=== PATIENT | male | born 1965 | race Caucasian/White ===

== ENCOUNTER 2017-05-13 19:26 | Inpatient (IN) | payer BC, OTHER ==
[~2017-05-13] VITALS: Ht 172.7 cm; Wt 105.8 kg
[2017-05-13] MEDS ORDERED: SOD CHLORIDE 0.9% 500 ML IV STA (20:11)
[2017-05-13 20:32] LABS: ADD SCAN DIFF NO
[2017-05-13 20:34] LABS: ABNORMAL IP MESSAGE 1; HEMATOCRIT 12.8 % (42.0-52.0); MEAN CORPUSCULAR HEMOGLOBIN 38.9 pg (29.0-33.0); MEAN CORPUSCULAR HGB CONC 32.8 g/dl (32.0-37.0); MEAN CORPUSCULAR VOLUME 118.5 fl (82.0-101.0); MEAN PLATELET VOLUME 9.8 fl (7.4-10.4); PLATELET COUNT 106 10^3/UL (140-415); RED BLOOD COUNT 1.08 10^6/ul (4.70-6.10); RED CELL DISTRIBUTION WIDTH 19.8 % (11.5-14.5)
[2017-05-13 20:43] LABS: HEMOGLOBIN 4.2 g/dl (14.0-18.0)
[2017-05-13] MEDS ORDERED: OCTREOTIDE 500 MCG in SOD CHLORIDE 0.9% 49 ML IV STA (20:45)
[2017-05-13] MEDS ORDERED: OCTREOTIDE 50 MCG in SOD CHLORIDE 0.9% 25 ML IVPB STA (20:45)
[2017-05-13] MEDS ORDERED: PANTOPRAZOLE IV 80 MG in SOD CHLORIDE 0.9% 100 ML IVPB STA (20:45)
[2017-05-13] MEDS ORDERED: CEFTRIAXONE 1 GM/50 ML (PMX) 50 ML IVPB STA (20:45)
[2017-05-13 20:50] LABS: PROTIME 62.3 Sec (12.2-14.2); PT RATIO 4.9
[2017-05-13 20:51] LABS: PARTIAL THROMBOPLASTIN TIME 57.2 Sec (25.0-35.0)
--- NOTE | 2017-05-13 20:53 | RADRPT ---
PROCEDURE: CT Brain without contrast. CLINICAL INDICATION: Altered Mental Status TECHNIQUE: A CT of the brain was performed on a multidetector CT scanner utilizing axial imaging f rom the skull base through the vertex without IV contrast. Multiplanar reformatted images were made . Images were reviewed on a PACS workstation. The CTDIvol is 42 mGy and the DLP is 720 mGycm. COMPARISON: None FINDINGS: There is no intracranial hemorrhage, mass effect, or midline shift. No extra-axial fluid collection is seen. The ventricles and sulci are normal in size and configuration. The density of the brain is normal, and the alex white matter differentiation appears well-preserved. The visualized paranasal sinuses and osseous structures are grossly unremarkable. IMPRESSION: 1. No evidence of acute intracranial pathology. 2. The brain is normal in appearance. .Raji Dickerson MD, MD Date Time Electronically viewed and signed by .Raji Dickerson MD, on 05/13/2017 20:53 .A/
[2017-05-13 20:54] LABS: ALANINE AMINOTRANSFERASE 51 IU/L (13-69); ALBUMIN 2.8 g/dl (3.3-4.9); ALBUMIN/GLOBULIN RATIO 0.75; ALKALINE PHOSPHATASE 106 IU/L (42-121); ANION GAP 14 (8-16); ASPARTATE AMINO TRANSFERASE 114 IU/L (15-46); BILIRUBIN,INDIRECT 9.3 mg/dl (0-1.1); BILIRUBIN,TOTAL 13.9 mg/dl (0.2-1.3); BLOOD UREA NITROGEN 62 mg/dl (7-20); CALCIUM 9.7 mg/dl (8.4-10.2); CARBON DIOXIDE 22 mmol/L (21-31); CHLORIDE 102 mmol/L (97-110); CREATINE KINASE 647 IU/L (23-200); CREATININE 2.52 mg/dl (0.61-1.24); GLUCOSE 97 mg/dl (70-220); POTASSIUM 4.2 mmol/L (3.5-5.1); SODIUM 134 mmol/L (135-144); TOTAL PROTEIN 6.5 g/dl (6.1-8.1)
[2017-05-13 20:57] LABS: ACETAMINOPHEN < 10.0 ug/ml (10.0-30.0); ETHANOL < 10.0 mg/dl; SALICYLATE < 1.0 mg/dl (5.0-30.0)
--- NOTE | 2017-05-13 20:57 | RADRPT ---
PROCEDURE: CT Cervical Spine without contrast. CLINICAL INDICATION: Altered Mental Status pain. Trauma. TECHNIQUE: A CT of the cervical spine was performed on a multidetector CT scanner utilizing thin s ection axial images from the skull base through the thoracic inlet. Sagittal and coronal reformatte d images were made. The CTDIvol is 22 mGy and the DLP is 04 173 mGycm. COMPARISON: None FINDINGS: There is anatomic alignment spine with no step-off or prevertebral soft tissue swelling. Vertebral bodies have normal height. No fracture is visualized. There is mild degenerative narrowing of C5-C 6 with left-sided posterior ridging. The disk heights are maintained. There is compromise of the l eft neural foramen at C5-C6. Note disk herniation is seen and no other central or foraminal stenosi s is present. The pedicles and posterior elements appear normal. Noted is a left pleural effusion. IMPRESSION: No fracture or step-off. C5-C6 degenerative disk disease with left foraminal stenosis. Left pleural effusion. .Raji Dickerson MD, Date Time Electronically viewed and signed by .Raji Dickerson MD, on 05/13/2017 20:56 .A/
[2017-05-13] MEDS ORDERED: ATEN50TA PO (21:03)
[2017-05-13 21:04] LABS: TROPONIN-I 0.013 ng/ml (0.00-0.12)
[2017-05-13] MEDS ORDERED: FURO20TA3 PO (21:04)
[2017-05-13] MEDS ORDERED: ALPR0.5T6 PO (21:04)
--- NOTE | 2017-05-13 21:04 | RADRPT ---
PROCEDURE: XR Chest AP portable CLINICAL INDICATION: Altered mental status TECHNIQUE: An AP portable radiograph of the chest was submitted. COMPARISON: None. FINDINGS: The patient is rotated distorting the anatomy. Support Hardware: None Cardiovascular: The cardiovascular silhouette appears unremarkable. Lung Rojo: There is consolidation seen to the heart within the left lower lobe with air bronchogra ms. Pleural Spaces: The left costophrenic angle is obscured suspicious for a small left pleural fluid ac cumulation. No pneumothorax is evident. Osseous Structures: The osseous structures appear intact. Soft Tissues: The soft tissues appear generous. IMPRESSION: 1. Infiltrate/atelectasis seen to the heart within the left lower lobe along with suspicion of a sm all left pleural fluid accumulation. 2. Otherwise, unremarkable portable chest. Physician Sena Date Time Electronically viewed and signed by Physician Sena on 05/13/2017 21:03 /
[2017-05-13] MEDS ORDERED: OXYC-209 PO (21:05)
[2017-05-13] MEDS ORDERED: OXYC-536 PO (21:05)
[2017-05-13 21:10] LABS: CK-MB 3.77 ng/ml (0.0-2.4)
[2017-05-13 21:20] LABS: INR 7.07
[2017-05-13 21:39] LABS: T3 UPTAKE 64.8 % (23.5-40.5)
[2017-05-13 22:01] LABS: LYMPHOCYTES # 2.3 10^3/ul (0.8-2.9)
[2017-05-13 22:02] LABS: ANISOCYTOSIS 2+
[2017-05-13 22:03] LABS: HYPOCHROMASIA 2+
--- NOTE | 2017-05-13 22:26 | RADRPT ---
PROCEDURE: Right upper quadrant abdominal ultrasound. CLINICAL INDICATION: Abdominal pain, abnormal liver function tests TECHNIQUE: Taveras scale and color doppler ultrasound images of the right upper quadrant. COMPARISON: None FINDINGS: Pancreas: Not adequately visualized due to overlying bowel gas. Liver: Morphology: No definite evidence of contour nodularity. Liver appears incompletely visualized. Echogenicity: Increased echogenicity of the liver parenchyma suggestive of hepatic steatosis. Focal lesions: As areas of the liver which are well visualized there are no focal lesions seen. Main portal vein: Patent with hepatopetal flow. Biliary System: Gallbladder not identified. No intrahepatic biliary dilatation. Common bile duct not visualized by the sole filler. Kidneys: Right 12.2 cm in length. Right renal cortical thickness is preserved. Normal echogenicity. No hydronephrosis. No renal calculi. No focal lesions. No free fluid identified. Partially visualized right pleural effusion. IMPRESSION: Gallbladder, common bile duct, pancreas not adequately visualized. Incomplete visualization of the liver suggests hepatic steatosis. No definite dilated intrahepatic b ile ducts are seen. Partially visualized right pleural effusion. CT scan of the abdomen and pelvis can be performed for further evaluation. RPTAT: AADD .Baron Hobbs MD, Date Time Electronically viewed and signed by .Baron Hobbs MD, on 05/13/2017 22:26 .B/
[2017-05-13] MEDS ORDERED: ONDANSETRON 4 MG INJ IV PRN (22:30)
--- NOTE | 2017-05-13 22:43 | ERA ---
ER Documentation Chief Complaint Date/Time DATE: 05/13/17 TIME: 22:30 Chief Complaint ALOC, unknwn time. HPI 52-year-old male with unknown past medical history brought in by ambulance for altered mental status. Per EMS, he was found by his friends at home on the ground with empty pill bottles around him and alcohol bottles. Patient only selectively answers questions and he is very somnolent and confused. He does admit to drinking alcohol and having hypertension, but does not answer any other questions appropriately. ROS All systems reviewed and are negative except as per history of present illness. Medications Home Meds Reported Medications Oxycodone HCl/Acetaminophen (Percocet 10-325 mg Tablet) 1 Each Tablet, 1 EACH PO Q8H, TAB 05/13/17 Oxycodone Hcl* (Oxycontin*) 15 Mg Tab.sr.12h, 15 MG PO Q12, TAB 05/13/17 Furosemide* (Furosemide*) 20 Mg Tablet, 20 MG PO DAILY, #60 TAB 05/13/17 Alprazolam* (Alprazolam*) 0.5 Mg Tablet, 0.5 MG PO QHS Y for ANXIETY, TAB TAKE 1 OR 2 TAB NEEDED 05/13/17 Atenolol* (Atenolol*) 50 Mg Tablet, 50 MG PO DAILY, #30 TAB 05/13/17 Allergies Allergies: Coded Allergies: No Known Allergy (Unverified , 05/13/17) PMhx/Soc Unable to obtain Hx Alcohol Use: Yes FmHx Family History: other (Unable to obtain) Physical Exam Vitals Vital Signs Date Time Temp Pulse Resp B/P Pulse Ox O2 Delivery O2 Flow Rate FiO2 05/13/17 19:36 97.9 79 18 121/61 91 05/13/17 19:36 Nasal Cannula 4 Physical Exam Const: Jaundiced, ill-appearing, somnolent but arousable, Head: Atraumatic Eyes: Scleral icterus, Diane ENT: Dry oral pharyngeal mucosa with dried blood in oropharynx, poor dentition Neck: Full range of motion. No JVD. No meningismus. Resp: Breath sounds bilaterally, however poor respiratory effort Cardio: Regular rate and rhythm, systolic murmur present Abd: Soft, right-sided mild abdominal tenderness to palpation without rebound or guarding, mildly distended. Normal bowel sounds Skin: Jaundiced, ecchymoses noted Back: No midline or flank tenderness Ext: Bilateral lower extremity 1+ edema Neur: Somnolent, arousable, slurred speech, slow speech, oriented to self only. Cranial nerves grossly intact. Does not know place, date. Not cooperative with neurologic exam Result Diagram: 05/13/17200905/13/172009 Results 24 hrs Laboratory Tests Test 05/13/17 20:10 White Blood Count 14.510^3/ul Red Blood Count 1.0810^6/ul Hemoglobin 4.2g/dl Hematocrit 12.8% Mean Corpuscular Volume 118.5fl Mean Corpuscular Hemoglobin 38.9pg Mean Corpuscular Hemoglobin Concent 32.8g/dl Red Cell Distribution Width 19.8% Platelet Count 10348^3/UL Mean Platelet Volume 9.8fl Neutrophils % 76.0% Lymphocytes % 16.0% Monocytes % 7.0% Metamyelocytes % 1.0% Neutrophils # 11.010^3/ul Lymphocytes # 2.310^3/ul Monocytes # 1.010^3/ul Metamyelocytes # 0.1 Hypochromasia 2+ Anisocytosis 2+ Macrocytosis 2+ Prothrombin Time 62.3Sec Prothrombin Time Ratio 4.9 INR International Normalized Ratio 7.07 Activated Partial Thromboplast Time 57.2Sec Sodium Level 134mmol/L Potassium Level 4.2mmol/L Chloride Level 102mmol/L Carbon Dioxide Level 22mmol/L Anion Gap 14 Blood Urea Nitrogen 62mg/dl Creatinine 2.52mg/dl Glucose Level 97mg/dl Calcium Level 9.7mg/dl Total Bilirubin 13.9mg/dl Direct Bilirubin 4.60mg/dl Indirect Bilirubin 9.3mg/dl Aspartate Amino Transf (AST/SGOT) 114IU/L Alanine Aminotransferase (ALT/SGPT) 51IU/L Alkaline Phosphatase 106IU/L Ammonia < 9umol/l Creatine Kinase 647IU/L Creatine Kinase Index 0.6 Creatinine Kinase MB (Mass) 3.77ng/ml Troponin I 0.013ng/ml Total Protein 6.5g/dl Albumin 2.8g/dl Globulin 3.70g/dl Albumin/Globulin Ratio 0.75 Free Thyroxine Index 2.40ug/ml Thyroxine (T4) 3.7ug/dl Triiodothyronine (T3) Uptake 64.8% Salicylates Level < 1.0mg/dl Acetaminophen Level < 10.0ug/ml Ethyl Alcohol Level < 10.0mg/dl Current Medications Medications (Trade) Dose Ordered Sig/Victorino Route PRN Reason Start Time Stop Time Status Last Admin Dose Admin Sodium Chloride 500 ml @ 500 mls/hr Q1H STAT IV 05/13/17 20:11 05/13/17 21:10 DC 05/13/17 22:23 Pantoprazole 80 mg/Sodium Chloride 100 ml @ 400 mls/hr ONCE STAT IVPB 05/13/17 20:45 05/13/17 20:59 DC Octreotide Acetate 50 mcg/ Sodium Chloride 26 ml @ 100 mls/hr Q16M STAT IVPB 05/13/17 20:45 05/13/17 21:00 DC 05/13/17 23:20 Octreotide Acetate 500 mcg/ Sodium Chloride 50 ml @ 5 mls/hr ONCE STAT IV 05/13/17 20:45 05/14/17 06:44 05/13/17 23:53 Ceftriaxone Sodium (Rocephin) 50 ml @ 100 mls/hr ONCE STAT IVPB 05/13/17 20:45 05/13/17 21:14 DC Ondansetron HCl (Zofran Inj) 4 mg ER BRIDGE PRN IV NAUSEA AND/OR VOMITING 05/13/17 22:30 05/14/17 22:29 Procedures/MDM EKG: Rate/Rhythm: Normal Sinus Rhythm QRS, ST, T-waves: Prolonged QTC 545 , no changes consistent w/ acute ischemia Impression: No evidence of ischemia or arrhythmia . Labs: CBC shows leukocytosis, thrombocytopenia, severe anemia CMP shows hyponatremia, elevated BUN and creatinine, transaminitis, elevated bilirubin Troponin within normal limits CK is elevated INR is elevated CT head: IMPRESSION: 1. No evidence of acute intracranial pathology. 2. The brain is normal in appearance. .Raji Dickerson MD, MD Date Time Electronically viewed and signed by .Raji Dickerson MD, on 05/13/2017 20: 53 CT C-spine: No acute abnormalities Chest x-ray: Left pleural effusion [facility] Patient was brought in with severe jaundice and altered mental status. Vitals were notable for mild hypoxia on room air. Patient appears to be in liver failure. Labs confirmed this. He also seems to have some mild rhabdomyolysis and renal failure. On exam it seems like he may have an upper GI bleed although he has had no hematemesis here. Given his severe anemia, I do suspect GI bleed. Given his liver failure, I suspect a variceal bleed. Protonix 80 mg IV bolus was given. 4 units of blood were ordered and 2 units were transfused in the ED. Octreotide bolus and infusion were ordered. Patient stated that he did not want a blood transfusion, however the patient is very confused and I do not think he has decision-making capacity at this time. He has no reachable family members. Per his friend, there is a sister in [place] that they have been trying to contact with no success. At this time I think it is in the patient's best interest to receive a blood transfusion given his critically low hemoglobin. Ultrasound of the liver was done and did not show any significant abnormalities. Patient will be admitted to the hospitalist for further workup and management of his acute problems. Critical Care Time:50 minutes Treatments/Evaluations: Close monitoring and treatment of unstable vital signs, cardiorespiratory, and neurologic status, while maintaining tight balance of fluid, respiratory, and cardiac interventions. This time includes discussing the case with the patient and the patients family. This time does not include all procedures stated elsewhere in this record. This time also includes reviewing old records, labs and radiological studies. This time includes examining and re-examining the patient. Additionally, this time also includes arranging care with admitting and consulting physicians. Departure Diagnosis: Primary Impression: Altered level of consciousness Additional Impressions: Severe anemia Upper GI bleed Renal failure Liver failure Qualified Code: K72.90 - Liver failure without hepatic coma, unspecified chronicity Rhabdomyolysis Qualified Code: T79.6XXA - Traumatic rhabdomyolysis, initial encounter Condition: Critical KACY GOMES MD May 13, 2017 22:41
[2017-05-14] VITALS (11 sets, daily range): BP systolic 112–141; BP diastolic 57–76; PULSE 68–109; RESP 16–22; TEMP 97.6; BMI 35.6
[2017-05-14] MEDS ORDERED: SOD CHLORIDE 0.9% 1,000 ML IV ONE (00:08)
[2017-05-14] MEDS ORDERED: ONDANSETRON 4 MG INJ IV PRN (00:30)
[2017-05-14] MEDS: MULTIVITAMINS 10 ML, THIAMINE 100 MG, FOLIC ACID 1 MG in SOD CHLORIDE 0.9% 1,000 ML IVPB SCH ×2 (00:30→11:38)
[2017-05-14 01:23] LABS: ADD UMIC NO; UR BILIRUBIN (Dip) 1+ (NEGATIVE); UR BLOOD (Dip) NEGATIVE (NEGATIVE); UR CLARITY CLEAR (CLEAR); UR COLOR DK. YELLOW (YELLOW); UR GLUCOSE (Dip) NEGATIVE (NEGATIVE); UR KETONES (Dip) NEGATIVE (NEGATIVE); UR LEUKOCYTE ESTERASE (Dip) NEGATIVE (NEGATIVE); UR NITRITE (Dip) NEGATIVE (NEGATIVE); UR TOTAL PROTEIN (Dip) NEGATIVE (NEGATIVE); UR UROBILINOGEN (Dip) 2.0 E.U./dL (0.1-1.0)
[2017-05-14 01:31] LABS: ICTOTEST POSITIVE (NEGATIVE)
[2017-05-14 02:10] LABS: BARBITURATES NEGATIVE (NEGATIVE); BENZODIAZEPINES POSITIVE (NEGATIVE); CANNABINOIDS NEGATIVE (NEGATIVE); COCAINE NEGATIVE (NEGATIVE); OPIATES NEGATIVE (NEGATIVE)
[2017-05-14 04:04] LABS: ADD SCAN DIFF NO; HAAIG REFLEX REFLEX FILED
[2017-05-14 04:09] LABS: ABNORMAL IP MESSAGE 1; BASOPHILS % 0.1 % (0.0-2.0); EOSINOPHILS # 0.1 10^3/ul (0.0-0.5); EOSINOPHILS % 0.5 % (0.0-7.0); HEMATOCRIT 17.2 % (42.0-52.0); LYMPHOCYTES # 1.3 10^3/ul (0.8-2.9); LYMPHOCYTES % 10.5 % (15.0-51.0); MEAN CORPUSCULAR HEMOGLOBIN 35.2 pg (29.0-33.0); MEAN CORPUSCULAR HGB CONC 33.7 g/dl (32.0-37.0); MEAN CORPUSCULAR VOLUME 104.2 fl (82.0-101.0); MEAN PLATELET VOLUME 9.9 fl (7.4-10.4); MONOCYTE # 1.5 10^3/ul (0.3-0.9); MONOCYTES % 12.5 % (0.0-11.0); NEUTROPHIL # 9.1 10^3/ul (1.6-7.5); NEUTROPHILS % 74.4 % (39.0-77.0); NUCLEATED RED BLOOD CELLS # 0.1 10^3/ul (0.0-0.0); NUCLEATED RED BLOOD CELLS% 1.1 /100WBC (0.0-0.0); PLATELET COUNT 93 10^3/UL (140-415); RED BLOOD COUNT 1.65 10^6/ul (4.70-6.10); RED CELL DISTRIBUTION WIDTH 24.9 % (11.5-14.5); WHITE BLOOD COUNT 12.2 10^3/ul (4.8-10.8)
[2017-05-14 04:28] LABS: HEMOGLOBIN 5.8 g/dl (14.0-18.0)
[2017-05-14 04:48] LABS: ALANINE AMINOTRANSFERASE 50 IU/L (13-69); ALBUMIN 2.8 g/dl (3.3-4.9); ALBUMIN/GLOBULIN RATIO 0.73; ALKALINE PHOSPHATASE 106 IU/L (42-121); ANION GAP 13 (8-16); ASPARTATE AMINO TRANSFERASE 118 IU/L (15-46); BILIRUBIN,INDIRECT 9.4 mg/dl (0-1.1); BILIRUBIN,TOTAL 14.3 mg/dl (0.2-1.3); BLOOD UREA NITROGEN 62 mg/dl (7-20); CALCIUM 9.6 mg/dl (8.4-10.2); CARBON DIOXIDE 24 mmol/L (21-31); CHLORIDE 104 mmol/L (97-110); CREATININE 2.15 mg/dl (0.61-1.24); GLUCOSE 99 mg/dl (70-220); POTASSIUM 4.5 mmol/L (3.5-5.1); SODIUM 136 mmol/L (135-144); TOTAL PROTEIN 6.6 g/dl (6.1-8.1)
[2017-05-14 04:52] LABS: IRON 65 ug/dl (35-150)
[2017-05-14 05:01] LABS: TOTAL IRON BINDING CAPACITY 171 ug/dl (241-421)
--- NOTE | 2017-05-14 05:59 | HP ---
Date/Time of Note Date/Time of Note DATE: 05/14/17 TIME: 05:57 Assessment/Plan VTE Prophylaxis VTE Prophylaxis Intervention: SCD's Lines/Catheters IV [facility]ine [facility] Urinary Cath still in place: Yes (clinical condiiton) Reason Cath still needed: other (indicate) (clincial condition) Assessment/Plan Chief Complaint/Hosp Course This is a 52-year-old male being admitted to the telemetry floor for: #1 altered mental status: Likely appears to be multifactorial secondary to symptomatic anemia, possible alcohol/drug abuse, possible hepatic encephalopathy. At the current time patient will be receiving 4 units PRBC, urine drug screen and alcohol level will be ordered patient will put on banana bag IV and vitamin B12 and folic acid will be ordered, patient's ammonia level though is less than 9 however patient does appear confused and jaundiced I will start him on lactulose at this time we will also repeat an ammonia level in the morning. #2 Symptomatic anemia: The etiology of this is not known at this time however patient apparently when he did come in the ED initially was noted to have possible blood in his mouth, my examination I do not notice any blood. There is concern for possible variceal bleeding. At this time will transfuse 4 units of PRBC. Put patient on a octreotide drip secondary to possible variceal bleed. Will obtain a GI consult for further evaluation. #4 hyperbilirubinemia: This likely to be secondary to underlying liver failure secondary to possible cirrhosis versus hemolysis: Ultrasound of the liver was ordered which did not show any signs of any cirrhosis however there was incomplete visualization, so an abdominal and pelvic CAT scan was recommended. Will order CT of the abdomen and pelvis. Also obtain hemolysis labs. #5 Elevated LFTs: Patient has mild elevated AST, will order hepatitis labs secondary to patient's clinical presentation with scleral icterus and volume overload. Will order CAT scan of the abdomen pelvis. #6 painless jaundice: At this time based on patient's clinical presentation it does appear the patient may have underlying alcoholic liver disease. Will order further workup along with labs for hepatitis and tumor markers. Will put patient on Lasix 40 mg IV twice daily. Also put patient on lactulose. Will recheck an ammonia level in the a.m. Consult GI #7 acute kidney injury. Creatinine of 2.5 with there are no previous records available at this time. We will order urine osmoles and fractional excretion of sodium. Will get a consultation from nephrology. This possibly could be prerenal etiology however in the setting of patient's possible liver disease this could be hepatorenal syndrome. #8 possible alcohol abuse: We will be awaiting ethanol levels. Blood regards to patient's clinical presentation it does appear the patient to be a heavy alcohol abuser. Will put patient on banana bag daily and Ativan as needed for anxiety also will order a vitamin B12 and folate level. Patient also has underlying cardiomegaly was likely to be related to alcohol use will get a cardiology consult. An echocardiogram. #9 macrocytic anemia: We will order vitamin B12 and folic acid level. #10 Elevated INR: INR of 7, patient was noted to have possible bleeding in the ED. The current time will give patient vitamin K 10 mg IM. Continue to monitor INR #11 Leukocytosis: Patient does not have any fevers. Chest x-ray did show possible lung infiltrate. Will start patient on Levaquin at this time possible pneumonia #12 possible pneumonia: Chest x-ray does show lung infiltrate. Will put patient on ceftriaxone 1 g at this time. Further medications will be included based on clinical scenario at the current time I would like to avoid any fluoroquinolones and macrolides secondary to patient's prolonged QT. #13: Prolonged QT: Secondary likely to underlying electrolyte abnormalities. We will continue to monitor this. Will get a cardiology consult. #14 DVT and GI prophylaxis: Patient currently will be on SCDs, Protonix Further treatment strategy will be implemented as per the clinical course. Problems: HPI/ROS Admit Date/Time Admit Date/Time May 13, 2017 at 22:29 Hx of Present Illness Chief complaint: Altered mental status 52-year-old male with unknown past medical history brought in by ambulance for altered mental status. Per EMS, he was found by his friends at home on the ground with empty pill bottles around him and alcohol bottles. Patient only selectively answers questions and he is very somnolent and confused. He does admit to drinking alcohol and having hypertension, but does not answer any other questions appropriately as per the ED physician. Upon my examination patient was easily arousable however patient did appear confused and not able to answer questions appropriately. Allergies: NKDA Medications: See ZAKI RICE Subjective hx not possible: other (Unable to assess secondary to patient's somnolence, confusion) PMH/Family/Social Past Medical History Unable to provide secondary to patient's clinical condition Past Surgical History Unable to provide secondary to patient's clinical condition Family History Significant Family History: no pertinent family hx Social History Unable to provide secondary to patient's clinical condition Smoking Status: Unknown if ever smoked Exam/Review of Systems Vital Signs Vitals Vital Signs Date Time Temp Pulse Resp B/P Pulse Ox O2 Delivery O2 Flow Rate FiO2 05/14/17 05:40 Nasal Cannula 3.0 05/14/17 04:22 68 05/14/17 03:59 97.8 22 138/76 99 Exam Exam General: Patient is somnolent, easily arousable, in no acute distress. HEENT: Scleral icterus, poor dentition which appears possibly to be meth mouth Neck: Supple with full range of motion. Chest: Nontender Lungs: Clear to auscultation bilaterally no crackles rales or wheezing Heart: Normal S1-S2, Regular rhythm and rate. Abdomen: Soft , nontender, nondistended , bowel sounds are present. No guarding no rebound tenderness , Extremities: 1+ pitting edema bilaterally of lower extremities Neurologic: Oriented 1 to person, somnolent but easily arousable, unable to provide a full neurological exam secondary to his clinical status Additional Comments EKG: Rate/Rhythm: Normal Sinus Rhythm QRS, ST, T-waves: Prolonged QTC 545 , no changes consistent w/ acute ischemia As per ED physician documentation PROCEDURE: CT Brain without contrast. CLINICAL INDICATION: Altered Mental Status TECHNIQUE: A CT of the brain was performed on a multidetector CT scanner utilizing axial imaging from the skull base through the vertex without IV contrast. Multiplanar reformatted images were made. Images were reviewed on a PACS workstation. The CTDIvol is 42 mGy and the DLP is 720 mGycm. COMPARISON: None FINDINGS: There is no intracranial hemorrhage, mass effect, or midline shift. No extra- axial fluid collection is seen. The ventricles and sulci are normal in size and configuration. The density of the brain is normal, and the taveras white matter differentiation appears well-preserved. The visualized paranasal sinuses and osseous structures are grossly unremarkable. IMPRESSION: 1. No evidence of acute intracranial pathology. 2. The brain is normal in appearance. .Raji Dickerson MD, MD Date Time Electronically viewed and signed by .Raji Dickerson MD, MD on 05/13/2017 20: 53 PROCEDURE: CT Cervical Spine without contrast. CLINICAL INDICATION: Altered Mental Status pain. Trauma. TECHNIQUE: A CT of the cervical spine was performed on a multidetector CT scanner utilizing thin section axial images from the skull base through the thoracic inlet. Sagittal and coronal reformatted images were made. The CTDIvol is 22 mGy and the DLP is 04 173 mGycm. COMPARISON: None FINDINGS: There is anatomic alignment spine with no step-off or prevertebral soft tissue swelling. Vertebral bodies have normal height. No fracture is visualized. There is mild degenerative narrowing of C5-C6 with left-sided posterior ridging. The disk heights are maintained. There is compromise of the left neural foramen at C5-C6. Note disk herniation is seen and no other central or foraminal stenosis is present. The pedicles and posterior elements appear normal. Noted is a left pleural effusion. IMPRESSION: No fracture or step-off. C5-C6 degenerative disk disease with left foraminal stenosis. Left pleural effusion. PROCEDURE: XR Chest AP portable CLINICAL INDICATION: Altered mental status TECHNIQUE: An AP portable radiograph of the chest was submitted. COMPARISON: None. FINDINGS: The patient is rotated distorting the anatomy. Support Hardware: None Cardiovascular: The cardiovascular silhouette appears unremarkable. Lung Rojo: There is consolidation seen to the heart within the left lower lobe with air bronchograms. Pleural Spaces: The left costophrenic angle is obscured suspicious for a small left pleural fluid accumulation. No pneumothorax is evident. Osseous Structures: The osseous structures appear intact. Soft Tissues: The soft tissues appear generous. IMPRESSION: 1. Infiltrate/atelectasis seen to the heart within the left lower lobe along with suspicion of a small left pleural fluid accumulation. 2. Otherwise, unremarkable portable chest. Physician Sena Date Time Electronically viewed and signed by Physician Sena on 05/13/2017 21:03 PROCEDURE: Right upper quadrant abdominal ultrasound. CLINICAL INDICATION: Abdominal pain, abnormal liver function tests TECHNIQUE: Taveras scale and color doppler ultrasound images of the right upper quadrant. COMPARISON: None FINDINGS: Pancreas: Not adequately visualized due to overlying bowel gas. Liver: Morphology: No definite evidence of contour nodularity. Liver appears incompletely visualized. Echogenicity: Increased echogenicity of the liver parenchyma suggestive of hepatic steatosis. Focal lesions: As areas of the liver which are well visualized there are no focal lesions seen. Main portal vein: Patent with hepatopetal flow. Biliary System: Gallbladder not identified. No intrahepatic biliary dilatation. Common bile duct not visualized by the manufactured buildings repairer. Kidneys: Right 12.2 cm in length. Right renal cortical thickness is preserved. Normal echogenicity. No hydronephrosis. No renal calculi. No focal lesions. No free fluid identified. Partially visualized right pleural effusion. IMPRESSION: Gallbladder, common bile duct, pancreas not adequately visualized. Incomplete visualization of the liver suggests hepatic steatosis. No definite dilated intrahepatic bile ducts are seen. Partially visualized right pleural effusion. CT scan of the abdomen and pelvis can be performed for further evaluation. RPTAT: AADD .Baron Hobbs MD, MD Date Time Electronically viewed and signed by .Baron Hobbs MD, MD on 05/13/2017 22:26 Labs Result Diagram: 05/14/17 0400 05/13/172009 Medications Medications Current Medications Ondansetron HCl 4 mg 4 mg Q6H PRN IV NAUSEA AND/OR VOMITING; Start 05/14/17 at 00:30 Multivitamins/ Thiamine HCl/ Folic Acid/Sodium Chloride (Mvi Adult/ Vitamin B1/ Folic Acid/NS) 1,011.2 ml @ 125 mls/ hr DAILY@09 IVPB ; Start 05/14/17 at 00:30 Lorazepam (Ativan) 1 mg Q6H PRN IM AGITATION/ANXIETY; Start 05/14/17 at 00:30 MICHELLE CRAFT May 14, 2017 05:59
[2017-05-14] MEDS ORDERED: PHYTONADIONE 10 MG/ML INJ IM ONE (06:30)
[2017-05-14] MEDS: morphine 2 MG INJ IV PRN ×2 (11:56→20:56)
[2017-05-14 13:50] LABS: RETICULOCYTE COUNT % 8.9 % (0.5-1.5)
[2017-05-14 14:07] LABS: WHITE BLOOD COUNT 14.5 10^3/ul (4.8-10.8)
--- NOTE | 2017-05-14 14:32 | CONS ---
Date/Time of Note Date/Time of Note DATE: 05/14/17 TIME: 14:27 Assessment/Plan Assessment/Plan Additional Assessment/Plan Severe anemia Liver failure Encephalopathy Thrombocytopenia History of hypertension Acute kidney injury Abnormal ECG -Patient with QT prolongation noted on ECG. Would repeat ECG. Check echocardiogram. Continue on telemetry monitoring. Would hold any QT prolonging agents including Zofran. Consultation Date/Type/Reason Admit Date/Time May 13, 2017 at 22:29 Type of Consultation: cv Reason for Consultation Abnormal ECG Hx of Present Illness This is a 52-year-old male who is brought in by ambulance secondary to altered mental status. History was obtained from the medical chart. Patient was found by friends altered on the floor with empty pill bottle. For that reason he was brought to the hospital for further evaluation and care. Patient currently awake but becomes confused at times. He denies any chest pain, shortness of breath, palpitations or dizziness. Denies any cardiac history. He states he does drink but cannot quantify how much. He denies any drug use. Unable to be performed at the current time given patient's current mental status Past Medical History Medical History: hypertension Past Surgical History Unknown Family History Significant Family History: no pertinent family hx Social History Admits to alcohol use Smoking Status: Unknown if ever smoked Exam/Review of Systems Vital Signs Vitals Vital Signs Date Time Temp Pulse Resp B/P Pulse Ox O2 Delivery O2 Flow Rate FiO2 05/14/17 12:23 70 05/14/17 12:01 97.8 19 141/63 97 Nasal Cannula 4.0 Intake and Output 05/13/17 05/13/17 05/14/17 15:00 23:00 07:00 Intake Total 300 ml Output Total 700 ml Balance -400 ml Exam Awake, clearly jaundice, follows commands, confused at times Head: normocephalic Respiratory: other (Coarse breath sounds bilaterally, no wheezing) Cardiovascular: other (S1-S2 heard), regular rate and rhythm Gastrointestinal: bowel sounds, distended, non-tender, soft Extremities: edema Skin: other (Jaundice) Results Result Diagram: 05/14/17 0400 05/14/17 0400 Results 24 hrs Laboratory Tests Test 05/13/17 20:10 05/13/17 22:08 05/14/17 04:00 05/14/17 05:23 White Blood Count 14.5 H 12.2 H Red Blood Count 1.08 L 1.65 #L Hemoglobin 4.2 *L 5.8 #*L Hematocrit 12.8 L 17.2 #L Mean Corpuscular Volume 118.5 H 104.2 H Mean Corpuscular Hemoglobin 38.9 H 35.2 H Mean Corpuscular Hemoglobin Concent 32.8 33.7 Red Cell Distribution Width 19.8 H 24.9 #H Platelet Count 106 L 93 L Mean Platelet Volume 9.8 9.9 Neutrophils % 76.0 74.4 Lymphocytes % 16.0 10.5 L Monocytes % 7.0 12.5 H Metamyelocytes % 1.0 H Neutrophils # 11.0 H 9.1 H Lymphocytes # 2.3 1.3 Monocytes # 1.0 H 1.5 H Metamyelocytes # 0.1 Hypochromasia 2+ Anisocytosis 2+ Macrocytosis 2+ Prothrombin Time 62.3 H Prothrombin Time Ratio 4.9 INR International Normalized Ratio 7.07 *H Activated Partial Thromboplast Time 57.2 H Sodium Level 134 L 136 Potassium Level 4.2 4.5 Chloride Level 102 104 Carbon Dioxide Level 22 24 Anion Gap 14 13 Blood Urea Nitrogen 62 H 62 H Creatinine 2.52 H 2.15 H Glucose Level 97 99 Calcium Level 9.7 9.6 Total Bilirubin 13.9 H 14.3 H Direct Bilirubin 4.60 H 4.90 H Indirect Bilirubin 9.3 H 9.4 H Aspartate Amino Transf (AST/SGOT) 114 H 118 H Alanine Aminotransferase (ALT/SGPT) 51 50 Alkaline Phosphatase 106 106 Ammonia < 9 L 19 Creatine Kinase 647 H Creatine Kinase Index 0.6 Creatinine Kinase MB (Mass) 3.77 H Troponin I 0.013 Total Protein 6.5 6.6 Albumin 2.8 L 2.8 L Globulin 3.70 H 3.80 H Albumin/Globulin Ratio 0.75 0.73 Free Thyroxine Index 2.40 Thyroxine (T4) 3.7 L Triiodothyronine (T3) Uptake 64.8 H Salicylates Level < 1.0 L Acetaminophen Level < 10.0 L Ethyl Alcohol Level < 10.0 Urine Color DK. YELLOW Urine Clarity CLEAR Urine pH 5.5 Urine Specific [place] 1.010 Urine Ketones NEGATIVE Urine Nitrite NEGATIVE Urine Bilirubin 1+ H Urine Ictotest POSITIVE Urine Urobilinogen 2.0 E.U./dL H Urine Leukocyte Esterase NEGATIVE Urine Hemoglobin NEGATIVE Urine Glucose NEGATIVE Urine Total Protein NEGATIVE Urine Opiates Screen NEGATIVE Urine Barbiturates NEGATIVE Urine Amphetamines Screen NEGATIVE Urine Benzodiazepines Screen POSITIVE Urine Cocaine Screen NEGATIVE Urine Cannabinoids NEGATIVE Eosinophils % 0.5 Basophils % 0.1 Nucleated Red Blood Cells % 1.1 H Eosinophils # 0.1 Basophils # 0.0 Nucleated Red Blood Cells # 0.1 H Hemoglobin A1c 4.7 Iron Level 65 Total Iron Binding Capacity 171 L Percent Iron Saturation 38 Alpha Fetoprotein 2.42 Vitamin B12 Level Pending Folate Pending Hepatitis A Antibody Total Pending Hepatitis B Surface Antigen Pending Hepatitis B Core Total Antibody Pending Hepatitis C Antibody Pending Lab Scanned Report BLOOD TRANSFUSION Test 05/14/17 13:31 Absolute Reticulocyte Count 0.197 H Percent Reticulocyte Count 8.9 H Lactate Dehydrogenase 923 H Medications Medications Current Medications Ondansetron HCl 4 mg 4 mg Q6H PRN IV NAUSEA AND/OR VOMITING; Start 05/14/17 at 00:30 Multivitamins/ Thiamine HCl/ Folic Acid/Sodium Chloride (Mvi Adult/ Vitamin B1/ Folic Acid/NS) 1,011.2 ml @ 125 mls/ hr DAILY@09 IVPB Last administered on 11:38; Admin Dose 125 MLS/HR; Start 05/14/17 at 00:30 Lorazepam 1 mg 1 mg Q6H PRN IM AGITATION/ANXIETY; Start 05/14/17 at 00:30 Ceftriaxone Sodium (Rocephin) 50 ml @ 100 mls/hr Q24H IVPB ; Start 05/15/17 at 01:30 Morphine Sulfate (morphine) 2 mg Q4H PRN IV Pain Last administered on 11:56; Admin Dose 2 MG; Start 05/14/17 at 12:00 Procedures Procedures ECG demonstrates sinus rhythm at 77 bpm, QRS 108 ms, QT 42 ms, QTC 554 ms, nonspecific ST-T wave abnormalities Fox Marrufo DO May 14, 2017 14:32
--- NOTE | 2017-05-14 15:16 | RADRPT ---
PROCEDURE: Renal US. CLINICAL INDICATION: Acute kidney injury. TECHNIQUE: Multiple sonographic images of the kidneys and urinary bladder were obtained. The imag es were reviewed on a PACS workstation. COMPARISON: No prior studies are available for comparison. FINDINGS: The right kidney measures 10.7 cm. The left kidney measures 11.4 cm. There is no renal mass. There is no hydronephrosis. There is no renal calculus. Renal parenchymal thickness is normal bilaterally. Echogenicity is normal bilaterally. The perirenal regions are normal with no fluid collection or mass. There is a Fuentes catheter in the urinary bladder. IMPRESSION: 1. Normal kidneys with no hydronephrosis. 2. Fuentes catheter in the bladder. RPTAT: QQ .Zbigniew Pedro MD, Date Time Electronically viewed and signed by .Zbigniew Pedro MD, on 05/14/2017 15:16 .R/
--- NOTE | 2017-05-14 16:21 | CONS ---
Date/Time of Note Date/Time of Note DATE: 05/14/17 TIME: 16:01 Assessment/Plan Assessment/Plan Additional Assessment/Plan Assessment * Anemia Upper GI bleed r/o esophageal varices vs peptic ulcer disease vs other * Transaminitis * Encephalopathy * History of alcoholic abuse Plan * EGD possibly today * Monitor hemoglobin and hematocrit Q 6 transfuse 1 unit PRBC hgb <7.5,2 unit PRBC hgb <7 * continue Protonix drip and octreotide drip * Continue present management Consultation Date/Type/Reason Admit Date/Time May 13, 2017 at 22:29 Date of Consultation: May 14, 2017 Type of Consultation: Gastroenterology Reason for Consultation anemia/transaminitis Referring Provider: MICHELLE CRAFT of Present Illness 52 year old was brought by ambulance because of altered mental status.Patient was apparently found by his friends lying on the floor with bottles of alcohol around him.Past medical history is unknown. Emergency course ,anemic hemoglobin of 4,transaminitis total bilirubin 13.9 , AST 114,ALT 51,alkaline phosphatase 106 ,pt 62.[address] brain . No evidence of acute intracranial pathology. The brain is normal in appearance.A total of 4 units of PRBC was given. Patient is arousable and answers simple question and selective in his answers Past Medical History Medical History: hypertension Social History Smoking Status: Unknown if ever smoked Exam/Review of Systems Vital Signs Vitals Vital Signs Date Time Temp Pulse Resp B/P Pulse Ox O2 Delivery O2 Flow Rate FiO2 05/14/17 15:32 96.3 72 16 131/61 97 05/14/17 12:01 Nasal Cannula 4.0 Intake and Output 05/13/17 05/13/17 05/14/17 15:00 23:00 07:00 Intake Total 300 ml Output Total 700 ml Balance -400 ml Exam Constitutional: frail, other (arousable) Psych: confusion Head: atraumatic, normocephalic Neck: supple Respiratory: clear to auscultation, normal air movement Cardiovascular: nl pulses, regular rate and rhythm Gastrointestinal: bowel sounds, distended, non-tender, soft, No rebound or guarding Musculoskeletal: muscle weakness, swelling Extremities: normal pulses Neurological: lethargic Skin: nl turgor Lymph: nl lymph nodes Results Result Diagram: 05/14/17 0400 05/14/17 0400 Results 24 hrs Laboratory Tests Test 05/13/17 20:10 05/13/17 22:08 05/14/17 04:00 05/14/17 05:23 White Blood Count 14.5 H 12.2 H Red Blood Count 1.08 L 1.65 #L Hemoglobin 4.2 *L 5.8 #*L Hematocrit 12.8 L 17.2 #L Mean Corpuscular Volume 118.5 H 104.2 H Mean Corpuscular Hemoglobin 38.9 H 35.2 H Mean Corpuscular Hemoglobin Concent 32.8 33.7 Red Cell Distribution Width 19.8 H 24.9 #H Platelet Count 106 L 93 L Mean Platelet Volume 9.8 9.9 Neutrophils % 76.0 74.4 Lymphocytes % 16.0 10.5 L Monocytes % 7.0 12.5 H Metamyelocytes % 1.0 H Neutrophils # 11.0 H 9.1 H Lymphocytes # 2.3 1.3 Monocytes # 1.0 H 1.5 H Metamyelocytes # 0.1 Hypochromasia 2+ Anisocytosis 2+ Macrocytosis 2+ Prothrombin Time 62.3 H Prothrombin Time Ratio 4.9 INR International Normalized Ratio 7.07 *H Activated Partial Thromboplast Time 57.2 H Sodium Level 134 L 136 Potassium Level 4.2 4.5 Chloride Level 102 104 Carbon Dioxide Level 22 24 Anion Gap 14 13 Blood Urea Nitrogen 62 H 62 H Creatinine 2.52 H 2.15 H Glucose Level 97 99 Calcium Level 9.7 9.6 Total Bilirubin 13.9 H 14.3 H Direct Bilirubin 4.60 H 4.90 H Indirect Bilirubin 9.3 H 9.4 H Aspartate Amino Transf (AST/SGOT) 114 H 118 H Alanine Aminotransferase (ALT/SGPT) 51 50 Alkaline Phosphatase 106 106 Ammonia < 9 L 19 Creatine Kinase 647 H Creatine Kinase Index 0.6 Creatinine Kinase MB (Mass) 3.77 H Troponin I 0.013 Total Protein 6.5 6.6 Albumin 2.8 L 2.8 L Globulin 3.70 H 3.80 H Albumin/Globulin Ratio 0.75 0.73 Free Thyroxine Index 2.40 Thyroxine (T4) 3.7 L Triiodothyronine (T3) Uptake 64.8 H Salicylates Level < 1.0 L Acetaminophen Level < 10.0 L Ethyl Alcohol Level < 10.0 Urine Color DK. YELLOW Urine Clarity CLEAR Urine pH 5.5 Urine Specific [employer] 1.010 Urine Ketones NEGATIVE Urine Nitrite NEGATIVE Urine Bilirubin 1+ H Urine Ictotest POSITIVE Urine Urobilinogen 2.0 E.U./dL H Urine Leukocyte Esterase NEGATIVE Urine Hemoglobin NEGATIVE Urine Glucose NEGATIVE Urine Total Protein NEGATIVE Urine Opiates Screen NEGATIVE Urine Barbiturates NEGATIVE Urine Amphetamines Screen NEGATIVE Urine Benzodiazepines Screen POSITIVE Urine Cocaine Screen NEGATIVE Urine Cannabinoids NEGATIVE Eosinophils % 0.5 Basophils % 0.1 Nucleated Red Blood Cells % 1.1 H Eosinophils # 0.1 Basophils # 0.0 Nucleated Red Blood Cells # 0.1 H Hemoglobin A1c 4.7 Iron Level 65 Total Iron Binding Capacity 171 L Percent Iron Saturation 38 Alpha Fetoprotein 2.42 Vitamin B12 Level Pending Folate Pending Hepatitis A Antibody Total Pending Hepatitis B Surface Antigen Pending Hepatitis B Core Total Antibody Pending Hepatitis C Antibody Pending Lab Scanned Report BLOOD TRANSFUSION Test 05/14/17 13:31 Absolute Reticulocyte Count 0.197 H Percent Reticulocyte Count 8.9 H Lactate Dehydrogenase 923 H Medications Medications Current Medications Multivitamins/ Thiamine HCl/ Folic Acid/Sodium Chloride (Mvi Adult/ Vitamin B1/ Folic Acid/NS) 1,011.2 ml @ 125 mls/ hr DAILY@09 IVPB Last administered on 11:38; Admin Dose 125 MLS/HR; Start 05/14/17 at 00:30 Lorazepam 1 mg 1 mg Q6H PRN IM AGITATION/ANXIETY; Start 05/14/17 at 00:30 Ceftriaxone Sodium (Rocephin) 50 ml @ 100 mls/hr Q24H IVPB ; Start 05/15/17 at 01:30 Morphine Sulfate 2 mg 2 mg Q4H PRN IV Pain Last administered on 05/14/17 11:56 ; Admin Dose 2 MG; Start 05/14/17 at 12:00 Pantoprazole/ Sodium Chloride (Protonix Iv/NS) 100 ml @ 10 mls/hr Q10H IV ; Start 05/14/17 at 17:00 ANDRADE BENITEZ MD May 14, 2017 16:15
[2017-05-14 16:51] LABS: ADD SCAN DIFF NO
[2017-05-14 16:53] LABS: ABNORMAL IP MESSAGE 1; BASOPHILS % 0.1 % (0.0-2.0); EOSINOPHILS # 0.1 10^3/ul (0.0-0.5); EOSINOPHILS % 0.6 % (0.0-7.0); HEMATOCRIT 21.6 % (42.0-52.0); HEMOGLOBIN 7.1 g/dl (14.0-18.0); LYMPHOCYTES # 1.2 10^3/ul (0.8-2.9); LYMPHOCYTES % 10.9 % (15.0-51.0); MEAN CORPUSCULAR HEMOGLOBIN 33.2 pg (29.0-33.0); MEAN CORPUSCULAR HGB CONC 32.9 g/dl (32.0-37.0); MEAN CORPUSCULAR VOLUME 100.9 fl (82.0-101.0); MEAN PLATELET VOLUME 9.2 fl (7.4-10.4); MONOCYTE # 1.2 10^3/ul (0.3-0.9); NEUTROPHIL # 8.3 10^3/ul (1.6-7.5); NEUTROPHILS % 75.2 % (39.0-77.0); NUCLEATED RED BLOOD CELLS # 0.1 10^3/ul (0.0-0.0); NUCLEATED RED BLOOD CELLS% 1.1 /100WBC (0.0-0.0); RED BLOOD COUNT 2.14 10^6/ul (4.70-6.10); RED CELL DISTRIBUTION WIDTH 25.3 % (11.5-14.5); WHITE BLOOD COUNT 11.1 10^3/ul (4.8-10.8)
[2017-05-14] MEDS: PANTOPRAZOLE IV 80 MG in SOD CHLORIDE 0.9% 100 ML IV SCH (16:53)
[2017-05-14 16:57] LABS: PLATELET COUNT 84 10^3/UL (140-415)
--- NOTE | 2017-05-14 17:00 | RADRPT ---
PROCEDURE: CT Abdomen and Pelvis without contrast. CLINICAL INDICATION: Elevated LFTs. Jaundice. TECHNIQUE: CT scan of the abdomen and pelvis without contrast was performed on a multidetector hig h-resolution CT scanner. The patient was scanned without intravenous contrast. Coronal and sagittal reformatted images were obtained from the axial source images. Images were reviewed on a high-resol [employer] PACS workstation. The total exam CTDI equals 22.81 mGy and the total exam DLP equals 1670.40 m Gy-cm. One or more of the following dose reduction techniques were used: Automated exposure control. Adjustment of the mA and/or kV according to patient size. Use of iterative reconstruction technique. COMPARISON: Abdomen ultrasound 05/14/2017 and FINDINGS: CT abdomen: The lung bases are remarkable for moderate to large left pleural effusion with complete atelectasis of the left lower lobe and partial atelectasis of the left upper lobe. The heart size is mildly enl arged without pericardial thickening or effusion. There is a small size liver with surface nodularity suggestive of cirrhosis. There is mild splenome ainsley. There is small ascites in the upper abdomen. There is layering sludge in the gallbladder. Th ere is asymmetric enlargement of the left psoas muscle with hyperdense fluid collection measures up to 6 x 5.5 (transverse x AP x ) likely representing an psoas hematoma. There is diffuse subcutane ous edema. The stomach is partially collapsed, but is grossly unremarkable. There are tubular structures adjace nt the esophagus and the gastric cardia extending towards the superior mesenteric vein suggestive of a large paraesophageal and perigastric varices. The pancreas as visualized is normal. The adren al glands are symmetric and normal. The kidneys are symmetrically unremarkable as well. No renal c alculus or obstructive uropathy or mass lesion is seen. The aorta is of normal caliber. Aortic vascular calcifications are present. There is no retroperit morelos lymphadenopathy. The briseida hepatis region is clear. The bowel and mesentery, as visualized, are equally unremarkable. CT pelvis: The small bowel loops situated within the pelvis are unremarkable. Urinary bladder is decompressed with Fuentes catheter in place. The pelvic sidewalls and inguinal regions are clear. The sigmoid colo n and rectum are unremarkable. No mass, lymphadenopathy, or free fluid is seen. No acute inflammat ion is seen. The surrounding osseous structures are remarkable for degenerative spondylosis of the spine. No osteolytic or osteoblastic lesion is detected. There are postsurgical changes of posterio r lumbar fusion at L4-S1. IMPRESSION: 1. Morphologic changes of cirrhosis. 2. Mild splenomegaly. Small upper abdominal ascites. 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 3. Asymmetric enlargement of the left psoas muscle with a focal hyperdense fluid collection measure s up to 6 x 5.5 cm suggestive of a hematoma. Also noted is enlargement of the left posterolateral a bdominal wall. 4. Diffuse subcutaneous edema. 5. Moderate to large left-sided pleural effusion with complete atelectasis of the left lower lobe an d partial posterior atelectasis of the left upper lobe. 6. Layering sludge in the gallbladder. No biliary ductal dilatation. 7. Cardiomegaly. RPTAT: BB .Nevaeh Escobar MD, Date Time Electronically viewed and signed by .Nevaeh Escobar MD, on 05/14/2017 17:00 .O/
[2017-05-14 17:10] LABS: INR 5.65; PROTIME 52.2 Sec (12.2-14.2); PT RATIO 4.1
[2017-05-14 17:11] LABS: PARTIAL THROMBOPLASTIN TIME 51.4 Sec (25.0-35.0)
--- NOTE | 2017-05-14 18:14 | CONS ---
DATE OF ADMISSION: 05/13/2017 DATE OF CONSULTATION: 05/14/2017 TYPE OF CONSULTATION: Nephrology. REASON FOR CONSULTATION: Acute kidney injury. REQUESTING PHYSICIAN: Dr. Agiuar. HISTORY OF PRESENT ILLNESS: This is a 52-year-old male with unknown past medical history who was br ought into [facility] emergency room by EMS services due to altered mental status. The pat emelint's history is obtained by reviewing medical records as patient is altered, unable to give histor y. Patient apparently was found by his friends at home with empty bottles of alcohol. The patient was somnolent and confused. As a result, he came to the emergency room for evaluation. Upon arriva l to the emergency room, the patient had laboratory data drawn, which showed a BUN of 62, creatinine 2.52 and the bilirubin 13.9. The patient was noted to have a hemoglobin of 4.2 and white count 14. 5. In the emergency room, the patient was also noted to have INR 7.07. In the emergency room, the patient was given vitamin K, FFP and was typed and crossed and transfused PRBCs and placed on octreo tide and Protonix drip as well as antibiotic therapy. The patient was subsequently admitted to critical access hospital for evaluation. In terms of the patient's renal history, the patient had no prior admissions to this hospital and un known past medical history. The patient on admission noted to have a creatinine of 2.52 mg/dL, whic h is improved with IV hydration. The patient's initial urinalysis was otherwise bland. Shows no pr oteinuria. There are no reports of any rashes noted. PAST MEDICAL HISTORY: Unknown. PAST SURGICAL HISTORY: Unknown. ALLERGIES: Unknown. SOCIAL HISTORY: Unable to obtain as the patient is altered. FAMILY HISTORY: Unknown. MEDICATIONS: The patient's home medications have been reviewed. REVIEW OF SYSTEMS: Unable to do adequate review of systems as patient is obtunded. Pertinent posit michelle obtained by reviewing medical records, speaking to hospital staff as stated in HPI, otherwise n egative. PHYSICAL EXAMINATION: VITAL SIGNS: Blood pressure is 131/61, respirations 16, pulse 72, temperature 96.3. GENERAL: The patient is jaundiced and altered. HEENT: Head is normocephalic. Pupils are reactive to light. NECK: Supple. HEART: Regular rate. LUNGS: Show diminished breath sounds. ABDOMEN: Soft, nontender to palpation. No rebound or guarding. EXTREMITIES: Negative for clubbing, cyanosis. Trace edema. DERMATOLOGIC: No rashes. MUSCULOSKELETAL: No joint effusions. NEUROLOGIC: Limited exam due to lack of patient cooperation. LABORATORY DATA: Shows sodium 136, potassium 4.4, chloride 104, BUN 62, creatinine 2.15. Total katheryn irubin 14.3, AST 118. White count 12.2, hemoglobin 5.8, hematocrit 17.2, platelet count 93. ASSESSMENT AND PLAN: This is a 52-year-old male who presents with: 1. Nonoliguric acute kidney injury with unknown baseline creatinine. Etiology of acute kidney inju ry is unclear. Differential is broad including hemodynamics, volume depletion, sepsis, acute kidney injury. The possibility of a hepatorenal syndrome is a diagnosis of exclusion, but needs to be con sidered in this setting of possible liver failure or acute hepatitis. Plan at this point is to do a full evaluation. Will check urinalysis with microanalysis. Will evaluate the urine under microsco py to rule out any evidence of tubular casts. Will check urine electrolytes. We will check a renal ultrasound to evaluate renal parenchyma. We will quantify proteinuria. Would at this point contin ue IV hydration and give a fluid challenge. Continue IV antibiotics. Would otherwise continue supp ortive care, renally dose all medications and avoid nephrotoxins. 2. Anemia with possible gastrointestinal bleed. Continue to monitor hemoglobin and hematocrit leve ls, transfuse and packed red blood cells. Continue octreotide and Protonix. Follow up with gastroe nterology. 3. Mineral bone disease. We will monitor calcium and phosphorus levels. 4. Transaminitis, hyperbilirubinemia. Etiology is unclear, possibly secondary to cirrhosis or ETOH hepatitis. The patient's abdominal ultrasound shows increased echogenicity of the liver consistent with hepatic steatosis. Plan at this point is to continue supportive care, continue to monitor stephanie er function tests. We will follow up with gastroenterology recommendations. 5. Acute encephalopathy, possibly hepatic and/or septic. We will continue current medical manageme nt. Continue supportive care. 6. Possible EtOH abuse. Continue banana bag, monitor for any signs of withdrawal. 7. Coagulopathy, unclear etiology if due to liver failure. The patient's INR is 7. Status post vi tamin K. Continue to monitor INR closely. If patient is in fulminant hepatic failure would follow up with gastroenterology. 8. Leukocytosis, unclear etiology. This may be due to acute hepatitis. However, we will rule out infection. The patient is on broad spectrum antibiotics. Follow up cultures. Thank you, Dr. Watson, for this interesting consultation. It will be a pleasure to follow patient wi th you throughout the hospital course. Dictated By: ESTEFANIA NAVARRO/ALLI Conf#: [id number] DID#: [id number]
[2017-05-15] VITALS (12 sets, daily range): BP systolic 121–147; BP diastolic 59–75; PULSE 72–85; RESP 17–20
[2017-05-15 01:27] LABS: HEMATOCRIT 19.5 % (42.0-52.0)
[2017-05-15] MEDS ORDERED: CEFTRIAXONE 1 GM/50 ML (PMX) 50 ML IVPB SCH (01:30)
[2017-05-15 01:34] LABS: HEMOGLOBIN 6.7 g/dl (14.0-18.0)
[2017-05-15] MEDS: PANTOPRAZOLE IV 80 MG in SOD CHLORIDE 0.9% 100 ML IV SCH ×3 (03:56→22:37)
[2017-05-15 08:59] LABS: ADD UMIC YES; UR BILIRUBIN (Dip) 2+ (NEGATIVE); UR BLOOD (Dip) 1+ (NEGATIVE); UR CLARITY CLEAR (CLEAR); UR COLOR AMBER (YELLOW); UR GLUCOSE (Dip) NEGATIVE (NEGATIVE); UR KETONES (Dip) NEGATIVE (NEGATIVE); UR LEUKOCYTE ESTERASE (Dip) NEGATIVE (NEGATIVE); UR NITRITE (Dip) POSITIVE (NEGATIVE); UR TOTAL PROTEIN (Dip) NEGATIVE (NEGATIVE); UR UROBILINOGEN (Dip) 1.0 E.U./dL (0.1-1.0)
[2017-05-15 09:28] LABS: ICTOTEST POSITIVE (NEGATIVE); URINE RBCS 0-2 /HPF (0)
[2017-05-15 09:29] LABS: UR BACTERIA RARE
[2017-05-15] MEDS: LORAZEPAM 2 MG INJ IM PRN (10:01)
[2017-05-15] MEDS: MULTIVITAMINS 10 ML, THIAMINE 100 MG, FOLIC ACID 1 MG in SOD CHLORIDE 0.9% 1,000 ML IVPB SCH (10:01)
--- NOTE | 2017-05-15 12:36 | RADRPT ---
Echocardiogram Report Patient Name: LISE BLOCK Gender: Male Date: 1965 Study Date: 14-May-2017 Icing Machine Operator: Carol Head [facility] Location: [id number] Ref. Physician: MICHELLE CRAFT Quality: Good Procedures: Transthoracic echocardiogram with complete 2D, M-Mode, and doppler examination. Indications: Cardiomyopathy, left pleural effusion. 2D/M Mode Doppler Measurement Value Normal Ranges Measurement Value Normal Ranges LVIDd 2D 6.1 3.5 - 5.6 cm MIREYA Vmax 4.6 cm2 LVIDs 2D 3.1 2.1 - 4.1 cm MIREYA VTI 2.5 cm2 FS 2D 48.6 % AV Mean Hermilo 1.5 m/sec LVPWd 2D 1.0 0.6 - 1.1 cm AV Mean PG 11.0 mmHg IVSd 2D 1.2 0.6 - 1.1 cm AV Peak Hermilo 1.4 m/sec IVS/LVPW 2D 1.3 AV Peak PG 7.0 mmHg AoR Diam 2D 3.4 2.0 - 3.7 cm AV VTI 52.1 cm LA/Ao 2D 1 0 - 1 LVOT Mean Hermilo 1.1 m/sec EDV 2D 228.0 cm3 LVOT Mean PG 5.0 mmHg ESV 2D 31.0 cm3 LVOT Peak Hermilo 1.6 m/sec LA Dimen 2D 4.8 2.3 - 4.0 cm LVOT Peak PG 11.0 mmHg LVOT Diam 2.2 cm LVOT VTI 34.6 cm LVOT Area 3.8 cm2 MV E Peak Hermilo 0.8 m/sec MV A Peak Hermilo 0.9 m/sec MV E/A 0.9 MV Decel Time 197 msec MV E/A 0.9 TR Peak Hermilo 3.1 m/sec TR Peak PG 38.0 mmHg RVSP 53.0 mmHg Findings Left Ventricle: Normal left ventricular systolic function. Mild concentric left ventricular hypertrophy. Mild enlargement of left ventricle cavity. Ejection fraction is visually estimated at 65 %. Tissue Doppler/Mitral Doppler indices are consistent with impaired relaxation (Stage I diastolic dysfunction). Right Ventricle: Normal right ventricular size. Normal right ventricular systolic function. Left Atrium: There is moderate enlargement of left atrium. Right Atrium: The right atrium is normal in size. Mitral Valve: Normal appearance of the mitral valve. Mild mitral annular calcification. Trace mitral regurgitation. Aortic Valve: Aortic sclerosis without stenosis. No aortic regurgitation. Tricuspid Valve: Normal appearance and function of the tricuspid valve with trace physiologic regurgitation. Estimated peak PA systolic pressure 53 mmHg. Pulmonic Valve: Normal pulmonic valve appearance. Pericardium: Normal pericardium with no significant pericardial effusion. Pleural effusion seen. Aorta: Normal aortic root. IVC: Dilated IVC without respiratory collapse consistent with elevated right atrial pressure. Conclusions 1.Normal left ventricular systolic function. Mild concentric left ventricular hypertrophy. Mild enlargement of left ventricle cavity. Ejection fraction is visually estimated at 65 %. Tissue Doppler/Mitral Doppler indices are consistent with impaired relaxation (Stage I diastolic dysfunction). 2.Normal right ventricular size. Normal right ventricular systolic function. 3.There is moderate enlargement of left atrium. 4.The right atrium is normal in size. 5.Estimated peak PA systolic pressure 53 mmHg. 6.No significant valvular stenosis or regurgitation seen. 7.Normal pericardium with no significant pericardial effusion. Pleural effusion seen. Electronically Signed By: Fox Marrufo 15-May-2017 12:36:24 -0700 Patient Name: LISE BLOCK Study Date: 14-May-2017 [id number]
[2017-05-15 13:37] LABS: HEPATITIS B CORE ANTIBODY NEGATIVE (NEGATIVE)
[2017-05-15 13:55] LABS: FOLATE 7.4 ng/ml (2.8-20.0)
[2017-05-15] MEDS ORDERED: SOD CHLORIDE 0.9% 250 ML IV* ONE (14:15)
--- NOTE | 2017-05-15 14:15 | PN ---
Date/Time of Note Date/Time of Note DATE: 05/15/17 TIME: 14:06 Assessment/Plan VTE Prophylaxis VTE Prophylaxis Intervention: contraindicated Lines/Catheters IV Catheter Type (from [facility]): Saline Lock Urinary Cath still in place: Yes Reason Cath still needed: urinary retention Assessment/Plan Assessment/Plan Assessment * Anemia Upper GI bleed r/o esophageal varices vs peptic ulcer disease vs other * Liver cirrhosis Transaminitis * Encephalopathy * History of alcoholic abuse Plan * EGD tomorrow after correction INR,risks and benefit explained to patient * Monitor hemoglobin and hematocrit Q 6 transfuse 1 unit PRBC hgb <7.5,2 unit PRBC hgb <7 * continue Protonix drip and octreotide drip * Continue present management * Case discussed with Dr Newton * Further orders will depend on clinical course Subjective 24 Hr Interval Summary Free Text/Dictation * Course reviewed with RN * Patient seen and examine * Denies abdominal pain.last alcohol intake was January? * Undergoing blood transfusion * INR 5.65 * CT abdomen/Pelvis * 1. Morphologic changes of cirrhosis. . Mild splenomegaly. Small upper abdominal ascites. Suspected large perigastric and para esophageal varices. Asymmetric enlargement of the left psoas muscle with a focal hyperdense fluid collection measures up to 6 x 5.5 cm suggestive of a hematoma. Also noted is .enlargement of the left posterolateral abdominal wall Diffuse subcutaneous edema. . Moderate to large left-sided pleural effusion with complete atelectasis of the left lower lobe and partial posterior atelectasis of the left upper lobe. . Layering sludge in the gallbladder. No biliary ductal dilatation. . Cardiomegaly. Exam/Review of Systems Vital Signs Vitals Vital Signs Date Time Temp Pulse Resp B/P Pulse Ox O2 Delivery O2 Flow Rate FiO2 05/15/17 12:34 98.6 75 18 128/61 98 05/15/17 08:00 Nasal Cannula 2.0 Intake and Output 05/14/17 05/14/17 05/15/17 15:00 23:00 07:00 Intake Total 1471.2 ml 520 ml Output Total 850 ml 750 ml Balance 621.2 ml -230 ml Exam Constitutional: frail Eyes: icteric Neck: non-tender, supple Respiratory: crackles/rales, diminished breath sounds Cardiovascular: nl pulses, regular rate and rhythm Gastrointestinal: bowel sounds, distended, nl liver, spleen, soft, No rebound or guarding Musculoskeletal: nl extremities to inspection Extremities: edema, normal pulses Skin: nl turgor Lymph: nl lymph nodes Results Result Diagram: 05/15/17 0052 05/14/17 0400 Results 24 hrs Laboratory Tests Test 05/14/17 16:45 05/15/17 00:52 05/15/17 05:20 05/15/17 05:45 White Blood Count 11.1 H Red Blood Count 2.14 #L Hemoglobin 7.1 #L 6.7 *L Hematocrit 21.6 #L 19.5 L Mean Corpuscular Volume 100.9 Mean Corpuscular Hemoglobin 33.2 H Mean Corpuscular Hemoglobin Concent 32.9 Red Cell Distribution Width 25.3 H Platelet Count 84 L Mean Platelet Volume 9.2 Neutrophils % 75.2 Lymphocytes % 10.9 L Monocytes % 11.0 Eosinophils % 0.6 Basophils % 0.1 Nucleated Red Blood Cells % 1.1 H Neutrophils # 8.3 H Lymphocytes # 1.2 Monocytes # 1.2 H Eosinophils # 0.1 Basophils # 0.0 Nucleated Red Blood Cells # 0.1 H Prothrombin Time 52.2 H Prothrombin Time Ratio 4.1 INR International Normalized Ratio 5.65 Activated Partial Thromboplast Time 51.4 H Lab Scanned Report BLOOD TRANSFUSION Urine Color AVE Urine Clarity CLEAR Urine pH 6.0 Urine Specific [place] 1.015 Urine Ketones NEGATIVE Urine Nitrite POSITIVE H Urine Bilirubin 2+ H Urine Ictotest POSITIVE Urine Urobilinogen 1.0 E.U./dL Urine Leukocyte Esterase NEGATIVE Urine Microscopic RBC 0-2 Urine Microscopic WBC 0-2 Urine Bacteria RARE Urine Hemoglobin 1+ H Urine Random Creatinine 93.90 Urine Random Sodium < 13 L Urine Glucose NEGATIVE Urine Total Protein 9.0 Medications Medications Current Medications Multivitamins/ Thiamine HCl/ Folic Acid/Sodium Chloride (Mvi Adult/ Vitamin B1/ Folic Acid/NS) 1,011.2 ml @ 125 mls/ hr DAILY@09 IVPB Last administered on 10:01; Admin Dose 125 MLS/HR; Start 05/14/17 at 00:30 Lorazepam 1 mg 1 mg Q6H PRN IM AGITATION/ANXIETY Last administered on 10:01; Admin Dose 1 MG; Start 05/14/17 at 00:30 Ceftriaxone Sodium (Rocephin) 50 ml @ 100 mls/hr Q24H IVPB Last administered on 05/15/17 01:29; Admin Dose 100 MLS/HR; Start 05/15/17 at 01:30 Morphine Sulfate 2 mg 2 mg Q4H PRN IV Pain Last administered on 05/14/17 20:56 ; Admin Dose 2 MG; Start 05/14/17 at 12:00 Pantoprazole 80 mg/Sodium Chloride 100 ml @ 10 mls/hr Q10H IV Last administered on 05/15/17 03:56; Admin Dose 10 MLS/HR; Start 05/14/17 at 17:00 Albumin Human (Albumin Human 25%) 100 ml @ 100 mls/hr Q8H IV ; Start 05/15/17 at 12:00; Stop 05/16/17 at 04:59 JUAN SR NP May 15, 2017 14:15
--- NOTE | 2017-05-15 15:13 | PN ---
DATE: 05/15/2017 HOSPITALIST PROGRESS NOTE SUBJECTIVE DATA: The patient is more awake and alert today. The patient is asking for water. OBJECTIVE DATA: VITAL SIGNS: Temperature 98.6, pulse rate 74, respiratory rate 18, blood pressure 128/61, oxygen saturation 98% on low-flow O2. GENERAL: This is an obese male patient lying in bed in no apparent distress. HEENT: Head normocephalic and atraumatic. Eyes: Anicteric sclerae. Conjunctivae clear. ENT: Nasal septum is midline. Oral mucosa is dry. NECK: Supple. No JVD noticed. RESPIRATORY: Bilaterally diminished breath sounds. No adventitious breath sounds heard. No use of accessory muscles of respiration. CARDIAC: Regular rate and rhythm. S1 and S2 heard. Systolic ejection murmur. ABDOMEN: Distended. Bowel sounds hypoactive in all 4 quadrants. GENITOURINARY: The patient has a Fuentes catheter in place. EXTREMITIES: Edema of all 4 extremities. Bilateral lower extremity pitting edema. Pedal pulses diminished in bilateral lower extremities. NEUROLOGIC: The patient is awake and alert. He is oriented to himself and to place. No focal weakness. LABORATORY AND DIAGNOSTIC DATA: WBC 11.1, hemoglobin 7.1, hematocrit 21.6, platelet count 84. ASSESSMENT AND PLAN: 1. Acute encephalopathy. Most probably toxic metabolic in origin. The patient 's brain CT scan was negative for any acute intracranial pathology. 2. Macrocytic anemia. Symptomatic. Etiology unclear. The patient was noticed to have coagulopathy with an INR of 7.07 upon admission. The patient being followed by gastroenterology. The patient is on a Protonix drip. The patient is scheduled for esophagogastroduodenoscopy. 3. Coagulopathy. Etiology unclear. Most probably secondary to underlying liver dysfunction. Hepatitis panel negative so far. 4. Transaminitis with hyperbilirubinemia. Most probably from underlying alcoholic liver disease. Hepatotoxic drugs will be avoided on this patient. We will trend liver function tests. 5. Nonoliguric acute kidney injury in a patient with unknown baseline creatinine. Etiology unclear. Most probably secondary to hemodynamics versus volume depletion versus hepatorenal syndrome. Hence, nephrotoxic drugs will be avoided. 6. Possible alcohol abuse. Serum alcohol level was less than 10. The patient verbalized that he drinks on a daily basis. The patient is on p.r.n. Ativan for any alcohol withdrawal delirium. 7. Leukocytosis. Blood culture x1 positive for gram-negative rods. We will repeat blood cultures. No evidence of any septic shock. The patient will be continued on empiric antibiotics. We will involve infectious diseases on the case. 8. Moderate to large left-sided pleural effusion with complete atelectasis of the left lower lobe and partial posterior atelectasis of the left upper lobe. Continue supplemental oxygen. We will involve pulmonology on the case. 9. Fluid, electrolytes and nutrition. Currently n.p.o. because of altered mental status. 10. Deep venous thrombosis prophylaxis. Bilateral sequential compression devices. 11. Gastrointestinal prophylaxis. Proton pump inhibitors. PLAN: Continue telemetry monitoring. Await esophagogastroduodenoscopy. Replace blood products. Call ID and pulmonary consult. Repeat blood cultures. Start empiric antibiotics. Case discussed with Dr. Serrano. REJI SERRANO MD, AM/ALLI Conf#: [id number] DID#: [id number] MTDD
--- NOTE | 2017-05-15 15:31 | CONS ---
Date/Time of Note Date/Time of Note DATE: 05/15/17 TIME: 15:30 Assessment/Plan Assessment/Plan Additional Assessment/Plan Severe anemia Liver failure Encephalopathy Thrombocytopenia Preserved ejection fraction History of hypertension Acute kidney injury Abnormal ECG -Echocardiogram with preserved ejection fraction. Repeat ECG today with no further QT prolongation. Continue to hold medications which could prolong QT including Zofran. Consultation Date/Type/Reason Admit Date/Time May 13, 2017 at 22:29 Initial Consult Date 05/14/17 Type of Consultation: cv Referring Provider: MICHELLE CRAFT 24 HR Interval Summary Free Text/Dictation Denies shortness of breath or chest pain. Exam/Review of Systems Vital Signs Vitals Vital Signs Date Time Temp Pulse Resp B/P Pulse Ox O2 Delivery O2 Flow Rate FiO2 05/15/17 12:34 98.6 75 18 128/61 98 05/15/17 08:00 Nasal Cannula 2.0 Intake and Output 05/14/17 05/14/17 05/15/17 15:00 23:00 07:00 Intake Total 1471.2 ml 520 ml Output Total 850 ml 750 ml Balance 621.2 ml -230 ml Exam Sleeping but arousable, follows commands, confused at times, clearly jaundiced Head: normocephalic Respiratory: other (Coarse breath sounds bilaterally, no wheezing) Cardiovascular: other (S1-S2 heard), regular rate and rhythm Gastrointestinal: bowel sounds, non-tender, soft Extremities: edema Skin: other (Jaundice) Results Result Diagram: 05/15/17 0052 05/14/17 0400 Results 24 hrs Laboratory Tests Test 05/14/17 16:45 05/15/17 00:52 05/15/17 05:20 05/15/17 05:45 White Blood Count 11.1 H Red Blood Count 2.14 #L Hemoglobin 7.1 #L 6.7 *L Hematocrit 21.6 #L 19.5 L Mean Corpuscular Volume 100.9 Mean Corpuscular Hemoglobin 33.2 H Mean Corpuscular Hemoglobin Concent 32.9 Red Cell Distribution Width 25.3 H Platelet Count 84 L Mean Platelet Volume 9.2 Neutrophils % 75.2 Lymphocytes % 10.9 L Monocytes % 11.0 Eosinophils % 0.6 Basophils % 0.1 Nucleated Red Blood Cells % 1.1 H Neutrophils # 8.3 H Lymphocytes # 1.2 Monocytes # 1.2 H Eosinophils # 0.1 Basophils # 0.0 Nucleated Red Blood Cells # 0.1 H Prothrombin Time 52.2 H Prothrombin Time Ratio 4.1 INR International Normalized Ratio 5.65 Activated Partial Thromboplast Time 51.4 H Lab Scanned Report BLOOD TRANSFUSION Urine Color AVE Urine Clarity CLEAR Urine pH 6.0 Urine Specific [place] 1.015 Urine Ketones NEGATIVE Urine Nitrite POSITIVE H Urine Bilirubin 2+ H Urine Ictotest POSITIVE Urine Urobilinogen 1.0 E.U./dL Urine Leukocyte Esterase NEGATIVE Urine Microscopic RBC 0-2 Urine Microscopic WBC 0-2 Urine Bacteria RARE Urine Hemoglobin 1+ H Urine Random Creatinine 93.90 Urine Random Sodium < 13 L Urine Glucose NEGATIVE Urine Total Protein 9.0 Medications Medications Current Medications Multivitamins/ Thiamine HCl/ Folic Acid/Sodium Chloride (Mvi Adult/ Vitamin B1/ Folic Acid/NS) 1,011.2 ml @ 125 mls/ hr DAILY@09 IVPB Last administered on 10:01; Admin Dose 125 MLS/HR; Start 05/14/17 at 00:30 Lorazepam (Ativan) 1 mg Q6H PRN IM AGITATION/ANXIETY Last administered on 10:01; Admin Dose 1 MG; Start 05/14/17 at 00:30 Morphine Sulfate 2 mg 2 mg Q4H PRN IV Pain Last administered on 05/14/17 20:56 ; Admin Dose 2 MG; Start 05/14/17 at 12:00 Pantoprazole 80 mg/Sodium Chloride 100 ml @ 10 mls/hr Q10H IV Last administered on 05/15/17 14:20; Admin Dose 10 MLS/HR; Start 05/14/17 at 17:00 Albumin Human 100 ml @ 100 mls/hr Q8H IV ; Start 05/15/17 at 12:00; Stop at 04:59 Cefepime HCl 50 ml @ 100 mls/hr Q12 IVPB ; Start 05/15/17 at 21:00 Levofloxacin/ Dextrose (Levaquin 250 Mg/ D5W 50 ml (Pmx)) 50 ml @ 50 mls/hr Q24H IVPB ; Start 05/15/17 at 15:30 Fox Marrufo DO May 15, 2017 15:31
--- NOTE | 2017-05-15 15:37 | CONS ---
DATE OF ADMISSION: 05/13/2017 DATE OF CONSULTATION: 05/15/2017 TIME: 3:10 p.m. REFERRING PHYSICIAN: Dr. Salamanca. REASON FOR REFERRAL: Evaluation of pneumonia. HISTORY OF PRESENT ILLNESS: Mr. Ellis is a 52-year-old white male who came into the emergency room on the of this month, brought in by family with altered mental status. There was a bottle of empty pills found beside him. The patient was quite confused. The patient also appeared to be severely jaundiced. A chest x-ray was done which is showing left lower lobe pneumonia. The patient has been admitted to the medical floor and started on antibiotic regimen. By the time I saw the patient he is somnolent, but is able to answer questions appropriately. He denies any shortness of breath, chest pain, abdominal pain, nausea or vomiting. PAST MEDICAL HISTORY: 1. Apparently advanced cirrhosis of the liver. 2. No other medical history is available. CURRENT MEDICATIONS: The patient is on: 1. Cefepime 1 gram IV q.12h. 2. Normal saline at 75 mL per hour. 3. Morphine on a p.r.n. basis. 4. Patient also getting a banana bag, IV. 5. Albumin 25%, 25 gram q.8h. ALLERGIES: NONE. SOCIAL HISTORY: Positive for drug abuse. OCCUPATIONAL HISTORY: Not available. The patient is on disability. REVIEW OF SYSTEMS: Very limited review of systems could be obtained. Patient denies any shortness of breath, chest pain, abdominal pain, nausea or vomiting. PHYSICAL EXAMINATION: GENERAL: middle aged male, lying flat in bed, appears mildly confused. VITAL SIGNS: Temperature is 98.6 degrees Fahrenheit, pulse rate is 75 per minute, respiratory rate is 18 per minute, heart rate 98 per minute, O2 saturations 98% on 2 liters nasal cannula, blood pressure 128/61. HEENT EXAMINATION: Supple. Fair dentition. Pupils are mid size, reactive to light. NECK: No JVD, no lymphadenopathy. Midline trachea, no thyromegaly. Pharynx is clear. No neck bruits. CHEST: Diminished breath sounds, left lower lobe. Rest of the lung celeste are clear. HEART: S1, S2 audible. No murmurs. Regular rhythm. ABDOMEN: Soft, nontender. No organomegaly. Bowel sounds audible. EXTREMITIES: Trace edema. The patient is severely icteric. NEUROLOGIC: STRATEGY LEAD exam, the patient is awake, follows simple commands, moves all 4 extremities on command. There is no tremor. IMAGING: Chest x-ray was reviewed from admission, which is showing left lower lobe infiltrative changes. CT of the abdomen and pelvis was reviewed, which is showing left lower lobe atelectasis, with moderate left effusion. Changes of cirrhosis are seen on CT imaging of the abdomen. LABORATORY: From yesterday, sodium 136, potassium 4.5, chloride 104, bicarbonate 24, glucose of 99, BUN 62, creatinine 2.1. AST of 118, AST of 50. Ammonia level of 19. This was done at 2:00 a.m. yesterday morning. Bilirubin level of 13.9. Hemoglobin on admission was 4.2, today it is 6.7. The patient is currently getting a blood transfusion. White cell count of 11.1, drawn at 4: 45 p.m. yesterday evening. Platelet count of 84,000. ASSESSMENT: 1. Patient admitted with left lower lobe pneumonia, possibly aspiration. 2. Advanced cirrhosis of liver. 3. Thrombocytopenia and anemia, status post blood transfusion. 4. Renal insufficiency. RECOMMENDATIONS: Continue cefepime, add Levaquin 500 mg IV q.48h. Prognosis appears quite guarded, on account of what appears to be end-stage liver disease. Dictated By: LUIS FERNANDO ZACARIAS/ALLI Conf#: [id number] DID#: [id number] MTDD
[2017-05-15] MEDS: ALBUMIN HUMAN 25% 100 ML IV SCH ×2 (15:40→19:47)
--- NOTE | 2017-05-15 15:44 | RADRPT ---
Vent Rate: 71 bpm RR Interval: 0 msec [place] Interval: 168 msec QRS Duration: 108 msec QT Interval: 486 msec QTC Interval: 528 msec P-R-T [place]: 43 - 59 - 19 degrees Normal sinus rhythm Low voltage QRS Cannot rule out Anterior infarct , age undetermined Prolonged QT Abnormal ECG Electronically Signed By: Fox Marrufo [id number]
[2017-05-15] MEDS: LEVOFLOXACIN 250MG/D5W (PMX) 50 ML IVPB SCH (16:48)
--- NOTE | 2017-05-15 17:05 | CONS ---
DATE OF ADMISSION: 05/13/2017 DATE OF CONSULTATION: 05/15/2017 TYPE OF CONSULTATION: Infectious disease. REASON FOR CONSULTATION: Antibiotic management. HISTORY OF PRESENT ILLNESS: David Ellis is a 52-year-old male who is admitted with numerous proble ms, including altered levels of consciousness. The patient was found by his friends at home on the ground, with empty pill bottles around him and alcohol bottles. His problems include: 1. Altered mental status, multifactorial. 2. He has symptomatic anemia. 3. Alcohol or drug abuse. 4. Hepatic encephalopathy. On admission, his white count was 14.5, H and H of 4.2 and 12.8, platelet count 106,000. He was giv en 4 units of blood and on the his white count was 11.1, hemoglobin was 7.1 and hematocrit 21.6 , platelet count was 84,000. He was not iron deficient, his saturation was 38%. Nitrite positive, leukocyte esterase negative. Hepatitis surface antibody was positive, which is good. Microbiology: He had gram-positive rods in his blood and gram-positive organisms in his urine. Blood cultures, 1 out of 2 was positive, but could be a contaminant. A CT scan of the abdomen and pelvis showed mor phological changes of cirrhosis, mild splenomegaly, upper abdominal ascites, large perigastric and p araesophageal varices, asymptomatic enlargement of the left psoas muscle, with a focal hyperdense fl uid collection measuring 6 x 5.5, suggestive of a hematoma. He has enlargement of the left posterol ateral abdominal wall, diffuse subcutaneous edema, moderate to large left-sided pleural effusion, wi th complete atelectasis of the left lower lobe, and partial posterior atelectasis of the left upper lobe, layering sludge in the gallbladder. No biliary duct dilatation. On renal ultrasound, normal kidneys. Fuentes catheter was in the bladder on the . CT scan of the brain, normal. CT scan of the spine, C5-C6 degenerative disk disease with left foraminal stenosis. Chest x-ray, infiltrate/at electasis seen to the heart within the left lower lobe, along with suspicion of a small pleural accu mulation. Otherwise unremarkable portable chest. Abdominal ultrasound: Gallbladder, common bile du ct and pancreas not adequately visualized. CT scan of the abdomen was done. The patient was seen b sulaiman Marrufo and also by Dr. Avilez in pulmonary consultation. He had left lower lobe pneumonia. He was somnolent. The patient was placed on cefepime. PAST MEDICAL HISTORY: Operations as outlined. FAMILY HISTORY: Noncontributory. SOCIAL HISTORY: Positive for drug abuse. ALLERGIES: NONE TO PENICILLIN, SULFA OR FOODS. MEDICATIONS: Per chart. REVIEW OF SYSTEMS: Noncontributory. PHYSICAL EXAMINATION: GENERAL: The patient is a well-developed, well-nourished male, who is alert, responsive, in no acut e distress. VITAL SIGNS: Stable. He is afebrile. SKIN: Without generalized rash. HEENT: Within normal limits. NECK: Supple. LYMPH NODES: None palpable. CHEST: Decreased breath sounds at the bases. HEART: Without murmur or gallop. ABDOMEN: Soft, nontender, without organosplenomegaly or masses. EXTREMITIES: Without cyanosis or clubbing. He has 1+ edema. RECTAL AND GENITAL EXAM: Deferred. NEUROLOGIC EVALUATION: The patient is somnolent and arousable. No focal neurological abnormalities. IMPRESSION AND PLAN: The patient is currently on cefepime and Levaquin. Levaquin probably for atyp ical organisms, although cefepime is probably adequate. His gram-positive rods are most probably a contaminant. I would repeat blood cultures, which were done today, and I concur. I will dictate my findings to the hospitalist and to Dr. Newton, Dr. Avilez and Dr. Marrufo. Dictated By: GARRETT HEREDIA MD, JD/ALLI Conf#: [id number] DID#: [id number]
--- NOTE | 2017-05-15 17:09 | RADRPT ---
Vent Rate: 83 bpm RR Interval: 0 msec [place] Interval: 166 msec QRS Duration: 108 msec QT Interval: 340 msec QTC Interval: 399 msec P-R-T [place]: 49 - 60 - -71 degrees Normal sinus rhythm Low voltage QRS Nonspecific T wave abnormality Abnormal ECG Electronically Signed By: Fox Marrufo [id number]
[2017-05-15 17:49] LABS: ADD SCAN DIFF NO
[2017-05-15 18:12] LABS: ABNORMAL IP MESSAGE 1; BASOPHILS % 0.2 % (0.0-2.0); EOSINOPHILS # 0.1 10^3/ul (0.0-0.5); HEMATOCRIT 25.3 % (42.0-52.0); HEMOGLOBIN 8.6 g/dl (14.0-18.0); LYMPHOCYTES # 1.1 10^3/ul (0.8-2.9); LYMPHOCYTES % 12.8 % (15.0-51.0); MEAN CORPUSCULAR HEMOGLOBIN 33.6 pg (29.0-33.0); MEAN CORPUSCULAR VOLUME 98.8 fl (82.0-101.0); MEAN PLATELET VOLUME 10.8 fl (7.4-10.4); MONOCYTES % 11.9 % (0.0-11.0); NEUTROPHIL # 6.2 10^3/ul (1.6-7.5); NEUTROPHILS % 71.7 % (39.0-77.0); NUCLEATED RED BLOOD CELLS% 0.3 /100WBC (0.0-0.0); PLATELET COUNT 70 10^3/UL (140-415); RED BLOOD COUNT 2.56 10^6/ul (4.70-6.10); RED CELL DISTRIBUTION WIDTH 24.3 % (11.5-14.5); WHITE BLOOD COUNT 8.6 10^3/ul (4.8-10.8)
[2017-05-15 19:14] LABS: ADD SCAN DIFF NO
[2017-05-15 19:17] LABS: ABNORMAL IP MESSAGE 1; BASOPHILS % 0.2 % (0.0-2.0); EOSINOPHILS # 0.1 10^3/ul (0.0-0.5); HEMATOCRIT 24.2 % (42.0-52.0); HEMOGLOBIN 8.3 g/dl (14.0-18.0); LYMPHOCYTES # 1.2 10^3/ul (0.8-2.9); LYMPHOCYTES % 13.5 % (15.0-51.0); MEAN CORPUSCULAR HEMOGLOBIN 33.6 pg (29.0-33.0); MEAN CORPUSCULAR HGB CONC 34.3 g/dl (32.0-37.0); MEAN PLATELET VOLUME 9.2 fl (7.4-10.4); MONOCYTE # 0.9 10^3/ul (0.3-0.9); MONOCYTES % 10.2 % (0.0-11.0); NEUTROPHIL # 6.3 10^3/ul (1.6-7.5); NEUTROPHILS % 72.8 % (39.0-77.0); NUCLEATED RED BLOOD CELLS% 0.5 /100WBC (0.0-0.0); PLATELET COUNT 79 10^3/UL (140-415); RED BLOOD COUNT 2.47 10^6/ul (4.70-6.10); RED CELL DISTRIBUTION WIDTH 24.1 % (11.5-14.5); WHITE BLOOD COUNT 8.7 10^3/ul (4.8-10.8)
[2017-05-15 19:36] LABS: INR 3.78; PROTIME 37.9 Sec (12.2-14.2)
[2017-05-15 19:37] LABS: PARTIAL THROMBOPLASTIN TIME 47.3 Sec (25.0-35.0)
[2017-05-15 19:45] LABS: CALCIUM 9.5 mg/dl (8.4-10.2); CREATININE 1.09 mg/dl (0.61-1.24); MAGNESIUM 2.1 mg/dl (1.7-2.5); PHOSPHORUS 2.9 mg/dl (2.5-4.9); POTASSIUM 4.1 mmol/L (3.5-5.1)
[2017-05-15 19:52] LABS: CHOL/HDL RATIO 4.2 RATIO
[2017-05-15] MEDS: ALBUTEROL 0.083% (NEB) 2.5 MG/3 ML AMP HHN SCH (20:00)
[2017-05-15] MEDS: CEFEPIME 2GM/50 ML (PMX) 50 ML IVPB SCH (21:08)
[2017-05-16] VITALS (51 sets, daily range): BP systolic 119–169; BP diastolic 58–98; PULSE 64–142; RESP 18–29; Ht 172.7 cm; Wt 105.8 kg
[2017-05-16] MEDS: ALBUMIN HUMAN 25% 100 ML IV SCH (04:44)
--- NOTE | 2017-05-16 07:39 | PN ---
DATE: 05/15/2017 SUBJECTIVE: The patient remains encephalopathic and confused. Urinary output has been adequate. No other acute events noted. OBJECTIVE: VITAL SIGNS: Blood pressure 124/59, respiration 18, pulse 55, temperature 98.6. I's and O's: The patient with 1.9 liters in, 1.6 liters out. HEENT: Normocephalic. Pupils equal, round and react to light. ____ LUNGS: Show diminished breath sounds at the base. ABDOMEN: Soft, nontender to palpation without rebound or guarding. EXTREMITIES: Negative for clubbing, cyanosis, no edema. DERMATOLOGIC: No rashes. Positive jaundice. MUSCULOSKELETAL: No joint effusions. NEUROLOGIC: No change in exam. MEDICATIONS: The patient's medications have been reviewed. LABORATORY DATA: The patient's laboratory data is pending. Urinalysis shows a sodium ____ less th an 1%. Urinalysis was bland, no significant proteinuria. Renal ultrasound shows normal kidneys, no hydronephrosis. ASSESSMENT AND PLAN: 1. Nonoliguric acute kidney injury with unknown baseline creatinine. Etiology of acute kidney inju ry appears to be secondary to hemodynamics, possible prerenal volume depletion versus sepsis. The p atient has a FENa less than 1% due to prerenal etiology. The patient's urinalysis is otherwise blan d and no active sediment. Renal ultrasound is normal. Plan at this point would be to continue curre nt treatment plan. Continue IV hydration. Will continue IV albumin. Otherwise, continue supportiv e care, renally dose all meds, avoid nephrotoxins and monitor renal function closely. Renal panel fo r this morning is currently pending. 2. Anemia with possible gastrointestinal bleed. Continue to monitor H and H levels, transfuse PRBCs . Continue octreotide and Protonix. Follow up with GI. 3. Mineral bone disorder. Continue to monitor calcium and phosphorus levels. 4. Transaminitis, hyperbilirubinemia. Etiology is unclear, possibly cirrhosis or ____ hepatitis. The patient is altered. Liver ultrasound shows hepatic steatosis. At this point, continue to monit or. Follow up LFT's. Follow up with GI. 5. Acute encephalopathy, likely hepatic, septic, possible toxic metabolic. Continue to monitor. 6. History of ETOH abuse. Continue to monitor for any signs of trauma. 7. Coagulopathy, unclear etiology, possible liver failure. Continue vitamin K. Repeat INR. 8. Leukocytosis. Etiology is unclear, possibly due to hepatitis; however, we will rule out infecti on. Continue antibiotic therapy. Cultures have been reviewed. Sepsis secondary to urinary tract in fection bacteremia. The patient's urine cultures and blood cultures were positive. At this point, continue current antibiotic regimen. Follow up with primary team and monitor. Dictated By: ESTEFANIA NAVARRO/ALLI Conf#: [id number] DID#: [id number]
[2017-05-16 07:42] LABS: ADD SCAN DIFF NO
[2017-05-16 07:48] LABS: ABNORMAL IP MESSAGE 1; BASOPHILS % 0.3 % (0.0-2.0); EOSINOPHILS # 0.1 10^3/ul (0.0-0.5); EOSINOPHILS % 0.8 % (0.0-7.0); HEMATOCRIT 22.8 % (42.0-52.0); HEMOGLOBIN 7.7 g/dl (14.0-18.0); LYMPHOCYTES % 13.6 % (15.0-51.0); MEAN CORPUSCULAR HEMOGLOBIN 33.9 pg (29.0-33.0); MEAN CORPUSCULAR HGB CONC 33.8 g/dl (32.0-37.0); MEAN CORPUSCULAR VOLUME 100.4 fl (82.0-101.0); MEAN PLATELET VOLUME 9.4 fl (7.4-10.4); MONOCYTE # 0.9 10^3/ul (0.3-0.9); MONOCYTES % 11.4 % (0.0-11.0); NEUTROPHIL # 5.4 10^3/ul (1.6-7.5); NUCLEATED RED BLOOD CELLS% 0.3 /100WBC (0.0-0.0); PLATELET COUNT 67 10^3/UL (140-415); RED BLOOD COUNT 2.27 10^6/ul (4.70-6.10); RED CELL DISTRIBUTION WIDTH 24.8 % (11.5-14.5); WHITE BLOOD COUNT 7.4 10^3/ul (4.8-10.8)
[2017-05-16 08:28] LABS: CALCIUM 10.2 mg/dl (8.4-10.2); PHOSPHORUS 2.5 mg/dl (2.5-4.9); POTASSIUM 3.9 mmol/L (3.5-5.1)
[2017-05-16] MEDS: MULTIVITAMINS 10 ML, THIAMINE 100 MG, FOLIC ACID 1 MG in SOD CHLORIDE 0.9% 1,000 ML IVPB SCH (09:00)
[2017-05-16 09:09] LABS: ALBUMIN 3.5 g/dl (3.3-4.9); BILIRUBIN,DIRECT 4.8 mg/dl (0.00-0.20); BILIRUBIN,INDIRECT 10.7 mg/dl (0-1.1); BILIRUBIN,TOTAL 15.5 mg/dl (0.2-1.3); TOTAL PROTEIN 5.4 g/dl (6.1-8.1)
[2017-05-16] MEDS: PANTOPRAZOLE IV 80 MG in SOD CHLORIDE 0.9% 100 ML IV SCH ×2 (09:11→20:00)
[2017-05-16] MEDS: CEFEPIME 2GM/50 ML (PMX) 50 ML IVPB SCH ×2 (09:21→22:53)
[2017-05-16] MEDS: ALBUTEROL 0.083% (NEB) 2.5 MG/3 ML AMP HHN SCH ×3 (09:28→19:53)
--- NOTE | 2017-05-16 09:36 | RADRPT ---
PROCEDURE: XR Chest 1 view. CLINICAL INDICATION: Abnormal breath sounds, preop. TECHNIQUE: AP views of the chest were obtained. COMPARISON: May 13, 2017 FINDINGS: The heart is large. Calcified atherosclerosis is noted in the aorta. Central pulmonary vascular con gestion and interstitial prominence in both lungs is unchanged. Patchy infiltrates throughout the l eft lung, combined with moderate pleural effusion appears stable. Atelectasis is seen at the right lung base. Osseous structures are intact. IMPRESSION: Cardiomegaly with calcified atherosclerosis in the aorta. Central pulmonary vascular congestion and interstitial prominence in both lungs. Stable patchy infiltrates throughout the left lung, combined with moderate pleural effusion. Atelectasis at the right lung base. RPTAT: AA .Aashish Matos MD, Date Time Electronically viewed and signed by .Aashish Matos MD, MD on 05/16/2017 09:36 .P/
--- NOTE | 2017-05-16 10:29 | PN ---
DATE: 05/16/2017 SUBJECTIVE: The patient still remains lethargic, minimally responsive. The patient is pending poss ible EGD. The patient is status post multiple blood transfusions and blood products yesterday. No other events noted. OBJECTIVE: VITAL SIGNS: Blood pressure is 142/65, respirations 20, pulse 92, temperature 98.5. HEENT: Head is normocephalic. NECK: Supple. HEART: Regular rate. LUNGS: Show diminished breath sounds at the bases. ABDOMEN: Soft, nontender to palpation. No rebound or guarding. EXTREMITIES: Negative for clubbing, cyanosis. No edema. DERMATOLOGIC: The patient is jaundiced. NEUROLOGIC: The patient remains obtunded. No significant change. LABORATORY DATA: Shows white count of 7.4, hemoglobin 7.7, hematocrit 22.8, platelet count is 67. Sodium 147, potassium 3.9, BUN 35, creatinine 1.00. ASSESSMENT AND PLAN: 1. Nonoliguric acute kidney injury with unknown baseline creatinine. Etiology is secondary to hemo dynamics. The patient's renal function has been improving with IV hydration. At this point, contin ue current treatment plan, supportive care, renally dose all meds. 2. Hypernatremia. The patient has a free water deficit of approximately 1.5 liters. We will start the patient on D5W at 50 mL/hour. 3. Anemia with possible gastrointestinal bleed. The patient is status post packed red blood cells. Pending EGD. Continue Protonix. Continue octreotide. 4. Mineral bone disease. Continue to monitor calcium and phosphorus levels. 5. Transaminitis, hyperbilirubinemia. Etiology is concerning for possible cirrhosis or ETOH hepati tis. Continue to monitor and follow liver function tests. Follow up with GI. 6. Acute encephalopathy. Etiology is likely hepatic, septic, possibly toxic metabolic, no signific ant change. Continue to monitor. 7. History of ETOH abuse. Continue to monitor for signs of withdrawal. 8. Coagulopathy. The patient is status post vitamin K, status post FFP. Followup INR. 9. Sepsis secondary to urinary tract infection and bacteremia. Continue current antibiotic regimen . Follow up with primary team. Dictated By: ESTEFANIA NAVARRO/ALLI Conf#: [id number] DID#: [id number]
--- NOTE | 2017-05-16 10:35 | PN ---
Date/Time of Note Date/Time of Note DATE: 05/16/17 TIME: 10:34 Assessment/Plan VTE Prophylaxis VTE Prophylaxis Intervention: SCD's Lines/Catheters IV [facility] Saline Lock Urinary Cath still in place: Yes Reason Cath still needed: other (indicate) Assessment/Plan Chief Complaint/Hosp Course 1. Acute encephalopathy. Most probably toxic metabolic in origin. The patient 's brain CT scan was negative for any acute intracranial pathology. 2. Macrocytic anemia. Symptomatic. Etiology unclear. The patient was noticed to have coagulopathy with an INR of 7.07 upon admission. The patient being followed by gastroenterology. The patient is on a Protonix drip. The patient is scheduled for esophagogastroduodenoscopy. 3. Coagulopathy. Etiology unclear. Most probably secondary to underlying liver dysfunction. Hepatitis panel negative so far. 4. Transaminitis with hyperbilirubinemia. Most probably from underlying alcoholic liver disease. Hepatotoxic drugs will be avoided on this patient. We will trend liver function tests. 5. Nonoliguric acute kidney injury in a patient with unknown baseline creatinine. Etiology unclear. Most probably secondary to hemodynamics versus volume depletion versus hepatorenal syndrome. Hence, nephrotoxic drugs will be avoided. 6. Possible alcohol abuse. Serum alcohol level was less than 10. The patient verbalized that he drinks on a daily basis. The patient is on p.r.n. Ativan for any alcohol withdrawal delirium. 7. Leukocytosis. Blood culture x1 positive for gram-negative rods. Repeat blood cultures pending. No evidence of any septic shock. The patient will be continued on empiric antibiotics. The patient being followed by infectious diseases. 8. Moderate to large left-sided pleural effusion with complete atelectasis of the left lower lobe and partial posterior atelectasis of the left upper lobe. Continue supplemental oxygen. Possible aspiration pneumonia. Continue antibiotics. 9. Fluid, electrolytes and nutrition. Currently n.p.o. because of altered mental status. 10. Deep venous thrombosis prophylaxis. Bilateral sequential compression devices. 11. Gastrointestinal prophylaxis. Proton pump inhibitors. PLAN: Continue on telemetry monitoring. Await esophagogastroduodenoscopy. Replace blood products. Case discussed with Dr. Serrano. Problems: Subjective 24 Hr Interval Summary Free Text/Dictation The patient remains lethargic. Had a low grade fever last night. Exam/Review of Systems Vital Signs Vitals Vital Signs Date Time Temp Pulse Resp B/P Pulse Ox O2 Delivery O2 Flow Rate FiO2 05/16/17 09:28 75 20 100 Nasal Cannula 4.0 05/16/17 08:33 98.5 142/65 Intake and Output 05/15/17 05/15/17 05/16/17 15:00 23:00 07:00 Intake Total 632 ml 1075 ml Output Total 1000 ml 850 ml Balance -368 ml 225 ml Exam GENERAL: This is an obese male patient lying in bed in no apparent distress. HEENT: Head normocephalic and atraumatic. Eyes: Anicteric sclerae. Conjunctivae clear. ENT: Nasal septum is midline. Oral mucosa is dry. NECK: Supple. No JVD noticed. RESPIRATORY: Bilaterally diminished breath sounds. No adventitious breath sounds heard. No use of accessory muscles of respiration. CARDIAC: Regular rate and rhythm. S1 and S2 heard. Systolic ejection murmur. ABDOMEN: Distended. Bowel sounds hypoactive in all 4 quadrants. GENITOURINARY: The patient has a Fuentes catheter in place. EXTREMITIES: Edema of all 4 extremities. Bilateral lower extremity pitting edema. Pedal pulses diminished in bilateral lower extremities. NEUROLOGIC: The patient is lethargic today. Wakes up to call. Results Result Diagram: 05/16/17 0715 05/16/17 0715 Results 24 hrs Laboratory Tests Test 05/15/17 17:25 05/15/17 18:40 05/16/17 07:15 White Blood Count 8.6 # 8.7 7.4 Red Blood Count 2.56 L 2.47 L 2.27 L Hemoglobin 8.6 #L 8.3 L 7.7 L Hematocrit 25.3 #L 24.2 L 22.8 L Mean Corpuscular Volume 98.8 98.0 100.4 Mean Corpuscular Hemoglobin 33.6 H 33.6 H 33.9 H Mean Corpuscular Hemoglobin Concent 34.0 34.3 33.8 Red Cell Distribution Width 24.3 H 24.1 H 24.8 H Platelet Count 70 L 79 L 67 L Mean Platelet Volume 10.8 H 9.2 9.4 Neutrophils % 71.7 72.8 72.0 Lymphocytes % 12.8 L 13.5 L 13.6 L Monocytes % 11.9 H 10.2 11.4 H Eosinophils % 1.0 1.0 0.8 Basophils % 0.2 0.2 0.3 Nucleated Red Blood Cells % 0.3 H 0.5 H 0.3 H Neutrophils # 6.2 6.3 5.4 Lymphocytes # 1.1 1.2 1.0 Monocytes # 1.0 H 0.9 0.9 Eosinophils # 0.1 0.1 0.1 Basophils # 0.0 0.0 0.0 Nucleated Red Blood Cells # 0.0 0.0 0.0 Prothrombin Time 37.9 #H Prothrombin Time Ratio 3.0 INR International Normalized Ratio 3.78 Activated Partial Thromboplast Time 47.3 H Sodium Level 139 147 H Potassium Level 4.1 3.9 Chloride Level 107 111 H Carbon Dioxide Level 25 27 Anion Gap 13 13 Blood Urea Nitrogen 43 #H 35 H Creatinine 1.09 # 1.00 Glucose Level 97 94 Calcium Level 9.5 10.2 Phosphorus Level 2.9 2.5 Magnesium Level 2.1 2.0 Triglycerides Level 53 Cholesterol Level 51 L LDL Cholesterol, Calculated 28 HDL Cholesterol 12 L Cholesterol/HDL Ratio 4.2 Total Bilirubin 15.5 H Direct Bilirubin 4.80 H Indirect Bilirubin 10.7 H Aspartate Amino Transf (AST/SGOT) 78 H Alanine Aminotransferase (ALT/SGPT) 44 Alkaline Phosphatase 103 Total Protein 5.4 L Albumin 3.5 Medications Medications Current Medications Multivitamins/ Thiamine HCl/ Folic Acid/Sodium Chloride (Mvi Adult/ Vitamin B1/ Folic Acid/NS) 1,011.2 ml @ 125 mls/ hr DAILY@09 IVPB Last administered on 10:01; Admin Dose 125 MLS/HR; Start 05/14/17 at 00:30 Lorazepam (Ativan) 1 mg Q6H PRN IM AGITATION/ANXIETY Last administered on 10:01; Admin Dose 1 MG; Start 05/14/17 at 00:30 Morphine Sulfate 2 mg 2 mg Q4H PRN IV Pain Last administered on 05/14/17 20:56 ; Admin Dose 2 MG; Start 05/14/17 at 12:00 Pantoprazole 80 mg/Sodium Chloride 100 ml @ 10 mls/hr Q10H IV Last administered on 05/16/17 09:11; Admin Dose 10 MLS/HR; Start 05/14/17 at 17:00 Cefepime HCl 50 ml @ 100 mls/hr Q12 IVPB Last administered on 05/16/17 09:21 ; Admin Dose 100 MLS/HR; Start 05/15/17 at 21:00 Levofloxacin/ Dextrose 50 ml @ 50 mls/hr Q24H IVPB Last administered on 16:48; Admin Dose 50 MLS/HR; Start 05/15/17 at 15:30 Dextrose (D5W) 1,000 ml @ 50 mls/hr Q20H IV ; Start 05/16/17 at 10:00 REJI GARCIA NP May 16, 2017 10:35
--- NOTE | 2017-05-16 11:35 | CONS ---
Date/Time of Note Date/Time of Note DATE: 05/16/17 TIME: 11:33 Assessment/Plan Assessment/Plan Additional Assessment/Plan Assessment recommendations; 1. Patient admitted with severe hepatic encephalopathy with severe icterus indicative of end-stage liver disease. 2. Worsening mental status. 3. Pneumonia. Continue current supportive care. Counseled patient to ICU. Obtain an ABG. Prognosis appears extremely guarded. Consultation Date/Type/Reason Admit Date/Time May 13, 2017 at 22:29 Initial Consult Date 05/14/17 Type of Consultation: Pulmonary Referring Provider: MICHELLE CRAFT 24 HR Interval Summary Free Text/Dictation Patient condition appears quite critical. Patient is severely icteric and is semi-responsive. But able to answer questions appropriately. [place]; middle-aged male, morbidly obese, severely icteric. Exam/Review of Systems Vital Signs Vitals Vital Signs Date Time Temp Pulse Resp B/P Pulse Ox O2 Delivery O2 Flow Rate FiO2 05/16/17 09:28 75 20 100 Nasal Cannula 4.0 05/16/17 08:33 98.5 142/65 Intake and Output 05/15/17 05/15/17 05/16/17 15:00 23:00 07:00 Intake Total 632 ml 1075 ml Output Total 1000 ml 850 ml Balance -368 ml 225 ml Exam HEENT exam; supple neck, no JVD. No lymphadenopathy midline trachea. No thyromegaly. Patient has fair dentition. Chest examined; diminished breath sounds bilaterally. S1-S2 audible, no murmurs. Abdomen examination; soft, protuberant. Bowel sounds are sluggish. Extremity exam; 1+ anasarca. 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 Results Result Diagram: 05/16/17 0715 05/16/17 0715 Results 24 hrs Laboratory Tests Test 05/15/17 17:25 05/15/17 18:40 05/16/17 07:15 White Blood Count 8.6 # 8.7 7.4 Red Blood Count 2.56 L 2.47 L 2.27 L Hemoglobin 8.6 #L 8.3 L 7.7 L Hematocrit 25.3 #L 24.2 L 22.8 L Mean Corpuscular Volume 98.8 98.0 100.4 Mean Corpuscular Hemoglobin 33.6 H 33.6 H 33.9 H Mean Corpuscular Hemoglobin Concent 34.0 34.3 33.8 Red Cell Distribution Width 24.3 H 24.1 H 24.8 H Platelet Count 70 L 79 L 67 L Mean Platelet Volume 10.8 H 9.2 9.4 Neutrophils % 71.7 72.8 72.0 Lymphocytes % 12.8 L 13.5 L 13.6 L Monocytes % 11.9 H 10.2 11.4 H Eosinophils % 1.0 1.0 0.8 Basophils % 0.2 0.2 0.3 Nucleated Red Blood Cells % 0.3 H 0.5 H 0.3 H Neutrophils # 6.2 6.3 5.4 Lymphocytes # 1.1 1.2 1.0 Monocytes # 1.0 H 0.9 0.9 Eosinophils # 0.1 0.1 0.1 Basophils # 0.0 0.0 0.0 Nucleated Red Blood Cells # 0.0 0.0 0.0 Prothrombin Time 37.9 #H Prothrombin Time Ratio 3.0 INR International Normalized Ratio 3.78 Activated Partial Thromboplast Time 47.3 H Sodium Level 139 147 H Potassium Level 4.1 3.9 Chloride Level 107 111 H Carbon Dioxide Level 25 27 Anion Gap 13 13 Blood Urea Nitrogen 43 #H 35 H Creatinine 1.09 # 1.00 Glucose Level 97 94 Calcium Level 9.5 10.2 Phosphorus Level 2.9 2.5 Magnesium Level 2.1 2.0 Triglycerides Level 53 Cholesterol Level 51 L LDL Cholesterol, Calculated 28 HDL Cholesterol 12 L Cholesterol/HDL Ratio 4.2 Total Bilirubin 15.5 H Direct Bilirubin 4.80 H Indirect Bilirubin 10.7 H Aspartate Amino Transf (AST/SGOT) 78 H Alanine Aminotransferase (ALT/SGPT) 44 Alkaline Phosphatase 103 Total Protein 5.4 L Albumin 3.5 Medications Medications Current Medications Multivitamins/ Thiamine HCl/ Folic Acid/Sodium Chloride (Mvi Adult/ Vitamin B1/ Folic Acid/NS) 1,011.2 ml @ 125 mls/ hr DAILY@09 IVPB Last administered on 10:01; Admin Dose 125 MLS/HR; Start 05/14/17 at 00:30 Lorazepam (Ativan) 1 mg Q6H PRN IM AGITATION/ANXIETY Last administered on 10:01; Admin Dose 1 MG; Start 05/14/17 at 00:30 Morphine Sulfate 2 mg 2 mg Q4H PRN IV Pain Last administered on 05/14/17 20:56 ; Admin Dose 2 MG; Start 05/14/17 at 12:00 Pantoprazole 80 mg/Sodium Chloride 100 ml @ 10 mls/hr Q10H IV Last administered on 05/16/17 09:11; Admin Dose 10 MLS/HR; Start 05/14/17 at 17:00 Cefepime HCl 50 ml @ 100 mls/hr Q12 IVPB Last administered on 05/16/17 09:21 ; Admin Dose 100 MLS/HR; Start 05/15/17 at 21:00 Levofloxacin/ Dextrose 50 ml @ 50 mls/hr Q24H IVPB Last administered on 16:48; Admin Dose 50 MLS/HR; Start 05/15/17 at 15:30 Dextrose (D5W) 1,000 ml @ 50 mls/hr Q20H IV ; Start 05/16/17 at 10:00 LUIS FERNANDO TAMAYO May 16, 2017 11:35
--- NOTE | 2017-05-16 11:40 | CONS ---
Date/Time of Note Date/Time of Note DATE: 05/16/17 TIME: 11:35 Assessment/Plan Assessment/Plan Additional Assessment/Plan Severe anemia Liver failure Coagulopathy Encephalopathy Thrombocytopenia Preserved ejection fraction History of hypertension Acute kidney injury Abnormal ECG -Patient awaiting endoscopy. Blood pressure trend remains stable. Would start gentle IV diuretics as blood pressure permits given the vascular congestion on chest x-ray and pleural effusions. Consultation Date/Type/Reason Admit Date/Time May 13, 2017 at 22:29 Initial Consult Date 05/14/17 Type of Consultation: cv Referring Provider: MICHELLE CRAFT 24 HR Interval Summary Free Text/Dictation Denies chest pain, shortness of breath Exam/Review of Systems Vital Signs Vitals Vital Signs Date Time Temp Pulse Resp B/P Pulse Ox O2 Delivery O2 Flow Rate FiO2 05/16/17 09:28 75 20 100 Nasal Cannula 4.0 05/16/17 08:33 98.5 142/65 Intake and Output 05/15/17 05/15/17 05/16/17 15:00 23:00 07:00 Intake Total 632 ml 1075 ml Output Total 1000 ml 850 ml Balance -368 ml 225 ml Exam Sleeping but arousable, confused at times, follows commands, clearly jaundiced Head: normocephalic Respiratory: other (Coarse breath sounds bilaterally, decreased at the bases, no wheezing) Cardiovascular: other (S1-S2 heard), regular rate and rhythm Gastrointestinal: bowel sounds, non-tender, soft Extremities: edema Results Result Diagram: 05/16/17 0715 05/16/17 0715 Results 24 hrs Laboratory Tests Test 05/15/17 17:25 05/15/17 18:40 05/16/17 07:15 White Blood Count 8.6 # 8.7 7.4 Red Blood Count 2.56 L 2.47 L 2.27 L Hemoglobin 8.6 #L 8.3 L 7.7 L Hematocrit 25.3 #L 24.2 L 22.8 L Mean Corpuscular Volume 98.8 98.0 100.4 Mean Corpuscular Hemoglobin 33.6 H 33.6 H 33.9 H Mean Corpuscular Hemoglobin Concent 34.0 34.3 33.8 Red Cell Distribution Width 24.3 H 24.1 H 24.8 H Platelet Count 70 L 79 L 67 L Mean Platelet Volume 10.8 H 9.2 9.4 Neutrophils % 71.7 72.8 72.0 Lymphocytes % 12.8 L 13.5 L 13.6 L Monocytes % 11.9 H 10.2 11.4 H Eosinophils % 1.0 1.0 0.8 Basophils % 0.2 0.2 0.3 Nucleated Red Blood Cells % 0.3 H 0.5 H 0.3 H Neutrophils # 6.2 6.3 5.4 Lymphocytes # 1.1 1.2 1.0 Monocytes # 1.0 H 0.9 0.9 Eosinophils # 0.1 0.1 0.1 Basophils # 0.0 0.0 0.0 Nucleated Red Blood Cells # 0.0 0.0 0.0 Prothrombin Time 37.9 #H Prothrombin Time Ratio 3.0 INR International Normalized Ratio 3.78 Activated Partial Thromboplast Time 47.3 H Sodium Level 139 147 H Potassium Level 4.1 3.9 Chloride Level 107 111 H Carbon Dioxide Level 25 27 Anion Gap 13 13 Blood Urea Nitrogen 43 #H 35 H Creatinine 1.09 # 1.00 Glucose Level 97 94 Calcium Level 9.5 10.2 Phosphorus Level 2.9 2.5 Magnesium Level 2.1 2.0 Triglycerides Level 53 Cholesterol Level 51 L LDL Cholesterol, Calculated 28 HDL Cholesterol 12 L Cholesterol/HDL Ratio 4.2 Total Bilirubin 15.5 H Direct Bilirubin 4.80 H Indirect Bilirubin 10.7 H Aspartate Amino Transf (AST/SGOT) 78 H Alanine Aminotransferase (ALT/SGPT) 44 Alkaline Phosphatase 103 Total Protein 5.4 L Albumin 3.5 Medications Medications Current Medications Multivitamins/ Thiamine HCl/ Folic Acid/Sodium Chloride (Mvi Adult/ Vitamin B1/ Folic Acid/NS) 1,011.2 ml @ 125 mls/ hr DAILY@09 IVPB Last administered on 10:01; Admin Dose 125 MLS/HR; Start 05/14/17 at 00:30 Lorazepam (Ativan) 1 mg Q6H PRN IM AGITATION/ANXIETY Last administered on 10:01; Admin Dose 1 MG; Start 05/14/17 at 00:30 Morphine Sulfate 2 mg 2 mg Q4H PRN IV Pain Last administered on 05/14/17 20:56 ; Admin Dose 2 MG; Start 05/14/17 at 12:00 Pantoprazole 80 mg/Sodium Chloride 100 ml @ 10 mls/hr Q10H IV Last administered on 05/16/17 09:11; Admin Dose 10 MLS/HR; Start 05/14/17 at 17:00 Cefepime HCl 50 ml @ 100 mls/hr Q12 IVPB Last administered on 05/16/17 09:21 ; Admin Dose 100 MLS/HR; Start 05/15/17 at 21:00 Levofloxacin/ Dextrose 50 ml @ 50 mls/hr Q24H IVPB Last administered on 16:48; Admin Dose 50 MLS/HR; Start 05/15/17 at 15:30 Dextrose (D5W) 1,000 ml @ 50 mls/hr Q20H IV ; Start 05/16/17 at 10:00 Fox Marrufo DO May 16, 2017 11:40
[2017-05-16 12:33] LABS: INR 2.44; PARTIAL THROMBOPLASTIN TIME 42.4 Sec (25.0-35.0); PROTIME 26.8 Sec (12.2-14.2); PT RATIO 2.1
[2017-05-16] MEDS: FUROSEMIDE 20 MG INJ IV SCH (13:16)
[2017-05-16] MEDS: DEXTROSE 5% 1,000 ML IV SCH (13:16)
[2017-05-16 13:25] LABS: AADO2 Arterial 81.9 mmHg (7.0-24.0); Allen Test ACCEPTAB; Arterial Base Excess 1.4 mmol/L (-3.0-3); Arterial COHb 2.4 % (0.0-3.0); Arterial Fraction of Oxyhgb 93.7 % (93.0-99.0); Arterial HCO3 25.7 mmol/L (22.0-26.0); Arterial MetHb 0.4 % (0.0-1.5); Arterial Total Hemglobin 8.6 g/dl (12.0-18.0); MODE NASAL CANNULA
[2017-05-16 13:51] LABS: MICROALBUMIN 0.4 mg/dL
[2017-05-16] MEDS: LEVOFLOXACIN 250MG/D5W (PMX) 50 ML IVPB SCH (15:51)
[2017-05-16] MEDS ORDERED: DILTIAZEM 25 MG INJ IV ONE (16:30)
[2017-05-16] MEDS ORDERED: LIDOCAINE 1% (MPF) 5 ML VIAL SC ONE (17:00)
[2017-05-16] MEDS: DILTIAZEM-D5W 125MG/125ML DRIP 125 ML IV SCH (17:02)
[2017-05-17] VITALS (62 sets, daily range): BP systolic 118–168; BP diastolic 58–90; PULSE 71–88; RESP 19–37
[2017-05-17] MEDS: DILTIAZEM-D5W 125MG/125ML DRIP 125 ML IV SCH (02:18)
[2017-05-17 05:03] LABS: ADD SCAN DIFF NO
[2017-05-17 05:16] LABS: ABNORMAL IP MESSAGE 1; BASOPHILS % 0.1 % (0.0-2.0); EOSINOPHILS # 0.1 10^3/ul (0.0-0.5); EOSINOPHILS % 0.9 % (0.0-7.0); HEMATOCRIT 23.2 % (42.0-52.0); HEMOGLOBIN 7.3 g/dl (14.0-18.0); LYMPHOCYTES # 1.2 10^3/ul (0.8-2.9); LYMPHOCYTES % 13.5 % (15.0-51.0); MEAN CORPUSCULAR HEMOGLOBIN 32.7 pg (29.0-33.0); MEAN CORPUSCULAR HGB CONC 31.5 g/dl (32.0-37.0); NEUTROPHIL # 6.5 10^3/ul (1.6-7.5); NEUTROPHILS % 72.1 % (39.0-77.0); NUCLEATED RED BLOOD CELLS% 0.3 /100WBC (0.0-0.0); PLATELET COUNT 61 10^3/UL (140-415); RED BLOOD COUNT 2.23 10^6/ul (4.70-6.10); RED CELL DISTRIBUTION WIDTH 25.4 % (11.5-14.5)
[2017-05-17 05:28] LABS: INR 2.18; PROTIME 24.5 Sec (12.2-14.2); PT RATIO 1.9
[2017-05-17 05:29] LABS: PARTIAL THROMBOPLASTIN TIME 38.3 Sec (25.0-35.0)
[2017-05-17 05:31] LABS: ALBUMIN 3.7 g/dl (3.3-4.9); BILIRUBIN,DIRECT 3.6 mg/dl (0.00-0.20); BILIRUBIN,INDIRECT 12.3 mg/dl (0-1.1); BILIRUBIN,TOTAL 15.9 mg/dl (0.2-1.3); CALCIUM 10.5 mg/dl (8.4-10.2); CREATININE 0.91 mg/dl (0.61-1.24); POTASSIUM 3.6 mmol/L (3.5-5.1); TOTAL PROTEIN 7.4 g/dl (6.1-8.1)
[2017-05-17 05:55] LABS: MAGNESIUM 1.9 mg/dl (1.7-2.5); PHOSPHORUS 2.1 mg/dl (2.5-4.9)
[2017-05-17] MEDS: PANTOPRAZOLE IV 80 MG in SOD CHLORIDE 0.9% 100 ML IV SCH ×3 (05:58→17:00)
[2017-05-17] MEDS: DEXTROSE 5% 1,000 ML IV SCH ×2 (05:58→22:13)
[2017-05-17] MEDS: FUROSEMIDE 20 MG INJ IV SCH (05:59)
[2017-05-17] MEDS: ALBUTEROL 0.083% (NEB) 2.5 MG/3 ML AMP HHN SCH ×3 (07:32→19:10)
--- NOTE | 2017-05-17 07:55 | CONS ---
Date/Time of Note Date/Time of Note DATE: 05/17/17 TIME: 07:53 Assessment/Plan Assessment/Plan Additional Assessment/Plan Assessment and recommendations; 1. Patient admitted for left lower lobe pneumonia with underlying end-stage liver disease with severe icterus. However serum ammonia level is within normal limits. Continue current supportive care. Prognosis is poor. Consultation Date/Type/Reason Admit Date/Time May 13, 2017 at 22:29 Initial Consult Date 05/14/17 Type of Consultation: Pulmonary/critical care Referring Provider: MICHELLE CRAFT 24 HR Interval Summary Free Text/Dictation Patient condition is slightly improved. Patient was transferred to ICU for medical floor because of very poor mental status. Patient is more awake and alert today. Denies any shortness of breath. General exam; middle-aged male, mentally no distress. Awake but patient is somnolent off and on. Exam/Review of Systems Vital Signs Vitals Vital Signs Date Time Temp Pulse Resp B/P Pulse Ox O2 Delivery O2 Flow Rate FiO2 05/17/17 07:34 74 25 97 Nasal Cannula 3.0 05/17/17 06:30 139/61 05/17/17 04:00 98.4 Intake and Output 05/16/17 05/16/17 05/17/17 15:00 23:00 07:00 Intake Total 270 ml 641 ml Output Total 1145 ml 960 ml 450 ml Balance -1145 ml -690 ml 191 ml Exam HEENT exam; supple neck, no JVD. No lymphadenopathy. Midline trachea. No thyromegaly. Patient is strongly icteric. Fair dentition. Chest examination; diminished but clear vessel. S1-S2 audible, no murmurs. Regular rhythm. Abdomen examination; soft, protuberant. No organomegaly. Bowel sounds audible. Extremity exam is; no peripheral edema. 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 Results Result Diagram: 05/17/17 0448 05/17/17 0448 Results 24 hrs Laboratory Tests Test 05/16/17 11:35 05/16/17 11:59 05/17/17 04:48 05/17/17 05:04 Blood Gas Specimen Source Blood arterial Arterial Blood Date Drawn 05/16/2017 1:16:47 PM Arterial Blood pH (Temp corrected) 7.434 Arterial Blood pCO2 (Temp correct) 39.2 Arterial Blood pO2 (Temp corrected) 85.9 Arterial Blood HCO3 25.7 Arterial Blood Base Excess 1.4 Arterial Blood Oxygen Saturation 96.4 Cruz Test ACCEPTAB Arterial Blood Gas Puncture Site Right Radial Arterial Blood Carboxyhemoglobin 2.4 Arterial Blood Methemoglobin 0.4 Blood Gas A-a O2 Differential 81.9 H Oxyhemoglobin Percent 93.7 Total Hemoglobin 8.6 L Blood Gas Temperature 37.0 Blood Gas Modality NASAL CANNULA FiO2 30.0 Blood Gas Notified Whom TM Blood Gas Notified Time 05/16/2017 1:25:17 PM Prothrombin Time 26.8 #H 24.5 H Prothrombin Time Ratio 2.1 1.9 INR International Normalized Ratio 2.44 2.18 Activated Partial Thromboplast Time 42.4 H 38.3 H White Blood Count 9.0 # Red Blood Count 2.23 L Hemoglobin 7.3 L Hematocrit 23.2 L Mean Corpuscular Volume 104.0 H Mean Corpuscular Hemoglobin 32.7 Mean Corpuscular Hemoglobin Concent 31.5 L Red Cell Distribution Width 25.4 H Platelet Count 61 L Mean Platelet Volume 10.0 Neutrophils % 72.1 Lymphocytes % 13.5 L Monocytes % 11.0 Eosinophils % 0.9 Basophils % 0.1 Nucleated Red Blood Cells % 0.3 H Neutrophils # 6.5 Lymphocytes # 1.2 Monocytes # 1.0 H Eosinophils # 0.1 Basophils # 0.0 Nucleated Red Blood Cells # 0.0 Sodium Level 147 H Potassium Level 3.6 Chloride Level 109 Carbon Dioxide Level 28 Anion Gap 14 Blood Urea Nitrogen 30 H Creatinine 0.91 Glucose Level 118 Calcium Level 10.5 H Phosphorus Level 2.1 L Magnesium Level 1.9 Total Bilirubin 15.9 H Direct Bilirubin 3.60 #H Indirect Bilirubin 12.3 H Aspartate Amino Transf (AST/SGOT) 70 H Alanine Aminotransferase (ALT/SGPT) 39 Alkaline Phosphatase 109 Ammonia 21 Total Protein 7.4 # Albumin 3.7 Globulin 3.70 H Albumin/Globulin Ratio 1.00 Lab Scanned Report BLOOD TRANSFUSION Medications Medications Current Medications Multivitamins/ Thiamine HCl/ Folic Acid/Sodium Chloride (Mvi Adult/ Vitamin B1/ Folic Acid/NS) 1,011.2 ml @ 125 mls/ hr DAILY@09 IVPB Last administered on t 10:01; Admin Dose 125 MLS/HR; Start 05/14/17 at 00:30 Lorazepam (Ativan) 1 mg Q6H PRN IM AGITATION/ANXIETY Last administered on 10:01; Admin Dose 1 MG; Start 05/14/17 at 00:30 Morphine Sulfate 2 mg 2 mg Q4H PRN IV Pain Last administered on 05/14/17 20:56 ; Admin Dose 2 MG; Start 05/14/17 at 12:00 Pantoprazole 80 mg/Sodium Chloride 100 ml @ 10 mls/hr Q10H IV Last administered on 05/17/17 05:58; Admin Dose 10 MLS/HR; Start 05/14/17 at 17:00 Cefepime HCl 50 ml @ 100 mls/hr Q12 IVPB Last administered on 05/16/17 22:53 ; Admin Dose 100 MLS/HR; Start 05/15/17 at 21:00 Levofloxacin/ Dextrose 50 ml @ 50 mls/hr Q24H IVPB Last administered on 15:51; Admin Dose 50 MLS/HR; Start 05/15/17 at 15:30 Dextrose (D5W) 1,000 ml @ 50 mls/hr Q20H IV Last administered on 05/17/17 05: 58; Admin Dose 50 MLS/HR; Start 05/16/17 at 10:00 Furosemide 20 mg 20 mg DAILY@06 IV Last administered on 05/17/17 05:59; Admin Dose 20 MG; Start 05/16/17 at 12:00 Diltiazem HCl (Cardizem-D5W 125 Mg/125 ml Drip) 125 ml @ 5 mls/hr TITRATE IV Last administered on 05/17/17 02:18; Admin Dose 5 MLS/HR; Start 05/16/17 at 16: 30 LUIS FERNANDO TAMAYO 17, 2017 07:55
--- NOTE | 2017-05-17 07:59 | PN ---
Date/Time of Note Date/Time of Note DATE: 05/17/17 TIME: 07:54 Assessment/Plan VTE Prophylaxis VTE Prophylaxis Intervention: SCD's Lines/Catheters IV Catheter Type (from [facility]): Peripheral IV Urinary Cath still in place: Yes Reason Cath still needed: urinary retention Assessment/Plan Assessment/Plan PROGRESS NOTE Date/Time of Note Date/Time of Note DATE: 05/15/17 TIME: 14:06 Assessment/Plan VTE Prophylaxis VTE Prophylaxis Intervention: contraindicated Lines/Catheters IV Catheter Type (from [facility]): Saline Lock Urinary Cath still in place: Yes Reason Cath still needed: urinary retention Assessment/Plan Assessment/Plan Assessment * Anemia r/o esophageal varices vs peptic ulcer disease vs other * Liver cirrhosis Encephalopathy * History of alcoholic abuse Plan * EGD postponed until cardiovascular stable * Monitor hemoglobin and hematocrit Q 6 transfuse 1 unit PRBC hgb <7.5,2 unit PRBC hgb <7 * continue Protonix drip and octreotide drip * Continue present management * Lactulose and rifaximin * Further orders will depend on clinical course Subjective 24 Hr Interval Summary Free Text/Dictation Course reviewed with nursing staff Patient was transferred to ICU as he developed atrial fibrillation Currently on Cardizem drip, he has reverted to sinus rhythm No evidence of overt S intestinal bleeding Appears more awake, will start feeding Postponed endoscopic workup until stable cardiovascular Exam/Review of Systems Vital Signs Vitals Vital Signs Date Time Temp Pulse Resp B/P Pulse Ox O2 Delivery O2 Flow Rate FiO2 05/17/17 07:34 74 25 97 Nasal Cannula 3.0 05/17/17 06:30 139/61 05/17/17 04:00 98.4 Intake and Output 05/16/17 05/16/17 05/17/17 15:00 23:00 07:00 Intake Total 270 ml 641 ml Output Total 1145 ml 960 ml 450 ml Balance -1145 ml -690 ml 191 ml Exam Constitutional: alert, oriented (Only to place and person) Head: atraumatic, normocephalic Eyes: icteric Neck: non-tender, supple Respiratory: clear to auscultation, normal air movement Cardiovascular: nl pulses, regular rate and rhythm Gastrointestinal: ascites (Small amount), nl liver, spleen, non-tender, soft Musculoskeletal: nl extremities to inspection Skin: nl turgor, No rash or lesions Lymph: nl lymph nodes Results Result Diagram: 05/17/17 0448 05/17/17 0448 Results 24 hrs Laboratory Tests Test 05/16/17 11:35 05/16/17 11:59 05/17/17 04:48 05/17/17 05:04 Blood Gas Specimen Source Blood arterial Arterial Blood Date Drawn 05/16/2017 1:16:47 PM Arterial Blood pH (Temp corrected) 7.434 Arterial Blood pCO2 (Temp correct) 39.2 Arterial Blood pO2 (Temp corrected) 85.9 Arterial Blood HCO3 25.7 Arterial Blood Base Excess 1.4 Arterial Blood Oxygen Saturation 96.4 Cruz Test ACCEPTAB Arterial Blood Gas Puncture Site Right Radial Arterial Blood Carboxyhemoglobin 2.4 Arterial Blood Methemoglobin 0.4 Blood Gas A-a O2 Differential 81.9 H Oxyhemoglobin Percent 93.7 Total Hemoglobin 8.6 L Blood Gas Temperature 37.0 Blood Gas Modality NASAL CANNULA FiO2 30.0 Blood Gas Notified Whom TM Blood Gas Notified Time 05/16/2017 1:25:17 PM Prothrombin Time 26.8 #H 24.5 H Prothrombin Time Ratio 2.1 1.9 INR International Normalized Ratio 2.44 2.18 Activated Partial Thromboplast Time 42.4 H 38.3 H White Blood Count 9.0 # Red Blood Count 2.23 L Hemoglobin 7.3 L Hematocrit 23.2 L Mean Corpuscular Volume 104.0 H Mean Corpuscular Hemoglobin 32.7 Mean Corpuscular Hemoglobin Concent 31.5 L Red Cell Distribution Width 25.4 H Platelet Count 61 L Mean Platelet Volume 10.0 Neutrophils % 72.1 Lymphocytes % 13.5 L Monocytes % 11.0 Eosinophils % 0.9 Basophils % 0.1 Nucleated Red Blood Cells % 0.3 H Neutrophils # 6.5 Lymphocytes # 1.2 Monocytes # 1.0 H Eosinophils # 0.1 Basophils # 0.0 Nucleated Red Blood Cells # 0.0 Sodium Level 147 H Potassium Level 3.6 Chloride Level 109 Carbon Dioxide Level 28 Anion Gap 14 Blood Urea Nitrogen 30 H Creatinine 0.91 Glucose Level 118 Calcium Level 10.5 H Phosphorus Level 2.1 L Magnesium Level 1.9 Total Bilirubin 15.9 H Direct Bilirubin 3.60 #H Indirect Bilirubin 12.3 H Aspartate Amino Transf (AST/SGOT) 70 H Alanine Aminotransferase (ALT/SGPT) 39 Alkaline Phosphatase 109 Ammonia 21 Total Protein 7.4 # Albumin 3.7 Globulin 3.70 H Albumin/Globulin Ratio 1.00 Lab Scanned Report BLOOD TRANSFUSION Medications Medications Current Medications Multivitamins/ Thiamine HCl/ Folic Acid/Sodium Chloride (Mvi Adult/ Vitamin B1/ Folic Acid/NS) 1,011.2 ml @ 125 mls/ hr DAILY@09 IVPB Last administered on 10:01; Admin Dose 125 MLS/HR; Start 05/14/17 at 00:30 Lorazepam (Ativan) 1 mg Q6H PRN IM AGITATION/ANXIETY Last administered on 10:01; Admin Dose 1 MG; Start 05/14/17 at 00:30 Morphine Sulfate 2 mg 2 mg Q4H PRN IV Pain Last administered on 05/14/17 20:56 ; Admin Dose 2 MG; Start 05/14/17 at 12:00 Pantoprazole 80 mg/Sodium Chloride 100 ml @ 10 mls/hr Q10H IV Last administered on 05/17/17 05:58; Admin Dose 10 MLS/HR; Start 05/14/17 at 17:00 Cefepime HCl 50 ml @ 100 mls/hr Q12 IVPB Last administered on 05/16/17 22:53 ; Admin Dose 100 MLS/HR; Start 05/15/17 at 21:00 Levofloxacin/ Dextrose 50 ml @ 50 mls/hr Q24H IVPB Last administered on 15:51; Admin Dose 50 MLS/HR; Start 05/15/17 at 15:30 Dextrose (D5W) 1,000 ml @ 50 mls/hr Q20H IV Last administered on 05/17/17 05: 58; Admin Dose 50 MLS/HR; Start 05/16/17 at 10:00 Furosemide 20 mg 20 mg DAILY@06 IV Last administered on 05/17/17 05:59; Admin Dose 20 MG; Start 05/16/17 at 12:00 Diltiazem HCl (Cardizem-D5W 125 Mg/125 ml Drip) 125 ml @ 5 mls/hr TITRATE IV Last administered on 05/17/17 02:18; Admin Dose 5 MLS/HR; Start 05/16/17 at 16: 30 ANDRADE BENITEZ MD May 17, 2017 07:59
[2017-05-17] MEDS: CEFEPIME 2GM/50 ML (PMX) 50 ML IVPB SCH ×2 (09:00→22:12)
[2017-05-17] MEDS: LACTULOSE 30ML CUP PO SCH ×3 (09:04→22:01)
[2017-05-17] MEDS: RIFAXIMIN 550 MG TAB PO SCH ×2 (09:04→22:01)
[2017-05-17] MEDS: MULTIVITAMINS 10 ML, THIAMINE 100 MG, FOLIC ACID 1 MG in SOD CHLORIDE 0.9% 1,000 ML IVPB SCH (09:04)
--- NOTE | 2017-05-17 09:30 | PN ---
Date/Time of Note Date/Time of Note DATE: 05/17/17 TIME: 09:27 Assessment/Plan VTE Prophylaxis VTE Prophylaxis Intervention: SCD's Lines/Catheters IV Catheter Type (from [facility]): Peripheral IV Urinary Cath still in place: Yes Reason Cath still needed: other (indicate) Assessment/Plan Chief Complaint/Hosp Course 1. Acute encephalopathy. Most probably toxic metabolic in origin. The patient 's brain CT scan was negative for any acute intracranial pathology. 2. Macrocytic anemia. Symptomatic. Etiology unclear. The patient was noticed to have coagulopathy with an INR of 7.07 upon admission. The patient being followed by gastroenterology. The patient is on a Protonix drip. The patient is scheduled for esophagogastroduodenoscopy when hemodynamically stable. 3. Coagulopathy. Etiology unclear. Most probably secondary to underlying liver dysfunction. Hepatitis panel negative so far. 4. Transaminitis with hyperbilirubinemia. Most probably from underlying alcoholic liver disease. Hepatotoxic drugs will be avoided on this patient. We will trend liver function tests. 5. Nonoliguric acute kidney injury in a patient with unknown baseline creatinine. Etiology unclear. Most probably secondary to hemodynamics versus volume depletion versus hepatorenal syndrome. Hence, nephrotoxic drugs will be avoided. 6. Possible alcohol abuse. Serum alcohol level was less than 10. The patient verbalized that he drinks on a daily basis. The patient is on p.r.n. Ativan for any alcohol withdrawal delirium. 7. Leukocytosis. Blood culture x1 positive for gram-negative rods. Repeat blood cultures pending. No evidence of any septic shock. The patient will be continued on empiric antibiotics. The patient being followed by infectious diseases. 8. Moderate to large left-sided pleural effusion with complete atelectasis of the left lower lobe and partial posterior atelectasis of the left upper lobe. Continue supplemental oxygen. Possible aspiration pneumonia. Continue antibiotics. 9. Paroxysmal A. fib. Currently in sinus rhythm. On Cardizem drip. 10. Fluid, electrolytes and nutrition. Currently n.p.o. because of altered mental status. 11. Deep venous thrombosis prophylaxis. Bilateral sequential compression devices. 12. Gastrointestinal prophylaxis. Proton pump inhibitors. PLAN: Continue on telemetry monitoring. Await esophagogastroduodenoscopy. Replace blood products. Case discussed with Dr. Serrano. The plan of care was discussed with the patient's sister Julieta. Critical care time: 35 minutes. Problems: Subjective 24 Hr Interval Summary Free Text/Dictation The patient was moved to the intensive care unit on 05/16/2017 for close monitoring. Patient remains on Cardizem drip. Exam/Review of Systems Vital Signs Vitals Vital Signs Date Time Temp Pulse Resp B/P Pulse Ox O2 Delivery O2 Flow Rate FiO2 05/17/17 08:30 79 26 144/60 94 Nasal Cannula 2.0 05/17/17 07:15 98.2 Intake and Output 05/16/17 05/16/17 05/17/17 15:00 23:00 07:00 Intake Total 270 ml 641 ml Output Total 1145 ml 960 ml 450 ml Balance -1145 ml -690 ml 191 ml Exam GENERAL: This is an obese male patient lying in bed in no apparent distress. HEENT: Head normocephalic and atraumatic. Eyes: Anicteric sclerae. Conjunctivae clear. ENT: Nasal septum is midline. Oral mucosa is dry. NECK: Supple. No JVD noticed. RESPIRATORY: Bilaterally diminished breath sounds. No adventitious breath sounds heard. No use of accessory muscles of respiration. CARDIAC: Regular rate and rhythm. S1 and S2 heard. Systolic ejection murmur. ABDOMEN: Distended. Bowel sounds hypoactive in all 4 quadrants. GENITOURINARY: The patient has a Fuentes catheter in place. EXTREMITIES: Edema of all 4 extremities. Bilateral lower extremity pitting edema. Pedal pulses diminished in bilateral lower extremities. NEUROLOGIC: The patient is lethargic today. Wakes up to call. Results Result Diagram: 05/17/17 0448 05/17/17 0448 Results 24 hrs Laboratory Tests Test 05/16/17 11:35 05/16/17 11:59 05/17/17 04:48 05/17/17 05:04 Blood Gas Specimen Source Blood arterial Arterial Blood Date Drawn 05/16/2017 1:16:47 PM Arterial Blood pH (Temp corrected) 7.434 Arterial Blood pCO2 (Temp correct) 39.2 Arterial Blood pO2 (Temp corrected) 85.9 Arterial Blood HCO3 25.7 Arterial Blood Base Excess 1.4 Arterial Blood Oxygen Saturation 96.4 Cruz Test ACCEPTAB Arterial Blood Gas Puncture Site Right Radial Arterial Blood Carboxyhemoglobin 2.4 Arterial Blood Methemoglobin 0.4 Blood Gas A-a O2 Differential 81.9 H Oxyhemoglobin Percent 93.7 Total Hemoglobin 8.6 L Blood Gas Temperature 37.0 Blood Gas Modality NASAL CANNULA FiO2 30.0 Blood Gas Notified Whom TM Blood Gas Notified Time 05/16/2017 1:25:17 PM Prothrombin Time 26.8 #H 24.5 H Prothrombin Time Ratio 2.1 1.9 INR International Normalized Ratio 2.44 2.18 Activated Partial Thromboplast Time 42.4 H 38.3 H White Blood Count 9.0 # Red Blood Count 2.23 L Hemoglobin 7.3 L Hematocrit 23.2 L Mean Corpuscular Volume 104.0 H Mean Corpuscular Hemoglobin 32.7 Mean Corpuscular Hemoglobin Concent 31.5 L Red Cell Distribution Width 25.4 H Platelet Count 61 L Mean Platelet Volume 10.0 Neutrophils % 72.1 Lymphocytes % 13.5 L Monocytes % 11.0 Eosinophils % 0.9 Basophils % 0.1 Nucleated Red Blood Cells % 0.3 H Neutrophils # 6.5 Lymphocytes # 1.2 Monocytes # 1.0 H Eosinophils # 0.1 Basophils # 0.0 Nucleated Red Blood Cells # 0.0 Sodium Level 147 H Potassium Level 3.6 Chloride Level 109 Carbon Dioxide Level 28 Anion Gap 14 Blood Urea Nitrogen 30 H Creatinine 0.91 Glucose Level 118 Calcium Level 10.5 H Phosphorus Level 2.1 L Magnesium Level 1.9 Total Bilirubin 15.9 H Direct Bilirubin 3.60 #H Indirect Bilirubin 12.3 H Aspartate Amino Transf (AST/SGOT) 70 H Alanine Aminotransferase (ALT/SGPT) 39 Alkaline Phosphatase 109 Ammonia 21 Total Protein 7.4 # Albumin 3.7 Globulin 3.70 H Albumin/Globulin Ratio 1.00 Lab Scanned Report BLOOD TRANSFUSION Medications Medications Current Medications Multivitamins/ Thiamine HCl/ Folic Acid/Sodium Chloride (Mvi Adult/ Vitamin B1/ Folic Acid/NS) 1,011.2 ml @ 125 mls/ hr DAILY@09 IVPB Last administered on 09:04; Admin Dose 125 MLS/HR; Start 05/14/17 at 00:30 Lorazepam (Ativan) 1 mg Q6H PRN IM AGITATION/ANXIETY Last administered on 10:01; Admin Dose 1 MG; Start 05/14/17 at 00:30 Morphine Sulfate 2 mg 2 mg Q4H PRN IV Pain Last administered on 05/14/17 20:56 ; Admin Dose 2 MG; Start 05/14/17 at 12:00 Pantoprazole 80 mg/Sodium Chloride 100 ml @ 10 mls/hr Q10H IV Last administered on 05/17/17 05:58; Admin Dose 10 MLS/HR; Start 05/14/17 at 17:00 Cefepime HCl 50 ml @ 100 mls/hr Q12 IVPB Last administered on 05/16/17 22:53 ; Admin Dose 100 MLS/HR; Start 05/15/17 at 21:00 Levofloxacin/ Dextrose 50 ml @ 50 mls/hr Q24H IVPB Last administered on 15:51; Admin Dose 50 MLS/HR; Start 05/15/17 at 15:30 Dextrose (D5W) 1,000 ml @ 50 mls/hr Q20H IV Last administered on 05/17/17 05: 58; Admin Dose 50 MLS/HR; Start 05/16/17 at 10:00 Furosemide 20 mg 20 mg DAILY@06 IV Last administered on 05/17/17 05:59; Admin Dose 20 MG; Start 05/16/17 at 12:00 Diltiazem HCl (Cardizem-D5W 125 Mg/125 ml Drip) 125 ml @ 5 mls/hr TITRATE IV Last administered on 05/17/17 02:18; Admin Dose 5 MLS/HR; Start 05/16/17 at 16: 30 Rifaximin (Xifaxan) 550 mg BID PO Last administered on 05/17/17 09:04; Admin Dose 550 MG; Start 05/17/17 at 09:00 Lactulose (Enulose) 20 gm Q8 PO Last administered on 05/17/17 09:04; Admin Dose 20 GM; Start 05/17/17 at 08:00 REJI GARCIA NP May 17, 2017 09:29
--- NOTE | 2017-05-17 09:31 | CONS ---
Date/Time of Note Date/Time of Note DATE: 05/17/17 TIME: 09:25 Consult Date/Type/Reason Admit Date/Time May 13, 2017 at 22:29 Initial Consult Date 05/14/17 Type of Consultation: neph Ordering Provider: MICHELLE CRAFT The patient remains encephalopathic and confused. Urinary output has been adequate. Course reviewed with nursing staff Patient was transferred to ICU as he developed atrial fibrillation Currently on Cardizem drip, he has reverted to sinus rhythm No evidence of overt bleeding Appears more awake Postponed endoscopic workup until stable cardiovascular poc revewed with dr. maya OBJECTIVE: HEENT: Normocephalic. Pupils equal, round and react to light. LUNGS: Show diminished breath sounds at the base. ABDOMEN: Soft, nontender to palpation without rebound or guarding. EXTREMITIES: Negative for clubbing, cyanosis, no edema. DERMATOLOGIC: No rashes. Positive jaundice. MUSCULOSKELETAL: No joint effusions. NEUROLOGIC: No change in exam. MEDICATIONS: The patient's medications have been reviewed. Renal ultrasound shows normal kidneys, no hydronephrosis. Objective Vital Signs Date Time Temp Pulse Resp B/P Pulse Ox O2 Delivery O2 Flow Rate FiO2 05/17/17 08:30 79 26 144/60 94 Nasal Cannula 2.0 05/17/17 07:15 98.2 Intake and Output 05/16/17 05/16/17 05/17/17 15:00 23:00 07:00 Intake Total 270 ml 641 ml Output Total 1145 ml 960 ml 450 ml Balance -1145 ml -690 ml 191 ml Results/Medications Result Diagram: 05/17/17 0448 05/17/17 0448 Results 24 hrs Laboratory Tests Test 05/16/17 11:35 05/16/17 11:59 05/17/17 04:48 05/17/17 05:04 Blood Gas Specimen Source Blood arterial Arterial Blood Date Drawn 05/16/2017 1:16:47 PM Arterial Blood pH (Temp corrected) 7.434 Arterial Blood pCO2 (Temp correct) 39.2 Arterial Blood pO2 (Temp corrected) 85.9 Arterial Blood HCO3 25.7 Arterial Blood Base Excess 1.4 Arterial Blood Oxygen Saturation 96.4 Cruz Test ACCEPTAB Arterial Blood Gas Puncture Site Right Radial Arterial Blood Carboxyhemoglobin 2.4 Arterial Blood Methemoglobin 0.4 Blood Gas A-a O2 Differential 81.9 H Oxyhemoglobin Percent 93.7 Total Hemoglobin 8.6 L Blood Gas Temperature 37.0 Blood Gas Modality NASAL CANNULA FiO2 30.0 Blood Gas Notified Whom TM Blood Gas Notified Time 05/16/2017 1:25:17 PM Prothrombin Time 26.8 #H 24.5 H Prothrombin Time Ratio 2.1 1.9 INR International Normalized Ratio 2.44 2.18 Activated Partial Thromboplast Time 42.4 H 38.3 H White Blood Count 9.0 # Red Blood Count 2.23 L Hemoglobin 7.3 L Hematocrit 23.2 L Mean Corpuscular Volume 104.0 H Mean Corpuscular Hemoglobin 32.7 Mean Corpuscular Hemoglobin Concent 31.5 L Red Cell Distribution Width 25.4 H Platelet Count 61 L Mean Platelet Volume 10.0 Neutrophils % 72.1 Lymphocytes % 13.5 L Monocytes % 11.0 Eosinophils % 0.9 Basophils % 0.1 Nucleated Red Blood Cells % 0.3 H Neutrophils # 6.5 Lymphocytes # 1.2 Monocytes # 1.0 H Eosinophils # 0.1 Basophils # 0.0 Nucleated Red Blood Cells # 0.0 Sodium Level 147 H Potassium Level 3.6 Chloride Level 109 Carbon Dioxide Level 28 Anion Gap 14 Blood Urea Nitrogen 30 H Creatinine 0.91 Glucose Level 118 Calcium Level 10.5 H Phosphorus Level 2.1 L Magnesium Level 1.9 Total Bilirubin 15.9 H Direct Bilirubin 3.60 #H Indirect Bilirubin 12.3 H Aspartate Amino Transf (AST/SGOT) 70 H Alanine Aminotransferase (ALT/SGPT) 39 Alkaline Phosphatase 109 Ammonia 21 Total Protein 7.4 # Albumin 3.7 Globulin 3.70 H Albumin/Globulin Ratio 1.00 Lab Scanned Report BLOOD TRANSFUSION Medications Current Medications Multivitamins/ Thiamine HCl/ Folic Acid/Sodium Chloride (Mvi Adult/ Vitamin B1/ Folic Acid/NS) 1,011.2 ml @ 125 mls/ hr DAILY@09 IVPB Last administered on 09:04; Admin Dose 125 MLS/HR; Start 05/14/17 at 00:30 Lorazepam (Ativan) 1 mg Q6H PRN IM AGITATION/ANXIETY Last administered on 10:01; Admin Dose 1 MG; Start 05/14/17 at 00:30 Morphine Sulfate 2 mg 2 mg Q4H PRN IV Pain Last administered on 05/14/17 20:56 ; Admin Dose 2 MG; Start 05/14/17 at 12:00 Pantoprazole 80 mg/Sodium Chloride 100 ml @ 10 mls/hr Q10H IV Last administered on 05/17/17 05:58; Admin Dose 10 MLS/HR; Start 05/14/17 at 17:00 Cefepime HCl 50 ml @ 100 mls/hr Q12 IVPB Last administered on 05/16/17 22:53 ; Admin Dose 100 MLS/HR; Start 05/15/17 at 21:00 Levofloxacin/ Dextrose 50 ml @ 50 mls/hr Q24H IVPB Last administered on 15:51; Admin Dose 50 MLS/HR; Start 05/15/17 at 15:30 Dextrose (D5W) 1,000 ml @ 50 mls/hr Q20H IV Last administered on 05/17/17 05: 58; Admin Dose 50 MLS/HR; Start 05/16/17 at 10:00 Furosemide 20 mg 20 mg DAILY@06 IV Last administered on 05/17/17 05:59; Admin Dose 20 MG; Start 05/16/17 at 12:00 Diltiazem HCl (Cardizem-D5W 125 Mg/125 ml Drip) 125 ml @ 5 mls/hr TITRATE IV Last administered on 05/17/17 02:18; Admin Dose 5 MLS/HR; Start 05/16/17 at 16: 30 Rifaximin (Xifaxan) 550 mg BID PO Last administered on 05/17/17 09:04; Admin Dose 550 MG; Start 05/17/17 at 09:00 Lactulose (Enulose) 20 gm Q8 PO Last administered on 05/17/17 09:04; Admin Dose 20 GM; Start 05/17/17 at 08:00 Assessment/Plan Chief Complaint/Hosp Course ASSESSMENT AND PLAN: 1. Nonoliguric acute kidney injury with unknown baseline creatinine. Etiology of acute kidney injury appears to be secondary to hemodynamics, possible prerenal volume depletion versus sepsis. The patient has a FENa less than 1% due to prerenal etiology. The patient's urinalysis is otherwise bland and no active sediment. Renal ultrasound is normal. Plan at this point would be to continue current treatment plan. Continue volume resuscitation Otherwise, continue supportive care, renally dose all meds, avoid nephrotoxins and monitor renal function closely. watch for diuretic phase of elsa with electrolyte wasting. 2. Anemia with possible gastrointestinal bleed. Continue to monitor H and H levels, transfuse PRBCs. continues to decline. Follow up with GI. 3. Mineral bone disorder. Continue to monitor calcium and phosphorus levels. 4. Transaminitis, hyperbilirubinemia. Etiology is unclear, possibly cirrhosis or hepatitis. The patient is altered. Liver ultrasound shows hepatic steatosis. At this point, continue to monitor. Follow up LFT's. Follow up with GI. 5. Acute encephalopathy, likely hepatic, septic, possible toxic metabolic. Continue to monitor. 6. History of ETOH abuse. Continue to monitor for any signs of trauma. 7. Coagulopathy, unclear etiology, possible liver failure. 8. Leukocytosis. Etiology is unclear, possibly due to hepatitis; however, we will rule out infection. Continue antibiotic therapy. Cultures have been reviewed. Sepsis secondary to urinary tract infection bacteremia. The patient' s urine cultures and blood cultures were positive. At this point, continue current antibiotic regimen. Follow up with primary team and monitor. Problems: ELLE CRANE MD May 17, 2017 09:31
--- NOTE | 2017-05-17 10:08 | CONS ---
Date/Time of Note Date/Time of Note DATE: 05/17/17 TIME: 10:06 Assessment/Plan Assessment/Plan Chief Complaint/Hosp Course Severe anemia Liver failure Coagulopathy Encephalopathy Thrombocytopenia Preserved ejection fraction History of hypertension Acute kidney injury Abnormal ECG PAF Coagulopathy Problems: Additional Assessment/Plan 1) No AC given coagulopathy 2) Gu workup Consultation Date/Type/Reason Admit Date/Time May 13, 2017 at 22:29 Initial Consult Date 05/14/17 Type of Consultation: cv Referring Provider: MICHELLE CRAFT 24 HR Interval Summary Free Text/Dictation no distress, confused, no chest pain or sob Detailed Summary Respiratory: no complaints Cardiovascular: no complaints Gastrointestinal: no complaints Musculoskeletal: no complaints Neurologic: no complaints Exam/Review of Systems Vital Signs Vitals Vital Signs Date Time Temp Pulse Resp B/P Pulse Ox O2 Delivery O2 Flow Rate FiO2 05/17/17 08:30 79 26 144/60 94 Nasal Cannula 2.0 05/17/17 07:15 98.2 Intake and Output 05/16/17 05/16/17 05/17/17 15:00 23:00 07:00 Intake Total 270 ml 641 ml Output Total 1145 ml 960 ml 450 ml Balance -1145 ml -690 ml 191 ml Exam Psych: confusion Head: atraumatic, normocephalic Neck: jvd Respiratory: clear to auscultation Cardiovascular: regular rate and rhythm Gastrointestinal: soft Musculoskeletal: nl extremities to inspection Extremities: normal pulses Results Result Diagram: 05/17/17 0448 05/17/17 0448 Results 24 hrs Laboratory Tests Test 05/16/17 11:35 05/16/17 11:59 05/17/17 04:48 05/17/17 05:04 Blood Gas Specimen Source Blood arterial Arterial Blood Date Drawn 05/16/2017 1:16:47 PM Arterial Blood pH (Temp corrected) 7.434 Arterial Blood pCO2 (Temp correct) 39.2 Arterial Blood pO2 (Temp corrected) 85.9 Arterial Blood HCO3 25.7 Arterial Blood Base Excess 1.4 Arterial Blood Oxygen Saturation 96.4 Cruz Test ACCEPTAB Arterial Blood Gas Puncture Site Right Radial Arterial Blood Carboxyhemoglobin 2.4 Arterial Blood Methemoglobin 0.4 Blood Gas A-a O2 Differential 81.9 H Oxyhemoglobin Percent 93.7 Total Hemoglobin 8.6 L Blood Gas Temperature 37.0 Blood Gas Modality NASAL CANNULA FiO2 30.0 Blood Gas Notified Whom TM Blood Gas Notified Time 05/16/2017 1:25:17 PM Prothrombin Time 26.8 #H 24.5 H Prothrombin Time Ratio 2.1 1.9 INR International Normalized Ratio 2.44 2.18 Activated Partial Thromboplast Time 42.4 H 38.3 H White Blood Count 9.0 # Red Blood Count 2.23 L Hemoglobin 7.3 L Hematocrit 23.2 L Mean Corpuscular Volume 104.0 H Mean Corpuscular Hemoglobin 32.7 Mean Corpuscular Hemoglobin Concent 31.5 L Red Cell Distribution Width 25.4 H Platelet Count 61 L Mean Platelet Volume 10.0 Neutrophils % 72.1 Lymphocytes % 13.5 L Monocytes % 11.0 Eosinophils % 0.9 Basophils % 0.1 Nucleated Red Blood Cells % 0.3 H Neutrophils # 6.5 Lymphocytes # 1.2 Monocytes # 1.0 H Eosinophils # 0.1 Basophils # 0.0 Nucleated Red Blood Cells # 0.0 Sodium Level 147 H Potassium Level 3.6 Chloride Level 109 Carbon Dioxide Level 28 Anion Gap 14 Blood Urea Nitrogen 30 H Creatinine 0.91 Glucose Level 118 Calcium Level 10.5 H Phosphorus Level 2.1 L Magnesium Level 1.9 Total Bilirubin 15.9 H Direct Bilirubin 3.60 #H Indirect Bilirubin 12.3 H Aspartate Amino Transf (AST/SGOT) 70 H Alanine Aminotransferase (ALT/SGPT) 39 Alkaline Phosphatase 109 Ammonia 21 Total Protein 7.4 # Albumin 3.7 Globulin 3.70 H Albumin/Globulin Ratio 1.00 Lab Scanned Report BLOOD TRANSFUSION Medications Medications Current Medications Multivitamins/ Thiamine HCl/ Folic Acid/Sodium Chloride (Mvi Adult/ Vitamin B1/ Folic Acid/NS) 1,011.2 ml @ 125 mls/ hr DAILY@09 IVPB Last administered on 09:04; Admin Dose 125 MLS/HR; Start 05/14/17 at 00:30 Lorazepam (Ativan) 1 mg Q6H PRN IM AGITATION/ANXIETY Last administered on 10:01; Admin Dose 1 MG; Start 05/14/17 at 00:30 Morphine Sulfate 2 mg 2 mg Q4H PRN IV Pain Last administered on 05/14/17 20:56 ; Admin Dose 2 MG; Start 05/14/17 at 12:00 Pantoprazole 80 mg/Sodium Chloride 100 ml @ 10 mls/hr Q10H IV Last administered on 05/17/17 05:58; Admin Dose 10 MLS/HR; Start 05/14/17 at 17:00 Cefepime HCl 50 ml @ 100 mls/hr Q12 IVPB Last administered on 05/16/17 22:53 ; Admin Dose 100 MLS/HR; Start 05/15/17 at 21:00 Levofloxacin/ Dextrose 50 ml @ 50 mls/hr Q24H IVPB Last administered on 15:51; Admin Dose 50 MLS/HR; Start 05/15/17 at 15:30 Dextrose (D5W) 1,000 ml @ 50 mls/hr Q20H IV Last administered on 05/17/17 05: 58; Admin Dose 50 MLS/HR; Start 05/16/17 at 10:00 Furosemide 20 mg 20 mg DAILY@06 IV Last administered on 05/17/17 05:59; Admin Dose 20 MG; Start 05/16/17 at 12:00 Diltiazem HCl (Cardizem-D5W 125 Mg/125 ml Drip) 125 ml @ 5 mls/hr TITRATE IV Last administered on 05/17/17 02:18; Admin Dose 5 MLS/HR; Start 05/16/17 at 16: 30 Rifaximin (Xifaxan) 550 mg BID PO Last administered on 05/17/17 09:04; Admin Dose 550 MG; Start 05/17/17 at 09:00 Lactulose (Enulose) 20 gm Q8 PO Last administered on 05/17/17 09:04; Admin Dose 20 GM; Start 05/17/17 at 08:00 CODY ELLSWORTH MD May 17, 2017 10:08
--- NOTE | 2017-05-17 14:33 | CONS ---
Date/Time of Note Date/Time of Note DATE: 05/17/17 TIME: 14:32 Assessment/Plan Assessment/Plan Chief Complaint/Hosp Course ID PROGRESS NOTE ABX DAY # Levaquin + Rifaximin 24H INTERVAL SUMMARY * Sleeping open eyes, lethargic, restless in bed, O2 via NC, no fevers, VSS * CXR 05/16: Stable patchy infiltrates throughout the left lung, combined with moderate pleural effusion. PHYSICAL EXAMINATION: GENERAL: VSS, NAD, no fever HEENT: Unremarkable NECK: Trach-> midline CHEST: Equal chest rise bilaterally, without dyspnea on observation HEART: Pulse RRR ABDOMEN: Soft EXTREMITIES: Warm SKIN: Warm, dry ID ASSESSMENT: 52 yo M w/ admitted with: 1. SIRS w/w/acute encephalopathy, leukocytosis due to probably ETOH withdrawal , ETOH hepatitis, Aspiration Pneumonitis * Blood culture x1 positive for SKIN CONTAMINANT (+1/2 BOTTLES CORYNEBACTERIUM SPECIES (not JK) = normal skin chang 2. ETOH hepatitis w/hx of daily ETOH * Viral Hepatitis panel negative so far. 3. Aspiration PNA w/Moderate to large left-sided pleural effusion with complete atelectasis of the left lower lobe and partial posterior atelectasis of the left upper lobe. * CXR 05/16: Stable patchy infiltrates throughout the left lung, combined with moderate pleural effusion. 4. Transaminitis with hyperbilirubinemia=> Most probably from underlying alcoholic liver disease. 5. Coagulopathy=> Most probably secondary to underlying liver dysfunction. 6. Nonoliguric acute kidney injury in a patient with unknown baseline creatinine. 7. Paroxysmal A. fib. ABX ALLERGIES: KNDA INVASIVES: *PIV CURRENT ABX: ABX DAY # Levaquin + Rifaximin ID RECOMMENDATIONS: 1. Continue current ABX 2. Aspiration precautions . . Problems: Consultation Date/Type/Reason Admit Date/Time May 13, 2017 at 22:29 Initial Consult Date 05/14/17 Type of Consultation: ID Referring Provider: MICHELLE CRAFT Exam/Review of Systems Vital Signs Vitals Vital Signs Date Time Temp Pulse Resp B/P Pulse Ox O2 Delivery O2 Flow Rate FiO2 05/17/17 14:14 77 31 96 Nasal Cannula 2.0 05/17/17 12:00 98.2 152/70 Intake and Output 05/16/17 05/16/17 05/17/17 15:00 23:00 07:00 Intake Total 270 ml 641 ml Output Total 1145 ml 960 ml 450 ml Balance -1145 ml -690 ml 191 ml Results Result Diagram: 05/17/17 0448 05/17/17 0448 Results 24 hrs Laboratory Tests Test 05/17/17 04:48 05/17/17 05:04 White Blood Count 9.0 # Red Blood Count 2.23 L Hemoglobin 7.3 L Hematocrit 23.2 L Mean Corpuscular Volume 104.0 H Mean Corpuscular Hemoglobin 32.7 Mean Corpuscular Hemoglobin Concent 31.5 L Red Cell Distribution Width 25.4 H Platelet Count 61 L Mean Platelet Volume 10.0 Neutrophils % 72.1 Lymphocytes % 13.5 L Monocytes % 11.0 Eosinophils % 0.9 Basophils % 0.1 Nucleated Red Blood Cells % 0.3 H Neutrophils # 6.5 Lymphocytes # 1.2 Monocytes # 1.0 H Eosinophils # 0.1 Basophils # 0.0 Nucleated Red Blood Cells # 0.0 Prothrombin Time 24.5 H Prothrombin Time Ratio 1.9 INR International Normalized Ratio 2.18 Activated Partial Thromboplast Time 38.3 H Sodium Level 147 H Potassium Level 3.6 Chloride Level 109 Carbon Dioxide Level 28 Anion Gap 14 Blood Urea Nitrogen 30 H Creatinine 0.91 Glucose Level 118 Calcium Level 10.5 H Phosphorus Level 2.1 L Magnesium Level 1.9 Total Bilirubin 15.9 H Direct Bilirubin 3.60 #H Indirect Bilirubin 12.3 H Aspartate Amino Transf (AST/SGOT) 70 H Alanine Aminotransferase (ALT/SGPT) 39 Alkaline Phosphatase 109 Ammonia 21 Total Protein 7.4 # Albumin 3.7 Globulin 3.70 H Albumin/Globulin Ratio 1.00 Lab Scanned Report BLOOD TRANSFUSION Medications Medications Current Medications Multivitamins/ Thiamine HCl/ Folic Acid/Sodium Chloride (Mvi Adult/ Vitamin B1/ Folic Acid/NS) 1,011.2 ml @ 125 mls/ hr DAILY@09 IVPB Last administered on 09:04; Admin Dose 125 MLS/HR; Start 05/14/17 at 00:30 Lorazepam (Ativan) 1 mg Q6H PRN IM AGITATION/ANXIETY Last administered on 10:01; Admin Dose 1 MG; Start 05/14/17 at 00:30 Morphine Sulfate 2 mg 2 mg Q4H PRN IV Pain Last administered on 05/14/17 20:56 ; Admin Dose 2 MG; Start 05/14/17 at 12:00 Pantoprazole 80 mg/Sodium Chloride 100 ml @ 10 mls/hr Q10H IV Last administered on 05/17/17 05:58; Admin Dose 10 MLS/HR; Start 05/14/17 at 17:00 Cefepime HCl 50 ml @ 100 mls/hr Q12 IVPB Last administered on 05/17/17 09:00 ; Admin Dose 100 MLS/HR; Start 05/15/17 at 21:00 Levofloxacin/ Dextrose 50 ml @ 50 mls/hr Q24H IVPB Last administered on 15:51; Admin Dose 50 MLS/HR; Start 05/15/17 at 15:30 Dextrose (D5W) 1,000 ml @ 50 mls/hr Q20H IV Last administered on 05/17/17 05: 58; Admin Dose 50 MLS/HR; Start 05/16/17 at 10:00 Furosemide 20 mg 20 mg DAILY@06 IV Last administered on 05/17/17 05:59; Admin Dose 20 MG; Start 05/16/17 at 12:00 Diltiazem HCl (Cardizem-D5W 125 Mg/125 ml Drip) 125 ml @ 5 mls/hr TITRATE IV Last administered on 05/17/17 02:18; Admin Dose 5 MLS/HR; Start 05/16/17 at 16: 30 Rifaximin (Xifaxan) 550 mg BID PO Last administered on 05/17/17 09:04; Admin Dose 550 MG; Start 05/17/17 at 09:00 Lactulose (Enulose) 20 gm Q8 PO Last administered on 05/17/17 09:04; Admin Dose 20 GM; Start 05/17/17 at 08:00 JONI MCCONNELL NP May 17, 2017 14:33
[2017-05-17] MEDS: LEVOFLOXACIN 250MG/D5W (PMX) 50 ML IVPB SCH (16:31)
[2017-05-18] VITALS (58 sets, daily range): BP systolic 131–183; BP diastolic 67–113; PULSE 75–132; RESP 21–43
[2017-05-18] MEDS: DILTIAZEM-D5W 125MG/125ML DRIP 125 ML IV SCH ×2 (00:01→19:46)
[2017-05-18] MEDS: PANTOPRAZOLE IV 80 MG in SOD CHLORIDE 0.9% 100 ML IV SCH ×3 (03:06→23:00)
[2017-05-18 05:08] LABS: ADD SCAN DIFF NO
[2017-05-18 05:15] LABS: ABNORMAL IP MESSAGE 1; BASOPHILS % 0.3 % (0.0-2.0); EOSINOPHILS # 0.2 10^3/ul (0.0-0.5); EOSINOPHILS % 1.3 % (0.0-7.0); HEMATOCRIT 24.3 % (42.0-52.0); HEMOGLOBIN 7.9 g/dl (14.0-18.0); LYMPHOCYTES # 1.3 10^3/ul (0.8-2.9); LYMPHOCYTES % 11.3 % (15.0-51.0); MEAN CORPUSCULAR HEMOGLOBIN 34.2 pg (29.0-33.0); MEAN CORPUSCULAR HGB CONC 32.5 g/dl (32.0-37.0); MEAN CORPUSCULAR VOLUME 105.2 fl (82.0-101.0); MEAN PLATELET VOLUME 10.2 fl (7.4-10.4); MONOCYTE # 1.3 10^3/ul (0.3-0.9); MONOCYTES % 10.9 % (0.0-11.0); NEUTROPHIL # 8.3 10^3/ul (1.6-7.5); NEUTROPHILS % 71.9 % (39.0-77.0); NUCLEATED RED BLOOD CELLS% 0.3 /100WBC (0.0-0.0); PLATELET COUNT 60 10^3/UL (140-415); RED BLOOD COUNT 2.31 10^6/ul (4.70-6.10); RED CELL DISTRIBUTION WIDTH 24.8 % (11.5-14.5); WHITE BLOOD COUNT 11.5 10^3/ul (4.8-10.8)
[2017-05-18 05:45] LABS: MAGNESIUM 1.8 mg/dl (1.7-2.5); PHOSPHORUS 1.6 mg/dl (2.5-4.9)
[2017-05-18 05:46] LABS: ALBUMIN 3.4 g/dl (3.3-4.9); ALBUMIN/GLOBULIN RATIO 0.89; BILIRUBIN,DIRECT 3.3 mg/dl (0.00-0.20); BILIRUBIN,TOTAL 16.3 mg/dl (0.2-1.3); CALCIUM 10.6 mg/dl (8.4-10.2); CREATININE 0.8 mg/dl (0.61-1.24); POTASSIUM 3.6 mmol/L (3.5-5.1); TOTAL PROTEIN 7.2 g/dl (6.1-8.1)
[2017-05-18] MEDS: FUROSEMIDE 20 MG INJ IV SCH (05:52)
[2017-05-18] MEDS: LACTULOSE 30ML CUP PO SCH ×3 (05:53→22:29)
--- NOTE | 2017-05-18 08:18 | PN ---
Date/Time of Note Date/Time of Note DATE: 05/18/17 TIME: 08:15 Assessment/Plan VTE Prophylaxis VTE Prophylaxis Intervention: contraindicated Lines/Catheters IV [facility] ([facility] Peripheral IV Urinary Cath still in place: Yes Reason Cath still needed: other (indicate) Assessment/Plan Chief Complaint/Hosp Course 1. Acute encephalopathy. Most probably toxic metabolic in origin. The patient 's brain CT scan was negative for any acute intracranial pathology. 2. Macrocytic anemia. Symptomatic. Etiology unclear. The patient was noticed to have coagulopathy with an INR of 7.07 upon admission. The patient being followed by gastroenterology. The patient is on a Protonix drip. The patient is scheduled for esophagogastroduodenoscopy when hemodynamically stable. 3. Coagulopathy. Etiology unclear. Most probably secondary to underlying liver dysfunction. Hepatitis panel negative so far. 4. Transaminitis with hyperbilirubinemia. Most probably from underlying alcoholic liver disease. Hepatotoxic drugs will be avoided on this patient. We will trend liver function tests. 5. Nonoliguric acute kidney injury in a patient with unknown baseline creatinine. Etiology unclear. Most probably secondary to hemodynamics versus volume depletion versus hepatorenal syndrome. Nephrotoxic drugs will be avoided. 6. Possible alcohol abuse. Serum alcohol level was less than 10. The patient verbalized that he drinks on a daily basis. The patient is on p.r.n. Ativan for any alcohol withdrawal delirium. 7. Leukocytosis. Blood culture x1 positive for gram-negative rods. Repeat blood cultures negative. No evidence of any septic shock. The patient will be continued on empiric antibiotics. The patient being followed by infectious diseases. 8. Moderate to large left-sided pleural effusion with complete atelectasis of the left lower lobe and partial posterior atelectasis of the left upper lobe. Continue supplemental oxygen. Possible aspiration pneumonia. Continue antibiotics. 9. Paroxysmal A. fib. Currently in sinus rhythm. On Cardizem drip. Cardiology following. 10. Fluid, electrolytes and nutrition. Soft diet with thin liquids. 11. Deep venous thrombosis prophylaxis. Bilateral sequential compression devices. 12. Gastrointestinal prophylaxis. Proton pump inhibitors. PLAN: Continue ICU monitoring. Await esophagogastroduodenoscopy. Replace blood products. Case discussed with Dr. Serrano. Critical care time: 35 minutes. Problems: Subjective 24 Hr Interval Summary Free Text/Dictation Remains on Cardizem drip. More awake and alert. Exam/Review of Systems Vital Signs Vitals Vital Signs Date Time Temp Pulse Resp B/P Pulse Ox O2 Delivery O2 Flow Rate FiO2 05/18/17 06:30 90 39 148/77 96 Nasal Cannula 05/18/17 04:00 99.0 05/18/17 03:10 2.0 Intake and Output 05/17/17 05/17/17 05/18/17 15:00 23:00 07:00 Intake Total 1555 ml 1170 ml 640 ml Output Total 775 ml 1050 ml 1090 ml Balance 780 ml 120 ml -450 ml Exam GENERAL: This is an obese male patient lying in bed in no apparent distress. HEENT: Head normocephalic and atraumatic. Eyes: Icteric sclerae. Conjunctivae clear. ENT: Nasal septum is midline. Oral mucosa is dry. NECK: Supple. No JVD noticed. RESPIRATORY: Bilaterally diminished breath sounds. No adventitious breath sounds heard. No use of accessory muscles of respiration. CARDIAC: Regular rate and rhythm. S1 and S2 heard. Systolic ejection murmur. ABDOMEN: Distended. Bowel sounds hypoactive in all 4 quadrants. GENITOURINARY: The patient has a Fuentes catheter in place. EXTREMITIES: Edema of all 4 extremities. Bilateral lower extremity pitting edema. Pedal pulses diminished in bilateral lower extremities. NEUROLOGIC: Awake and alert. Oriented 2. No focal deficits. Results Result Diagram: 05/18/17 0442 05/18/17 0442 Results 24 hrs Laboratory Tests Test 05/18/17 04:42 05/18/17 05:24 White Blood Count 11.5 #H Red Blood Count 2.31 L Hemoglobin 7.9 L Hematocrit 24.3 L Mean Corpuscular Volume 105.2 H Mean Corpuscular Hemoglobin 34.2 H Mean Corpuscular Hemoglobin Concent 32.5 Red Cell Distribution Width 24.8 H Platelet Count 60 L Mean Platelet Volume 10.2 Neutrophils % 71.9 Lymphocytes % 11.3 L Monocytes % 10.9 Eosinophils % 1.3 Basophils % 0.3 Nucleated Red Blood Cells % 0.3 H Neutrophils # 8.3 H Lymphocytes # 1.3 Monocytes # 1.3 H Eosinophils # 0.2 Basophils # 0.0 Nucleated Red Blood Cells # 0.0 Sodium Level 145 H Potassium Level 3.6 Chloride Level 108 Carbon Dioxide Level 26 Anion Gap 15 Blood Urea Nitrogen 25 H Creatinine 0.80 Glucose Level 110 Calcium Level 10.6 H Phosphorus Level 1.6 L Magnesium Level 1.8 Total Bilirubin 16.3 H Direct Bilirubin 3.30 H Indirect Bilirubin 13.0 H Aspartate Amino Transf (AST/SGOT) 84 H Alanine Aminotransferase (ALT/SGPT) 45 Alkaline Phosphatase 107 Ammonia 18 Total Protein 7.2 Albumin 3.4 Globulin 3.80 H Albumin/Globulin Ratio 0.89 Lab Scanned Report BLOOD TRANSFUSION Medications Medications Current Medications Multivitamins/ Thiamine HCl/ Folic Acid/Sodium Chloride (Mvi Adult/ Vitamin B1/ Folic Acid/NS) 1,011.2 ml @ 125 mls/ hr DAILY@09 IVPB Last administered on 09:04; Admin Dose 125 MLS/HR; Start 05/14/17 at 00:30 Lorazepam (Ativan) 1 mg Q6H PRN IM AGITATION/ANXIETY Last administered on 10:01; Admin Dose 1 MG; Start 05/14/17 at 00:30 Morphine Sulfate 2 mg 2 mg Q4H PRN IV Pain Last administered on 05/14/17 20:56 ; Admin Dose 2 MG; Start 05/14/17 at 12:00 Pantoprazole 80 mg/Sodium Chloride 100 ml @ 10 mls/hr Q10H IV Last administered on 05/18/17 03:06; Admin Dose 10 MLS/HR; Start 05/14/17 at 17:00 Cefepime HCl 50 ml @ 100 mls/hr Q12 IVPB Last administered on 05/17/17 22:12 ; Admin Dose 100 MLS/HR; Start 05/15/17 at 21:00 Levofloxacin/ Dextrose 50 ml @ 50 mls/hr Q24H IVPB Last administered on 16:31; Admin Dose 50 MLS/HR; Start 05/15/17 at 15:30 Dextrose (D5W) 1,000 ml @ 50 mls/hr Q20H IV Last administered on 05/17/17 22: 13; Admin Dose 50 MLS/HR; Start 05/16/17 at 10:00 Furosemide 20 mg 20 mg DAILY@06 IV Last administered on 05/18/17 05:52; Admin Dose 20 MG; Start 05/16/17 at 12:00 Diltiazem HCl (Cardizem-D5W 125 Mg/125 ml Drip) 125 ml @ 5 mls/hr TITRATE IV Last administered on 05/18/17 00:01; Admin Dose 5 MLS/HR; Start 05/16/17 at 16: 30 Rifaximin (Xifaxan) 550 mg BID PO Last administered on 05/17/17 22:01; Admin Dose 550 MG; Start 05/17/17 at 09:00 Lactulose (Enulose) 20 gm Q8 PO Last administered on 05/18/17 05:53; Admin Dose 20 GM; Start 05/17/17 at 08:00 Hydralazine HCl (Apresoline) 10 mg Q6H PRN IV SBP>160; Start 05/17/17 at 15:30 REJI GARCIA NP May 18, 2017 08:17
[2017-05-18] MEDS: CEFEPIME 2GM/50 ML (PMX) 50 ML IVPB SCH ×2 (08:39→20:31)
[2017-05-18] MEDS: RIFAXIMIN 550 MG TAB PO SCH ×2 (08:39→21:00)
[2017-05-18] MEDS: ALBUTEROL 0.083% (NEB) 2.5 MG/3 ML AMP HHN SCH ×3 (08:42→19:17)
--- NOTE | 2017-05-18 08:47 | CONS ---
Date/Time of Note Date/Time of Note DATE: 05/18/17 TIME: 08:46 Consult Date/Type/Reason Admit Date/Time May 13, 2017 at 22:29 Initial Consult Date 05/14/17 Type of Consultation: ID Ordering Provider: MICHELLE CRAFT The patient remains encephalopathic and confused. Urinary output has been adequate. Course reviewed with nursing staff Patient was transferred to ICU as he developed atrial fibrillation sp Cardizem drip, he has reverted to sinus rhythm Postponed endoscopic workup until stable cardiovascular poc revewed with dr. maya OBJECTIVE: HEENT: Normocephalic. Pupils equal, round and react to light. LUNGS: Show diminished breath sounds at the base. ABDOMEN: Soft, nontender to palpation without rebound or guarding. EXTREMITIES: Negative for clubbing, cyanosis, no edema. DERMATOLOGIC: No rashes. Positive jaundice. MUSCULOSKELETAL: No joint effusions. NEUROLOGIC: No change in exam. Objective Vital Signs Date Time Temp Pulse Resp B/P Pulse Ox O2 Delivery O2 Flow Rate FiO2 05/18/17 06:30 90 39 148/77 96 Nasal Cannula 05/18/17 04:00 99.0 05/18/17 03:10 2.0 Intake and Output 05/17/17 05/17/17 05/18/17 15:00 23:00 07:00 Intake Total 1555 ml 1170 ml 640 ml Output Total 775 ml 1050 ml 1090 ml Balance 780 ml 120 ml -450 ml Results/Medications Result Diagram: 05/18/17 0442 05/18/17 0442 Results 24 hrs Laboratory Tests Test 05/18/17 04:42 05/18/17 05:24 White Blood Count 11.5 #H Red Blood Count 2.31 L Hemoglobin 7.9 L Hematocrit 24.3 L Mean Corpuscular Volume 105.2 H Mean Corpuscular Hemoglobin 34.2 H Mean Corpuscular Hemoglobin Concent 32.5 Red Cell Distribution Width 24.8 H Platelet Count 60 L Mean Platelet Volume 10.2 Neutrophils % 71.9 Lymphocytes % 11.3 L Monocytes % 10.9 Eosinophils % 1.3 Basophils % 0.3 Nucleated Red Blood Cells % 0.3 H Neutrophils # 8.3 H Lymphocytes # 1.3 Monocytes # 1.3 H Eosinophils # 0.2 Basophils # 0.0 Nucleated Red Blood Cells # 0.0 Sodium Level 145 H Potassium Level 3.6 Chloride Level 108 Carbon Dioxide Level 26 Anion Gap 15 Blood Urea Nitrogen 25 H Creatinine 0.80 Glucose Level 110 Calcium Level 10.6 H Phosphorus Level 1.6 L Magnesium Level 1.8 Total Bilirubin 16.3 H Direct Bilirubin 3.30 H Indirect Bilirubin 13.0 H Aspartate Amino Transf (AST/SGOT) 84 H Alanine Aminotransferase (ALT/SGPT) 45 Alkaline Phosphatase 107 Ammonia 18 Total Protein 7.2 Albumin 3.4 Globulin 3.80 H Albumin/Globulin Ratio 0.89 Lab Scanned Report BLOOD TRANSFUSION Medications Current Medications Multivitamins/ Thiamine HCl/ Folic Acid/Sodium Chloride (Mvi Adult/ Vitamin B1/ Folic Acid/NS) 1,011.2 ml @ 125 mls/ hr DAILY@09 IVPB Last administered on 09:04; Admin Dose 125 MLS/HR; Start 05/14/17 at 00:30 Lorazepam (Ativan) 1 mg Q6H PRN IM AGITATION/ANXIETY Last administered on 10:01; Admin Dose 1 MG; Start 05/14/17 at 00:30 Morphine Sulfate 2 mg 2 mg Q4H PRN IV Pain Last administered on 05/14/17 20:56 ; Admin Dose 2 MG; Start 05/14/17 at 12:00 Pantoprazole 80 mg/Sodium Chloride 100 ml @ 10 mls/hr Q10H IV Last administered on 05/18/17 03:06; Admin Dose 10 MLS/HR; Start 05/14/17 at 17:00 Cefepime HCl 50 ml @ 100 mls/hr Q12 IVPB Last administered on 05/18/17 08:39 ; Admin Dose 100 MLS/HR; Start 05/15/17 at 21:00 Levofloxacin/ Dextrose 50 ml @ 50 mls/hr Q24H IVPB Last administered on 16:31; Admin Dose 50 MLS/HR; Start 05/15/17 at 15:30 Dextrose (D5W) 1,000 ml @ 50 mls/hr Q20H IV Last administered on 05/17/17 22: 13; Admin Dose 50 MLS/HR; Start 05/16/17 at 10:00 Furosemide 20 mg 20 mg DAILY@06 IV Last administered on 05/18/17 05:52; Admin Dose 20 MG; Start 05/16/17 at 12:00 Diltiazem HCl (Cardizem-D5W 125 Mg/125 ml Drip) 125 ml @ 5 mls/hr TITRATE IV Last administered on 05/18/17 00:01; Admin Dose 5 MLS/HR; Start 05/16/17 at 16: 30 Rifaximin (Xifaxan) 550 mg BID PO Last administered on 05/18/17 08:39; Admin Dose 550 MG; Start 05/17/17 at 09:00 Lactulose (Enulose) 20 gm Q8 PO Last administered on 05/18/17 05:53; Admin Dose 20 GM; Start 05/17/17 at 08:00 Hydralazine HCl (Apresoline) 10 mg Q6H PRN IV SBP>160; Start 05/17/17 at 15:30 Assessment/Plan Chief Complaint/Hosp Course ASSESSMENT AND PLAN: 1. Nonoliguric acute kidney injury with unknown baseline creatinine. Etiology of acute kidney injury appears to be secondary to hemodynamics, possible prerenal volume depletion versus sepsis. The patient has a FENa less than 1% due to prerenal etiology. The patient's urinalysis is otherwise bland and no active sediment. Renal ultrasound is normal. Plan at this point would be to continue current treatment plan. Continue volume resuscitation Otherwise, continue supportive care, renally dose all meds, avoid nephrotoxins and monitor renal function closely. watch for diuretic phase of elsa with electrolyte wasting. 2. Anemia with possible gastrointestinal bleed. Continue to monitor H and H levels, transfuse PRBCs. continues to decline. Follow up with GI. 3. Mineral bone disorder. Continue to monitor calcium and phosphorus levels. 4. Transaminitis, hyperbilirubinemia. Etiology is unclear, possibly cirrhosis or hepatitis. The patient is altered. Liver ultrasound shows hepatic steatosis. At this point, continue to monitor. Follow up LFT's. Follow up with GI. 5. Acute encephalopathy, likely hepatic, septic, possible toxic metabolic. Continue to monitor. 6. History of ETOH abuse. Continue to monitor for any signs of trauma. 7. Coagulopathy, unclear etiology, possible liver failure. 8. Leukocytosis. continue current antibiotic regimen. Follow up with primary team and monitor. Problems: ELLE CRANE MD May 18, 2017 08:47
--- NOTE | 2017-05-18 10:53 | CONS ---
Date/Time of Note Date/Time of Note DATE: 05/18/17 TIME: 10:50 Assessment/Plan Assessment/Plan Additional Assessment/Plan Assessment and recommendations; 1. Patient admitted for left lower lobe pneumonia. 2. Advanced end-stage liver disease. 3. Severe icterus. 4. Normal serum ammonia level. 5. Thrombocytopenia and anemia. No overt bleeding noted. Continue current treatment. Will obtain follow-up chest x-ray. Prognosis is poor. Consultation Date/Type/Reason Admit Date/Time May 13, 2017 at 22:29 Initial Consult Date 05/14/17 Type of Consultation: Pulmonary/critical care Referring Provider: MICHELLE CRAFT 24 HR Interval Summary Free Text/Dictation Patient condition is continually improving with significantly improved mental status. Patient however still gets lethargic off and on. Denies any shortness of breath, abdominal pain, nausea vomiting. General exam; middle-aged male, currently in no distress. Awake and alert. Exam/Review of Systems Vital Signs Vitals Vital Signs Date Time Temp Pulse Resp B/P Pulse Ox O2 Delivery O2 Flow Rate FiO2 05/18/17 09:30 91 36 147/72 94 05/18/17 09:00 Nasal Cannula 2.0 05/18/17 08:00 98.8 Intake and Output 05/17/17 05/17/17 05/18/17 15:00 23:00 07:00 Intake Total 1555 ml 1170 ml 640 ml Output Total 775 ml 1050 ml 1090 ml Balance 780 ml 120 ml -450 ml Exam HEENT examination; supple neck, no JVD. No lymphadenopathy. Midline trachea. No thyromegaly. Patient is strongly icteric. Has fair dentition. Pupils are midsize and reactive to light. Chest examination; diminished but clear vessel. S1-S2 audible, no murmurs. Regular rhythm. Abdomen examination; soft, protuberant. No organomegaly. Bowel sounds audible. Extremity examination; no peripheral edema. CHARGER TESTER examination; patient is awake and alert and follows simple commands. He does appear lethargic periodically but that has improved over the last 24-48 hours. Results Result Diagram: 05/18/17 0442 05/18/17 0442 Results 24 hrs Laboratory Tests Test 05/18/17 04:42 05/18/17 05:24 White Blood Count 11.5 #H Red Blood Count 2.31 L Hemoglobin 7.9 L Hematocrit 24.3 L Mean Corpuscular Volume 105.2 H Mean Corpuscular Hemoglobin 34.2 H Mean Corpuscular Hemoglobin Concent 32.5 Red Cell Distribution Width 24.8 H Platelet Count 60 L Mean Platelet Volume 10.2 Neutrophils % 71.9 Lymphocytes % 11.3 L Monocytes % 10.9 Eosinophils % 1.3 Basophils % 0.3 Nucleated Red Blood Cells % 0.3 H Neutrophils # 8.3 H Lymphocytes # 1.3 Monocytes # 1.3 H Eosinophils # 0.2 Basophils # 0.0 Nucleated Red Blood Cells # 0.0 Sodium Level 145 H Potassium Level 3.6 Chloride Level 108 Carbon Dioxide Level 26 Anion Gap 15 Blood Urea Nitrogen 25 H Creatinine 0.80 Glucose Level 110 Calcium Level 10.6 H Phosphorus Level 1.6 L Magnesium Level 1.8 Total Bilirubin 16.3 H Direct Bilirubin 3.30 H Indirect Bilirubin 13.0 H Aspartate Amino Transf (AST/SGOT) 84 H Alanine Aminotransferase (ALT/SGPT) 45 Alkaline Phosphatase 107 Ammonia 18 Total Protein 7.2 Albumin 3.4 Globulin 3.80 H Albumin/Globulin Ratio 0.89 Lab Scanned Report BLOOD TRANSFUSION Medications Medications Current Medications Multivitamins/ Thiamine HCl/ Folic Acid/Sodium Chloride (Mvi Adult/ Vitamin B1/ Folic Acid/NS) 1,011.2 ml @ 125 mls/ hr DAILY@09 IVPB Last administered on 09:04; Admin Dose 125 MLS/HR; Start 05/14/17 at 00:30 Lorazepam (Ativan) 1 mg Q6H PRN IM AGITATION/ANXIETY Last administered on 10:01; Admin Dose 1 MG; Start 05/14/17 at 00:30 Morphine Sulfate 2 mg 2 mg Q4H PRN IV Pain Last administered on 05/14/17 20:56 ; Admin Dose 2 MG; Start 05/14/17 at 12:00 Pantoprazole 80 mg/Sodium Chloride 100 ml @ 10 mls/hr Q10H IV Last administered on 05/18/17 03:06; Admin Dose 10 MLS/HR; Start 05/14/17 at 17:00 Cefepime HCl 50 ml @ 100 mls/hr Q12 IVPB Last administered on 05/18/17 08:39 ; Admin Dose 100 MLS/HR; Start 05/15/17 at 21:00 Levofloxacin/ Dextrose 50 ml @ 50 mls/hr Q24H IVPB Last administered on 16:31; Admin Dose 50 MLS/HR; Start 05/15/17 at 15:30 Dextrose (D5W) 1,000 ml @ 50 mls/hr Q20H IV Last administered on 05/17/17 22: 13; Admin Dose 50 MLS/HR; Start 05/16/17 at 10:00 Furosemide 20 mg 20 mg DAILY@06 IV Last administered on 05/18/17 05:52; Admin Dose 20 MG; Start 05/16/17 at 12:00 Diltiazem HCl (Cardizem-D5W 125 Mg/125 ml Drip) 125 ml @ 5 mls/hr TITRATE IV Last administered on 05/18/17 00:01; Admin Dose 5 MLS/HR; Start 05/16/17 at 16: 30 Rifaximin (Xifaxan) 550 mg BID PO Last administered on 05/18/17 08:39; Admin Dose 550 MG; Start 05/17/17 at 09:00 Lactulose (Enulose) 20 gm Q8 PO Last administered on 05/18/17 05:53; Admin Dose 20 GM; Start 05/17/17 at 08:00 Hydralazine HCl (Apresoline) 10 mg Q6H PRN IV SBP>160; Start 05/17/17 at 15:30 LUIS FERNANDO TAMAYO May 18, 2017 10:53
--- NOTE | 2017-05-18 11:14 | PN ---
Date/Time of Note Date/Time of Note DATE: 05/18/17 TIME: 11:11 Assessment/Plan VTE Prophylaxis VTE Prophylaxis Intervention: SCD's Lines/Catheters [facility] (from [facility]): Peripheral IV Urinary Cath still in place: Yes Reason Cath still needed: urinary retention Assessment/Plan Assessment/Plan Assessment * Anemia r/o esophageal varices vs peptic ulcer disease vs other * Liver cirrhosis Encephalopathy * History of alcoholic abuse Plan * EGD postponed until cardiovascular stable * Monitor hemoglobin and hematocrit Q 6 transfuse 1 unit PRBC hgb <7.5,2 unit PRBC hgb <7 * continue Protonix drip and octreotide drip * Continue present management * Lactulose and rifaximin * Further orders will depend on clinical course Subjective 24 Hr Interval Summary Free Text/Dictation Course reviewed with nursing staff Still having episodes of atrial fibrillation Currently on Cardizem drip No evidence of overt GI bleeding Having loose bowel movements and rectal tube Postponed endoscopic workup until stable cardiovascular Exam/Review of Systems Vital Signs Vitals Vital Signs Date Time Temp Pulse Resp B/P Pulse Ox O2 Delivery O2 Flow Rate FiO2 05/18/17 09:30 91 36 147/72 94 05/18/17 09:00 Nasal Cannula 2.0 05/18/17 08:00 98.8 Intake and Output 05/17/17 05/17/17 05/18/17 15:00 23:00 07:00 Intake Total 1555 ml 1170 ml 640 ml Output Total 775 ml 1050 ml 1090 ml Balance 780 ml 120 ml -450 ml Exam Constitutional: alert, oriented (Only to place and person). RN reports was on the phone in the morning with his sister Head: atraumatic, normocephalic Eyes: icteric Neck: non-tender, supple Respiratory: clear to auscultation, normal air movement Cardiovascular: nl pulses, regular rate and rhythm Gastrointestinal: ascites (Small amount), nl liver, spleen, non-tender, soft Musculoskeletal: nl extremities to inspection Skin: nl turgor, No rash or lesions Lymph: nl lymph nodes Results Result Diagram: 05/18/17 0442 05/18/172 Results 24 hrs Laboratory Tests Test 05/18/17 04:42 05/18/17 05:24 White Blood Count 11.5 #H Red Blood Count 2.31 L Hemoglobin 7.9 L Hematocrit 24.3 L Mean Corpuscular Volume 105.2 H Mean Corpuscular Hemoglobin 34.2 H Mean Corpuscular Hemoglobin Concent 32.5 Red Cell Distribution Width 24.8 H Platelet Count 60 L Mean Platelet Volume 10.2 Neutrophils % 71.9 Lymphocytes % 11.3 L Monocytes % 10.9 Eosinophils % 1.3 Basophils % 0.3 Nucleated Red Blood Cells % 0.3 H Neutrophils # 8.3 H Lymphocytes # 1.3 Monocytes # 1.3 H Eosinophils # 0.2 Basophils # 0.0 Nucleated Red Blood Cells # 0.0 Sodium Level 145 H Potassium Level 3.6 Chloride Level 108 Carbon Dioxide Level 26 Anion Gap 15 Blood Urea Nitrogen 25 H Creatinine 0.80 Glucose Level 110 Calcium Level 10.6 H Phosphorus Level 1.6 L Magnesium Level 1.8 Total Bilirubin 16.3 H Direct Bilirubin 3.30 H Indirect Bilirubin 13.0 H Aspartate Amino Transf (AST/SGOT) 84 H Alanine Aminotransferase (ALT/SGPT) 45 Alkaline Phosphatase 107 Ammonia 18 Total Protein 7.2 Albumin 3.4 Globulin 3.80 H Albumin/Globulin Ratio 0.89 Lab Scanned Report BLOOD TRANSFUSION Medications Medications Current Medications Multivitamins/ Thiamine HCl/ Folic Acid/Sodium Chloride (Mvi Adult/ Vitamin B1/ Folic Acid/NS) 1,011.2 ml @ 125 mls/ hr DAILY@09 IVPB Last administered on 09:04; Admin Dose 125 MLS/HR; Start 05/14/17 at 00:30 Lorazepam (Ativan) 1 mg Q6H PRN IM AGITATION/ANXIETY Last administered on 10:01; Admin Dose 1 MG; Start 05/14/17 at 00:30 Morphine Sulfate 2 mg 2 mg Q4H PRN IV Pain Last administered on 05/14/17 20:56 ; Admin Dose 2 MG; Start 05/14/17 at 12:00 Pantoprazole 80 mg/Sodium Chloride 100 ml @ 10 mls/hr Q10H IV Last administered on 05/18/17 03:06; Admin Dose 10 MLS/HR; Start 05/14/17 at 17:00 Cefepime HCl 50 ml @ 100 mls/hr Q12 IVPB Last administered on 05/18/17 08:39 ; Admin Dose 100 MLS/HR; Start 05/15/17 at 21:00 Levofloxacin/ Dextrose 50 ml @ 50 mls/hr Q24H IVPB Last administered on 16:31; Admin Dose 50 MLS/HR; Start 05/15/17 at 15:30 Dextrose (D5W) 1,000 ml @ 50 mls/hr Q20H IV Last administered on 05/17/17 22: 13; Admin Dose 50 MLS/HR; Start 05/16/17 at 10:00 Furosemide 20 mg 20 mg DAILY@06 IV Last administered on 05/18/17 05:52; Admin Dose 20 MG; Start 05/16/17 at 12:00 Diltiazem HCl (Cardizem-D5W 125 Mg/125 ml Drip) 125 ml @ 5 mls/hr TITRATE IV Last administered on 05/18/17 00:01; Admin Dose 5 MLS/HR; Start 05/16/17 at 16: 30 Rifaximin (Xifaxan) 550 mg BID PO Last administered on 05/18/17 08:39; Admin Dose 550 MG; Start 05/17/17 at 09:00 Lactulose (Enulose) 20 gm Q8 PO Last administered on 05/18/17 05:53; Admin Dose 20 GM; Start 05/17/17 at 08:00 Hydralazine HCl (Apresoline) 10 mg Q6H PRN IV SBP>160; Start 05/17/17 at 15:30 ANDRADE BENITEZ MD May 18, 2017 11:14
--- NOTE | 2017-05-18 11:23 | CONS ---
Date/Time of Note Date/Time of Note DATE: 05/18/17 TIME: 11:21 Assessment/Plan Assessment/Plan Additional Assessment/Plan Severe anemia Liver failure Coagulopathy Encephalopathy Thrombocytopenia Preserved ejection fraction History of hypertension Acute kidney injury Paroxysmal atrial fibrillation -Would start p.o. Cardizem as blood pressure permits, no anticoagulation at the current time given liver failure and coagulopathy. Consultation Date/Type/Reason Admit Date/Time May 13, 2017 at 22:29 Initial Consult Date 05/14/17 Type of Consultation: cv Referring Provider: MICHELLE CRAFT 24 HR Interval Summary Free Text/Dictation Patient seen and examined. Denies shortness of breath or chest pain. Exam/Review of Systems Vital Signs Vitals Vital Signs Date Time Temp Pulse Resp B/P Pulse Ox O2 Delivery O2 Flow Rate FiO2 05/18/17 09:30 91 36 147/72 94 05/18/17 09:00 Nasal Cannula 2.0 05/18/17 08:00 98.8 Intake and Output 05/17/17 05/17/17 05/18/17 15:00 23:00 07:00 Intake Total 1555 ml 1170 ml 640 ml Output Total 775 ml 1050 ml 1090 ml Balance 780 ml 120 ml -450 ml Exam Sleeping but arousable, follows commands, confused at times, no apparent distress, clearly jaundiced Head: normocephalic Respiratory: other (Coarse breath sounds bilaterally, no wheezing) Cardiovascular: other (S1-S2 heard), regular rate and rhythm Gastrointestinal: bowel sounds, non-tender, soft Extremities: edema Results Result Diagram: 05/18/17 0442 05/18/17 0442 Results 24 hrs Laboratory Tests Test 05/18/17 04:42 05/18/17 05:24 White Blood Count 11.5 #H Red Blood Count 2.31 L Hemoglobin 7.9 L Hematocrit 24.3 L Mean Corpuscular Volume 105.2 H Mean Corpuscular Hemoglobin 34.2 H Mean Corpuscular Hemoglobin Concent 32.5 Red Cell Distribution Width 24.8 H Platelet Count 60 L Mean Platelet Volume 10.2 Neutrophils % 71.9 Lymphocytes % 11.3 L Monocytes % 10.9 Eosinophils % 1.3 Basophils % 0.3 Nucleated Red Blood Cells % 0.3 H Neutrophils # 8.3 H Lymphocytes # 1.3 Monocytes # 1.3 H Eosinophils # 0.2 Basophils # 0.0 Nucleated Red Blood Cells # 0.0 Sodium Level 145 H Potassium Level 3.6 Chloride Level 108 Carbon Dioxide Level 26 Anion Gap 15 Blood Urea Nitrogen 25 H Creatinine 0.80 Glucose Level 110 Calcium Level 10.6 H Phosphorus Level 1.6 L Magnesium Level 1.8 Total Bilirubin 16.3 H Direct Bilirubin 3.30 H Indirect Bilirubin 13.0 H Aspartate Amino Transf (AST/SGOT) 84 H Alanine Aminotransferase (ALT/SGPT) 45 Alkaline Phosphatase 107 Ammonia 18 Total Protein 7.2 Albumin 3.4 Globulin 3.80 H Albumin/Globulin Ratio 0.89 Lab Scanned Report BLOOD TRANSFUSION Medications Medications Current Medications Multivitamins/ Thiamine HCl/ Folic Acid/Sodium Chloride (Mvi Adult/ Vitamin B1/ Folic Acid/NS) 1,011.2 ml @ 125 mls/ hr DAILY@09 IVPB Last administered on 09:04; Admin Dose 125 MLS/HR; Start 05/14/17 at 00:30 Lorazepam (Ativan) 1 mg Q6H PRN IM AGITATION/ANXIETY Last administered on 10:01; Admin Dose 1 MG; Start 05/14/17 at 00:30 Morphine Sulfate 2 mg 2 mg Q4H PRN IV Pain Last administered on 05/14/17 20:56 ; Admin Dose 2 MG; Start 05/14/17 at 12:00 Pantoprazole 80 mg/Sodium Chloride 100 ml @ 10 mls/hr Q10H IV Last administered on 05/18/17 03:06; Admin Dose 10 MLS/HR; Start 05/14/17 at 17:00 Cefepime HCl 50 ml @ 100 mls/hr Q12 IVPB Last administered on 05/18/17 08:39 ; Admin Dose 100 MLS/HR; Start 05/15/17 at 21:00 Levofloxacin/ Dextrose 50 ml @ 50 mls/hr Q24H IVPB Last administered on 16:31; Admin Dose 50 MLS/HR; Start 05/15/17 at 15:30 Dextrose (D5W) 1,000 ml @ 50 mls/hr Q20H IV Last administered on 05/17/17 22: 13; Admin Dose 50 MLS/HR; Start 05/16/17 at 10:00 Furosemide 20 mg 20 mg DAILY@06 IV Last administered on 05/18/17 05:52; Admin Dose 20 MG; Start 05/16/17 at 12:00 Diltiazem HCl (Cardizem-D5W 125 Mg/125 ml Drip) 125 ml @ 5 mls/hr TITRATE IV Last administered on 05/18/17 00:01; Admin Dose 5 MLS/HR; Start 05/16/17 at 16: 30 Rifaximin (Xifaxan) 550 mg BID PO Last administered on 05/18/17 08:39; Admin Dose 550 MG; Start 05/17/17 at 09:00 Lactulose (Enulose) 20 gm Q8 PO Last administered on 05/18/17 05:53; Admin Dose 20 GM; Start 05/17/17 at 08:00 Hydralazine HCl (Apresoline) 10 mg Q6H PRN IV SBP>160; Start 05/17/17 at 15:30 Fox Marrufo DO May 18, 2017 11:23
[2017-05-18] MEDS ORDERED: MAGNESIUM SULFATE 2 GM/50 ML 50 ML IVPB ONE (12:00)
[2017-05-18] MEDS: MULTIVITAMINS 10 ML, THIAMINE 100 MG, FOLIC ACID 1 MG in SOD CHLORIDE 0.9% 1,000 ML IVPB SCH (12:38)
[2017-05-18] MEDS ORDERED: DILTIAZEM 30 MG TAB PO SCH (13:00)
--- NOTE | 2017-05-18 13:46 | RADRPT ---
PROCEDURE: XR Chest. CLINICAL INDICATION: pneumonia TECHNIQUE: PA and lateral views of the chest were obtained. COMPARISON: 05/15/2017 FINDINGS: There is moderate cardiomegaly. There is pulmonary vascular congestion. Bilateral pleural effusions are present, left greater than right. There is near-complete opacification of the right lung field . Left lower lobe atelectasis. The bones and soft tissues are unremarkable. Aortic atherosclerosis is present. IMPRESSION: Moderate cardiomegaly with pulmonary vascular congestion. Near complete opacification of the right lung, new. Left lower lobe atelectasis RPTAT: [facility] .Jacky Fong MD, MD Date Time Electronically viewed and signed by .Jacky Fong MD, on 05/18/2017 13:46 .M/
[2017-05-18] MEDS: LEVOFLOXACIN 250MG/D5W (PMX) 50 ML IVPB SCH (14:42)
--- NOTE | 2017-05-18 18:14 | PN ---
DATE: 05/18/2017 SUBJECTIVE: No acute changes overnight. The patient is awake, looks comfortable, follows commands. No fevers. VITAL SIGNS: Temperature 98.5, pulse 87, respirations 25, blood pressure 140/91, saturation 95% on 2 liters. LABORATORY DATA: WBC 11.5, H and H 7.9 and 24.3, platelets 60, no shift, no bands. BUN 25, creatin ine 0.80. INDWELLINGS: Fuentes, rectal tube, peripheral IV. ANTIMICROBIALS: The patient is on: 1. Cefepime. 2. Levaquin. PHYSICAL EXAMINATION: GENERAL: This is a chronically ill-appearing, middle-aged white man who looks older than his age. The patient is in no distress. HEENT: Head atraumatic, normocephalic. Sclerae anicteric. Buccal mucosa dry. NECK: Supple. CHEST: Rise symmetrical. Breath sounds diminished to bases. HEART: S1, S2. ABDOMEN: Soft, bowel tones present. EXTREMITIES: Bilateral lower extremity edema. ASSESSMENT: 1. Sepsis, resolving. 2. Resolving encephalopathy. 3. Pneumonia, possibly ongoing aspiration. 4. Anemia with thrombocytopenia. 5. History of alcohol abuse. PLAN: The patient is doing better. Continue present care, antibiotics, anti-aspiration measures. Follow recommendations of consultants. Dictated By: [facility] Conf#: [id number] DID#: [id number] CC: MICHELLE CRAFT MD;*EndCC*
[2017-05-18] MEDS: DEXTROSE 5% 1,000 ML IV SCH (22:30)
[2017-05-19] VITALS (49 sets, daily range): BP systolic 142–204; BP diastolic 59–94; PULSE 81–133; RESP 17–42
[2017-05-19] MEDS: hydrALAzine 20 MG INJ IV PRN ×2 (00:08→09:43)
[2017-05-19] MEDS: morphine 2 MG INJ IV PRN ×4 (00:09→20:16)
[2017-05-19] MEDS: LORAZEPAM 2 MG INJ IM PRN (03:06)
[2017-05-19] MEDS: FUROSEMIDE 20 MG INJ IV SCH (06:00)
[2017-05-19] MEDS: LACTULOSE 30ML CUP PO SCH ×3 (06:00→21:00)
[2017-05-19 06:39] LABS: ADD SCAN DIFF NO
[2017-05-19 06:51] LABS: ABNORMAL IP MESSAGE 1; BASOPHIL # 0.1 10^3/ul (0.0-0.1); BASOPHILS % 0.4 % (0.0-2.0); EOSINOPHILS # 0.2 10^3/ul (0.0-0.5); EOSINOPHILS % 1.3 % (0.0-7.0); HEMOGLOBIN 8.7 g/dl (14.0-18.0); LYMPHOCYTES # 1.6 10^3/ul (0.8-2.9); LYMPHOCYTES % 10.2 % (15.0-51.0); MEAN CORPUSCULAR HEMOGLOBIN 34.3 pg (29.0-33.0); MEAN CORPUSCULAR HGB CONC 32.2 g/dl (32.0-37.0); MEAN CORPUSCULAR VOLUME 106.3 fl (82.0-101.0); MEAN PLATELET VOLUME 10.1 fl (7.4-10.4); MONOCYTE # 1.7 10^3/ul (0.3-0.9); NEUTROPHIL # 11.4 10^3/ul (1.6-7.5); NEUTROPHILS % 72.3 % (39.0-77.0); NUCLEATED RED BLOOD CELLS # 0.1 10^3/ul (0.0-0.0); NUCLEATED RED BLOOD CELLS% 0.8 /100WBC (0.0-0.0); PLATELET COUNT 67 10^3/UL (140-415); RED BLOOD COUNT 2.54 10^6/ul (4.70-6.10); RED CELL DISTRIBUTION WIDTH 24.2 % (11.5-14.5); WHITE BLOOD COUNT 15.7 10^3/ul (4.8-10.8)
[2017-05-19 07:05] LABS: INR 2.97; PROTIME 31.3 Sec (12.2-14.2); PT RATIO 2.4
[2017-05-19 07:06] LABS: PARTIAL THROMBOPLASTIN TIME 43.3 Sec (25.0-35.0)
[2017-05-19 07:10] LABS: ALBUMIN 3.4 g/dl (3.3-4.9); ALBUMIN/GLOBULIN RATIO 0.89; BILIRUBIN,DIRECT 3.8 mg/dl (0.00-0.20); BILIRUBIN,INDIRECT 12.7 mg/dl (0-1.1); BILIRUBIN,TOTAL 16.5 mg/dl (0.2-1.3); CREATININE 0.8 mg/dl (0.61-1.24); POTASSIUM 3.2 mmol/L (3.5-5.1); TOTAL PROTEIN 7.2 g/dl (6.1-8.1)
[2017-05-19] MEDS ORDERED: POTASSIUM CHLORIDE (SR) 20 MEQ TAB PO STA (07:19)
--- NOTE | 2017-05-19 07:22 | PN ---
Date/Time of Note Date/Time of Note DATE: 05/19/17 TIME: 07:21 Assessment/Plan VTE Prophylaxis VTE Prophylaxis Intervention: SCD's Lines/Catheters IV Catheter Type (from [facility]): Peripheral IV Urinary Cath still in place: Yes Reason Cath still needed: other (indicate) Assessment/Plan Chief Complaint/Hosp Course 1. Acute encephalopathy. Largely resolved. Most probably toxic metabolic in origin. The patient's brain CT scan was negative for any acute intracranial pathology. 2. Macrocytic anemia. Symptomatic. Etiology unclear. The patient was noticed to have coagulopathy with an INR of 7.07 upon admission. The patient being followed by gastroenterology. The patient is on a Protonix drip. The patient is scheduled for esophagogastroduodenoscopy when hemodynamically stable. 3. Coagulopathy. Etiology unclear. Most probably secondary to underlying liver dysfunction. Hepatitis panel negative so far. 4. Transaminitis with hyperbilirubinemia. Most probably from underlying alcoholic liver disease. Hepatotoxic drugs will be avoided on this patient. We will trend liver function tests. 5. Nonoliguric acute kidney injury in a patient with unknown baseline creatinine. Largely resolved. Etiology unclear. Most probably secondary to hemodynamics versus volume depletion versus hepatorenal syndrome. Nephrotoxic drugs will be avoided. 6. Alcohol abuse. Serum alcohol level was less than 10. The patient verbalized that he drinks on a daily basis. The patient is on p.r.n. Ativan for any alcohol withdrawal delirium. 7. Sepsis. Most probably secondary to aspiration pneumonia. Blood culture x1 positive for gram-negative rods. Repeat blood cultures negative. No evidence of any septic shock. The patient will be continued on empiric antibiotics. The patient being followed by infectious diseases. 8. Moderate to large left-sided pleural effusion with complete atelectasis of the left lower lobe and partial posterior atelectasis of the left upper lobe. Continue supplemental oxygen. Possible aspiration pneumonia. Continue antibiotics. 9. Paroxysmal A. fib. Currently in sinus rhythm. On Cardizem drip. Cardiology following. 10. Fluid, electrolytes and nutrition. Soft diet with thin liquids. 11. Deep venous thrombosis prophylaxis. Bilateral sequential compression devices. 12. Gastrointestinal prophylaxis. Proton pump inhibitors. PLAN: Continue ICU monitoring. Await esophagogastroduodenoscopy. Replace blood products. Replete potassium and magnesium. Case discussed with Dr. Moore. Critical care time: 35 minutes. Problems: Subjective 24 Hr Interval Summary Free Text/Dictation Remains on Protonix gtt. Exam/Review of Systems Vital Signs Vitals Vital Signs Date Time Temp Pulse Resp B/P Pulse Ox O2 Delivery O2 Flow Rate FiO2 05/19/17 04:00 90 05/19/17 00:00 98.7 33 169/90 90 05/18/17 20:00 Nasal Cannula 2.0 Intake and Output 05/18/17 05/18/17 05/19/17 15:00 23:00 07:00 Intake Total 1200 ml 480 ml Output Total 1605 ml 900 ml Balance -405 ml -420 ml Exam GENERAL: This is an obese male patient lying in bed in no apparent distress. HEENT: Head normocephalic and atraumatic. Eyes: Icteric sclerae. Conjunctivae clear. ENT: Nasal septum is midline. Oral mucosa is dry. NECK: Supple. No JVD noticed. RESPIRATORY: Bilaterally diminished breath sounds. No adventitious breath sounds heard. No use of accessory muscles of respiration. CARDIAC: Regular rate and rhythm. S1 and S2 heard. Systolic ejection murmur. ABDOMEN: Distended. Bowel sounds hypoactive in all 4 quadrants. GENITOURINARY: The patient has a Fuentes catheter in place. EXTREMITIES: Edema of all 4 extremities. Bilateral lower extremity pitting edema. Pedal pulses diminished in bilateral lower extremities. NEUROLOGIC: Awake and alert. Oriented 2-3. No focal deficits. Results Result Diagram: 05/19/17 0613 05/19/17 0613 Results 24 hrs Laboratory Tests Test 05/19/17 06:13 White Blood Count 15.7 #H Red Blood Count 2.54 L Hemoglobin 8.7 L Hematocrit 27.0 L Mean Corpuscular Volume 106.3 H Mean Corpuscular Hemoglobin 34.3 H Mean Corpuscular Hemoglobin Concent 32.2 Red Cell Distribution Width 24.2 H Platelet Count 67 L Mean Platelet Volume 10.1 Neutrophils % 72.3 Lymphocytes % 10.2 L Monocytes % 11.0 Eosinophils % 1.3 Basophils % 0.4 Nucleated Red Blood Cells % 0.8 H Neutrophils # 11.4 H Lymphocytes # 1.6 Monocytes # 1.7 H Eosinophils # 0.2 Basophils # 0.1 Nucleated Red Blood Cells # 0.1 H Prothrombin Time 31.3 #H Prothrombin Time Ratio 2.4 INR International Normalized Ratio 2.97 Activated Partial Thromboplast Time 43.3 H Sodium Level 139 Potassium Level 3.2 L Chloride Level 105 Carbon Dioxide Level 29 Anion Gap 8 Blood Urea Nitrogen 18 Creatinine 0.80 Glucose Level 103 Calcium Level 10.0 Total Bilirubin 16.5 H Direct Bilirubin 3.80 H Indirect Bilirubin 12.7 H Aspartate Amino Transf (AST/SGOT) 92 H Alanine Aminotransferase (ALT/SGPT) 53 Alkaline Phosphatase 117 Total Protein 7.2 Albumin 3.4 Globulin 3.80 H Albumin/Globulin Ratio 0.89 Medications Medications Current Medications Multivitamins/ Thiamine HCl/ Folic Acid/Sodium Chloride (Mvi Adult/ Vitamin B1/ Folic Acid/NS) 1,011.2 ml @ 125 mls/ hr DAILY@09 IVPB Last administered on 12:38; Admin Dose 125 MLS/HR; Start 05/14/17 at 00:30 Lorazepam (Ativan) 1 mg Q6H PRN IM AGITATION/ANXIETY Last administered on 03:06; Admin Dose 1 MG; Start 05/14/17 at 00:30 Morphine Sulfate 2 mg 2 mg Q4H PRN IV Pain Last administered on 05/19/17 00:09 ; Admin Dose 2 MG; Start 05/14/17 at 12:00 Pantoprazole 80 mg/Sodium Chloride 100 ml @ 10 mls/hr Q10H IV Last administered on 05/18/17 23:00; Admin Dose 10 MLS/HR; Start 05/14/17 at 17:00 Cefepime HCl 50 ml @ 100 mls/hr Q12 IVPB Last administered on 05/18/17 20:31 ; Admin Dose 100 MLS/HR; Start 05/15/17 at 21:00 Levofloxacin/ Dextrose 50 ml @ 50 mls/hr Q24H IVPB Last administered on 14:42; Admin Dose 50 MLS/HR; Start 05/15/17 at 15:30 Dextrose (D5W) 1,000 ml @ 50 mls/hr Q20H IV Last administered on 05/18/17 22: 30; Admin Dose 50 MLS/HR; Start 05/16/17 at 10:00 Furosemide 20 mg 20 mg DAILY@06 IV Last administered on 05/18/17 05:52; Admin Dose 20 MG; Start 05/16/17 at 12:00 Diltiazem HCl (Cardizem-D5W 125 Mg/125 ml Drip) 125 ml @ 5 mls/hr TITRATE IV Last administered on 05/18/17 19:46; Admin Dose 10 MLS/HR; Start 05/16/17 at 16 :30 Rifaximin (Xifaxan) 550 mg BID PO Last administered on 05/18/17 21:00; Admin Dose 550 MG; Start 05/17/17 at 09:00 Lactulose (Enulose) 20 gm Q8 PO Last administered on 05/18/17 22:29; Admin Dose 20 GM; Start 05/17/17 at 08:00 Hydralazine HCl (Apresoline) 10 mg Q6H PRN IV SBP>160 Last administered on 05/19 00:08; Admin Dose 10 MG; Start 05/17/17 at 15:30 REJI GARCIA NP May 19, 2017 07:22
[2017-05-19 07:26] LABS: MAGNESIUM 1.8 mg/dl (1.7-2.5); PHOSPHORUS 1.5 mg/dl (2.5-4.9)
[2017-05-19] MEDS ORDERED: POTASSIUM PHOSPHATE 20 MEQ in SOD CHLORIDE 0.9% 250 ML IVPB ONE (08:00)
--- NOTE | 2017-05-19 08:51 | PN ---
DATE: 05/16/2017 INFECTIOUS DISEASE PROGRESS NOTE SUBJECTIVE: The patient remains very lethargic. No fevers. He wakes up, answers some questions bu t immediately falls asleep. He is in no distress. WBC today 7.4, H and H 7.7 and 22.8, platelets 67, neutrophils 72. BUN 35, creatinine 1.0. MICROBIOLOGY: Urinalysis on 05/15/2017 was negative for nitrite, negative for leukocyte esterase an d positive for nitrites. Microbiology blood culture on admission grew gram-positive rods, 1 out of 2 sets. Repeat blood cultures negative. DIAGNOSTICS: Chest x-ray yesterday revealed stable patchy infiltrates throughout the left lung, com bined with moderate pleural effusion. INDWELLINGS: Fuentes catheter. ANTIMICROBIALS: The patient is on cefepime and Levaquin. PHYSICAL EXAMINATION: GENERAL: This is a chronically ill-appearing, middle-aged man who is lethargic, in no distress. HEENT: Head atraumatic, normocephalic. Sclerae are icteric. Buccal mucosa dry. NECK: Supple. CHEST: Rise symmetrical. Breath sounds diminished. HEART: S1, S2. ABDOMEN: Soft. Bowel tones hypoactive. EXTREMITIES: With trace edema. SKIN: Multiple ecchymoses and anasarca, and jaundice. ASSESSMENT: 1. Sepsis with worsening mental status, likely hepatic encephalopathy possibly on top of toxic meta bolic. 2. Pneumonia with possible ongoing aspiration. 3. Gram-positive oc bacteremia consistent with contaminant. 4. Possible urinary tract infection per urinalysis. 5. Fluid collection in the left psoas muscle suggestive of hematoma as per CT of the abdomen. 6. Moderate to large left-sided pleural effusion. PLAN: The patient is more lethargic and plan to transfer to ICU. We will keep him on current antibi otics for now. Continue anti-aspiration measures. Follow chest x-ray. Cardiology, Pulmonary and N ephrology recommendations. Dictated By: KARL NGUYEN GIRL FRIDAY for GARRETT ALVAREZ/ALLI Conf#: [id number] DID#: [id number]
[2017-05-19] MEDS: DILTIAZEM-D5W 125MG/125ML DRIP 125 ML IV SCH ×2 (08:58→22:11)
[2017-05-19] MEDS ORDERED: MAGNESIUM SULFATE 3 GM in SOD CHLORIDE 0.9% 100 ML IVPB ONE (09:00)
[2017-05-19] MEDS: ALBUTEROL 0.083% (NEB) 2.5 MG/3 ML AMP HHN SCH ×3 (09:32→20:25)
[2017-05-19] MEDS: RIFAXIMIN 550 MG TAB PO SCH ×2 (09:44→20:58)
[2017-05-19] MEDS: MULTIVITAMINS 10 ML, THIAMINE 100 MG, FOLIC ACID 1 MG in SOD CHLORIDE 0.9% 1,000 ML IVPB SCH (09:45)
[2017-05-19] MEDS: CEFEPIME 2GM/50 ML (PMX) 50 ML IVPB SCH ×2 (09:45→20:57)
--- NOTE | 2017-05-19 11:18 | PN ---
DATE: 05/19/2017 NEPHROLOGY FOLLOWUP NOTE SUBJECTIVE: The patient remains critical, but stable in the intensive care unit. The patient was c onfused, was tachycardic, on diltiazem drip. No other events noted. OBJECTIVE: VITAL SIGNS: Blood pressure ____, respirations 41, pulse 103, temperature 98.6. HEENT: Head is normocephalic. NECK: Supple. HEART: Regular rate. LUNGS: Show diminished breath sounds at the base. ABDOMEN: Soft, nontender to palpation, no rebound or guarding. HEART: Irregularly irregular. EXTREMITIES: Negative for clubbing, cyanosis. Trace edema. DERMATOLOGIC: No rashes. MUSCULOSKELETAL: No joint effusions. NEUROLOGIC: The patient remains confused. LABORATORY DATA: Shows a white count 15.7, hemoglobin 8.7, hematocrit 27.0, platelet count is 57. Sodium 139, potassium 3.2, BUN 18, creatinine 0.80, phosphorus is 1.5. ASSESSMENT AND PLAN: 1. Nonoliguric acute kidney injury with unknown baseline creatinine. Etiology is secondary to hemo dynamics. Renal function has improved. At this point, continue current treatment plan, supportive care, renally dose all medications. 2. Hypokalemia, hypophosphatemia. Continue to monitor and replete electrolytes. 3. Hypernatremia, improved. Continue to monitor sodium levels. Continue hypotonic fluids as neede d. 4. Anemia with possible gastrointestinal bleed. The patient status post PRBC. Continue to monitor . Continue Protonix. 5. Mineral bone disorder. Continue to monitor calcium and phosphorus levels. 6. Transaminitis, hyperbilirubinemia, etiology is concerning for cirrhosis or ETOH hepatitis. Cont inue to monitor LFTs. 7. Atrial fibrillation, currently on diltiazem drip. Follow up with cardiology. 8. Acute encephalopathy, etiology is multifactorial, hepatic secondary to possible toxic metabolic, no significant change. Continue to monitor. 9. History of ETOH abuse. Continue to monitor for signs of withdrawal. 10. ____. 11. Sepsis secondary to bacteremia. Continue current antibiotic regimen. Please note I spent over 35 minutes of critical care time with this patient. Dictated By: ESTEFANIA NAVARRO/ALLI Conf#: [id number] DID#: [id number]
--- NOTE | 2017-05-19 11:44 | CONS ---
Date/Time of Note Date/Time of Note DATE: 05/19/17 TIME: 11:41 Assessment/Plan Assessment/Plan Additional Assessment/Plan Chest x-ray was reviewed from yesterday afternoon which is showing changes consistent with pulmonary vascular congestion. Difficult to rule out superimposed right-sided pneumonia. Assessment recommendations; 1. 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 2. Pulmonary edema. 3. Thrombocytopenia and anemia. However no overt bleeding has been noted. Continue current antibiotics. Increase Lasix to 40 mg IV every 12 hours at least for 4 doses. Obtain follow-up chest x-ray in 24 hours. Overall prognosis remains very poor. Code Status needs to be discussed with the family. Consultation Date/Type/Reason Admit Date/Time May 13, 2017 at 22:29 Initial Consult Date 05/14/17 Type of Consultation: Pulmonary/critical care Referring Provider: MICHELLE CRAFT 24 HR Interval Summary Free Text/Dictation Patient condition is tenuous at best. However mental status is improved today patient is not as confused. However he still have slurred speech and patient does note off to sleep readily. Has remained hemodynamically stable. General exam; middle-aged male, awake currently in no distress. Exam/Review of Systems Vital Signs Vitals Vital Signs Date Time Temp Pulse Resp B/P Pulse Ox O2 Delivery O2 Flow Rate FiO2 05/19/17 10:00 88 30 164/77 95 Mechanical Ventilator 05/19/17 08:00 98.5 05/19/17 08:00 2.0 Intake and Output 05/18/17 05/18/17 05/19/17 15:00 23:00 07:00 Intake Total 1200 ml 480 ml Output Total 1605 ml 900 ml Balance -405 ml -420 ml Exam HEENT exam; supple neck, no JVD. No lymphadenopathy. Midline trachea. No thyromegaly. Patient has fair dentition. Patient remains strongly icteric. Chest examined; diminished breath sounds bilaterally. No added sound. S1-S2 audible, no murmurs. Regular rhythm. Abdomen examination; soft, nontender. No organomegaly. Bowel sounds audible. Extremity exam is; no peripheral edema. ACTING INSTRUCTOR examination; patient has no focal motor deficit. But has severe generalized weakness. Results Result Diagram: 05/19/1761205/19/17612 Results 24 hrs Laboratory Tests Test 05/19/17 06:13 White Blood Count 15.7 #H Red Blood Count 2.54 L Hemoglobin 8.7 L Hematocrit 27.0 L Mean Corpuscular Volume 106.3 H Mean Corpuscular Hemoglobin 34.3 H Mean Corpuscular Hemoglobin Concent 32.2 Red Cell Distribution Width 24.2 H Platelet Count 67 L Mean Platelet Volume 10.1 Neutrophils % 72.3 Lymphocytes % 10.2 L Monocytes % 11.0 Eosinophils % 1.3 Basophils % 0.4 Nucleated Red Blood Cells % 0.8 H Neutrophils # 11.4 H Lymphocytes # 1.6 Monocytes # 1.7 H Eosinophils # 0.2 Basophils # 0.1 Nucleated Red Blood Cells # 0.1 H Prothrombin Time 31.3 #H Prothrombin Time Ratio 2.4 INR International Normalized Ratio 2.97 Activated Partial Thromboplast Time 43.3 H Sodium Level 139 Potassium Level 3.2 L Chloride Level 105 Carbon Dioxide Level 29 Anion Gap 8 Blood Urea Nitrogen 18 Creatinine 0.80 Glucose Level 103 Calcium Level 10.0 Phosphorus Level 1.5 L Magnesium Level 1.8 Total Bilirubin 16.5 H Direct Bilirubin 3.80 H Indirect Bilirubin 12.7 H Aspartate Amino Transf (AST/SGOT) 92 H Alanine Aminotransferase (ALT/SGPT) 53 Alkaline Phosphatase 117 Total Protein 7.2 Albumin 3.4 Globulin 3.80 H Albumin/Globulin Ratio 0.89 Medications Medications Current Medications Multivitamins/ Thiamine HCl/ Folic Acid/Sodium Chloride (Mvi Adult/ Vitamin B1/ Folic Acid/NS) 1,011.2 ml @ 125 mls/ hr DAILY@09 IVPB Last administered on 12:38; Admin Dose 125 MLS/HR; Start 05/14/17 at 00:30 Lorazepam (Ativan) 1 mg Q6H PRN IM AGITATION/ANXIETY Last administered on 03:06; Admin Dose 1 MG; Start 05/14/17 at 00:30 Morphine Sulfate 2 mg 2 mg Q4H PRN IV Pain Last administered on 05/19/17 09:43 ; Admin Dose 2 MG; Start 05/14/17 at 12:00 Pantoprazole 80 mg/Sodium Chloride 100 ml @ 10 mls/hr Q10H IV Last administered on 05/18/17 23:00; Admin Dose 10 MLS/HR; Start 05/14/17 at 17:00 Cefepime HCl 50 ml @ 100 mls/hr Q12 IVPB Last administered on 05/19/17 09:45 ; Admin Dose 100 MLS/HR; Start 05/15/17 at 21:00 Levofloxacin/ Dextrose 50 ml @ 50 mls/hr Q24H IVPB Last administered on 14:42; Admin Dose 50 MLS/HR; Start 05/15/17 at 15:30 Dextrose 1,000 ml @ 50 mls/hr Q20H IV Last administered on 05/18/17 22:30; Admin Dose 50 MLS/HR; Start 05/16/17 at 10:00 Diltiazem HCl (Cardizem-D5W 125 Mg/125 ml Drip) 125 ml @ 5 mls/hr TITRATE IV Last administered on 05/19/17 08:58; Admin Dose 10 MLS/HR; Start 05/16/17 at 16 :30 Rifaximin (Xifaxan) 550 mg BID PO Last administered on 05/19/17 09:44; Admin Dose 550 MG; Start 05/17/17 at 09:00 Lactulose (Enulose) 20 gm Q8 PO Last administered on 05/19/17 06:00; Admin Dose 20 GM; Start 05/17/17 at 08:00 Hydralazine HCl 10 mg 10 mg Q6H PRN IV SBP>160 Last administered on 05/19/17 09:43; Admin Dose 10 MG; Start 05/17/17 at 15:30 Potassium Phosphate 20 meq/ Sodium Chloride 254.5455 ml @ 63.636 m... ONCE ONCE IVPB Last administered on 05/19/17 09:43; Admin Dose 63.636 MLS/HR; Start 05/19/17 at 08:00; Stop 05/19/17 at 11:59 Magnesium Sulfate/ Sodium Chloride (Magnesium Sulfate/NS) 106 ml @ 35.333 mls/ hr ONCE ONCE IVPB Last administered on 05/19/17 09:43; Admin Dose 35.333 MLS/ HR; Start 05/19/17 at 09:00; Stop 05/19/17 at 11:59 LUIS FERNANDO TAMAYO 19, 2017 11:44
--- NOTE | 2017-05-19 13:33 | CONS ---
Date/Time of Note Date/Time of Note DATE: 05/19/17 TIME: 13:29 Assessment/Plan Assessment/Plan Additional Assessment/Plan Severe anemia Liver failure Coagulopathy Encephalopathy Thrombocytopenia Preserved ejection fraction History of hypertension Acute kidney injury Paroxysmal atrial fibrillation Respiratory failure -Patient with recurrent episodes of atrial fibrillation and maintain on IV Cardizem drip. Unfortunately patient with intermittent p.o. intake and thus hesitant of switching Cardizem to p.o. No anticoagulation at the current time given coagulopathy and thrombocytopenia and severe anemia. Lasix has been increased. Maintain potassium above 4.0 and magnesium above 2.0, will order additional potassium. Consultation Date/Type/Reason Admit Date/Time May 13, 2017 at 22:29 Initial Consult Date 05/14/17 Type of Consultation: cv Referring Provider: MICHELLE CRAFT 24 HR Interval Summary Free Text/Dictation Patient seen and examined. Recurrent episodes of atrial fibrillation so patient maintain on IV Cardizem drip. Currently sinus rhythm Exam/Review of Systems Vital Signs Vitals Vital Signs Date Time Temp Pulse Resp B/P Pulse Ox O2 Delivery O2 Flow Rate FiO2 05/19/17 12:00 91 05/19/17 10:00 30 164/77 95 Mechanical Ventilator 05/19/17 08:00 98.5 05/19/17 08:00 2.0 Intake and Output 05/18/17 05/18/17 05/19/17 15:00 23:00 07:00 Intake Total 1200 ml 480 ml Output Total 1605 ml 900 ml Balance -405 ml -420 ml Exam Sleeping but arousable, occasionally follows commands, appears dyspneic Head: normocephalic Respiratory: other (Coarse breath sounds bilaterally with scattered crackles, decreased breath sounds right base) Cardiovascular: other (S1-S2 heard), regular rate and rhythm Gastrointestinal: bowel sounds, non-tender, other (No guarding), soft Extremities: edema Results Result Diagram: 05/19/17 0613 05/19/17 0613 Results 24 hrs Laboratory Tests Test 05/19/17 06:13 White Blood Count 15.7 #H Red Blood Count 2.54 L Hemoglobin 8.7 L Hematocrit 27.0 L Mean Corpuscular Volume 106.3 H Mean Corpuscular Hemoglobin 34.3 H Mean Corpuscular Hemoglobin Concent 32.2 Red Cell Distribution Width 24.2 H Platelet Count 67 L Mean Platelet Volume 10.1 Neutrophils % 72.3 Lymphocytes % 10.2 L Monocytes % 11.0 Eosinophils % 1.3 Basophils % 0.4 Nucleated Red Blood Cells % 0.8 H Neutrophils # 11.4 H Lymphocytes # 1.6 Monocytes # 1.7 H Eosinophils # 0.2 Basophils # 0.1 Nucleated Red Blood Cells # 0.1 H Prothrombin Time 31.3 #H Prothrombin Time Ratio 2.4 INR International Normalized Ratio 2.97 Activated Partial Thromboplast Time 43.3 H Sodium Level 139 Potassium Level 3.2 L Chloride Level 105 Carbon Dioxide Level 29 Anion Gap 8 Blood Urea Nitrogen 18 Creatinine 0.80 Glucose Level 103 Calcium Level 10.0 Phosphorus Level 1.5 L Magnesium Level 1.8 Total Bilirubin 16.5 H Direct Bilirubin 3.80 H Indirect Bilirubin 12.7 H Aspartate Amino Transf (AST/SGOT) 92 H Alanine Aminotransferase (ALT/SGPT) 53 Alkaline Phosphatase 117 Total Protein 7.2 Albumin 3.4 Globulin 3.80 H Albumin/Globulin Ratio 0.89 Medications Medications Current Medications Multivitamins/ Thiamine HCl/ Folic Acid/Sodium Chloride (Mvi Adult/ Vitamin B1/ Folic Acid/NS) 1,011.2 ml @ 125 mls/ hr DAILY@09 IVPB Last administered on 09:45; Admin Dose 125 MLS/HR; Start 05/14/17 at 00:30 Lorazepam (Ativan) 1 mg Q6H PRN IM AGITATION/ANXIETY Last administered on 03:06; Admin Dose 1 MG; Start 05/14/17 at 00:30 Morphine Sulfate 2 mg 2 mg Q4H PRN IV Pain Last administered on 05/19/17 09:43 ; Admin Dose 2 MG; Start 05/14/17 at 12:00 Pantoprazole 80 mg/Sodium Chloride 100 ml @ 10 mls/hr Q10H IV Last administered on 05/18/17 23:00; Admin Dose 10 MLS/HR; Start 05/14/17 at 17:00 Cefepime HCl 50 ml @ 100 mls/hr Q12 IVPB Last administered on 05/19/17 09:45 ; Admin Dose 100 MLS/HR; Start 05/15/17 at 21:00 Levofloxacin/ Dextrose 50 ml @ 50 mls/hr Q24H IVPB Last administered on 14:42; Admin Dose 50 MLS/HR; Start 05/15/17 at 15:30 Dextrose 1,000 ml @ 50 mls/hr Q20H IV Last administered on 05/18/17 22:30; Admin Dose 50 MLS/HR; Start 05/16/17 at 10:00 Diltiazem HCl (Cardizem-D5W 125 Mg/125 ml Drip) 125 ml @ 5 mls/hr TITRATE IV Last administered on 05/19/17 08:58; Admin Dose 10 MLS/HR; Start 05/16/17 at 16 :30 Rifaximin (Xifaxan) 550 mg BID PO Last administered on 05/19/17 09:44; Admin Dose 550 MG; Start 05/17/17 at 09:00 Lactulose (Enulose) 20 gm Q8 PO Last administered on 05/19/17 06:00; Admin Dose 20 GM; Start 05/17/17 at 08:00 Hydralazine HCl (Apresoline) 10 mg Q6H PRN IV SBP>160 Last administered on 05/19 09:43; Admin Dose 10 MG; Start 05/17/17 at 15:30 Fox Marrufo DO May 19, 2017 13:33
[2017-05-19] MEDS ORDERED: POTASSIUM CHLORIDE 50 ML IVPB SCH ×2 (14:00)
[2017-05-19] MEDS: LEVOFLOXACIN 250MG/D5W (PMX) 50 ML IVPB SCH (14:33)
[2017-05-19] MEDS: POTASSIUM CHLORIDE 50 ML IVPB SCH ×5 (14:33→17:43)
--- NOTE | 2017-05-19 14:34 | PN ---
DATE: 05/19/2017 SUBJECTIVE: No events overnight. No fevers. The patient is awake, looks comfortable. He is on Ca rdizem drip still in sinus rhythm. WBC today 15.7, platelets 67, no bands. BUN 18, creatinine 0.80 . ANTIMICROBIALS: The patient is on 1. Rifaximin. 2. Cefepime. 3. Levaquin day #5. INDWELLINGS: Fuentes, rectal tube. OBJECTIVE: GENERAL: This is well-developed, chronically ill-appearing, middle-aged man who is awake, in no dis tress. HEENT: Head atraumatic, normocephalic. Sclerae anicteric. Buccal mucosa dry. NECK: Supple. CHEST: Rise symmetrical. Breath sounds diminished to bases. HEART: S1, S2. ABDOMEN: Soft, bowel tones present. EXTREMITIES: Without cyanosis. Bilateral lower extremity edema. ASSESSMENT: 1. Sepsis, status post shock. 2. Pneumonia. 3. End-stage liver disease with cirrhosis. 4. Hepatic encephalopathy on top of toxic metabolic. 5. Anemia with thrombocytopenia. 6. Acute renal failure. 7. Atrial fibrillation, on Cardizem drip. 8. History of ETOH abuse. PLAN: The patient remains hemodynamically stable, clinically improving. He is followed by multiple consultants. We will continue him on current regimen. We will order urine culture. Follow chest x-ray and repeat blood cultures p.r.n. Dictated By: KARL NGUYEN FLOTATION OPERATOR for GARRETT ALVAREZ/ALLI Conf#: [id number] DID#: [id number]
[2017-05-19] MEDS: PANTOPRAZOLE IV 80 MG in SOD CHLORIDE 0.9% 100 ML IV SCH (14:49)
--- NOTE | 2017-05-19 15:16 | PN ---
Date/Time of Note Date/Time of Note DATE: 05/19/17 TIME: 15:11 Assessment/Plan VTE Prophylaxis VTE Prophylaxis Intervention: contraindicated VTE Contraindication Reason: blood coagulation disorder Lines/Catheters [facility] Peripheral IV Urinary Cath still in place: Yes Reason Cath still needed: urinary retention Assessment/Plan Assessment/Plan Assessment * Atrial Fibrillation managed by cardiology * Anemia r/o esophageal varices vs peptic ulcer disease vs other * Liver cirrhosis Encephalopathy * History of alcoholic abuse Plan * EGD postponed until cardiovascular stable * Monitor hemoglobin and hematocrit Q 6 transfuse 1 unit PRBC hgb <7.5,2 unit PRBC hgb <7 * continue Protonix drip and octreotide drip * Continue present management * Lactulose and rifaximin * Case was discussed with Dr Newton * Further orders will depend on clinical course Subjective 24 Hr Interval Summary Free Text/Dictation * Course reviewed with RN * Patient seen and examined * Still on Cardizem drip due to atrial fibrillation * No active bleeding * Hemoglobin 8.7 Exam/Review of Systems Vital Signs Vitals Vital Signs Date Time Temp Pulse Resp B/P Pulse Ox O2 Delivery O2 Flow Rate FiO2 05/19/17 13:30 90 27 155/75 95 05/19/17 13:00 Mechanical Ventilator 05/19/17 12:00 98.5 05/19/17 08:00 2.0 Intake and Output 05/18/17 05/18/17 05/19/17 15:00 23:00 07:00 Intake Total 1200 ml 480 ml Output Total 1605 ml 900 ml Balance -405 ml -420 ml Exam Constitutional: frail Head: normocephalic Eyes: icteric Neck: non-tender, supple Respiratory: diminished breath sounds, normal air movement Cardiovascular: nl pulses, regular rate and rhythm Gastrointestinal: bowel sounds, distended, hepatomegaly, non-tender, soft, No rebound or guarding Musculoskeletal: swelling Extremities: pitting pedal edema Neurological: lethargic Skin: nl turgor, rash or lesions Lymph: nl lymph nodes Results Result Diagram: 05/19/17 0613 05/19/17 0613 Results 24 hrs Laboratory Tests Test 05/19/17 06:13 White Blood Count 15.7 #H Red Blood Count 2.54 L Hemoglobin 8.7 L Hematocrit 27.0 L Mean Corpuscular Volume 106.3 H Mean Corpuscular Hemoglobin 34.3 H Mean Corpuscular Hemoglobin Concent 32.2 Red Cell Distribution Width 24.2 H Platelet Count 67 L Mean Platelet Volume 10.1 Neutrophils % 72.3 Lymphocytes % 10.2 L Monocytes % 11.0 Eosinophils % 1.3 Basophils % 0.4 Nucleated Red Blood Cells % 0.8 H Neutrophils # 11.4 H Lymphocytes # 1.6 Monocytes # 1.7 H Eosinophils # 0.2 Basophils # 0.1 Nucleated Red Blood Cells # 0.1 H Prothrombin Time 31.3 #H Prothrombin Time Ratio 2.4 INR International Normalized Ratio 2.97 Activated Partial Thromboplast Time 43.3 H Sodium Level 139 Potassium Level 3.2 L Chloride Level 105 Carbon Dioxide Level 29 Anion Gap 8 Blood Urea Nitrogen 18 Creatinine 0.80 Glucose Level 103 Calcium Level 10.0 Phosphorus Level 1.5 L Magnesium Level 1.8 Total Bilirubin 16.5 H Direct Bilirubin 3.80 H Indirect Bilirubin 12.7 H Aspartate Amino Transf (AST/SGOT) 92 H Alanine Aminotransferase (ALT/SGPT) 53 Alkaline Phosphatase 117 Total Protein 7.2 Albumin 3.4 Globulin 3.80 H Albumin/Globulin Ratio 0.89 Medications Medications Current Medications Multivitamins/ Thiamine HCl/ Folic Acid/Sodium Chloride (Mvi Adult/ Vitamin B1/ Folic Acid/NS) 1,011.2 ml @ 125 mls/ hr DAILY@09 IVPB Last administered on 09:45; Admin Dose 125 MLS/HR; Start 05/14/17 at 00:30 Lorazepam (Ativan) 1 mg Q6H PRN IM AGITATION/ANXIETY Last administered on 03:06; Admin Dose 1 MG; Start 05/14/17 at 00:30 Morphine Sulfate 2 mg 2 mg Q4H PRN IV Pain Last administered on 05/19/17 14:50 ; Admin Dose 2 MG; Start 05/14/17 at 12:00 Pantoprazole 80 mg/Sodium Chloride 100 ml @ 10 mls/hr Q10H IV Last administered on 05/19/17 14:49; Admin Dose 10 MLS/HR; Start 05/14/17 at 17:00 Cefepime HCl 50 ml @ 100 mls/hr Q12 IVPB Last administered on 05/19/17 09:45 ; Admin Dose 100 MLS/HR; Start 05/15/17 at 21:00 Levofloxacin/ Dextrose 50 ml @ 50 mls/hr Q24H IVPB Last administered on 14:33; Admin Dose 50 MLS/HR; Start 05/15/17 at 15:30 Dextrose 1,000 ml @ 50 mls/hr Q20H IV Last administered on 05/18/17 22:30; Admin Dose 50 MLS/HR; Start 05/16/17 at 10:00 Diltiazem HCl (Cardizem-D5W 125 Mg/125 ml Drip) 125 ml @ 5 mls/hr TITRATE IV Last administered on 05/19/17 08:58; Admin Dose 10 MLS/HR; Start 05/16/17 at 16 :30 Rifaximin (Xifaxan) 550 mg BID PO Last administered on 05/19/17 09:44; Admin Dose 550 MG; Start 05/17/17 at 09:00 Lactulose (Enulose) 20 gm Q8 PO Last administered on 05/19/17 14:32; Admin Dose 20 GM; Start 05/17/17 at 08:00 Hydralazine HCl 10 mg 10 mg Q6H PRN IV SBP>160 Last administered on 05/19/17 09:43; Admin Dose 10 MG; Start 05/17/17 at 15:30 Potassium Chloride (KCl 10 MEQ/50 ML SW) 50 ml @ 50 mls/hr Q1H IVPB Last administered on 05/19/17 14:58; Admin Dose 50 MLS/HR; Start 05/19/17 at 14:30; Stop 05/19/17 at 18:29 JUAN SR NP May 19, 2017 15:16
[2017-05-19] MEDS: FUROSEMIDE 40 MG INJ IV SCH (17:43)
[2017-05-19] MEDS: DEXTROSE 5% 1,000 ML IV SCH (18:00)
[2017-05-20] VITALS (24 sets, daily range): BP systolic 124–154; BP diastolic 60–81; PULSE 82–95; RESP 16–30
[2017-05-20] MEDS: morphine 2 MG INJ IV PRN ×4 (00:18→21:08)
[2017-05-20] MEDS: PANTOPRAZOLE IV 80 MG in SOD CHLORIDE 0.9% 100 ML IV SCH ×3 (00:58→21:12)
[2017-05-20] MEDS: DEXTROSE 5% 1,000 ML IV SCH ×2 (02:13→13:08)
[2017-05-20] MEDS: LACTULOSE 30ML CUP PO SCH ×3 (06:22→21:11)
[2017-05-20] MEDS: FUROSEMIDE 40 MG INJ IV SCH ×2 (06:22→18:11)
[2017-05-20 07:09] LABS: ADD SCAN DIFF NO
[2017-05-20 07:17] LABS: ABNORMAL IP MESSAGE 1; BASOPHIL # 0.1 10^3/ul (0.0-0.1); BASOPHILS % 0.4 % (0.0-2.0); EOSINOPHILS # 0.4 10^3/ul (0.0-0.5); EOSINOPHILS % 2.5 % (0.0-7.0); HEMATOCRIT 28.7 % (42.0-52.0); HEMOGLOBIN 9.3 g/dl (14.0-18.0); LYMPHOCYTES # 1.7 10^3/ul (0.8-2.9); LYMPHOCYTES % 10.4 % (15.0-51.0); MEAN CORPUSCULAR HEMOGLOBIN 34.7 pg (29.0-33.0); MEAN CORPUSCULAR HGB CONC 32.4 g/dl (32.0-37.0); MEAN CORPUSCULAR VOLUME 107.1 fl (82.0-101.0); MEAN PLATELET VOLUME 10.5 fl (7.4-10.4); MONOCYTE # 1.6 10^3/ul (0.3-0.9); NEUTROPHILS % 73.5 % (39.0-77.0); NUCLEATED RED BLOOD CELLS% 0.2 /100WBC (0.0-0.0); PLATELET COUNT 71 10^3/UL (140-415); RED BLOOD COUNT 2.68 10^6/ul (4.70-6.10); RED CELL DISTRIBUTION WIDTH 23.7 % (11.5-14.5); WHITE BLOOD COUNT 16.3 10^3/ul (4.8-10.8)
[2017-05-20 07:34] LABS: INR 3.09; PROTIME 32.3 Sec (12.2-14.2); PT RATIO 2.5
[2017-05-20 07:35] LABS: PARTIAL THROMBOPLASTIN TIME 45.2 Sec (25.0-35.0)
[2017-05-20 08:02] LABS: ALBUMIN 3.2 g/dl (3.3-4.9); ALBUMIN/GLOBULIN RATIO 0.82; BILIRUBIN,DIRECT 4.9 mg/dl (0.00-0.20); BILIRUBIN,INDIRECT 13.2 mg/dl (0-1.1); BILIRUBIN,TOTAL 18.1 mg/dl (0.2-1.3); CALCIUM 10.2 mg/dl (8.4-10.2); CREATININE 0.7 mg/dl (0.61-1.24); POTASSIUM 3.7 mmol/L (3.5-5.1); TOTAL PROTEIN 7.1 g/dl (6.1-8.1)
[2017-05-20 08:03] LABS: MAGNESIUM 1.9 mg/dl (1.7-2.5)
[2017-05-20] MEDS: ALBUTEROL 0.083% (NEB) 2.5 MG/3 ML AMP HHN SCH ×3 (08:32→19:59)
--- NOTE | 2017-05-20 08:39 | CONS ---
Date/Time of Note Date/Time of Note DATE: 05/20/17 TIME: 08:37 Assessment/Plan Assessment/Plan Additional Assessment/Plan Assessment recommendations; 1. Patient admitted with right-sided pneumonia currently on appropriate antibiotic regimen. Chest x-ray from today is pending. 2. Advanced end-stage liver disease, with altered mental status, however there has been marked overall improvement over the last 24-48 hours. 3. Upper GI bleed, patient however has no further obvious bleeding with stable hematocrit. Awaiting EGD. 4. Thrombocytopenia. Continue current treatment. Patient can be transferred to the medical floor. Consultation Date/Type/Reason Admit Date/Time May 13, 2017 at 22:29 Initial Consult Date 05/14/17 Type of Consultation: Pulmonary/critical care Referring Provider: MICHELLE CRAFT 24 HR Interval Summary Free Text/Dictation Patient condition is markedly improved. Patient is not much more awake alert and is not as lethargic as before. Able to answer questions appropriately. Denies any shortness breath, abdominal, nausea vomiting. General exam; middle-aged male, awake alert currently in no distress. Exam/Review of Systems Vital Signs Vitals Vital Signs Date Time Temp Pulse Resp B/P Pulse Ox O2 Delivery O2 Flow Rate FiO2 05/20/17 08:00 98.5 83 25 145/70 89 Nasal Cannula 2.0 Intake and Output 05/19/17 05/19/17 05/20/17 15:00 23:00 07:00 Intake Total 1118 ml 1172 ml 1815 ml Output Total 1235 ml 2930 ml 700 ml Balance -117 ml -1758 ml 1115 ml Exam HEENT examination; supple neck, no JVD. No lymphadenopathy. Midline trachea. No thyromegaly. Pharynx is clear. Patient has fair dentition. Patient remains strongly icteric. Chest examined; diminished but clear vessel. S1-S2 audible, no murmurs. Regular rhythm. Abdomen examination; soft, nontender. No organomegaly. Bowel sounds audible. Extremity exam; no edema involving upper extremities however there is trace lower extremity edema bilaterally. Pulses 1+ bilaterally. NUTRITION SPECIALIST exam; no focal deficit. Results Result Diagram: 05/20/17 0620 05/20/17 0620 Results 24 hrs Laboratory Tests Test 05/20/17 06:20 White Blood Count 16.3 H Red Blood Count 2.68 L Hemoglobin 9.3 L Hematocrit 28.7 L Mean Corpuscular Volume 107.1 H Mean Corpuscular Hemoglobin 34.7 H Mean Corpuscular Hemoglobin Concent 32.4 Red Cell Distribution Width 23.7 H Platelet Count 71 L Mean Platelet Volume 10.5 H Neutrophils % 73.5 Lymphocytes % 10.4 L Monocytes % 10.0 Eosinophils % 2.5 Basophils % 0.4 Nucleated Red Blood Cells % 0.2 H Neutrophils # 12.0 H Lymphocytes # 1.7 Monocytes # 1.6 H Eosinophils # 0.4 Basophils # 0.1 Nucleated Red Blood Cells # 0.0 Prothrombin Time 32.3 H Prothrombin Time Ratio 2.5 INR International Normalized Ratio 3.09 Activated Partial Thromboplast Time 45.2 H Sodium Level 141 Potassium Level 3.7 Chloride Level 106 Carbon Dioxide Level 29 Anion Gap 10 Blood Urea Nitrogen 18 Creatinine 0.70 Glucose Level 95 Calcium Level 10.2 Phosphorus Level 2.0 L Magnesium Level 1.9 Total Bilirubin 18.1 H Direct Bilirubin 4.90 #H Indirect Bilirubin 13.2 H Aspartate Amino Transf (AST/SGOT) 107 H Alanine Aminotransferase (ALT/SGPT) 54 Alkaline Phosphatase 116 Total Protein 7.1 Albumin 3.2 L Globulin 3.90 H Albumin/Globulin Ratio 0.82 Medications Medications Current Medications Multivitamins/ Thiamine HCl/ Folic Acid/Sodium Chloride (Mvi Adult/ Vitamin B1/ Folic Acid/NS) 1,011.2 ml @ 125 mls/ hr DAILY@09 IVPB Last administered on 09:45; Admin Dose 125 MLS/HR; Start 05/14/17 at 00:30 Lorazepam (Ativan) 1 mg Q6H PRN IM AGITATION/ANXIETY Last administered on 03:06; Admin Dose 1 MG; Start 05/14/17 at 00:30 Morphine Sulfate 2 mg 2 mg Q4H PRN IV Pain Last administered on 05/20/17 00:18 ; Admin Dose 2 MG; Start 05/14/17 at 12:00 Pantoprazole 80 mg/Sodium Chloride 100 ml @ 10 mls/hr Q10H IV Last administered on 05/20/17 00:58; Admin Dose 10 MLS/HR; Start 05/14/17 at 17:00 Cefepime HCl 50 ml @ 100 mls/hr Q12 IVPB Last administered on 05/19/17 20:57 ; Admin Dose 100 MLS/HR; Start 05/15/17 at 21:00 Levofloxacin/ Dextrose 50 ml @ 50 mls/hr Q24H IVPB Last administered on 14:33; Admin Dose 50 MLS/HR; Start 05/15/17 at 15:30 Dextrose 1,000 ml @ 50 mls/hr Q20H IV Last administered on 05/20/17 02:13; Admin Dose 50 MLS/HR; Start 05/16/17 at 10:00 Diltiazem HCl (Cardizem-D5W 125 Mg/125 ml Drip) 125 ml @ 5 mls/hr TITRATE IV Last administered on 05/19/17 22:11; Admin Dose 5 MLS/HR; Start 05/16/17 at 16: 30 Rifaximin (Xifaxan) 550 mg BID PO Last administered on 05/19/17 20:58; Admin Dose 550 MG; Start 05/17/17 at 09:00 Lactulose (Enulose) 20 gm Q8 PO Last administered on 05/20/17 06:22; Admin Dose 20 GM; Start 05/17/17 at 08:00 Hydralazine HCl 10 mg 10 mg Q6H PRN IV SBP>160 Last administered on 05/19/17 09:43; Admin Dose 10 MG; Start 05/17/17 at 15:30 Potassium Phosphate/Sodium Chloride (K Phos (Mm)/NS) 255 ml @ 63.75 mls/ hr ONCE IVPB ; Start 05/20/17 at 10:00; Stop 05/20/17 at 13:59 LUIS FERNANDO TAMAYO May 20, 2017 08:39
[2017-05-20] MEDS: MULTIVITAMINS 10 ML, THIAMINE 100 MG, FOLIC ACID 1 MG in SOD CHLORIDE 0.9% 1,000 ML IVPB SCH (08:49)
[2017-05-20] MEDS: RIFAXIMIN 550 MG TAB PO SCH ×2 (08:49→21:10)
[2017-05-20] MEDS: CEFEPIME 2GM/50 ML (PMX) 50 ML IVPB SCH ×2 (08:49→21:11)
--- NOTE | 2017-05-20 09:31 | PN ---
Date/Time of Note Date/Time of Note DATE: 05/20/17 TIME: 09:22 Assessment/Plan VTE Prophylaxis VTE Prophylaxis Intervention: contraindicated VTE Contraindication Reason: blood coagulation disorder, thrombocytopenia Lines/Catheters [facility] Peripheral IV Urinary Cath still in place: Yes Reason Cath still needed: skin wounds contaminated by urine Assessment/Plan Assessment/Plan 1. Acute encephalopathy -metabolic toxic type . Largely resolved. Most probably toxic metabolic in origin. The patient's brain CT scan was negative for any acute intracranial pathology. 2. Macrocytic anemia. - 2/2 to ESLD - replete with banana bag - slow flow - cardio clearance for EGD - may have varices?, appreciate GI c/s 3. Coagulopathy. 2/2 ESLD - stable - monitor for acute bleeding. 4. Transaminitis with hyperbilirubinemia. Most probably from underlying alcoholic liver disease. Hepatotoxic drugs will be avoided on this patient. We will trend liver function tests. 5. Nonoliguric acute kidney injury in a patient with unknown baseline creatinine. Largely resolved. Etiology unclear. Most probably secondary to hemodynamics versus volume depletion versus hepatorenal syndrome. Nephrotoxic drugs will be avoided. 6. Alcohol abuse. Serum alcohol level was less than 10. The patient verbalized that he drinks on a daily basis. The patient is on p.r.n. Ativan for any alcohol withdrawal delirium. 7. Sepsis. Most probably secondary to aspiration pneumonia. Blood culture x1 positive for gram-negative rods. Repeat blood cultures negative. No evidence of any septic shock. The patient will be continued on empiric antibiotics. The patient being followed by infectious diseases. 8. Moderate to large left-sided pleural effusion with complete atelectasis of the left lower lobe and partial posterior atelectasis of the left upper lobe. Continue supplemental oxygen. Possible aspiration pneumonia. Continue antibiotics. 9. Paroxysmal A. fib. Currently in sinus rhythm. Off of Cardizem drip. Cardiology following. 10. Fluid, electrolytes and nutrition. Soft diet with thin liquids. 11. Deep venous thrombosis prophylaxis. Bilateral sequential compression devices. 12. Gastrointestinal prophylaxis. Proton pump inhibitors. PLAN: Continue ICU monitoring. Await esophagogastroduodenoscopy once cleared by cardiology. Replace blood products. Replete potassium and magnesium. Critical care time: 35 minutes. Subjective 24 Hr Interval Summary Free Text/Dictation Patient had no overnight events. No fevers/chills. I spoke to him in regards to his care plan. Nurse was in the room with me. 15 minutes spent. Exam/Review of Systems Vital Signs Vitals Vital Signs Date Time Temp Pulse Resp B/P Pulse Ox O2 Delivery O2 Flow Rate FiO2 05/20/17 08:32 82 24 98 Nasal Cannula 2.0 05/20/17 08:00 98.5 145/70 Intake and Output 05/19/17 05/19/17 05/20/17 15:00 23:00 07:00 Intake Total 1118 ml 1172 ml 1815 ml Output Total 1235 ml 2930 ml 700 ml Balance -117 ml -1758 ml 1115 ml Exam Gen Julio C: NAD, AAOx4 HEENT: NC/AT, PERRLA, EOMI, scleral icterus seen NECK: supple, no thyromegaly THORAX: symmetrical, no obvious deformities CV: S1S2, RRR, no M/G/R Lungs: diminished breath sounds to the bases bilateral, no wheezing/crackles or rales appreciated Abd: soft, NT/ND, +BS, no rebound, no guarding, protuberant, no fluid wave EXT: 1+ pitting edema, no ecchymosis, no clubbing, FROM Neuro: CN II-XII grossly intact, no focal deficits Psych: fair mood and affect Skin: jaundice, decreased skin turgor Results Result Diagram: 05/20/17 0620 05/20/17 0620 Results 24 hrs Laboratory Tests Test 05/20/17 06:20 White Blood Count 16.3 H Red Blood Count 2.68 L Hemoglobin 9.3 L Hematocrit 28.7 L Mean Corpuscular Volume 107.1 H Mean Corpuscular Hemoglobin 34.7 H Mean Corpuscular Hemoglobin Concent 32.4 Red Cell Distribution Width 23.7 H Platelet Count 71 L Mean Platelet Volume 10.5 H Neutrophils % 73.5 Lymphocytes % 10.4 L Monocytes % 10.0 Eosinophils % 2.5 Basophils % 0.4 Nucleated Red Blood Cells % 0.2 H Neutrophils # 12.0 H Lymphocytes # 1.7 Monocytes # 1.6 H Eosinophils # 0.4 Basophils # 0.1 Nucleated Red Blood Cells # 0.0 Prothrombin Time 32.3 H Prothrombin Time Ratio 2.5 INR International Normalized Ratio 3.09 Activated Partial Thromboplast Time 45.2 H Sodium Level 141 Potassium Level 3.7 Chloride Level 106 Carbon Dioxide Level 29 Anion Gap 10 Blood Urea Nitrogen 18 Creatinine 0.70 Glucose Level 95 Calcium Level 10.2 Phosphorus Level 2.0 L Magnesium Level 1.9 Total Bilirubin 18.1 H Direct Bilirubin 4.90 #H Indirect Bilirubin 13.2 H Aspartate Amino Transf (AST/SGOT) 107 H Alanine Aminotransferase (ALT/SGPT) 54 Alkaline Phosphatase 116 Total Protein 7.1 Albumin 3.2 L Globulin 3.90 H Albumin/Globulin Ratio 0.82 Medications Medications Current Medications Multivitamins/ Thiamine HCl/ Folic Acid/Sodium Chloride (Mvi Adult/ Vitamin B1/ Folic Acid/NS) 1,011.2 ml @ 125 mls/ hr DAILY@09 IVPB Last administered on 08:49; Admin Dose 125 MLS/HR; Start 05/14/17 at 00:30 Lorazepam (Ativan) 1 mg Q6H PRN IM AGITATION/ANXIETY Last administered on 03:06; Admin Dose 1 MG; Start 05/14/17 at 00:30 Morphine Sulfate 2 mg 2 mg Q4H PRN IV Pain Last administered on 05/20/17 08:50 ; Admin Dose 2 MG; Start 05/14/17 at 12:00 Pantoprazole 80 mg/Sodium Chloride 100 ml @ 10 mls/hr Q10H IV Last administered on 05/20/17 00:58; Admin Dose 10 MLS/HR; Start 05/14/17 at 17:00 Cefepime HCl 50 ml @ 100 mls/hr Q12 IVPB Last administered on 05/20/17 08:49 ; Admin Dose 100 MLS/HR; Start 05/15/17 at 21:00 Levofloxacin/ Dextrose 50 ml @ 50 mls/hr Q24H IVPB Last administered on 14:33; Admin Dose 50 MLS/HR; Start 05/15/17 at 15:30 Dextrose 1,000 ml @ 50 mls/hr Q20H IV Last administered on 05/20/17 02:13; Admin Dose 50 MLS/HR; Start 05/16/17 at 10:00 Diltiazem HCl (Cardizem-D5W 125 Mg/125 ml Drip) 125 ml @ 5 mls/hr TITRATE IV Last administered on 05/19/17 22:11; Admin Dose 5 MLS/HR; Start 05/16/17 at 16: 30 Rifaximin (Xifaxan) 550 mg BID PO Last administered on 05/20/17 08:49; Admin Dose 550 MG; Start 05/17/17 at 09:00 Lactulose (Enulose) 20 gm Q8 PO Last administered on 05/20/17 06:22; Admin Dose 20 GM; Start 05/17/17 at 08:00 Hydralazine HCl 10 mg 10 mg Q6H PRN IV SBP>160 Last administered on 05/19/17 09:43; Admin Dose 10 MG; Start 05/17/17 at 15:30 Potassium Phosphate/Sodium Chloride (K Phos (Mm)/NS) 255 ml @ 63.75 mls/ hr ONCE IVPB ; Start 05/20/17 at 10:00; Stop 05/20/17 at 13:59 CAMRYN OSORIO MD May 20, 2017 09:31
[2017-05-20] MEDS ORDERED: POTASSIUM PHOSPHATE 15 MM in SOD CHLORIDE 0.9% 250 ML IVPB SCH (10:00)
--- NOTE | 2017-05-20 10:11 | PN ---
DATE: 05/20/2017 SUBJECTIVE: The patient is clinically more alert. No other acute events noted. No hemoptysis, hem atemesis or hematochezia. OBJECTIVE: VITAL SIGNS: Blood pressure 145/70, respirations 25, pulse 83, temperature 98.5. HEENT: Head is normocephalic. Pupils are reactive to light. NECK: Supple. HEART: Regular rate. LUNGS: Show diminished breath sounds at base. ABDOMEN: Soft, nontender to palpation without rebound or guarding. EXTREMITIES: Negative for clubbing, cyanosis, edema. DERMATOLOGIC: No rashes. MUSCULOSKELETAL: No joint effusions. NEUROLOGIC: No change in exam. MEDICATIONS: The patient's medications have been reviewed. LABORATORY DATA: Shows a sodium 141, potassium 2.7, BUN 18, creatinine 0.7, phosphorus 2.05. White count 16.3, hemoglobin 9.7, platelet count 71. ASSESSMENT AND PLAN: 1. Nonoliguric acute kidney injury with unknown baseline creatinine, etiology is secondary to hemod ynamics. Renal function is stabilized. At this point, continue current treatment plan, supportive care, renally dose all meds. 2. Hypophosphatemia. Will replete with calcium phosphate. 3. Hyponatremia, improved. Continue to monitor sodium levels. Continue hypotonic fluids as needed . 4. Anemia without gastrointestinal bleed. The patient status post blood transfusion. Continue to monitor. 5. Mineral bone disorder. Continue to monitor calcium and phosphorus levels. 6. Transaminitis and hyperbilirubinemia. Etiology is concerning for sclerosis or ETOH hepatitis. Continue to monitor LFTs, continue supportive care, followup with GI. 6. Atrial fibrillation, currently rate controlled. Continue medical management. 7. Acute encephalopathy. Etiology is multifactorial. The patient's mental status is improving. C ontinue to monitor. 8. ETOH abuse. Continue to monitor for signs of withdrawal. 9. Sepsis secondary to bacteremia. Continue current antibiotic regimen. Dictated By: ESTEFANIA NAVARRO/ALLI Conf#: [id number] DID#: [id number]
--- NOTE | 2017-05-20 10:29 | RADRPT ---
PROCEDURE: XR Chest. CLINICAL INDICATION: CHF TECHNIQUE: An AP view of the chest was obtained. COMPARISON: Chest x-ray dated 05/18/2017 FINDINGS: There are diffuse bilateral interstitial opacities with small right and moderate left pleural effusi ons. No pneumothorax is seen. The cardiomediastinal silhouette is mildly enlarged . Calcificatio ns are seen within the aortic arch. The osseous structures demonstrate senescent changes. IMPRESSION: 1. Diffuse bilateral interstitial opacities, most likely reflecting interstitial edema, although mu ltifocal pneumonia could have a similar appearance. No significant interval change. 2. Small right and moderate left pleural effusions. 3. Mild cardiomegaly and aortic atherosclerosis. RPTAT: HH .Marianela Howell MD, MD Date Time Electronically viewed and signed by .Marianela Howell MD, on 05/20/2017 10:28 .G/
--- NOTE | 2017-05-20 10:34 | RADRPT ---
PROCEDURE: XR Chest. CLINICAL INDICATION: Pneumonia TECHNIQUE: An AP view of the chest was obtained. COMPARISON: Chest x-ray performed earlier on the same date FINDINGS: There are diffuse bilateral interstitial opacities with small right and moderate left pleural effusi ons. No pneumothorax is seen. The cardiomediastinal silhouette is mildly enlarged . Calcificatio ns are seen within the aortic arch. The osseous structures demonstrate senescent changes. IMPRESSION: 1. Diffuse bilateral interstitial opacities, most likely reflecting interstitial edema, although mu ltifocal pneumonia could have a similar appearance. Lung aeration is improved when compared to the p rior examination. 2. Small right and moderate left pleural effusions, not significantly changed. 3. Mild cardiomegaly and aortic atherosclerosis. RPTAT: HH .Marianela Howell MD, Date Time Electronically viewed and signed by .Marianela Howell MD, on 05/20/2017 10:34 .G/
--- NOTE | 2017-05-20 12:00 | PN ---
DATE: 05/20/2017 SUBJECTIVE: No events overnight. The patient is alert, looks comfortable. Denies pain, no fevers. LABORATORIES: WBC 16.3, platelets 71, neutrophils 73.5, BUN 18, creatinine 0.70. MICROBIOLOGY: Blood cultures since 05/15/2017 remain negative. Urine culture negative. DIAGNOSTICS: Chest x-ray this morning revealed diffuse bilateral interstitial opacities, small righ t and moderate left pleural effusions. INDWELLINGS: Fuentes catheter. PHYSICAL EXAMINATION: GENERAL: Ill-appearing, middle-aged white man who is awake, in no distress. HEENT: Head atraumatic, normocephalic. Sclerae anicteric. Buccal mucosa pink. NECK: Supple. CHEST: Rise symmetrical. Breath sounds diminished to bases. HEART: S1, S2. ABDOMEN: Soft. Bowel tones present. EXTREMITIES: Without cyanosis. ASSESSMENT: 1. Resolving sepsis. 2. Persistent leukocytosis, etiology unclear, possibly reactive. 3. Pneumonia. 4. Resolving encephalopathy. 5. Alcoholic liver cirrhosis. 6. History of alcohol abuse. 7. Paroxysmal atrial fibrillation. PLAN: The patient remains stable and clinically much improved. Etiology of his leukocytosis is unc lear. He is not on steroids. He is covered with cefepime and Levaquin for pneumonia with radiograp hic improvement. Urine culture sent from yesterday negative. He has no vomiting and no diarrhea. We will continue observing him. Dictated By: KARL NGUYEN SENIOR INTEGRATION ARCHITECT for GARRETT ALVAREZ/NTS Conf#: [id number] DID#: [id number]
[2017-05-20] MEDS: LEVOFLOXACIN 250MG/D5W (PMX) 50 ML IVPB SCH (14:39)
--- NOTE | 2017-05-20 15:30 | CONS ---
Date/Time of Note Date/Time of Note DATE: 05/20/17 TIME: 15:29 Assessment/Plan Assessment/Plan Additional Assessment/Plan Severe anemia Liver failure Coagulopathy Encephalopathy Thrombocytopenia Preserved ejection fraction History of hypertension Acute kidney injury Paroxysmal atrial fibrillation Respiratory failure -Patient off IV Cardizem drip remains in sinus rhythm, would start p.o. Cardizem. No anticoagulation at the current time given coagulopathy and thrombocytopenia and severe anemia. Lasix as renal function and blood pressure permits. Maintain potassium above 4.0 and magnesium above 2.0 Consultation Date/Type/Reason Admit Date/Time May 13, 2017 at 22:29 Initial Consult Date 05/14/17 Type of Consultation: cv Referring Provider: MICHELLE CRAFT 24 HR Interval Summary Free Text/Dictation Patient with less shortness of breath, denies palpitations Exam/Review of Systems Vital Signs Vitals Vital Signs Date Time Temp Pulse Resp B/P Pulse Ox O2 Delivery O2 Flow Rate FiO2 05/20/17 15:00 95 26 144/72 94 Nasal Cannula 2.0 05/20/17 12:00 98.6 Intake and Output 05/19/17 05/19/17 05/20/17 15:00 23:00 07:00 Intake Total 1118 ml 1172 ml 1815 ml Output Total 1235 ml 2930 ml 700 ml Balance -117 ml -1758 ml 1115 ml Exam Following commands, no apparent distress Constitutional: alert Head: normocephalic Respiratory: other (Coarse breath sounds bilaterally, no wheezing) Cardiovascular: other (S1-S2 heard), regular rate and rhythm Gastrointestinal: bowel sounds, non-tender, soft Extremities: edema Results Result Diagram: 05/20/17 0620 05/20/17 0620 Results 24 hrs Laboratory Tests Test 05/20/17 06:00 05/20/17 06:20 Alpha Fetoprotein 2.07 White Blood Count 16.3 H Red Blood Count 2.68 L Hemoglobin 9.3 L Hematocrit 28.7 L Mean Corpuscular Volume 107.1 H Mean Corpuscular Hemoglobin 34.7 H Mean Corpuscular Hemoglobin Concent 32.4 Red Cell Distribution Width 23.7 H Platelet Count 71 L Mean Platelet Volume 10.5 H Neutrophils % 73.5 Lymphocytes % 10.4 L Monocytes % 10.0 Eosinophils % 2.5 Basophils % 0.4 Nucleated Red Blood Cells % 0.2 H Neutrophils # 12.0 H Lymphocytes # 1.7 Monocytes # 1.6 H Eosinophils # 0.4 Basophils # 0.1 Nucleated Red Blood Cells # 0.0 Prothrombin Time 32.3 H Prothrombin Time Ratio 2.5 INR International Normalized Ratio 3.09 Activated Partial Thromboplast Time 45.2 H Sodium Level 141 Potassium Level 3.7 Chloride Level 106 Carbon Dioxide Level 29 Anion Gap 10 Blood Urea Nitrogen 18 Creatinine 0.70 Glucose Level 95 Calcium Level 10.2 Phosphorus Level 2.0 L Magnesium Level 1.9 Total Bilirubin 18.1 H Direct Bilirubin 4.90 #H Indirect Bilirubin 13.2 H Aspartate Amino Transf (AST/SGOT) 107 H Alanine Aminotransferase (ALT/SGPT) 54 Alkaline Phosphatase 116 Total Protein 7.1 Albumin 3.2 L Globulin 3.90 H Albumin/Globulin Ratio 0.82 Medications Medications Current Medications Multivitamins/ Thiamine HCl/ Folic Acid/Sodium Chloride (Mvi Adult/ Vitamin B1/ Folic Acid/NS) 1,011.2 ml @ 125 mls/ hr DAILY@09 IVPB Last administered on 08:49; Admin Dose 125 MLS/HR; Start 05/14/17 at 00:30 Lorazepam (Ativan) 1 mg Q6H PRN IM AGITATION/ANXIETY Last administered on 03:06; Admin Dose 1 MG; Start 05/14/17 at 00:30 Morphine Sulfate 2 mg 2 mg Q4H PRN IV Pain Last administered on 05/20/17 13:15 ; Admin Dose 2 MG; Start 05/14/17 at 12:00 Pantoprazole 80 mg/Sodium Chloride 100 ml @ 10 mls/hr Q10H IV Last administered on 05/20/17 10:17; Admin Dose 10 MLS/HR; Start 05/14/17 at 17:00 Cefepime HCl 50 ml @ 100 mls/hr Q12 IVPB Last administered on 05/20/17 08:49 ; Admin Dose 100 MLS/HR; Start 05/15/17 at 21:00 Levofloxacin/ Dextrose 50 ml @ 50 mls/hr Q24H IVPB Last administered on 14:39; Admin Dose 50 MLS/HR; Start 05/15/17 at 15:30 Dextrose 1,000 ml @ 50 mls/hr Q20H IV Last administered on 05/20/17 02:13; Admin Dose 50 MLS/HR; Start 05/16/17 at 10:00 Diltiazem HCl (Cardizem-D5W 125 Mg/125 ml Drip) 125 ml @ 5 mls/hr TITRATE IV Last administered on 05/19/17 22:11; Admin Dose 5 MLS/HR; Start 05/16/17 at 16: 30 Rifaximin (Xifaxan) 550 mg BID PO Last administered on 05/20/17 08:49; Admin Dose 550 MG; Start 05/17/17 at 09:00 Lactulose (Enulose) 20 gm Q8 PO Last administered on 05/20/17 13:15; Admin Dose 20 GM; Start 05/17/17 at 08:00 Hydralazine HCl (Apresoline) 10 mg Q6H PRN IV SBP>160 Last administered on 05/19 09:43; Admin Dose 10 MG; Start 05/17/17 at 15:30 Fox Marrufo DO May 20, 2017 15:30
[2017-05-20] MEDS ORDERED: MAGNESIUM SULFATE 1 GM/D5W 100 ML IVPB ONE (16:00)
[2017-05-20] MEDS ORDERED: POTASSIUM CHLORIDE 20 MEQ POWDER FOR ORAL SOLN PO ONE (16:00)
[2017-05-20] MEDS: DILTIAZEM (CD) 120 MG CAP PO SCH (21:10)
[2017-05-21] VITALS (23 sets, daily range): BP systolic 122–158; BP diastolic 59–89; PULSE 66–93; RESP 16–28
[2017-05-21] MEDS: DEXTROSE 5% 1,000 ML IV SCH
[2017-05-21] MEDS: morphine 2 MG INJ IV PRN ×4 (02:30→18:08)
[2017-05-21] MEDS: LACTULOSE 30ML CUP PO SCH ×3 (06:28→22:36)
[2017-05-21] MEDS: FUROSEMIDE 40 MG INJ IV SCH ×2 (06:28→17:58)
[2017-05-21 06:39] LABS: ADD SCAN DIFF NO
[2017-05-21 06:47] LABS: ABNORMAL IP MESSAGE 1; BASOPHIL # 0.1 10^3/ul (0.0-0.1); BASOPHILS % 0.3 % (0.0-2.0); EOSINOPHILS # 0.4 10^3/ul (0.0-0.5); EOSINOPHILS % 2.8 % (0.0-7.0); HEMATOCRIT 28.3 % (42.0-52.0); HEMOGLOBIN 9.1 g/dl (14.0-18.0); LYMPHOCYTES # 1.5 10^3/ul (0.8-2.9); LYMPHOCYTES % 9.4 % (15.0-51.0); MEAN CORPUSCULAR HEMOGLOBIN 34.3 pg (29.0-33.0); MEAN CORPUSCULAR HGB CONC 32.2 g/dl (32.0-37.0); MEAN CORPUSCULAR VOLUME 106.8 fl (82.0-101.0); MEAN PLATELET VOLUME 10.6 fl (7.4-10.4); MONOCYTE # 1.3 10^3/ul (0.3-0.9); MONOCYTES % 8.2 % (0.0-11.0); NEUTROPHILS % 77.4 % (39.0-77.0); NUCLEATED RED BLOOD CELLS% 0.1 /100WBC (0.0-0.0); PLATELET COUNT 68 10^3/UL (140-415); RED BLOOD COUNT 2.65 10^6/ul (4.70-6.10); RED CELL DISTRIBUTION WIDTH 23.5 % (11.5-14.5); WHITE BLOOD COUNT 15.6 10^3/ul (4.8-10.8)
[2017-05-21 07:15] LABS: ALBUMIN 2.8 g/dl (3.3-4.9); ALBUMIN/GLOBULIN RATIO 0.75; BILIRUBIN,DIRECT 6.6 mg/dl (0.00-0.20); BILIRUBIN,INDIRECT 10.4 mg/dl (0-1.1); CALCIUM 9.6 mg/dl (8.4-10.2); CREATININE 0.71 mg/dl (0.61-1.24); POTASSIUM 3.7 mmol/L (3.5-5.1); TOTAL PROTEIN 6.5 g/dl (6.1-8.1)
[2017-05-21 07:17] LABS: MAGNESIUM 1.6 mg/dl (1.7-2.5); PHOSPHORUS 1.9 mg/dl (2.5-4.9)
[2017-05-21] MEDS: PANTOPRAZOLE IV 80 MG in SOD CHLORIDE 0.9% 100 ML IV SCH (07:22)
[2017-05-21] MEDS: ALBUTEROL 0.083% (NEB) 2.5 MG/3 ML AMP HHN SCH ×3 (08:00→20:57)
[2017-05-21] MEDS: RIFAXIMIN 550 MG TAB PO SCH ×2 (08:13→22:36)
[2017-05-21] MEDS: DILTIAZEM (CD) 120 MG CAP PO SCH ×2 (08:13→22:35)
[2017-05-21] MEDS: CEFEPIME 2GM/50 ML (PMX) 50 ML IVPB SCH ×2 (08:13→22:35)
[2017-05-21] MEDS ORDERED: MAGNESIUM SULFATE 3 GM in SOD CHLORIDE 0.9% 100 ML IVPB ONE ×2 (09:00→13:30)
--- NOTE | 2017-05-21 09:24 | PN ---
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 Also with anemia, concern for upper GI source. 1. Acute encephalopathy -metabolic toxic type . Largely resolved. Most probably toxic metabolic in origin. 2. Macrocytic anemia. - 2/2 to ESLD - cardio clearance for EGD - may have varices?, appreciate GI c/s 3. Coagulopathy. 2/2 ESLD - stable - monitor for acute bleeding. 4. Transaminitis with hyperbilirubinemia. Most probably from underlying alcoholic liver disease. 5. Nonoliguric acute kidney injury in a patient with unknown baseline creatinine. Largely resolved. Etiology unclear. Most probably secondary to hemodynamics versus volume depletion versus hepatorenal syndrome. 6. Alcohol abuse. Serum alcohol level was less than 10. The patient verbalized that he drinks on a daily basis. The patient is on p.r.n. Ativan for any alcohol withdrawal delirium. 7. Sepsis. Most probably secondary to aspiration pneumonia. Blood culture x1 positive for gram-negative rods. Repeat blood cultures negative. No evidence of any septic shock. The patient will be continued on empiric antibiotics. The patient being followed by infectious diseases. 8. Moderate to large left-sided pleural effusion with complete atelectasis of the left lower lobe and partial posterior atelectasis of the left upper lobe. Continue supplemental oxygen. Possible aspiration pneumonia. Continue antibiotics. 9. Paroxysmal A. fib. Currently in sinus rhythm. Off of Cardizem drip. Cardiology following. 10. Fluid, electrolytes and nutrition. Soft diet with thin liquids. 11. Deep venous thrombosis prophylaxis. Bilateral sequential compression devices. 12. Gastrointestinal prophylaxis. Proton pump inhibitors. PLAN: transfer to floor. Await esophagogastroduodenoscopy once cleared by cardiology. Subjective 24 Hr Interval Summary Free Text/Dictation Cardizem drip stopped. Pt states last alcohol consumption was in January Exam/Review of Systems Vital Signs Vitals Vital Signs Date Time Temp Pulse Resp B/P Pulse Ox O2 Delivery O2 Flow Rate FiO2 6/21/17 08:00 Nasal Cannula 2.0 05/21/17 08:00 98.6 89 25 140/74 96 Intake and Output 05/20/17 05/20/17 05/21/17 15:00 23:00 07:00 Intake Total 1280 ml 1230 ml 1256.2 ml Output Total 2550 ml 2675 ml 1325 ml Balance -1270 ml -1445 ml -68.8 ml Exam nad, jaundiced abd distended rrr lungs clear responds to questions appropriately Results Result Diagram: 05/21/1728 05/21/17 0528 Results 24 hrs Laboratory Tests Test 05/21/17 05:28 05/21/17 06:28 Sodium Level 138 Potassium Level 3.7 Chloride Level 103 Carbon Dioxide Level 29 Anion Gap 10 Blood Urea Nitrogen 16 Creatinine 0.71 Glucose Level 86 Calcium Level 9.6 Total Bilirubin 17.0 H Direct Bilirubin 6.60 H Indirect Bilirubin 10.4 H Aspartate Amino Transf (AST/SGOT) 216 #H Alanine Aminotransferase (ALT/SGPT) 95 H Alkaline Phosphatase 108 Total Protein 6.5 Albumin 2.8 L Globulin 3.70 H Albumin/Globulin Ratio 0.75 White Blood Count 15.6 H Red Blood Count 2.65 L Hemoglobin 9.1 L Hematocrit 28.3 L Mean Corpuscular Volume 106.8 H Mean Corpuscular Hemoglobin 34.3 H Mean Corpuscular Hemoglobin Concent 32.2 Red Cell Distribution Width 23.5 H Platelet Count 68 L Mean Platelet Volume 10.6 H Neutrophils % 77.4 H Lymphocytes % 9.4 L Monocytes % 8.2 Eosinophils % 2.8 Basophils % 0.3 Nucleated Red Blood Cells % 0.1 H Neutrophils # 12.0 H Lymphocytes # 1.5 Monocytes # 1.3 H Eosinophils # 0.4 Basophils # 0.1 Nucleated Red Blood Cells # 0.0 Phosphorus Level 1.9 L Magnesium Level 1.6 L Medications Medications Current Medications Lorazepam (Ativan) 1 mg Q6H PRN IM AGITATION/ANXIETY Last administered on 03:06; Admin Dose 1 MG; Start 05/14/17 at 00:30 Morphine Sulfate 2 mg 2 mg Q4H PRN IV Pain Last administered on 05/21/17 06:30 ; Admin Dose 2 MG; Start 05/14/17 at 12:00 Pantoprazole 80 mg/Sodium Chloride 100 ml @ 10 mls/hr Q10H IV Last administered on 05/21/17 07:22; Admin Dose 10 MLS/HR; Start 05/14/17 at 17:00 Cefepime HCl 50 ml @ 100 mls/hr Q12 IVPB Last administered on 05/21/17 08:13 ; Admin Dose 100 MLS/HR; Start 05/15/17 at 21:00 Levofloxacin/ Dextrose 50 ml @ 50 mls/hr Q24H IVPB Last administered on 14:39; Admin Dose 50 MLS/HR; Start 05/15/17 at 15:30 Diltiazem HCl (Cardizem-D5W 125 Mg/125 ml Drip) 125 ml @ 5 mls/hr TITRATE IV Last administered on 05/19/17 22:11; Admin Dose 5 MLS/HR; Start 05/16/17 at 16: 30 Rifaximin (Xifaxan) 550 mg BID PO Last administered on 05/21/17 08:13; Admin Dose 550 MG; Start 05/17/17 at 09:00 Lactulose (Enulose) 20 gm Q8 PO Last administered on 05/21/17 06:28; Admin Dose 20 GM; Start 05/17/17 at 08:00 Hydralazine HCl (Apresoline) 10 mg Q6H PRN IV SBP>160 Last administered on 05/19 09:43; Admin Dose 10 MG; Start 05/17/17 at 15:30 Diltiazem HCl 120 mg 120 mg BID PO Last administered on 05/21/17 08:13; Admin Dose 120 MG; Start 05/20/17 at 21:00 Magnesium Sulfate 3 gm/Sodium Chloride 106 ml @ 35.333 mls/ hr ONCE ONCE IVPB Last administered on 05/21/17 09:13; Admin Dose 35.333 MLS/HR; Start at 09:00; Stop 05/21/17 at 11:59 Potassium Phosphate/Sodium Chloride (K Phos (Meq)/NS) 254.5455 ml @ 63.636 m... ONCE ONCE IVPB ; Start 05/21/17 at 10:30; Stop 05/21/17 at 14:29 DIEGO JACOB MD 21, 2017 09:24 DIEGO JACOB MD May 21, 2017 09:24
[2017-05-21] MEDS ORDERED: MAGNESIUM OXIDE 400 MG TAB PO ONE (09:30)
[2017-05-21] MEDS ORDERED: POTASSIUM CHLORIDE (SR) 20 MEQ TAB PO STA (09:30)
[2017-05-21] MEDS ORDERED: POTASSIUM PHOSPHATE 20 MEQ in SOD CHLORIDE 0.9% 250 ML IVPB ONE (10:30)
--- NOTE | 2017-05-21 11:10 | CONS ---
Date/Time of Note Date/Time of Note DATE: 05/21/17 TIME: 11:07 Assessment/Plan Assessment/Plan Additional Assessment/Plan Chest x-ray was reviewed from yesterday afternoon which is showing extensive infiltrate involving the right lung. Patient currently on Protonix drip via protocol. Assessment recommendations; 1. Patient admitted with right-sided pneumonia currently on appropriate antibiotic regimen. 2. Advanced liver disease from alcoholic cirrhosis. 3. Hepatic enteropathy with significant interval improvement. 4. Upper GI bleed, with interval resolution. 5. Thrombocytopenia. 6. Improving serum bilirubin level. Continue current treatment. Patient can be transferred to the medical floor. Consultation Date/Type/Reason Admit Date/Time May 13, 2017 at 22:29 Initial Consult Date 05/14/17 Type of Consultation: Pulmonary/critical care Referring Provider: MICHELLE CRAFT 24 HR Interval Summary Free Text/Dictation Patient condition is continually improving to the point where the patient now is completely awake and alert and answers questions appropriately. Denies any chest pain, shortness of breath. General examination; middle-aged male, awake alert currently in no distress. Exam/Review of Systems Vital Signs Vitals Vital Signs Date Time Temp Pulse Resp B/P Pulse Ox O2 Delivery O2 Flow Rate FiO2 05/21/17 09:00 89 22 144/68 92 Nasal Cannula 2.0 05/21/17 08:00 98.6 Intake and Output 05/20/17 05/20/17 05/21/17 15:00 23:00 07:00 Intake Total 1280 ml 1230 ml 1256.2 ml Output Total 2550 ml 2675 ml 1325 ml Balance -1270 ml -1445 ml -68.8 ml Exam HEENT exam; supple neck, no JVD. No lymphadenopathy. Midline trachea. No thyromegaly. Patient is strongly icteric. Patient has fair dentition. Pharynx is clear. Chest examined; diminished but clear vessel. S1-S2 audible, no murmurs. Regular rhythm. Abdomen examination; soft, no organomegaly. Bowel sounds audible. Extremity exam is; no peripheral edema. INK MAKER examination; no focal deficit. Patient has generalized muscular weakness. Results Result Diagram: 05/21/17 0628 05/21/17 0528 Results 24 hrs Laboratory Tests Test 05/21/17 05:28 05/21/17 06:28 Sodium Level 138 Potassium Level 3.7 Chloride Level 103 Carbon Dioxide Level 29 Anion Gap 10 Blood Urea Nitrogen 16 Creatinine 0.71 Glucose Level 86 Calcium Level 9.6 Total Bilirubin 17.0 H Direct Bilirubin 6.60 H Indirect Bilirubin 10.4 H Aspartate Amino Transf (AST/SGOT) 216 #H Alanine Aminotransferase (ALT/SGPT) 95 H Alkaline Phosphatase 108 Total Protein 6.5 Albumin 2.8 L Globulin 3.70 H Albumin/Globulin Ratio 0.75 White Blood Count 15.6 H Red Blood Count 2.65 L Hemoglobin 9.1 L Hematocrit 28.3 L Mean Corpuscular Volume 106.8 H Mean Corpuscular Hemoglobin 34.3 H Mean Corpuscular Hemoglobin Concent 32.2 Red Cell Distribution Width 23.5 H Platelet Count 68 L Mean Platelet Volume 10.6 H Neutrophils % 77.4 H Lymphocytes % 9.4 L Monocytes % 8.2 Eosinophils % 2.8 Basophils % 0.3 Nucleated Red Blood Cells % 0.1 H Neutrophils # 12.0 H Lymphocytes # 1.5 Monocytes # 1.3 H Eosinophils # 0.4 Basophils # 0.1 Nucleated Red Blood Cells # 0.0 Phosphorus Level 1.9 L Magnesium Level 1.6 L Medications Medications Current Medications Lorazepam (Ativan) 1 mg Q6H PRN IM AGITATION/ANXIETY Last administered on 03:06; Admin Dose 1 MG; Start 05/14/17 at 00:30 Morphine Sulfate 2 mg 2 mg Q4H PRN IV Pain Last administered on 05/21/17 06:30 ; Admin Dose 2 MG; Start 05/14/17 at 12:00 Pantoprazole 80 mg/Sodium Chloride 100 ml @ 10 mls/hr Q10H IV Last administered on 05/21/17 07:22; Admin Dose 10 MLS/HR; Start 05/14/17 at 17:00 Cefepime HCl 50 ml @ 100 mls/hr Q12 IVPB Last administered on 05/21/17 08:13 ; Admin Dose 100 MLS/HR; Start 05/15/17 at 21:00 Levofloxacin/ Dextrose (Levaquin 250 Mg/ D5W 50 ml (Pmx)) 50 ml @ 50 mls/hr Q24H IVPB Last administered on 05/20/17 14:39; Admin Dose 50 MLS/HR; Start at 15:30 Rifaximin (Xifaxan) 550 mg BID PO Last administered on 05/21/17 08:13; Admin Dose 550 MG; Start 05/17/17 at 09:00 Lactulose (Enulose) 20 gm Q8 PO Last administered on 05/21/17 06:28; Admin Dose 20 GM; Start 05/17/17 at 08:00 Hydralazine HCl (Apresoline) 10 mg Q6H PRN IV SBP>160 Last administered on 05/19 09:43; Admin Dose 10 MG; Start 05/17/17 at 15:30 Diltiazem HCl 120 mg 120 mg BID PO Last administered on 05/21/17 08:13; Admin Dose 120 MG; Start 05/20/17 at 21:00 Magnesium Sulfate 3 gm/Sodium Chloride 106 ml @ 35.333 mls/ hr ONCE ONCE IVPB Last administered on 05/21/17 09:13; Admin Dose 35.333 MLS/HR; Start at 09:00; Stop 05/21/17 at 11:59 Potassium Phosphate/Sodium Chloride (K Phos (Meq)/NS) 254.5455 ml @ 63.636 m... ONCE ONCE IVPB ; Start 05/21/17 at 10:30; Stop 05/21/17 at 14:29 Folic Acid (Folic Acid) 1 mg DAILY PO ; Start 05/21/17 at 11:00 Multivitamins Therapeutic (Theragran) 1 tab DAILY PO ; Start 05/21/17 at 11:00 Thiamine HCl (Vitamin B1) 100 mg DAILY PO ; Start 05/21/17 at 11:00 LUIS FERNANDO TAMAYO 21, 2017 11:10
[2017-05-21] MEDS: THIAMINE 100 MG TAB PO SCH (11:47)
[2017-05-21] MEDS: MULTIVITAMINS THERAPEUTIC TAB PO SCH (11:47)
[2017-05-21] MEDS: FOLIC ACID 1 MG TAB PO SCH (11:47)
--- NOTE | 2017-05-21 11:55 | CONS ---
Date/Time of Note Date/Time of Note DATE: 05/21/17 TIME: 11:51 Assessment/Plan Assessment/Plan Additional Assessment/Plan Severe anemia status post multiple transfusions Liver failure Acute decompensated diastolic congestive heart failure Coagulopathy Encephalopathy, improved Thrombocytopenia Preserved ejection fraction History of hypertension Acute kidney injury Paroxysmal atrial fibrillation Respiratory failure -Patient remains in sinus rhythm, continue p.o. Cardizem. No anticoagulation given thrombocytopenia, coagulopathy and liver failure. Continue diuretics as blood pressure and renal function permits. Once respiratory status improves and patient able to tolerate sedation, would proceed with EGD. Maintain potassium above 4.0 and magnesium above 2.0. Consultation Date/Type/Reason Admit Date/Time May 13, 2017 at 22:29 Initial Consult Date 05/14/17 Type of Consultation: cv Referring Provider: MICHELLE CRAFT 24 HR Interval Summary Free Text/Dictation Shortness of breath is better, denies chest pain or palpitations Exam/Review of Systems Vital Signs Vitals Vital Signs Date Time Temp Pulse Resp B/P Pulse Ox O2 Delivery O2 Flow Rate FiO2 05/21/17 09:00 89 22 144/68 92 Nasal Cannula 2.0 05/21/17 08:00 98.6 Intake and Output 05/20/17 05/20/17 05/21/17 14:59 22:59 06:59 Intake Total 1340 ml 1220 ml 1266.2 ml Output Total 2475 ml 2650 ml 725 ml Balance -1135 ml -1430 ml 541.2 ml Exam Following commands, no apparent distress, clearly jaundiced Constitutional: alert, oriented Head: normocephalic Respiratory: other (Coarse breath sounds bilaterally and decreased at the bases , no wheezing) Cardiovascular: other (S1-S2 heard), regular rate and rhythm Gastrointestinal: bowel sounds, non-tender, soft Extremities: edema Results Result Diagram: 05/21/17 0628 05/21/17 0528 Results 24 hrs Laboratory Tests Test 05/21/17 05:28 05/21/17 06:28 Sodium Level 138 Potassium Level 3.7 Chloride Level 103 Carbon Dioxide Level 29 Anion Gap 10 Blood Urea Nitrogen 16 Creatinine 0.71 Glucose Level 86 Calcium Level 9.6 Total Bilirubin 17.0 H Direct Bilirubin 6.60 H Indirect Bilirubin 10.4 H Aspartate Amino Transf (AST/SGOT) 216 #H Alanine Aminotransferase (ALT/SGPT) 95 H Alkaline Phosphatase 108 Total Protein 6.5 Albumin 2.8 L Globulin 3.70 H Albumin/Globulin Ratio 0.75 White Blood Count 15.6 H Red Blood Count 2.65 L Hemoglobin 9.1 L Hematocrit 28.3 L Mean Corpuscular Volume 106.8 H Mean Corpuscular Hemoglobin 34.3 H Mean Corpuscular Hemoglobin Concent 32.2 Red Cell Distribution Width 23.5 H Platelet Count 68 L Mean Platelet Volume 10.6 H Neutrophils % 77.4 H Lymphocytes % 9.4 L Monocytes % 8.2 Eosinophils % 2.8 Basophils % 0.3 Nucleated Red Blood Cells % 0.1 H Neutrophils # 12.0 H Lymphocytes # 1.5 Monocytes # 1.3 H Eosinophils # 0.4 Basophils # 0.1 Nucleated Red Blood Cells # 0.0 Phosphorus Level 1.9 L Magnesium Level 1.6 L Medications Medications Current Medications Lorazepam (Ativan) 1 mg Q6H PRN IM AGITATION/ANXIETY Last administered on 03:06; Admin Dose 1 MG; Start 05/14/17 at 00:30 Morphine Sulfate 2 mg 2 mg Q4H PRN IV Pain Last administered on 05/21/17 11:48 ; Admin Dose 2 MG; Start 05/14/17 at 12:00 Pantoprazole 80 mg/Sodium Chloride 100 ml @ 10 mls/hr Q10H IV Last administered on 05/21/17 07:22; Admin Dose 10 MLS/HR; Start 05/14/17 at 17:00 Cefepime HCl 50 ml @ 100 mls/hr Q12 IVPB Last administered on 05/21/17 08:13 ; Admin Dose 100 MLS/HR; Start 05/15/17 at 21:00 Levofloxacin/ Dextrose (Levaquin 250 Mg/ D5W 50 ml (Pmx)) 50 ml @ 50 mls/hr Q24H IVPB Last administered on 05/20/17 14:39; Admin Dose 50 MLS/HR; Start at 15:30 Rifaximin (Xifaxan) 550 mg BID PO Last administered on 05/21/17 08:13; Admin Dose 550 MG; Start 05/17/17 at 09:00 Lactulose (Enulose) 20 gm Q8 PO Last administered on 05/21/17 06:28; Admin Dose 20 GM; Start 05/17/17 at 08:00 Hydralazine HCl (Apresoline) 10 mg Q6H PRN IV SBP>160 Last administered on 05/19 09:43; Admin Dose 10 MG; Start 05/17/17 at 15:30 Diltiazem HCl 120 mg 120 mg BID PO Last administered on 05/21/17 08:13; Admin Dose 120 MG; Start 05/20/17 at 21:00 Magnesium Sulfate 3 gm/Sodium Chloride 106 ml @ 35.333 mls/ hr ONCE ONCE IVPB Last administered on 05/21/17 09:13; Admin Dose 35.333 MLS/HR; Start at 09:00; Stop 05/21/17 at 11:59 Potassium Phosphate/Sodium Chloride (K Phos (Meq)/NS) 254.5455 ml @ 63.636 m... ONCE ONCE IVPB Last administered on 05/21/17 11:25; Admin Dose 63.636 MLS/HR; Start 05/21/17 at 10:30; Stop 05/21/17 at 14:29 Folic Acid (Folic Acid) 1 mg DAILY PO Last administered on 05/21/17 11:47; Admin Dose 1 MG; Start 05/21/17 at 11:00 Multivitamins Therapeutic (Theragran) 1 tab DAILY PO Last administered on 11:47; Admin Dose 1 TAB; Start 05/21/17 at 11:00 Thiamine HCl (Vitamin B1) 100 mg DAILY PO Last administered on 05/21/17 11:47 ; Admin Dose 100 MG; Start 05/21/17 at 11:00 Fox Marrufo DO May 21, 2017 11:55
--- NOTE | 2017-05-21 12:53 | PN ---
DATE: 05/21/2017 SUBJECTIVE: No events overnight. The patient is awake, looks comfortable, no fevers. Denies pain, no vomiting. WBC 15.6, platelets 68, neutrophils 77.4, no bands. BUN 16, creatinine 0.71. ANTIMICROBIALS: 1. Cefepime. 2. Levaquin day #7. PHYSICAL EXAMINATION: GENERAL: This is a fragile, chronically ill-appearing, middle-aged man who is in no distress. HEENT: Head atraumatic, normocephalic. Sclerae anicteric. Buccal mucosa dry. NECK: Supple, trachea midline. CHEST: Rise symmetrical. Breath sounds diminished to bases. HEART: S1, S2. ABDOMEN: Soft, bowel sounds present. EXTREMITIES: No cyanosis. ASSESSMENT: 1. Resolving sepsis. 2. Right-sided pneumonia, on antibiotics. 3. Resolving encephalopathy, hepatic, possibly toxic metabolic. 4. Anemia with thrombocytopenia. 5. Paroxysmal atrial fibrillation. 6. Alcoholic liver cirrhosis with history of alcohol abuse. PLAN: The patient remains clinically and hemodynamically stable, covered with appropriate antimicro bials. No fevers. Blood and urine cultures since 05/16/2017 and 05/19/2017 have been negative. He is being followed by multiple consultants. Dictated By: KARL NGUYEN RUBBING BED OPERATOR for GARRETT ALVAREZ/ALLI Conf#: [id number] DID#: [id number]
[2017-05-21] MEDS: LEVOFLOXACIN 250MG/D5W (PMX) 50 ML IVPB SCH (14:13)
--- NOTE | 2017-05-21 15:51 | PN ---
Date/Time of Note Date/Time of Note DATE: 05/21/17 TIME: 15:46 Assessment/Plan VTE Prophylaxis VTE Prophylaxis Intervention: contraindicated Lines/Catheters IV [facility] Type (from [facility]): Peripheral IV Urinary Cath still in place: Yes Reason Cath still needed: urinary retention Assessment/Plan Assessment/Plan Assessment * Atrial Fibrillation resolved managed by cardiology * Anemia r/o esophageal varices vs peptic ulcer disease vs other * Liver cirrhosis Encephalopathy * History of alcoholic abuse Plan * Monitor hemoglobin and hematocrit Q 6 transfuse 1 unit PRBC hgb <7.5,2 unit PRBC hgb <7 * continue Protonix drip and octreotide drip * Continue present management * Lactulose and rifaximin * Case was discussed with Dr Newton * Further orders will depend on clinical course Subjective 24 Hr Interval Summary Free Text/Dictation * Course reviewed with RN * Patient seen and examined * Off Cardizem drip * Patient awake alert not in distress * INR 3.09,hemoglobin 9.1 Exam/Review of Systems Vital Signs Vitals Vital Signs Date Time Temp Pulse Resp B/P Pulse Ox O2 Delivery O2 Flow Rate FiO2 05/21/17 15:00 82 23 132/70 96 Nasal Cannula 2.0 05/21/17 12:00 98.2 Intake and Output 05/20/17 05/20/17 05/21/17 15:00 23:00 07:00 Intake Total 1280 ml 1230 ml 1256.2 ml Output Total 2550 ml 3075 ml 1325 ml Balance -1270 ml -1845 ml -68.8 ml Exam Constitutional: alert, frail Head: atraumatic, normocephalic Eyes: nl sclera Neck: non-tender, supple Respiratory: clear to auscultation, normal air movement Cardiovascular: nl pulses, regular rate and rhythm Gastrointestinal: non-tender, soft Musculoskeletal: muscle weakness, swelling Extremities: normal pulses Neurological: nl speech Skin: nl turgor, rash or lesions Results Result Diagram: 05/21/1728 05/21/1728 Results 24 hrs Laboratory Tests Test 05/21/17 05:28 05/21/17 06:28 Sodium Level 138 Potassium Level 3.7 Chloride Level 103 Carbon Dioxide Level 29 Anion Gap 10 Blood Urea Nitrogen 16 Creatinine 0.71 Glucose Level 86 Calcium Level 9.6 Total Bilirubin 17.0 H Direct Bilirubin 6.60 H Indirect Bilirubin 10.4 H Aspartate Amino Transf (AST/SGOT) 216 #H Alanine Aminotransferase (ALT/SGPT) 95 H Alkaline Phosphatase 108 Total Protein 6.5 Albumin 2.8 L Globulin 3.70 H Albumin/Globulin Ratio 0.75 White Blood Count 15.6 H Red Blood Count 2.65 L Hemoglobin 9.1 L Hematocrit 28.3 L Mean Corpuscular Volume 106.8 H Mean Corpuscular Hemoglobin 34.3 H Mean Corpuscular Hemoglobin Concent 32.2 Red Cell Distribution Width 23.5 H Platelet Count 68 L Mean Platelet Volume 10.6 H Neutrophils % 77.4 H Lymphocytes % 9.4 L Monocytes % 8.2 Eosinophils % 2.8 Basophils % 0.3 Nucleated Red Blood Cells % 0.1 H Neutrophils # 12.0 H Lymphocytes # 1.5 Monocytes # 1.3 H Eosinophils # 0.4 Basophils # 0.1 Nucleated Red Blood Cells # 0.0 Phosphorus Level 1.9 L Magnesium Level 1.6 L Medications Medications Current Medications Lorazepam (Ativan) 1 mg Q6H PRN IM AGITATION/ANXIETY Last administered on 03:06; Admin Dose 1 MG; Start 05/14/17 at 00:30 Morphine Sulfate 2 mg 2 mg Q4H PRN IV Pain Last administered on 05/21/17 11:48 ; Admin Dose 2 MG; Start 05/14/17 at 12:00 Pantoprazole 80 mg/Sodium Chloride 100 ml @ 10 mls/hr Q10H IV Last administered on 05/21/17 07:22; Admin Dose 10 MLS/HR; Start 05/14/17 at 17:00 Cefepime HCl 50 ml @ 100 mls/hr Q12 IVPB Last administered on 05/21/17 08:13 ; Admin Dose 100 MLS/HR; Start 05/15/17 at 21:00 Levofloxacin/ Dextrose (Levaquin 250 Mg/ D5W 50 ml (Pmx)) 50 ml @ 50 mls/hr Q24H IVPB Last administered on 05/21/17 14:13; Admin Dose 50 MLS/HR; Start at 15:30 Rifaximin (Xifaxan) 550 mg BID PO Last administered on 05/21/17 08:13; Admin Dose 550 MG; Start 6/17/17 at 09:00 Lactulose (Enulose) 20 gm Q8 PO Last administered on 05/21/17 14:13; Admin Dose 20 GM; Start 05/17/17 at 08:00 Hydralazine HCl (Apresoline) 10 mg Q6H PRN IV SBP>160 Last administered on 05/19 09:43; Admin Dose 10 MG; Start 05/17/17 at 15:30 Diltiazem HCl (Cardizem Cd) 120 mg BID PO Last administered on 05/21/17 08:13 ; Admin Dose 120 MG; Start 05/20/17 at 21:00 Folic Acid (Folic Acid) 1 mg DAILY PO Last administered on 05/21/17 11:47; Admin Dose 1 MG; Start 05/21/17 at 11:00 Multivitamins Therapeutic (Theragran) 1 tab DAILY PO Last administered on 11:47; Admin Dose 1 TAB; Start 05/21/17 at 11:00 Thiamine HCl (Vitamin B1) 100 mg DAILY PO Last administered on 05/21/17 11:47 ; Admin Dose 100 MG; Start 05/21/17 at 11:00 JUAN SR NP May 21, 2017 15:51
[2017-05-21] MEDS: PANTOPRAZOLE 40 MG INJ IV SCH (17:58)
[2017-05-22] VITALS (10 sets, daily range): BP systolic 128–138; BP diastolic 60–66; PULSE 72–83; RESP 17–19
[2017-05-22] MEDS: FUROSEMIDE 40 MG INJ IV SCH ×2 (06:12→17:55)
[2017-05-22] MEDS: PANTOPRAZOLE 40 MG INJ IV SCH ×2 (06:12→17:53)
[2017-05-22] MEDS: LACTULOSE 30ML CUP PO SCH ×3 (06:13→22:28)
[2017-05-22] MEDS: ALBUTEROL 0.083% (NEB) 2.5 MG/3 ML AMP HHN SCH ×3 (08:00→20:00)
--- NOTE | 2017-05-22 08:14 | PN ---
DATE: 05/21/2017 SUBJECTIVE: The patient is stable, no acute events overnight. No hemoptysis, hematemesis or hemato chezia. OBJECTIVE: VITAL SIGNS: Blood pressure is 133/89, respirations 23, pulse 85, temperature 98.4. HEENT: Head is normocephalic. Pupils are reactive to light. NECK: Supple. HEART: Regular rate. LUNGS: Show diminished breath sounds at base. ABDOMEN: Soft, nontender to palpation without rebound or guarding. EXTREMITIES: Negative for clubbing, cyanosis. Positive edema. DERMATOLOGIC: No rashes. MUSCULOSKELETAL: No joint effusions. NEUROLOGIC: No change in exam. MEDICATIONS: The patient's medications have been reviewed. LABORATORY DATA: BMP is within normal limits. Phosphorus 1.9, magnesium 1.6. ASSESSMENT AND PLAN: 1. Nonoliguric acute kidney injury with unknown baseline creatinine, etiology secondary to hemodyna mics. Renal function stabilized. Continue current treatment plan, supportive care, renally dose al l meds. 2. Volume overload secondary to ETOH hepatitis, recent IV fluids. The patient is currently on diur etic therapy, will continue. Monitor renal function closely. 3. Hypophosphatemia/hypomagnesemia. Continue to monitor and replete. 4. Anemia with gastrointestinal bleed. The patient is status post blood transfusion. Continue to monitor. Continue Protonix. 5. Mineral bone disorder. Continue to monitor calcium and phosphorus levels. 6. Transaminitis, hyperbilirubinemia. Etiology is likely due to alcoholic liver disease likely ETO H hepatitis. Continue current medical management. We will defer to GI, but may consider prednisone as the patient has elevated discriminant function. 7. Atrial fibrillation, the patient is currently rate controlled. Continue medical management. Fo llowup with our cardiology colleagues. 8. Acute encephalopathy etiology multifactorial. The patient's mental status is improving. Contin ue current treatment plan. 9. Sepsis secondary to bacteremia. Patient completing antibiotic course. 10. ETOH abuse. Continue to monitor for signs of withdrawal. Dictated By: ESTEFANIA NAVARRO/ALLI Conf#: [id number] DID#: [id number]
[2017-05-22] MEDS: MULTIVITAMINS THERAPEUTIC TAB PO SCH (09:35)
[2017-05-22] MEDS: RIFAXIMIN 550 MG TAB PO SCH ×2 (09:35→22:28)
[2017-05-22] MEDS: THIAMINE 100 MG TAB PO SCH (09:35)
[2017-05-22] MEDS: FOLIC ACID 1 MG TAB PO SCH (09:35)
[2017-05-22] MEDS: DILTIAZEM (CD) 120 MG CAP PO SCH ×2 (09:35→22:29)
[2017-05-22] MEDS: morphine 2 MG INJ IV PRN (09:36)
[2017-05-22] MEDS: CEFEPIME 2GM/50 ML (PMX) 50 ML IVPB SCH ×2 (10:04→22:27)
--- NOTE | 2017-05-22 10:10 | PN ---
DATE: 05/22/2017 SUBJECTIVE: The patient was transferred from intensive care unit to telemetry. No other events not ed. OBJECTIVE: VITAL SIGNS: Blood pressure is 130/66, respirations 18, pulse 78, temperature 98.9. HEENT: Head is normocephalic. NECK: Supple. HEART: Regular rate. LUNGS: Show diminished breath sounds at the bases. ABDOMEN: Soft, nontender to palpation. No rebound or guarding. EXTREMITIES: Negative for clubbing, cyanosis. Positive edema. DERMATOLOGIC: No rashes. MUSCULOSKELETAL: No joint effusions. NEUROLOGIC: No change in exam. MEDICATIONS: The patient's medications have been reviewed. LABORATORY DATA: Currently pending. ASSESSMENT AND PLAN: 1. Nonoliguric acute kidney injury with unknown baseline creatinine. Etiology secondary to hemodyn amics. Renal function has stabilized. Continue current treatment plan, supportive care, renally do se all meds. 2. Volume overload secondary to ETOH hepatitis. The patient is currently on diuretic therapy, we w ill continue. Monitor electrolytes and renal function closely. 3. Hypophosphatemia, hypomagnesemia. Continue to monitor and replete. 4. Anemia with gastrointestinal bleed. The patient is status post blood transfusion. Continue to monitor. Continue Protonix. 5. Mineral bone disorder. Continue to monitor calcium and phosphorus levels. 6. Transaminitis, hyperbilirubinemia. Etiology is likely due to ETOH liver disease from ETOH hepat itis. Continue medical management. We will follow up with GI for medical management. Consider pre dnisone. 7. Atrial fibrillation, currently rate controlled. Continue medical management and follow up with cardiology. 8. Acute encephalopathy. Etiology is multifactorial. The patient's mental status is improving. C ontinue to monitor. 9. Sepsis secondary to bacteremia. Continue current antibiotic regimen. 10. ETOH abuse. No signs of withdrawal. Continue to monitor. Dictated By: ESTEFANIA NAVARRO/NTS Conf#: [id number] DID#: [id number]
[2017-05-22 11:19] LABS: ADD SCAN DIFF NO
[2017-05-22 11:23] LABS: ABNORMAL IP MESSAGE 1; BASOPHIL # 0.1 10^3/ul (0.0-0.1); BASOPHILS % 0.4 % (0.0-2.0); EOSINOPHILS # 0.4 10^3/ul (0.0-0.5); EOSINOPHILS % 2.2 % (0.0-7.0); HEMOGLOBIN 8.8 g/dl (14.0-18.0); LYMPHOCYTES # 1.4 10^3/ul (0.8-2.9); MEAN CORPUSCULAR HEMOGLOBIN 34.5 pg (29.0-33.0); MEAN CORPUSCULAR HGB CONC 32.6 g/dl (32.0-37.0); MEAN CORPUSCULAR VOLUME 105.9 fl (82.0-101.0); MEAN PLATELET VOLUME 10.8 fl (7.4-10.4); MONOCYTE # 1.7 10^3/ul (0.3-0.9); MONOCYTES % 11.2 % (0.0-11.0); NEUTROPHIL # 11.7 10^3/ul (1.6-7.5); NEUTROPHILS % 75.3 % (39.0-77.0); NUCLEATED RED BLOOD CELLS% 0.2 /100WBC (0.0-0.0); PLATELET COUNT 76 10^3/UL (140-415); RED BLOOD COUNT 2.55 10^6/ul (4.70-6.10); RED CELL DISTRIBUTION WIDTH 23.4 % (11.5-14.5); WHITE BLOOD COUNT 15.6 10^3/ul (4.8-10.8)
[2017-05-22 11:42] LABS: CALCIUM 9.2 mg/dl (8.4-10.2); CREATININE 0.76 mg/dl (0.61-1.24); POTASSIUM 3.4 mmol/L (3.5-5.1)
--- NOTE | 2017-05-22 12:37 | PN ---
Date/Time of Note Date/Time of Note DATE: 05/22/17 TIME: 12:31 Assessment/Plan VTE Prophylaxis VTE Prophylaxis Intervention: SCD's VTE Contraindication Reason: bleeding Lines/Catheters IV Catheter Type (from Nrsg): Peripheral IV Urinary Cath still in place: Yes Reason Cath still needed: other (indicate) Assessment/Plan Assessment/Plan 52 yo M with ESLD 2/2 EtOH cirrhosis admitted for altered mental status, likely 2/2 toxic metabolic encephalopathy which has resolved. Also with anemia, concern for upper GI source. 1. Acute encephalopathy -metabolic toxic type . Largely resolved. Most probably toxic metabolic in origin. 2. Macrocytic anemia. - 2/2 to ESLD - cardio clearance for EGD - may have varices?, appreciate GI c/s 3. Coagulopathy. 2/2 ESLD - stable - monitor for acute bleeding. 4. Alcoholic liver disease with transaminitis with hyperbilirubinemia. 5. Prerenal Nonoliguric acute kidney injury in a patient with unknown baseline creatinine. Largely resolved 6. Chronic Alcohol abuse. 7. Sepsis. Most probably secondary to aspiration pneumonia and Polymicrobial bacteremia. 8. Moderate to large left-sided pleural effusion with complete atelectasis of the left lower lobe and partial posterior atelectasis of the left upper lobe. Continue supplemental oxygen. 9. Paroxysmal A. fib. Currently in sinus rhythm. Off of Cardizem drip. Cardiology following. PLAN: Continue Protonix and octreotide drip/planned for endoscopy when hematologically improved / D/w GI, possible endoscopy tomorrow Try to correct coagulopathy Continue abx per ID Consider USS guided thoracentesis if necessary Replace electrolytes Fluid, electrolytes and nutrition. Soft diet with thin liquids. Prophylaxis. Bilateral sequential compression devices / Protonix Drip Subjective 24 Hr Interval Summary Free Text/Dictation Patient seen and examined. Nursing reports no acute overnight events. Exam/Review of Systems Vital Signs Vitals Vital Signs Date Time Temp Pulse Resp B/P Pulse Ox O2 Delivery O2 Flow Rate FiO2 05/22/17 12:02 77 05/22/17 11:57 99.0 18 135/61 93 05/22/17 09:30 Nasal Cannula 2.0 Intake and Output 05/21/17 05/21/17 05/22/17 15:00 23:00 07:00 Intake Total 1690.5455 ml 580 ml 1000 ml Output Total 1350 ml 1200 ml 1200 ml Balance 340.5455 ml -620 ml -200 ml Exam Gen Julio C: NAD, AAOx4 HEENT: NC/AT, PERRLA, EOMI, scleral icterus seen NECK: supple, no thyromegaly THORAX: symmetrical, no obvious deformities CV: S1S2, RRR, no M/G/R Lungs: diminished breath sounds to the bases bilateral, no wheezing/crackles or rales appreciated Abd: soft, NT/ND, +BS, no rebound, no guarding, protuberant, no fluid wave EXT: 1+ pitting edema, no ecchymosis, no clubbing, FROM Neuro: CN II-XII grossly intact, no focal deficits Psych: fair mood and affect Skin: jaundice, decreased skin turgor Results Result Diagram: 05/22/17 1044 05/22/17 1044 Results 24 hrs Laboratory Tests Test 05/22/17 10:44 White Blood Count 15.6 H Red Blood Count 2.55 L Hemoglobin 8.8 L Hematocrit 27.0 L Mean Corpuscular Volume 105.9 H Mean Corpuscular Hemoglobin 34.5 H Mean Corpuscular Hemoglobin Concent 32.6 Red Cell Distribution Width 23.4 H Platelet Count 76 L Mean Platelet Volume 10.8 H Neutrophils % 75.3 Lymphocytes % 9.0 L Monocytes % 11.2 H Eosinophils % 2.2 Basophils % 0.4 Nucleated Red Blood Cells % 0.2 H Neutrophils # 11.7 H Lymphocytes # 1.4 Monocytes # 1.7 H Eosinophils # 0.4 Basophils # 0.1 Nucleated Red Blood Cells # 0.0 Sodium Level 134 L Potassium Level 3.4 L Chloride Level 99 Carbon Dioxide Level 30 Anion Gap 8 Blood Urea Nitrogen 18 Creatinine 0.76 Glucose Level 113 Calcium Level 9.2 Medications Medications Current Medications Lorazepam (Ativan) 1 mg Q6H PRN IM AGITATION/ANXIETY Last administered on 03:06; Admin Dose 1 MG; Start 05/14/17 at 00:30 Morphine Sulfate 2 mg 2 mg Q4H PRN IV Pain Last administered on 05/22/17 09:36 ; Admin Dose 2 MG; Start 05/14/17 at 12:00 Cefepime HCl 50 ml @ 100 mls/hr Q12 IVPB Last administered on 05/22/17 10:04 ; Admin Dose 100 MLS/HR; Start 05/15/17 at 21:00 Levofloxacin/ Dextrose (Levaquin 250 Mg/ D5W 50 ml (Pmx)) 50 ml @ 50 mls/hr Q24H IVPB Last administered on 05/21/17 14:13; Admin Dose 50 MLS/HR; Start at 15:30 Rifaximin (Xifaxan) 550 mg BID PO Last administered on 05/22/17 09:35; Admin Dose 550 MG; Start 05/17/17 at 09:00 Lactulose (Enulose) 20 gm Q8 PO Last administered on 05/22/17 06:13; Admin Dose 20 GM; Start 05/17/17 at 08:00 Hydralazine HCl (Apresoline) 10 mg Q6H PRN IV SBP>160 Last administered on 05/19 09:43; Admin Dose 10 MG; Start 05/17/17 at 15:30 Diltiazem HCl (Cardizem Cd) 120 mg BID PO Last administered on 05/22/17 09:35 ; Admin Dose 120 MG; Start 05/20/17 at 21:00 Folic Acid (Folic Acid) 1 mg DAILY PO Last administered on 05/22/17 09:35; Admin Dose 1 MG; Start 05/21/17 at 11:00 Multivitamins Therapeutic (Theragran) 1 tab DAILY PO Last administered on 09:35; Admin Dose 1 TAB; Start 05/21/17 at 11:00 Thiamine HCl (Vitamin B1) 100 mg DAILY PO Last administered on 05/22/17 09:35 ; Admin Dose 100 MG; Start 05/21/17 at 11:00 Pantoprazole (Protonix Iv) 40 mg BID@06,18 IV Last administered on 05/22/17 06 :12; Admin Dose 40 MG; Start 05/21/17 at 18:00 NEYMAR BRITTON May 22, 2017 12:37
--- NOTE | 2017-05-22 13:20 | CONS ---
Date/Time of Note Date/Time of Note DATE: 05/22/17 TIME: 13:18 Assessment/Plan Assessment/Plan Additional Assessment/Plan Assessment recommendations; 1. Patient admitted with right-sided pneumonia with significant clinical improvement. 2. Advanced alcoholic cirrhosis with hepatic encephalopathy with significant interval improvement as well. 3. Thrombocytopenia. Continue current treatment. Consultation Date/Type/Reason Admit Date/Time May 13, 2017 at 22:29 Initial Consult Date 05/14/17 Type of Consultation: Pulmonary Referring Provider: MICHELLE CRAFT 24 HR Interval Summary Free Text/Dictation Patient condition is continually improving. He has been transferred out of ICU to medical floor. Patient is completely awake alert denies any shortness breath. Eating lunch at bedside. Exam/Review of Systems Vital Signs Vitals Vital Signs Date Time Temp Pulse Resp B/P Pulse Ox O2 Delivery O2 Flow Rate FiO2 05/22/17 12:02 77 05/22/17 11:57 99.0 18 135/61 93 05/22/17 09:30 Nasal Cannula 2.0 Intake and Output 05/21/17 05/21/17 05/22/17 15:00 23:00 07:00 Intake Total 1690.5455 ml 580 ml 1000 ml Output Total 1350 ml 1200 ml 1200 ml Balance 340.5455 ml -620 ml -200 ml Exam HEENT exam is; supple neck, no JVD. No lymphadenopathy. Midline trachea. No thyromegaly. Patient is strongly icteric. Dentition is fair. Chest examined; diminished but clear vessel. S1-S2 audible, no murmurs. Regular rhythm. Abdomen examination; soft, protuberant. Nontender. Bowel sounds audible. Extremity exam; no peripheral edema. MILL MACHINIST examination; no focal deficit. Results Result Diagram: 05/22/17 1044 05/22/17 1044 Results 24 hrs Laboratory Tests Test 05/22/17 10:44 White Blood Count 15.6 H Red Blood Count 2.55 L Hemoglobin 8.8 L Hematocrit 27.0 L Mean Corpuscular Volume 105.9 H Mean Corpuscular Hemoglobin 34.5 H Mean Corpuscular Hemoglobin Concent 32.6 Red Cell Distribution Width 23.4 H Platelet Count 76 L Mean Platelet Volume 10.8 H Neutrophils % 75.3 Lymphocytes % 9.0 L Monocytes % 11.2 H Eosinophils % 2.2 Basophils % 0.4 Nucleated Red Blood Cells % 0.2 H Neutrophils # 11.7 H Lymphocytes # 1.4 Monocytes # 1.7 H Eosinophils # 0.4 Basophils # 0.1 Nucleated Red Blood Cells # 0.0 Sodium Level 134 L Potassium Level 3.4 L Chloride Level 99 Carbon Dioxide Level 30 Anion Gap 8 Blood Urea Nitrogen 18 Creatinine 0.76 Glucose Level 113 Calcium Level 9.2 Medications Medications Current Medications Lorazepam (Ativan) 1 mg Q6H PRN IM AGITATION/ANXIETY Last administered on 03:06; Admin Dose 1 MG; Start 05/14/17 at 00:30 Morphine Sulfate 2 mg 2 mg Q4H PRN IV Pain Last administered on 05/22/17 09:36 ; Admin Dose 2 MG; Start 05/14/17 at 12:00 Cefepime HCl 50 ml @ 100 mls/hr Q12 IVPB Last administered on 05/22/17 10:04 ; Admin Dose 100 MLS/HR; Start 05/15/17 at 21:00 Levofloxacin/ Dextrose (Levaquin 250 Mg/ D5W 50 ml (Pmx)) 50 ml @ 50 mls/hr Q24H IVPB Last administered on 05/21/17 14:13; Admin Dose 50 MLS/HR; Start at 15:30 Rifaximin (Xifaxan) 550 mg BID PO Last administered on 05/22/17 09:35; Admin Dose 550 MG; Start 05/17/17 at 09:00 Lactulose (Enulose) 20 gm Q8 PO Last administered on 05/22/17 06:13; Admin Dose 20 GM; Start 05/17/17 at 08:00 Hydralazine HCl (Apresoline) 10 mg Q6H PRN IV SBP>160 Last administered on 05/19 09:43; Admin Dose 10 MG; Start 05/17/17 at 15:30 Diltiazem HCl (Cardizem Cd) 120 mg BID PO Last administered on 05/22/17 09:35 ; Admin Dose 120 MG; Start 05/20/17 at 21:00 Folic Acid (Folic Acid) 1 mg DAILY PO Last administered on 05/22/17 09:35; Admin Dose 1 MG; Start 05/21/17 at 11:00 Multivitamins Therapeutic (Theragran) 1 tab DAILY PO Last administered on 09:35; Admin Dose 1 TAB; Start 05/21/17 at 11:00 Thiamine HCl (Vitamin B1) 100 mg DAILY PO Last administered on 05/22/17 09:35 ; Admin Dose 100 MG; Start 05/21/17 at 11:00 Pantoprazole (Protonix Iv) 40 mg BID@,18 IV Last administered on 05/22/17 06 :12; Admin Dose 40 MG; Start 05/21/17 at 18:00 LUIS FERNANDO TAMAYO May 22, 2017 13:20
--- NOTE | 2017-05-22 14:15 | PN ---
Date/Time of Note Date/Time of Note DATE: 05/22/17 TIME: 14:10 Assessment/Plan VTE Prophylaxis VTE Prophylaxis Intervention: contraindicated VTE Contraindication Reason: blood coagulation disorder Lines/Catheters IV [facility] Type (from [facility]): Peripheral IV Urinary Cath still in place: Yes Reason Cath still needed: urinary retention Assessment/Plan Assessment/Plan ssessment * Atrial Fibrillation resolved managed by cardiology * Anemia r/o esophageal varices vs peptic ulcer disease vs other * Liver cirrhosis Encephalopathy * History of alcoholic abuse Plan * EGD tomorrow risk and benefit explained to patient * will transfuse 3 units FFP and recheck PT INR tomorrow * Monitor hemoglobin and hematocrit Q 6 transfuse 1 unit PRBC hgb <7.5,2 unit PRBC hgb <7 * continue Protonix 40 mg bid and octreotide drip * Continue present management * Case discussed with Dr Newton * Further orders will depend on clinical course * Case was discussed with Dr Newton * Further orders will depend on clinical course Subjective 24 Hr Interval Summary Free Text/Dictation * Course reviewed with RN * Patient seen and examined * No active bleeding * INR 3.09 Exam/Review of Systems Vital Signs Vitals Vital Signs Date Time Temp Pulse Resp B/P Pulse Ox O2 Delivery O2 Flow Rate FiO2 05/22/17 12:02 77 05/22/17 11:57 99.0 18 135/61 93 05/22/17 09:30 Nasal Cannula 2.0 Intake and Output 05/21/17 05/21/17 05/22/17 15:00 23:00 07:00 Intake Total 1690.5455 ml 580 ml 1000 ml Output Total 1350 ml 1200 ml 1200 ml Balance 340.5455 ml -620 ml -200 ml Exam Constitutional: alert, frail Head: atraumatic, normocephalic Neck: non-tender, supple Respiratory: clear to auscultation, diminished breath sounds, normal air movement Cardiovascular: regular rate and rhythm Gastrointestinal: nl liver, spleen, non-tender, soft Musculoskeletal: muscle weakness, nl extremities to inspection, swelling Extremities: normal pulses Neurological: nl speech, nl strength Skin: nl turgor, No rash or lesions Results Result Diagram: 05/22/17 1044 05/22/17 1044 Results 24 hrs Laboratory Tests Test 05/22/17 10:44 White Blood Count 15.6 H Red Blood Count 2.55 L Hemoglobin 8.8 L Hematocrit 27.0 L Mean Corpuscular Volume 105.9 H Mean Corpuscular Hemoglobin 34.5 H Mean Corpuscular Hemoglobin Concent 32.6 Red Cell Distribution Width 23.4 H Platelet Count 76 L Mean Platelet Volume 10.8 H Neutrophils % 75.3 Lymphocytes % 9.0 L Monocytes % 11.2 H Eosinophils % 2.2 Basophils % 0.4 Nucleated Red Blood Cells % 0.2 H Neutrophils # 11.7 H Lymphocytes # 1.4 Monocytes # 1.7 H Eosinophils # 0.4 Basophils # 0.1 Nucleated Red Blood Cells # 0.0 Sodium Level 134 L Potassium Level 3.4 L Chloride Level 99 Carbon Dioxide Level 30 Anion Gap 8 Blood Urea Nitrogen 18 Creatinine 0.76 Glucose Level 113 Calcium Level 9.2 Medications Medications Current Medications Lorazepam (Ativan) 1 mg Q6H PRN IM AGITATION/ANXIETY Last administered on 03:06; Admin Dose 1 MG; Start 05/14/17 at 00:30 Morphine Sulfate 2 mg 2 mg Q4H PRN IV Pain Last administered on 05/22/17 09:36 ; Admin Dose 2 MG; Start 05/14/17 at 12:00 Cefepime HCl 50 ml @ 100 mls/hr Q12 IVPB Last administered on 05/22/17 10:04 ; Admin Dose 100 MLS/HR; Start 05/15/17 at 21:00 Levofloxacin/ Dextrose (Levaquin 250 Mg/ D5W 50 ml (Pmx)) 50 ml @ 50 mls/hr Q24H IVPB Last administered on 05/21/17 14:13; Admin Dose 50 MLS/HR; Start at 15:30 Rifaximin (Xifaxan) 550 mg BID PO Last administered on 05/22/17 09:35; Admin Dose 550 MG; Start 05/17/17 at 09:00 Lactulose (Enulose) 20 gm Q8 PO Last administered on 05/22/17 06:13; Admin Dose 20 GM; Start 05/17/17 at 08:00 Hydralazine HCl (Apresoline) 10 mg Q6H PRN IV SBP>160 Last administered on 05/19 09:43; Admin Dose 10 MG; Start 05/17/17 at 15:30 Diltiazem HCl (Cardizem Cd) 120 mg BID PO Last administered on 05/22/17 09:35 ; Admin Dose 120 MG; Start 05/20/17 at 21:00 Folic Acid (Folic Acid) 1 mg DAILY PO Last administered on 05/22/17 09:35; Admin Dose 1 MG; Start 05/21/17 at 11:00 Multivitamins Therapeutic (Theragran) 1 tab DAILY PO Last administered on 09:35; Admin Dose 1 TAB; Start 05/21/17 at 11:00 Thiamine HCl (Vitamin B1) 100 mg DAILY PO Last administered on 05/22/17 09:35 ; Admin Dose 100 MG; Start 05/21/17 at 11:00 Pantoprazole (Protonix Iv) 40 mg BID@ IV Last administered on 05/22/17 06 :12; Admin Dose 40 MG; Start 05/21/17 at 18:00 JUAN SR NP May 22, 2017 14:15
--- NOTE | 2017-05-22 14:39 | CONS ---
Date/Time of Note Date/Time of Note DATE: 05/22/17 TIME: 14:38 Assessment/Plan Assessment/Plan Chief Complaint/Hosp Course SUBJECTIVE: No events overnight. The patient is awake, looks comfortable, no fevers. ANTIMICROBIALS: 1. Cefepime. 2. Levaquin day #8. PHYSICAL EXAMINATION: GENERAL: This is a fragile, chronically ill-appearing, middle-aged man who is in no distress. HEENT: Head atraumatic, normocephalic. Sclerae anicteric. Buccal mucosa dry. NECK: Supple, trachea midline. CHEST: Rise symmetrical. Breath sounds diminished to bases. HEART: S1, S2. ABDOMEN: Soft, bowel sounds present. EXTREMITIES: No cyanosis. ASSESSMENT: 1. Resolving sepsis. 2. Right-sided pneumonia, on antibiotics. 3. Resolving encephalopathy, hepatic, possibly toxic metabolic. 4. Anemia with thrombocytopenia. 5. Paroxysmal atrial fibrillation. 6. Alcoholic liver cirrhosis with history of alcohol abuse. PLAN: Improving, covered with appropriate antimicrobials. No fevers. Blood and urine cultures since 05/16/2017 and 05/19/2017 have been negative. He is being followed by multiple consultants. [facility] staff Problems: Consultation Date/Type/Reason Admit Date/Time May 13, 2017 at 22:29 Initial Consult Date 05/14/17 Type of Consultation: id Referring Provider: MICHELLE CRAFT Exam/Review of Systems Vital Signs Vitals Vital Signs Date Time Temp Pulse Resp B/P Pulse Ox O2 Delivery O2 Flow Rate FiO2 05/22/17 12:02 77 05/22/17 11:57 99.0 18 135/61 93 05/22/17 09:30 Nasal Cannula 2.0 Intake and Output 05/21/17 05/21/17 05/22/17 15:00 23:00 07:00 Intake Total 1690.5455 ml 580 ml 1000 ml Output Total 1350 ml 1200 ml 1200 ml Balance 340.5455 ml -620 ml -200 ml Results Result Diagram: 05/22/17 1044 05/22/17 1044 Results 24 hrs Laboratory Tests Test 05/22/17 10:44 White Blood Count 15.6 H Red Blood Count 2.55 L Hemoglobin 8.8 L Hematocrit 27.0 L Mean Corpuscular Volume 105.9 H Mean Corpuscular Hemoglobin 34.5 H Mean Corpuscular Hemoglobin Concent 32.6 Red Cell Distribution Width 23.4 H Platelet Count 76 L Mean Platelet Volume 10.8 H Neutrophils % 75.3 Lymphocytes % 9.0 L Monocytes % 11.2 H Eosinophils % 2.2 Basophils % 0.4 Nucleated Red Blood Cells % 0.2 H Neutrophils # 11.7 H Lymphocytes # 1.4 Monocytes # 1.7 H Eosinophils # 0.4 Basophils # 0.1 Nucleated Red Blood Cells # 0.0 Sodium Level 134 L Potassium Level 3.4 L Chloride Level 99 Carbon Dioxide Level 30 Anion Gap 8 Blood Urea Nitrogen 18 Creatinine 0.76 Glucose Level 113 Calcium Level 9.2 Medications Medications Current Medications Lorazepam (Ativan) 1 mg Q6H PRN IM AGITATION/ANXIETY Last administered on 03:06; Admin Dose 1 MG; Start 05/14/17 at 00:30 Morphine Sulfate 2 mg 2 mg Q4H PRN IV Pain Last administered on 05/22/17 09:36 ; Admin Dose 2 MG; Start 05/14/17 at 12:00 Cefepime HCl 50 ml @ 100 mls/hr Q12 IVPB Last administered on 05/22/17 10:04 ; Admin Dose 100 MLS/HR; Start 05/15/17 at 21:00 Levofloxacin/ Dextrose (Levaquin 250 Mg/ D5W 50 ml (Pmx)) 50 ml @ 50 mls/hr Q24H IVPB Last administered on 05/21/17 14:13; Admin Dose 50 MLS/HR; Start at 15:30 Rifaximin (Xifaxan) 550 mg BID PO Last administered on 05/22/17 09:35; Admin Dose 550 MG; Start 05/17/17 at 09:00 Lactulose (Enulose) 20 gm Q8 PO Last administered on 05/22/17 06:13; Admin Dose 20 GM; Start 05/17/17 at 08:00 Hydralazine HCl (Apresoline) 10 mg Q6H PRN IV SBP>160 Last administered on 05/19 09:43; Admin Dose 10 MG; Start 05/17/17 at 15:30 Diltiazem HCl (Cardizem Cd) 120 mg BID PO Last administered on 05/22/17 09:35 ; Admin Dose 120 MG; Start 05/20/17 at 21:00 Folic Acid (Folic Acid) 1 mg DAILY PO Last administered on 05/22/17 09:35; Admin Dose 1 MG; Start 05/21/17 at 11:00 Multivitamins Therapeutic (Theragran) 1 tab DAILY PO Last administered on 09:35; Admin Dose 1 TAB; Start 05/21/17 at 11:00 Thiamine HCl (Vitamin B1) 100 mg DAILY PO Last administered on 05/22/17 09:35 ; Admin Dose 100 MG; Start 05/21/17 at 11:00 Pantoprazole (Protonix Iv) 40 mg BID@,18 IV Last administered on 05/22/17 06 :12; Admin Dose 40 MG; Start 05/21/17 at 18:00 KARL NGUYEN NP May 22, 2017 14:39
[2017-05-22] MEDS: LEVOFLOXACIN 250MG/D5W (PMX) 50 ML IVPB SCH (15:15)
--- NOTE | 2017-05-22 15:20 | PN ---
Date/Time of Note Date/Time of Note DATE: 05/22/17 TIME: 15:19 Assessment/Plan VTE Prophylaxis VTE Prophylaxis Intervention: SCD's Lines/Catheters IV Catheter Type (from Nrs): Peripheral IV Central line still needed: No Urinary Cath still in place: Yes Reason Cath still needed: urinary retention Assessment/Plan Assessment/Plan Severe anemia status post multiple transfusions Liver failure Acute decompensated diastolic congestive heart failure Coagulopathy Encephalopathy, improved Thrombocytopenia Preserved ejection fraction History of hypertension Acute kidney injury Paroxysmal atrial fibrillation Respiratory failure -Patient remains in sinus rhythm, continue p.o. Cardizem. -No anticoagulation given thrombocytopenia, coagulopathy and liver failure. -Continue diuretics as blood pressure and renal function permits. -Once respiratory status improves and patient able to tolerate sedation, would proceed with EGD. Maintain potassium above 4.0 and magnesium above 2.0. Subjective 24 Hr Interval Summary Free Text/Dictation The patient slightly better Exam/Review of Systems Vital Signs Vitals Vital Signs Date Time Temp Pulse Resp B/P Pulse Ox O2 Delivery O2 Flow Rate FiO2 05/22/17 12:02 77 05/22/17 11:57 99.0 18 135/61 93 05/22/17 09:30 Nasal Cannula 2.0 Intake and Output 05/21/17 05/21/17 05/22/17 15:00 23:00 07:00 Intake Total 1690.5455 ml 580 ml 1000 ml Output Total 1350 ml 1200 ml 1200 ml Balance 340.5455 ml -620 ml -200 ml Results Result Diagram: 05/22/17 1044 05/22/17 1044 Results 24 hrs Laboratory Tests Test 05/22/17 10:44 White Blood Count 15.6 H Red Blood Count 2.55 L Hemoglobin 8.8 L Hematocrit 27.0 L Mean Corpuscular Volume 105.9 H Mean Corpuscular Hemoglobin 34.5 H Mean Corpuscular Hemoglobin Concent 32.6 Red Cell Distribution Width 23.4 H Platelet Count 76 L Mean Platelet Volume 10.8 H Neutrophils % 75.3 Lymphocytes % 9.0 L Monocytes % 11.2 H Eosinophils % 2.2 Basophils % 0.4 Nucleated Red Blood Cells % 0.2 H Neutrophils # 11.7 H Lymphocytes # 1.4 Monocytes # 1.7 H Eosinophils # 0.4 Basophils # 0.1 Nucleated Red Blood Cells # 0.0 Sodium Level 134 L Potassium Level 3.4 L Chloride Level 99 Carbon Dioxide Level 30 Anion Gap 8 Blood Urea Nitrogen 18 Creatinine 0.76 Glucose Level 113 Calcium Level 9.2 Medications Medications Current Medications Lorazepam (Ativan) 1 mg Q6H PRN IM AGITATION/ANXIETY Last administered on 03:06; Admin Dose 1 MG; Start 05/14/17 at 00:30 Morphine Sulfate 2 mg 2 mg Q4H PRN IV Pain Last administered on 05/22/17 09:36 ; Admin Dose 2 MG; Start 05/14/17 at 12:00 Cefepime HCl 50 ml @ 100 mls/hr Q12 IVPB Last administered on 05/22/17 10:04 ; Admin Dose 100 MLS/HR; Start 05/15/17 at 21:00 Levofloxacin/ Dextrose (Levaquin 250 Mg/ D5W 50 ml (Pmx)) 50 ml @ 50 mls/hr Q24H IVPB Last administered on 05/22/17 15:15; Admin Dose 50 MLS/HR; Start at 15:30 Rifaximin (Xifaxan) 550 mg BID PO Last administered on 05/22/17 09:35; Admin Dose 550 MG; Start 05/17/17 at 09:00 Lactulose (Enulose) 20 gm Q8 PO Last administered on 05/22/17 15:14; Admin Dose 20 GM; Start 05/17/17 at 08:00 Hydralazine HCl (Apresoline) 10 mg Q6H PRN IV SBP>160 Last administered on 05/19 09:43; Admin Dose 10 MG; Start 05/17/17 at 15:30 Diltiazem HCl (Cardizem Cd) 120 mg BID PO Last administered on 05/22/17 09:35 ; Admin Dose 120 MG; Start 05/20/17 at 21:00 Folic Acid (Folic Acid) 1 mg DAILY PO Last administered on 05/22/17 09:35; Admin Dose 1 MG; Start 05/21/17 at 11:00 Multivitamins Therapeutic (Theragran) 1 tab DAILY PO Last administered on 09:35; Admin Dose 1 TAB; Start 05/21/17 at 11:00 Thiamine HCl (Vitamin B1) 100 mg DAILY PO Last administered on 05/22/17 09:35 ; Admin Dose 100 MG; Start 05/21/17 at 11:00 Pantoprazole (Protonix Iv) 40 mg BID@ IV Last administered on 05/22/17 06 :12; Admin Dose 40 MG; Start 05/21/17 at 18:00 ANGELA ALTMAN MD May 22, 2017 15:20
[2017-05-22] MEDS: PHYTONADIONE 10 MG in DEXTROSE 5% 50 ML IVPB SCH (18:54)
[2017-05-23] VITALS (30 sets, daily range): BP systolic 116–134; BP diastolic 56–72; PULSE 63–83; RESP 8–19
[2017-05-23] MEDS: morphine 2 MG INJ IV PRN (00:08)
[2017-05-23] MEDS ORDERED: POTASSIUM CHLORIDE (SR) 20 MEQ TAB PO ONE (05:39)
[2017-05-23] MEDS: PANTOPRAZOLE 40 MG INJ IV SCH ×2 (05:45→19:14)
[2017-05-23] MEDS: FUROSEMIDE 40 MG INJ IV SCH ×2 (05:45→19:15)
[2017-05-23] MEDS: LACTULOSE 30ML CUP PO SCH ×3 (05:45→21:23)
[2017-05-23] MEDS ORDERED: PROPOFOL 200 MG INJ ONE (07:00)
[2017-05-23 07:35] LABS: INR 3.26; PROTIME 33.7 Sec (12.2-14.2); PT RATIO 2.6
[2017-05-23 07:39] LABS: ALBUMIN 2.8 g/dl (3.3-4.9); BILIRUBIN,DIRECT 5.8 mg/dl (0.00-0.20); BILIRUBIN,INDIRECT 9.4 mg/dl (0-1.1); BILIRUBIN,TOTAL 15.2 mg/dl (0.2-1.3); TOTAL PROTEIN 6.6 g/dl (6.1-8.1)
[2017-05-23] MEDS: ALBUTEROL 0.083% (NEB) 2.5 MG/3 ML AMP HHN SCH ×4 (08:00→19:50)
[2017-05-23 08:11] LABS: MAGNESIUM 1.6 mg/dl (1.7-2.5); PHOSPHORUS 2.1 mg/dl (2.5-4.9)
[2017-05-23] MEDS: THIAMINE 100 MG TAB PO SCH (09:01)
[2017-05-23] MEDS: FOLIC ACID 1 MG TAB PO SCH (09:01)
[2017-05-23] MEDS: RIFAXIMIN 550 MG TAB PO SCH ×2 (09:01→21:00)
[2017-05-23] MEDS: MULTIVITAMINS THERAPEUTIC TAB PO SCH (09:01)
[2017-05-23] MEDS: CEFEPIME 2GM/50 ML (PMX) 50 ML IVPB SCH ×2 (09:05→21:25)
[2017-05-23] MEDS: PHYTONADIONE 10 MG in DEXTROSE 5% 50 ML IVPB SCH (09:40)
[2017-05-23 09:44] LABS: ADD SCAN DIFF NO
[2017-05-23 09:50] LABS: ABNORMAL IP MESSAGE 1; BASOPHIL # 0.1 10^3/ul (0.0-0.1); BASOPHILS % 0.4 % (0.0-2.0); EOSINOPHILS # 0.6 10^3/ul (0.0-0.5); EOSINOPHILS % 3.8 % (0.0-7.0); HEMATOCRIT 27.7 % (42.0-52.0); HEMOGLOBIN 9.1 g/dl (14.0-18.0); LYMPHOCYTES # 1.7 10^3/ul (0.8-2.9); LYMPHOCYTES % 10.5 % (15.0-51.0); MEAN CORPUSCULAR HEMOGLOBIN 34.6 pg (29.0-33.0); MEAN CORPUSCULAR HGB CONC 32.9 g/dl (32.0-37.0); MEAN CORPUSCULAR VOLUME 105.3 fl (82.0-101.0); MEAN PLATELET VOLUME 11.1 fl (7.4-10.4); MONOCYTE # 1.4 10^3/ul (0.3-0.9); MONOCYTES % 8.8 % (0.0-11.0); NEUTROPHIL # 11.9 10^3/ul (1.6-7.5); NEUTROPHILS % 74.2 % (39.0-77.0); NUCLEATED RED BLOOD CELLS% 0.1 /100WBC (0.0-0.0); RED BLOOD COUNT 2.63 10^6/ul (4.70-6.10); RED CELL DISTRIBUTION WIDTH 23.2 % (11.5-14.5)
[2017-05-23 09:55] LABS: PLATELET COUNT 78 10^3/UL (140-415)
[2017-05-23] MEDS ORDERED: MAGNESIUM SULFATE 2 GM/50 ML 50 ML IVPB ONE (10:00)
[2017-05-23 10:19] LABS: CREATININE 0.77 mg/dl (0.61-1.24); POTASSIUM 3.1 mmol/L (3.5-5.1)
--- NOTE | 2017-05-23 10:59 | PN ---
DATE: 05/23/2017 SUBJECTIVE: The patient is stable. No acute events overnight. No hemoptysis, hematemesis or hemat ochezia. OBJECTIVE: VITAL SIGNS: Blood pressure is 127/58, respirations 19, pulse 73, temperature 98.6. HEENT: Head is normocephalic. NECK: Supple. HEART: Regular rate. LUNGS: Show diminished breath sounds at base, otherwise clear. ABDOMEN: Soft, nontender to palpation. No rebound or guarding. EXTREMITIES: Negative for clubbing, cyanosis. Positive edema. DERMATOLOGIC: No rashes. MUSCULOSKELETAL: No joint effusions. NEUROLOGIC: No change in exam. MEDICATIONS: The patient's medications have been reviewed. LABORATORY DATA: Shows sodium 134, potassium 3.4, BUN 18, creatinine 0.76, phosphorus 2.1, magnesiu m 1.6. White count 15.6, hemoglobin 8.8, platelet count is 76. ASSESSMENT AND PLAN: 1. Nonoliguric acute kidney injury with unknown baseline creatinine. Etiology secondary to hemodyn amics. Renal function stabilized. We will continue current treatment plan, supportive care, renall y dose all meds. 2. Volume overload secondary EtOH hepatitis. The patient remains on diuretic therapy. We will con tinue. 3. Hypophosphatemia, hypokalemia and hypomagnesemia. Continue to monitor and replete. 4. Anemia with gastrointestinal bleed. 5. Status post blood transfusion. Continue to monitor hemoglobin and hematocrit levels. Pro tonix. 6. Mineral bone disorder. Continue to monitor calcium and phosphorus levels. 7. Transaminitis, hyperbilirubinemia, etiology secondary to EtOH liver disease. Continue to monito r. Follow up with GI. 8. Atrial fibrillation, rate controlled. Continue medical management. 9. Acute encephalopathy. Etiology is multifactorial. 10. Sepsis secondary to bacteremia. Continue current antibiotic regimen. 11. History of EtOH abuse. Dictated By: ESTEFANIA NAVARRO/ALLI Conf#: [id number] DID#: [id number]
--- NOTE | 2017-05-23 11:07 | CONS ---
Date/Time of Note Date/Time of Note DATE: 05/23/17 TIME: 11:04 Assessment/Plan Assessment/Plan Additional Assessment/Plan Assessment recommendations; next 1. P patient admitted with right-sided pneumonia with interval improvement. 2. 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 3. Persistent severe icterus. 4. Generalized deconditioning. 5. Anemia and thrombocytopenia. 6. Upper GI bleed with interval resolution. However patient scheduled for EGD this afternoon. Continue current treatment. Patient will benefit from transfer to a rehab facility. Obtain follow-up chest x-ray. Consultation Date/Type/Reason Admit Date/Time May 13, 2017 at 22:29 Initial Consult Date 05/14/17 Type of Consultation: Pulmonary Referring Provider: MICHELLE CRAFT 24 HR Interval Summary Free Text/Dictation Patient condition is tenuous at best. However he is much more awake and alert. And is not appearing to be confused. Denies any shortness of breath, chest pain dysphagia. Patient scheduled fo EGD today. General examination; middle-aged male, awake alert currently in no distress. Patient appears severely icteric. Exam/Review of Systems Vital Signs Vitals Vital Signs Date Time Temp Pulse Resp B/P Pulse Ox O2 Delivery O2 Flow Rate FiO2 05/23/17 08:22 87 18 95 Nasal Cannula 2.0 05/23/17 07:41 98.6 127/58 Intake and Output 05/22/17 05/22/17 05/23/17 15:00 23:00 07:00 Intake Total 1400 ml 2400 ml Output Total 2000 ml 1900 ml Balance -600 ml 500 ml Exam HEENT examination; supple neck, no JVD. No lymphadenopathy. Midline trachea. No thyromegaly. Patient is strongly icteric. Dentition is fair. Chest examination; diminished but clear vessel. S1-S2 audible, no murmurs. Regular rhythm. Abdomen examination; soft, nondistended. No organomegaly. Bowel sounds audible. Extremity examination; no peripheral edema. CORPORATE HEALTH CONSULTANT examination; patient is awake alert able to answer questions appropriately has generalized weakness. No focal motor deficit. Results Result Diagram: 05/23/1725 05/23/17 0925 Results 24 hrs Laboratory Tests Test 05/23/17 06:20 05/23/17 09:25 Prothrombin Time 33.7 H Prothrombin Time Ratio 2.6 INR International Normalized Ratio 3.26 Phosphorus Level 2.1 L Magnesium Level 1.6 L Total Bilirubin 15.2 H Direct Bilirubin 5.80 H Indirect Bilirubin 9.4 H Aspartate Amino Transf (AST/SGOT) 164 H Alanine Aminotransferase (ALT/SGPT) 82 H Alkaline Phosphatase 123 H Total Protein 6.6 Albumin 2.8 L White Blood Count 16.0 H Red Blood Count 2.63 L Hemoglobin 9.1 L Hematocrit 27.7 L Mean Corpuscular Volume 105.3 H Mean Corpuscular Hemoglobin 34.6 H Mean Corpuscular Hemoglobin Concent 32.9 Red Cell Distribution Width 23.2 H Platelet Count 78 L Mean Platelet Volume 11.1 H Neutrophils % 74.2 Lymphocytes % 10.5 L Monocytes % 8.8 Eosinophils % 3.8 Basophils % 0.4 Nucleated Red Blood Cells % 0.1 H Neutrophils # 11.9 H Lymphocytes # 1.7 Monocytes # 1.4 H Eosinophils # 0.6 H Basophils # 0.1 Nucleated Red Blood Cells # 0.0 Sodium Level 134 L Potassium Level 3.1 L Chloride Level 98 Carbon Dioxide Level 32 H Anion Gap 7 L Blood Urea Nitrogen 17 Creatinine 0.77 Glucose Level 110 Calcium Level 9.0 Medications Medications Current Medications Lorazepam (Ativan) 1 mg Q6H PRN IM AGITATION/ANXIETY Last administered on 03:06; Admin Dose 1 MG; Start 05/14/17 at 00:30 Morphine Sulfate 2 mg 2 mg Q4H PRN IV Pain Last administered on 05/23/17 00:08 ; Admin Dose 2 MG; Start 05/14/17 at 12:00 Cefepime HCl 50 ml @ 100 mls/hr Q12 IVPB Last administered on 05/23/17 09:05 ; Admin Dose 100 MLS/HR; Start 05/15/17 at 21:00 Levofloxacin/ Dextrose (Levaquin 250 Mg/ D5W 50 ml (Pmx)) 50 ml @ 50 mls/hr Q24H IVPB Last administered on 05/22/17 15:15; Admin Dose 50 MLS/HR; Start at 15:30 Rifaximin (Xifaxan) 550 mg BID PO Last administered on 05/23/17 09:01; Admin Dose 550 MG; Start 05/17/17 at 09:00 Lactulose (Enulose) 20 gm Q8 PO Last administered on 05/23/17 05:45; Admin Dose 20 GM; Start 05/17/17 at 08:00 Hydralazine HCl (Apresoline) 10 mg Q6H PRN IV SBP>160 Last administered on 05/19 09:43; Admin Dose 10 MG; Start 05/17/17 at 15:30 Diltiazem HCl (Cardizem Cd) 120 mg BID PO Last administered on 05/22/17 22:29 ; Admin Dose 120 MG; Start 05/20/17 at 21:00 Folic Acid (Folic Acid) 1 mg DAILY PO Last administered on 05/23/17 09:01; Admin Dose 1 MG; Start 05/21/17 at 11:00 Multivitamins Therapeutic (Theragran) 1 tab DAILY PO Last administered on 09:01; Admin Dose 1 TAB; Start 05/21/17 at 11:00 Thiamine HCl (Vitamin B1) 100 mg DAILY PO Last administered on 05/23/17 09:01 ; Admin Dose 100 MG; Start 05/21/17 at 11:00 Pantoprazole 40 mg 40 mg BID@06,18 IV Last administered on 05/23/17 05:45; Admin Dose 40 MG; Start 05/21/17 at 18:00 Magnesium Sulfate (Magnesium Sulfate 2 Gm/50 ml) 50 ml @ 25 mls/hr ONCE ONCE IVPB ; Start 05/23/17 at 10:00; Stop 05/23/17 at 11:59 Sodium Phosphate (Neutra-Phos) 250 mg BID PO ; Start 05/23/17 at 10:00 LUIS FERNANDO TAMAYO May 23, 2017 11:06
[2017-05-23] MEDS ORDERED: POTASSIUM CHLORIDE (SR) 20 MEQ TAB PO STA (11:28)
[2017-05-23] MEDS ORDERED: MAGNESIUM SULFATE 3 GM in SOD CHLORIDE 0.9% 100 ML IVPB ONE (11:30)
--- NOTE | 2017-05-23 11:31 | PN ---
Date/Time of Note Date/Time of Note DATE: 05/23/17 TIME: 11:29 Assessment/Plan VTE Prophylaxis VTE Prophylaxis Intervention: SCD's VTE Contraindication Reason: thrombocytopenia Lines/Catheters IV Catheter Type (from Nrs): Peripheral IV Urinary Cath still in place: Yes Reason Cath still needed: other (indicate) Assessment/Plan Assessment/Plan 52 yo M with ESLD 2/2 EtOH cirrhosis admitted for altered mental status, likely 2/2 toxic metabolic encephalopathy which has resolved. Also with anemia, concern for upper GI source. 1. Acute encephalopathy -metabolic toxic type . Largely resolved. Most probably toxic metabolic in origin. 2. Macrocytic anemia. - 2/2 to ESLD - cardio clearance for EGD - may have varices?, appreciate GI c/s 3. Coagulopathy. 2/2 ESLD - stable - monitor for acute bleeding. 4. Alcoholic liver disease with transaminitis with hyperbilirubinemia. 5. Prerenal Nonoliguric acute kidney injury in a patient with unknown baseline creatinine. Largely resolved 6. Chronic Alcohol abuse. 7. Sepsis. Most probably secondary to aspiration pneumonia and Polymicrobial bacteremia. 8. Moderate to large left-sided pleural effusion with complete atelectasis of the left lower lobe and partial posterior atelectasis of the left upper lobe. Continue supplemental oxygen. 9. Paroxysmal A. fib. Currently in sinus rhythm. Off of Cardizem drip. Cardiology following. PLAN: Continue Protonix and octreotide drip Plan for EGD today/will give another dose of vitamin K/FFP plan for just before procedure Continue abx per ID commence discharge planning after procedure, home versus penitentiary facility placement Replace electrolytes Fluid, electrolytes and nutrition: currently n.p.o. for procedure Prophylaxis. Bilateral sequential compression devices / Protonix Drip Subjective 24 Hr Interval Summary Constitutional: improved, no complaints Exam/Review of Systems Vital Signs Vitals Vital Signs Date Time Temp Pulse Resp B/P Pulse Ox O2 Delivery O2 Flow Rate FiO2 05/23/17 08:22 87 18 95 Nasal Cannula 2.0 05/23/17 07:41 98.6 127/58 Intake and Output 05/22/17 05/22/17 05/23/17 15:00 23:00 07:00 Intake Total 1400 ml 2400 ml Output Total 2000 ml 1900 ml Balance -600 ml 500 ml Exam HEENT examination; supple neck, no JVD. No lymphadenopathy. Midline trachea. No thyromegaly. Patient is strongly icteric. Dentition is fair. Chest examination; diminished but clear vessel. S1-S2 audible, no murmurs. Regular rhythm. Abdomen examination; soft, nondistended. No organomegaly. Bowel sounds audible. Extremity examination; no peripheral edema. HUMAN SERVICES INSTRUCTOR examination; patient is awake alert able to answer questions appropriately has generalized weakness. No focal motor deficit. Results Result Diagram: 05/23/1792405/23/17924 Results 24 hrs Laboratory Tests Test 05/23/17 06:20 05/23/17 09:25 Prothrombin Time 33.7 H Prothrombin Time Ratio 2.6 INR International Normalized Ratio 3.26 Phosphorus Level 2.1 L Magnesium Level 1.6 L Total Bilirubin 15.2 H Direct Bilirubin 5.80 H Indirect Bilirubin 9.4 H Aspartate Amino Transf (AST/SGOT) 164 H Alanine Aminotransferase (ALT/SGPT) 82 H Alkaline Phosphatase 123 H Total Protein 6.6 Albumin 2.8 L White Blood Count 16.0 H Red Blood Count 2.63 L Hemoglobin 9.1 L Hematocrit 27.7 L Mean Corpuscular Volume 105.3 H Mean Corpuscular Hemoglobin 34.6 H Mean Corpuscular Hemoglobin Concent 32.9 Red Cell Distribution Width 23.2 H Platelet Count 78 L Mean Platelet Volume 11.1 H Neutrophils % 74.2 Lymphocytes % 10.5 L Monocytes % 8.8 Eosinophils % 3.8 Basophils % 0.4 Nucleated Red Blood Cells % 0.1 H Neutrophils # 11.9 H Lymphocytes # 1.7 Monocytes # 1.4 H Eosinophils # 0.6 H Basophils # 0.1 Nucleated Red Blood Cells # 0.0 Sodium Level 134 L Potassium Level 3.1 L Chloride Level 98 Carbon Dioxide Level 32 H Anion Gap 7 L Blood Urea Nitrogen 17 Creatinine 0.77 Glucose Level 110 Calcium Level 9.0 Medications Medications Current Medications Lorazepam (Ativan) 1 mg Q6H PRN IM AGITATION/ANXIETY Last administered on 03:06; Admin Dose 1 MG; Start 05/14/17 at 00:30 Morphine Sulfate 2 mg 2 mg Q4H PRN IV Pain Last administered on 05/23/17 00:08 ; Admin Dose 2 MG; Start 05/14/17 at 12:00 Cefepime HCl 50 ml @ 100 mls/hr Q12 IVPB Last administered on 05/23/17 09:05 ; Admin Dose 100 MLS/HR; Start 05/15/17 at 21:00 Levofloxacin/ Dextrose (Levaquin 250 Mg/ D5W 50 ml (Pmx)) 50 ml @ 50 mls/hr Q24H IVPB Last administered on 05/22/17 15:15; Admin Dose 50 MLS/HR; Start at 15:30 Rifaximin (Xifaxan) 550 mg BID PO Last administered on 05/23/17 09:01; Admin Dose 550 MG; Start 05/17/17 at 09:00 Lactulose (Enulose) 20 gm Q8 PO Last administered on 05/23/17 05:45; Admin Dose 20 GM; Start 05/17/17 at 08:00 Hydralazine HCl (Apresoline) 10 mg Q6H PRN IV SBP>160 Last administered on 05/19 09:43; Admin Dose 10 MG; Start 05/17/17 at 15:30 Diltiazem HCl (Cardizem Cd) 120 mg BID PO Last administered on 05/22/17 22:29 ; Admin Dose 120 MG; Start 05/20/17 at 21:00 Folic Acid (Folic Acid) 1 mg DAILY PO Last administered on 05/23/17 09:01; Admin Dose 1 MG; Start 05/21/17 at 11:00 Multivitamins Therapeutic (Theragran) 1 tab DAILY PO Last administered on 09:01; Admin Dose 1 TAB; Start 05/21/17 at 11:00 Thiamine HCl (Vitamin B1) 100 mg DAILY PO Last administered on 05/23/17 09:01 ; Admin Dose 100 MG; Start 05/21/17 at 11:00 Pantoprazole 40 mg 40 mg BID@06,18 IV Last administered on 05/23/17 05:45; Admin Dose 40 MG; Start 05/21/17 at 18:00 Magnesium Sulfate (Magnesium Sulfate 2 Gm/50 ml) 50 ml @ 25 mls/hr ONCE ONCE IVPB ; Start 05/23/17 at 10:00; Stop 05/23/17 at 11:59 Sodium Phosphate (Neutra-Phos) 250 mg BID PO ; Start 05/23/17 at 10:00 NEYMAR BRITTON May 23, 2017 11:31
[2017-05-23] MEDS ORDERED: POTASSIUM CHLORIDE 250 ML IVPB ONE (12:00)
[2017-05-23] MEDS: NEUTRA-PHOS 250 MG PACKET PO SCH ×2 (12:07→20:19)
[2017-05-23] MEDS: DILTIAZEM (CD) 120 MG CAP PO SCH ×2 (12:07→21:00)
--- NOTE | 2017-05-23 13:26 | CONS ---
Date/Time of Note Date/Time of Note DATE: 05/23/17 TIME: 13:25 Assessment/Plan Assessment/Plan Chief Complaint/Hosp Course SUBJECTIVE: No events overnight. The patient is awake, looks comfortable, no fevers. ANTIMICROBIALS: 1. Cefepime. 2. Levaquin day #9. PHYSICAL EXAMINATION: GENERAL: This is a fragile, chronically ill-appearing, middle-aged man who is in no distress. HEENT: Head atraumatic, normocephalic. Sclerae anicteric. Buccal mucosa dry. NECK: Supple, trachea midline. CHEST: Rise symmetrical. Breath sounds diminished to bases. HEART: S1, S2. ABDOMEN: Soft, bowel sounds present. EXTREMITIES: No cyanosis. ASSESSMENT: 1. Resolving sepsis. 2. Right-sided pneumonia==> on antibiotics. 3. Resolving encephalopathy, hepatic, possibly toxic metabolic. 4. Anemia with thrombocytopenia. 5. Paroxysmal atrial fibrillation. 6. Alcoholic liver cirrhosis with history of alcohol abuse. PLAN: Improving, covered with appropriate antimicrobials. No fevers. Blood and urine cultures since 05/16/2017 and 05/19/2017 have been negative. He is being followed by multiple consultants. DW staff Problems: Consultation Date/Type/Reason Admit Date/Time May 13, 2017 at 22:29 Initial Consult Date 05/14/17 Type of Consultation: id Referring Provider: MICHELLE CRAFT Exam/Review of Systems Vital Signs Vitals Vital Signs Date Time Temp Pulse Resp B/P Pulse Ox O2 Delivery O2 Flow Rate FiO2 05/23/17 12:13 75 05/23/17 11:37 98.2 18 131/62 93 05/23/17 08:22 Nasal Cannula 2.0 Intake and Output 05/22/17 05/22/17 05/23/17 15:00 23:00 07:00 Intake Total 1400 ml 2400 ml Output Total 2000 ml 1900 ml Balance -600 ml 500 ml Results Result Diagram: 05/23/1792405/23/17 0925 Results 24 hrs Laboratory Tests Test 05/23/17 06:20 05/23/17 09:25 Prothrombin Time 33.7 H Prothrombin Time Ratio 2.6 INR International Normalized Ratio 3.26 Phosphorus Level 2.1 L Magnesium Level 1.6 L Total Bilirubin 15.2 H Direct Bilirubin 5.80 H Indirect Bilirubin 9.4 H Aspartate Amino Transf (AST/SGOT) 164 H Alanine Aminotransferase (ALT/SGPT) 82 H Alkaline Phosphatase 123 H Total Protein 6.6 Albumin 2.8 L White Blood Count 16.0 H Red Blood Count 2.63 L Hemoglobin 9.1 L Hematocrit 27.7 L Mean Corpuscular Volume 105.3 H Mean Corpuscular Hemoglobin 34.6 H Mean Corpuscular Hemoglobin Concent 32.9 Red Cell Distribution Width 23.2 H Platelet Count 78 L Mean Platelet Volume 11.1 H Neutrophils % 74.2 Lymphocytes % 10.5 L Monocytes % 8.8 Eosinophils % 3.8 Basophils % 0.4 Nucleated Red Blood Cells % 0.1 H Neutrophils # 11.9 H Lymphocytes # 1.7 Monocytes # 1.4 H Eosinophils # 0.6 H Basophils # 0.1 Nucleated Red Blood Cells # 0.0 Sodium Level 134 L Potassium Level 3.1 L Chloride Level 98 Carbon Dioxide Level 32 H Anion Gap 7 L Blood Urea Nitrogen 17 Creatinine 0.77 Glucose Level 110 Calcium Level 9.0 Medications Medications Current Medications Lorazepam (Ativan) 1 mg Q6H PRN IM AGITATION/ANXIETY Last administered on 03:06; Admin Dose 1 MG; Start 05/14/17 at 00:30 Morphine Sulfate 2 mg 2 mg Q4H PRN IV Pain Last administered on 05/23/17 00:08 ; Admin Dose 2 MG; Start 05/14/17 at 12:00 Cefepime HCl 50 ml @ 100 mls/hr Q12 IVPB Last administered on 05/23/17 09:05 ; Admin Dose 100 MLS/HR; Start 05/15/17 at 21:00 Levofloxacin/ Dextrose (Levaquin 250 Mg/ D5W 50 ml (Pmx)) 50 ml @ 50 mls/hr Q24H IVPB Last administered on 05/22/17 15:15; Admin Dose 50 MLS/HR; Start at 15:30 Rifaximin (Xifaxan) 550 mg BID PO Last administered on 05/23/17 09:01; Admin Dose 550 MG; Start 05/17/17 at 09:00 Lactulose (Enulose) 20 gm Q8 PO Last administered on 05/23/17 05:45; Admin Dose 20 GM; Start 05/17/17 at 08:00 Hydralazine HCl (Apresoline) 10 mg Q6H PRN IV SBP>160 Last administered on 05/19 09:43; Admin Dose 10 MG; Start 05/17/17 at 15:30 Diltiazem HCl (Cardizem Cd) 120 mg BID PO Last administered on 05/23/17 12:07 ; Admin Dose 120 MG; Start 05/20/17 at 21:00 Folic Acid (Folic Acid) 1 mg DAILY PO Last administered on 05/23/17 09:01; Admin Dose 1 MG; Start 05/21/17 at 11:00 Multivitamins Therapeutic (Theragran) 1 tab DAILY PO Last administered on 09:01; Admin Dose 1 TAB; Start 05/21/17 at 11:00 Thiamine HCl (Vitamin B1) 100 mg DAILY PO Last administered on 05/23/17 09:01 ; Admin Dose 100 MG; Start 05/21/17 at 11:00 Pantoprazole (Protonix Iv) 40 mg BID@06,18 IV Last administered on 05/23/17 05 :45; Admin Dose 40 MG; Start 05/21/17 at 18:00 Sodium Phosphate 250 mg 250 mg BID PO ; Start 05/23/17 at 10:00 Potassium Chloride (KCl 40 MEQ/250 ML NS) 250 ml @ 62.5 mls/hr ONCE ONCE IVPB ; Start 05/23/17 at 12:00; Stop 05/23/17 at 15:59 Diphenhydramine HCl (Benadryl) 50 mg ONCE ONCE PO ; Start 05/23/17 at 13:30; Stop 05/23/17 at 13:31 KARL NGUYEN NP May 23, 2017 13:26
[2017-05-23] MEDS ORDERED: DIPHENHYDRAMINE 50 MG CAP PO ONE (13:30)
--- NOTE | 2017-05-23 15:16 | RADRPT ---
PROCEDURE: XR Chest. CLINICAL INDICATION: Pneumonia TECHNIQUE: An AP view of the chest was obtained. COMPARISON: 05/20/2017 FINDINGS: There are persistent diffuse bilateral interstitial opacities with small right and moderate left ple ural effusions. No pneumothorax is seen. The cardiomediastinal silhouette is mildly enlarged . C alcifications are seen within the aortic arch. The osseous structures demonstrate senescent changes . IMPRESSION: 1. No significant interval change. Persistent diffuse bilateral interstitial opacities, most likel y reflecting interstitial edema, although multifocal pneumonia could have a similar appearance. 2. Small right and moderate left pleural effusions, not significantly changed. 3. Mild cardiomegaly and aortic atherosclerosis. RPTAT: JJ .Luis Anderson MD, MD Date Time Electronically viewed and signed by .Luis Anderson MD, on 05/23/2017 15:16 .A/
--- NOTE | 2017-05-23 17:38 | PN ---
Date/Time of Note Date/Time of Note DATE: 05/23/17 TIME: 17:36 Assessment/Plan VTE Prophylaxis VTE Prophylaxis Intervention: SCD's Lines/Catheters IV Catheter Type (from Nrs): Peripheral IV Urinary Cath still in place: Yes Reason Cath still needed: urinary retention Assessment/Plan Assessment/Plan Severe anemia status post multiple transfusions Liver failure Acute decompensated diastolic congestive heart failure Coagulopathy Encephalopathy, improved Thrombocytopenia Preserved ejection fraction History of hypertension Acute kidney injury Paroxysmal atrial fibrillation Respiratory failure -Patient remains in sinus rhythm, continue p.o. Cardizem. -No anticoagulation given thrombocytopenia, coagulopathy and liver failure. -Continue diuretics as blood pressure and renal function permits. -Once respiratory status improves and patient able to tolerate sedation, would proceed with EGD. Maintain potassium above 4.0 and magnesium above 2.0. Subjective 24 Hr Interval Summary Free Text/Dictation The pateitnn with no change Exam/Review of Systems Vital Signs Vitals Vital Signs Date Time Temp Pulse Resp B/P Pulse Ox O2 Delivery O2 Flow Rate FiO2 05/23/17 16:44 72 05/23/17 16:04 18 128/60 98 Room Air 05/23/17 11:37 98.2 05/23/17 08:22 2.0 Intake and Output 05/22/17 05/22/17 05/23/17 15:00 23:00 07:00 Intake Total 1400 ml 2400 ml Output Total 2000 ml 1900 ml Balance -600 ml 500 ml Results Result Diagram: 05/23/1725 05/23/17 0925 Results 24 hrs Laboratory Tests Test 05/23/17 06:20 05/23/17 09:25 Prothrombin Time 33.7 H Prothrombin Time Ratio 2.6 INR International Normalized Ratio 3.26 Phosphorus Level 2.1 L Magnesium Level 1.6 L Total Bilirubin 15.2 H Direct Bilirubin 5.80 H Indirect Bilirubin 9.4 H Aspartate Amino Transf (AST/SGOT) 164 H Alanine Aminotransferase (ALT/SGPT) 82 H Alkaline Phosphatase 123 H Total Protein 6.6 Albumin 2.8 L White Blood Count 16.0 H Red Blood Count 2.63 L Hemoglobin 9.1 L Hematocrit 27.7 L Mean Corpuscular Volume 105.3 H Mean Corpuscular Hemoglobin 34.6 H Mean Corpuscular Hemoglobin Concent 32.9 Red Cell Distribution Width 23.2 H Platelet Count 78 L Mean Platelet Volume 11.1 H Neutrophils % 74.2 Lymphocytes % 10.5 L Monocytes % 8.8 Eosinophils % 3.8 Basophils % 0.4 Nucleated Red Blood Cells % 0.1 H Neutrophils # 11.9 H Lymphocytes # 1.7 Monocytes # 1.4 H Eosinophils # 0.6 H Basophils # 0.1 Nucleated Red Blood Cells # 0.0 Sodium Level 134 L Potassium Level 3.1 L Chloride Level 98 Carbon Dioxide Level 32 H Anion Gap 7 L Blood Urea Nitrogen 17 Creatinine 0.77 Glucose Level 110 Calcium Level 9.0 Medications Medications Current Medications Lorazepam (Ativan) 1 mg Q6H PRN IM AGITATION/ANXIETY Last administered on 03:06; Admin Dose 1 MG; Start 05/14/17 at 00:30 Morphine Sulfate 2 mg 2 mg Q4H PRN IV Pain Last administered on 05/23/17 00:08 ; Admin Dose 2 MG; Start 05/14/17 at 12:00 Cefepime HCl 50 ml @ 100 mls/hr Q12 IVPB Last administered on 05/23/17 09:05 ; Admin Dose 100 MLS/HR; Start 05/15/17 at 21:00 Levofloxacin/ Dextrose (Levaquin 250 Mg/ D5W 50 ml (Pmx)) 50 ml @ 50 mls/hr Q24H IVPB Last administered on 05/22/17 15:15; Admin Dose 50 MLS/HR; Start at 15:30 Rifaximin (Xifaxan) 550 mg BID PO Last administered on 05/23/17 09:01; Admin Dose 550 MG; Start 05/17/17 at 09:00 Lactulose (Enulose) 20 gm Q8 PO Last administered on 05/23/17 13:35; Admin Dose 20 GM; Start 05/17/17 at 08:00 Hydralazine HCl (Apresoline) 10 mg Q6H PRN IV SBP>160 Last administered on 05/19 09:43; Admin Dose 10 MG; Start 05/17/17 at 15:30 Diltiazem HCl (Cardizem Cd) 120 mg BID PO Last administered on 05/23/17 12:07 ; Admin Dose 120 MG; Start 05/20/17 at 21:00 Folic Acid (Folic Acid) 1 mg DAILY PO Last administered on 05/23/17 09:01; Admin Dose 1 MG; Start 05/21/17 at 11:00 Multivitamins Therapeutic (Theragran) 1 tab DAILY PO Last administered on 09:01; Admin Dose 1 TAB; Start 05/21/17 at 11:00 Thiamine HCl (Vitamin B1) 100 mg DAILY PO Last administered on 05/23/17 09:01 ; Admin Dose 100 MG; Start 05/21/17 at 11:00 Pantoprazole (Protonix Iv) 40 mg BID@06,18 IV Last administered on 05/23/17 05 :45; Admin Dose 40 MG; Start 05/21/17 at 18:00 Sodium Phosphate (Neutra-Phos) 250 mg BID PO ; Start 05/23/17 at 10:00 ANGELA ALTMAN MD May 23, 2017 17:38
[2017-05-23] MEDS ORDERED: MEPERIDINE 25 MG INJ IV PRN (18:00)
[2017-05-23] MEDS ORDERED: METOCLOPRAMIDE 10 MG INJ IV PRN (18:00)
[2017-05-23] MEDS ORDERED: MIDAZOLAM 1 MG/ML 2 ML INJ IV PRN (18:00)
[2017-05-23] MEDS ORDERED: FENTAnyl 50 MCG/ML VIAL IV PRN (18:00)
[2017-05-23] MEDS ORDERED: DIPHENHYDRAMINE 50 MG INJ IV PRN (18:00)
[2017-05-23] MEDS ORDERED: ONDANSETRON 4 MG INJ IV PRN (18:00)
[2017-05-23] MEDS ORDERED: OXYCODONE/ACETAMINOPHEN (5/325) TAB PO PRN ×2 (18:00)
[2017-05-23] MEDS: LEVOFLOXACIN 250MG/D5W (PMX) 50 ML IVPB SCH (19:12)
[2017-05-24] VITALS (14 sets, daily range): BP systolic 122–149; BP diastolic 58–67; PULSE 68–80; RESP 18–20
--- NOTE | 2017-05-24 01:13 | RADRPT ---
PROCEDURE: XR Chest. CLINICAL INDICATION: Patient unable to cough out secretions. TECHNIQUE: Single frontal view of the chest. COMPARISON: Plain film chest dated 05/23/2017. FINDINGS: Cardiomegaly. Pulmonary mass congestion and bilateral patchy air space disease with left mild pleur al effusion. Left pleural effusion appears increased over interval. No signs of pneumothorax are s een. The osseous structures and soft tissues are unremarkable. IMPRESSION: Mild failure with mild left pleural effusion. RPTAT: [facility] Physician Lisbeth Date Time Electronically viewed and signed by Physician Lisbeth on 05/24/2017 01:12 RS/
[2017-05-24] MEDS: PANTOPRAZOLE 40 MG INJ IV SCH ×2 (05:45→17:44)
[2017-05-24] MEDS: LACTULOSE 30ML CUP PO SCH ×3 (05:45→21:34)
[2017-05-24] MEDS: FUROSEMIDE 40 MG INJ IV SCH ×2 (05:45→17:45)
--- NOTE | 2017-05-24 06:32 | GILP ---
DATE OF PROCEDURE: 05/23/2017 PROCEDURE: Esophagogastroduodenoscopy with biopsies. BRIEF HISTORY AND INDICATIONS: Patient with a history of severe anemia and also advanced liver dise ase. CT scan was taken to rule out a potentially catastrophic bleeding site. The patient had sever e coagulopathy, encephalopathy, and evidence of impending liver failure. PREMEDICATION: Monitored anesthesia care by the anesthesiologist. SURGEON: Andrade Newton MD INSTRUMENT USED: Olympus panendoscope. TECHNIQUE: After informed consent, with the patient/relatives understanding the procedure, its indic ations, potential risks and complications, including but not limited to: allergic reaction, bleeding , perforation or infection, and after all pertinent questions were answered to the patient's satisfa ction, the patient/relatives signed witnessed informed consent. Following this, premedication was administered slowly IV push under careful cardiovascular and respi ratory monitoring with pulse oximetry, automatic blood pressure and air filler. Once the sedative effect was achieved the patient was place in the left lateral decubitus, the panen doscope was introduced and advanced under visual control. Careful examination of the upper gastrointestinal tract, both on insertion as well as withdrawal of the instrument disclosed the following findings: ESOPHAGUS: There are islands of heterotopic tissue in the mid and distal esophagus, highly suggesti ve of Souza's esophagus. No biopsies were obtained, as the patient remains coagulopathic despite aggressive fresh frozen plasma and vitamin K. replacement. There is no evidence of significant esophageal varices, which is somewhat surprising, but obviously a positive finding. STOMACH: Upon entrance to the stomach, air was insufflated, the gastric solano distended normally. There is erythema and edema of the mucosa of a moderate degree. No biopsies were obtained due to co agulopathy. PYLORUS: The pylorus appears patent and within normal limits, with no evidence of gastric outlet obs truction. DUODENUM: The duodenal mucosa was carefully examined in the duodenal bulb as well as the second port ion of the duodenum and appears unremarkable with no evidence of duodenitis, ulcer or neoplasm. The instrument was then withdrawn, the patient tolerated the procedure well and was transfer out of the endoscopy suite awake, and in good condition to continue recovery under observation IMPRESSION: 1. Distal erosive esophagitis. 2. 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 3. No evidence of significant esophageal varices. 4. Gastritis. Rule out Helicobacter pylori infection. PLAN: The patient will be treated with PPIs b.i.d. and further recommendations will depend on his c linical course. Dictated By: ANDRADE NEWTON MS/ALLI Conf#: [id number] DID#: [id number]
[2017-05-24] MEDS: ALBUTEROL 0.083% (NEB) 2.5 MG/3 ML AMP HHN SCH ×4 (08:00→21:42)
[2017-05-24] MEDS: CEFEPIME 2GM/50 ML (PMX) 50 ML IVPB SCH ×2 (08:47→21:42)
[2017-05-24] MEDS: MULTIVITAMINS THERAPEUTIC TAB PO SCH (08:49)
[2017-05-24] MEDS: FOLIC ACID 1 MG TAB PO SCH (08:49)
[2017-05-24] MEDS: THIAMINE 100 MG TAB PO SCH (08:49)
[2017-05-24] MEDS: NEUTRA-PHOS 250 MG PACKET PO SCH ×2 (08:49→21:36)
[2017-05-24] MEDS: RIFAXIMIN 550 MG TAB PO SCH ×2 (08:49→21:36)
[2017-05-24] MEDS: DILTIAZEM (CD) 120 MG CAP PO SCH ×2 (08:50→21:36)
--- NOTE | 2017-05-24 10:11 | PN ---
Date/Time of Note Date/Time of Note DATE: 05/24/17 TIME: 10:03 Assessment/Plan VTE Prophylaxis VTE Prophylaxis Intervention: contraindicated Lines/Catheters [facility] Saline Lock Urinary Cath still in place: Yes Reason Cath still needed: urinary retention Assessment/Plan Assessment/Plan Assessment * Liver failure,acute * Anemia EGD . Distal erosive esophagitis. . 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 No evidence of significant esophageal varices. Gastritis. Rule out Helicobacter pylori infection. * Cirrhosis of liver * History of alcoholic abuse * Atrial fibrillation resolved Plan * trend liver enzymes * Monitor hemoglobin and hematocrit Q 6 transfuse per protocol * continue Protonix 40 mg bid * Continue present management * Case discussed with Dr Newton * Further orders will depend on clinical course Subjective 24 Hr Interval Summary Free Text/Dictation * Course reviwed with RN * Patient seen and examined * Patient more awake,responds well to questions * EGD Distal erosive esophagitis. . 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 . No evidence of significant esophageal varices. Gastritis. Rule out Helicobacter pylori infection. Exam/Review of Systems Vital Signs Vitals Vital Signs Date Time Temp Pulse Resp B/P Pulse Ox O2 Delivery O2 Flow Rate FiO2 05/24/17 08:06 Nasal Cannula 3.0 05/24/17 08:01 68 05/24/17 07:36 97.5 18 149/67 97 Intake and Output 05/23/17 05/23/17 05/24/17 15:00 23:00 07:00 Intake Total 200 ml 400 ml Output Total 2000 ml 1400 ml Balance -1800 ml -1000 ml Exam Constitutional: frail Head: normocephalic Eyes: icteric Neck: non-tender, supple Respiratory: crackles/rales, diminished breath sounds, normal air movement Cardiovascular: nl pulses, regular rate and rhythm Gastrointestinal: bowel sounds, distended, non-tender, soft, No rebound or guarding Musculoskeletal: muscle weakness, swelling Extremities: pitting pedal edema Neurological: confused Skin: other (jaundice), rash or lesions Results Result Diagram: 05/23/1792405/23/17924 Results 24 hrs Laboratory Tests Test 05/24/17 07:04 Lab Scanned Report BLOOD TRANSFUSION Medications Medications Current Medications Lorazepam (Ativan) 1 mg Q6H PRN IM AGITATION/ANXIETY Last administered on 03:06; Admin Dose 1 MG; Start 05/14/17 at 00:30 Morphine Sulfate 2 mg 2 mg Q4H PRN IV Pain Last administered on 05/23/17 00:08 ; Admin Dose 2 MG; Start 05/14/17 at 12:00 Cefepime HCl 50 ml @ 100 mls/hr Q12 IVPB Last administered on 05/24/17 08:47 ; Admin Dose 100 MLS/HR; Start 05/15/17 at 21:00 Levofloxacin/ Dextrose (Levaquin 250 Mg/ D5W 50 ml (Pmx)) 50 ml @ 50 mls/hr Q24H IVPB Last administered on 05/23/17 19:12; Admin Dose 50 MLS/HR; Start at 15:30 Rifaximin (Xifaxan) 550 mg BID PO Last administered on 05/24/17 08:49; Admin Dose 550 MG; Start 05/17/17 at 09:00 Lactulose (Enulose) 20 gm Q8 PO Last administered on 05/24/17 05:45; Admin Dose 20 GM; Start 05/17/17 at 08:00 Hydralazine HCl (Apresoline) 10 mg Q6H PRN IV SBP>160 Last administered on 05/19 09:43; Admin Dose 10 MG; Start 05/17/17 at 15:30 Diltiazem HCl (Cardizem Cd) 120 mg BID PO Last administered on 05/24/17 08:50 ; Admin Dose 120 MG; Start 05/20/17 at 21:00 Folic Acid (Folic Acid) 1 mg DAILY PO Last administered on 05/24/17 08:49; Admin Dose 1 MG; Start 05/21/17 at 11:00 Multivitamins Therapeutic (Theragran) 1 tab DAILY PO Last administered on 08:49; Admin Dose 1 TAB; Start 05/21/17 at 11:00 Thiamine HCl (Vitamin B1) 100 mg DAILY PO Last administered on 05/24/17 08:49 ; Admin Dose 100 MG; Start 05/21/17 at 11:00 Pantoprazole (Protonix Iv) 40 mg BID@06,18 IV Last administered on 05/24/17 05 :45; Admin Dose 40 MG; Start 05/21/17 at 18:00 Sodium Phosphate (Neutra-Phos) 250 mg BID PO Last administered on 05/24/17t 08: 49; Admin Dose 250 MG; Start 05/23/17 at 10:00 JUAN SR NP May 24, 2017 10:11
--- NOTE | 2017-05-24 10:27 | PN ---
DATE: 05/24/2017 SUBJECTIVE: The patient is stable, no acute events overnight. No fevers, chills, nausea, vomiting. No shortness of breath. OBJECTIVE: VITAL SIGNS: Blood pressure is 149/67, respirations 18, pulse 72, temperature 97.5. HEENT: Head is normocephalic. NECK: Supple. HEART: Regular rate. LUNGS: Show diminished breath sounds at the bases. ABDOMEN: Soft, nontender to palpation. No rebound or guarding. EXTREMITIES: Negative for clubbing, cyanosis. Positive edema. DERMATOLOGIC: No rashes. MUSCULOSKELETAL: No joint effusions. NEUROLOGIC: No change in exam. MEDICATIONS: The patient's medications have been reviewed. LABORATORY DATA: Currently pending. ASSESSMENT AND PLAN: 1. Nonoliguric acute kidney injury with unknown baseline creatinine. Etiology is secondary to hemo dynamics. Renal function has stabilized. Continue current treatment plan, supportive care, renally dose all meds. 2. Volume overload secondary to ETOH hepatitis. The patient remains on diuretic therapy. We will continue. 3. Electrolyte abnormalities. Continue to monitor and replete.. 4. Anemia secondary to gastrointestinal bleed. Continue to monitor hemoglobin and hematocrit level s. 5. Mineral bone disorder. Continue to monitor calcium and phosphorus levels. 6. Transaminitis, hyperbilirubinemia secondary to ETOH liver disease. Continue to monitor. 7. Atrial fibrillation, currently rate controlled. Continue to monitor. 8. Acute encephalopathy. Etiology is multifactorial. 9. Sepsis secondary to bacteremia. Continue current antibiotic regimen. 10. History of ETOH abuse. Dictated By: ESTEFANIA NAVARRO/ALLI Conf#: [id number] DID#: [id number]
[2017-05-24] MEDS ORDERED: POTASSIUM CHLORIDE (SR) 20 MEQ TAB PO STA (10:32)
--- NOTE | 2017-05-24 10:39 | PN ---
Date/Time of Note Date/Time of Note DATE: 05/24/17 TIME: 10:37 Assessment/Plan VTE Prophylaxis VTE Prophylaxis Intervention: other Lines/Catheters [facility]from [facility] Saline Lock Urinary Cath still in place: Yes Reason Cath still needed: urinary retention Assessment/Plan Problems: (1) Hypokalemia Status: Acute Comment: Replace orally please (2) Cirrhosis Status: Chronic Comment: He has acute on chronic hepatic failure. GI is working with us on this. The question I would raise is whether or not he would be a candidate for nadolol. Qualifiers: Hepatic cirrhosis type: alcoholic cirrhosis Ascites presence: with ascites Qualified Code: K70.31 - Alcoholic cirrhosis of liver with ascites (3) Paroxysmal atrial fibrillation Status: Acute Comment: Presently in sinus rhythm (4) Pleural effusion, left Status: Acute Comment: This is noted. May need therapeutic versus diagnostic thoracentesis. (5) Alcoholism Status: Chronic Comment: Remains on thiamine. (6) Liver failure Status: Acute Comment: As per gastroenterology. Qualifiers: Liver failure chronicity: unspecified chronicity Hepatic coma status: without hepatic coma Qualified Code: K72.90 - Liver failure without hepatic coma, unspecified chronicity (7) Severe anemia Status: Acute Comment: Holding steady at this time. Subjective 24 Hr Interval Summary Free Text/Dictation Patient lying in bed. Able to follow questions and offers questions of his own in a slow fashion. Constitutional: no complaints Respiratory: no complaints Cardiovascular: no complaints Gastrointestinal: no complaints Exam/Review of Systems Vital Signs Vitals Vital Signs Date Time Temp Pulse Resp B/P Pulse Ox O2 Delivery O2 Flow Rate FiO2 05/24/17 08:06 Nasal Cannula 3.0 05/24/17 08:01 68 05/24/17 07:36 97.5 18 149/67 97 Intake and Output 05/23/17 05/23/17 05/24/17 15:00 23:00 07:00 Intake Total 200 ml 400 ml Output Total 2000 ml 1400 ml Balance -1800 ml -1000 ml Exam Constitutional: alert, oriented (Oriented to person place) Head: atraumatic, normocephalic Eyes: icteric (Deeply icteric) ENMT: mucosa pink and moist, nl external ears & nose, nl lips & teeth, nl nasal mucosa & septum, other (Deeply icteric) Neck: non-tender, supple Respiratory: clear to auscultation, normal air movement Cardiovascular: nl pulses, regular rate and rhythm Results Result Diagram: 05/23/1792405/23/17924 Results 24 hrs Laboratory Tests Test 05/24/17 07:04 Lab Scanned Report BLOOD TRANSFUSION Medications Medications Current Medications Lorazepam (Ativan) 1 mg Q6H PRN IM AGITATION/ANXIETY Last administered on 03:06; Admin Dose 1 MG; Start 05/14/17 at 00:30 Morphine Sulfate 2 mg 2 mg Q4H PRN IV Pain Last administered on 05/23/17 00:08 ; Admin Dose 2 MG; Start 05/14/17 at 12:00 Cefepime HCl 50 ml @ 100 mls/hr Q12 IVPB Last administered on 05/24/17 08:47 ; Admin Dose 100 MLS/HR; Start 05/15/17 at 21:00 Levofloxacin/ Dextrose (Levaquin 250 Mg/ D5W 50 ml (Pmx)) 50 ml @ 50 mls/hr Q24H IVPB Last administered on 05/23/17 19:12; Admin Dose 50 MLS/HR; Start at 15:30 Rifaximin (Xifaxan) 550 mg BID PO Last administered on 05/24/17 08:49; Admin Dose 550 MG; Start 05/17/17 at 09:00 Lactulose (Enulose) 20 gm Q8 PO Last administered on 05/24/17 05:45; Admin Dose 20 GM; Start 05/17/17 at 08:00 Hydralazine HCl (Apresoline) 10 mg Q6H PRN IV SBP>160 Last administered on 05/19 09:43; Admin Dose 10 MG; Start 05/17/17 at 15:30 Diltiazem HCl (Cardizem Cd) 120 mg BID PO Last administered on 05/24/17 08:50 ; Admin Dose 120 MG; Start 05/20/17 at 21:00 Folic Acid (Folic Acid) 1 mg DAILY PO Last administered on 05/24/17 08:49; Admin Dose 1 MG; Start 05/21/17 at 11:00 Multivitamins Therapeutic (Theragran) 1 tab DAILY PO Last administered on 08:49; Admin Dose 1 TAB; Start 05/21/17 at 11:00 Thiamine HCl (Vitamin B1) 100 mg DAILY PO Last administered on 05/24/17 08:49 ; Admin Dose 100 MG; Start 05/21/17 at 11:00 Pantoprazole (Protonix Iv) 40 mg BID@06,18 IV Last administered on 05/24/17 05 :45; Admin Dose 40 MG; Start 05/21/17 at 18:00 Sodium Phosphate (Neutra-Phos) 250 mg BID PO Last administered on 05/24/17 08: 49; Admin Dose 250 MG; Start 05/23/17 at 10:00 ENID JUDGE MD May 24, 2017 10:39
[2017-05-24 11:14] LABS: ADD SCAN DIFF NO
[2017-05-24 11:31] LABS: ABNORMAL IP MESSAGE 1; BASOPHILS % 0.3 % (0.0-2.0); EOSINOPHILS # 0.4 10^3/ul (0.0-0.5); EOSINOPHILS % 2.5 % (0.0-7.0); HEMATOCRIT 29.4 % (42.0-52.0); HEMOGLOBIN 9.4 g/dl (14.0-18.0); LYMPHOCYTES # 1.4 10^3/ul (0.8-2.9); LYMPHOCYTES % 9.7 % (15.0-51.0); MEAN CORPUSCULAR HEMOGLOBIN 34.3 pg (29.0-33.0); MEAN CORPUSCULAR VOLUME 107.3 fl (82.0-101.0); MEAN PLATELET VOLUME 10.9 fl (7.4-10.4); MONOCYTE # 1.2 10^3/ul (0.3-0.9); MONOCYTES % 8.3 % (0.0-11.0); NEUTROPHIL # 11.3 10^3/ul (1.6-7.5); NEUTROPHILS % 77.7 % (39.0-77.0); NUCLEATED RED BLOOD CELLS% 0.1 /100WBC (0.0-0.0); RED BLOOD COUNT 2.74 10^6/ul (4.70-6.10); WHITE BLOOD COUNT 14.5 10^3/ul (4.8-10.8)
[2017-05-24 11:37] LABS: PLATELET COUNT 87 10^3/UL (140-415)
[2017-05-24 11:39] LABS: CALCIUM 9.4 mg/dl (8.4-10.2); CREATININE 0.7 mg/dl (0.61-1.24); POTASSIUM 3.9 mmol/L (3.5-5.1)
--- NOTE | 2017-05-24 11:56 | PN ---
Date/Time of Note Date/Time of Note DATE: 05/24/17 TIME: 11:55 Assessment/Plan VTE Prophylaxis VTE Prophylaxis Intervention: SCD's Lines/Catheters IV Catheter Type (from Nrs): Saline Lock Urinary Cath still in place: Yes Reason Cath still needed: urinary retention Assessment/Plan Assessment/Plan Severe anemia status post multiple transfusions Liver failure Acute decompensated diastolic congestive heart failure Coagulopathy Encephalopathy, improved Thrombocytopenia Preserved ejection fraction History of hypertension Acute kidney injury Paroxysmal atrial fibrillation Respiratory failure -Patient remains in sinus rhythm, continue p.o. Cardizem. -No anticoagulation given thrombocytopenia, coagulopathy and liver failure. -Continue diuretics as blood pressure and renal function permits. Subjective 24 Hr Interval Summary Free Text/Dictation the patinet with no change Exam/Review of Systems Vital Signs Vitals Vital Signs Date Time Temp Pulse Resp B/P Pulse Ox O2 Delivery O2 Flow Rate FiO2 05/24/17 11:36 98.9 70 18 144/67 97 05/24/17 08:06 Nasal Cannula 3.0 Intake and Output 05/23/17 05/23/17 05/24/17 15:00 23:00 07:00 Intake Total 200 ml 400 ml Output Total 2000 ml 1400 ml Balance -1800 ml -1000 ml Results Result Diagram: 05/24/17 1053 05/24/17 1053 Results 24 hrs Laboratory Tests Test 05/24/17 07:04 05/24/17 10:53 Lab Scanned Report BLOOD TRANSFUSION White Blood Count 14.5 H Red Blood Count 2.74 L Hemoglobin 9.4 L Hematocrit 29.4 L Mean Corpuscular Volume 107.3 H Mean Corpuscular Hemoglobin 34.3 H Mean Corpuscular Hemoglobin Concent 32.0 Red Cell Distribution Width 23.0 H Platelet Count 87 L Mean Platelet Volume 10.9 H Neutrophils % 77.7 H Lymphocytes % 9.7 L Monocytes % 8.3 Eosinophils % 2.5 Basophils % 0.3 Nucleated Red Blood Cells % 0.1 H Neutrophils # 11.3 H Lymphocytes # 1.4 Monocytes # 1.2 H Eosinophils # 0.4 Basophils # 0.0 Nucleated Red Blood Cells # 0.0 Sodium Level 137 Potassium Level 3.9 Chloride Level 101 Carbon Dioxide Level 31 Anion Gap 9 Blood Urea Nitrogen 19 Creatinine 0.70 Glucose Level 87 Calcium Level 9.4 Medications Medications Current Medications Lorazepam (Ativan) 1 mg Q6H PRN IM AGITATION/ANXIETY Last administered on 03:06; Admin Dose 1 MG; Start 05/14/17 at 00:30 Morphine Sulfate 2 mg 2 mg Q4H PRN IV Pain Last administered on 05/23/17 00:08 ; Admin Dose 2 MG; Start 05/14/17 at 12:00 Cefepime HCl 50 ml @ 100 mls/hr Q12 IVPB Last administered on 05/24/17 08:47 ; Admin Dose 100 MLS/HR; Start 05/15/17 at 21:00 Levofloxacin/ Dextrose (Levaquin 250 Mg/ D5W 50 ml (Pmx)) 50 ml @ 50 mls/hr Q24H IVPB Last administered on 05/23/17 19:12; Admin Dose 50 MLS/HR; Start at 15:30 Rifaximin (Xifaxan) 550 mg BID PO Last administered on 05/24/17 08:49; Admin Dose 550 MG; Start 05/17/17 at 09:00 Lactulose (Enulose) 20 gm Q8 PO Last administered on 05/24/17 05:45; Admin Dose 20 GM; Start 05/17/17 at 08:00 Hydralazine HCl (Apresoline) 10 mg Q6H PRN IV SBP>160 Last administered on 05/19 09:43; Admin Dose 10 MG; Start 05/17/17 at 15:30 Diltiazem HCl (Cardizem Cd) 120 mg BID PO Last administered on 05/24/17 08:50 ; Admin Dose 120 MG; Start 05/20/17 at 21:00 Folic Acid (Folic Acid) 1 mg DAILY PO Last administered on 05/24/17 08:49; Admin Dose 1 MG; Start 05/21/17 at 11:00 Multivitamins Therapeutic (Theragran) 1 tab DAILY PO Last administered on 08:49; Admin Dose 1 TAB; Start 05/21/17 at 11:00 Thiamine HCl (Vitamin B1) 100 mg DAILY PO Last administered on 05/24/17 08:49 ; Admin Dose 100 MG; Start 05/21/17 at 11:00 Pantoprazole (Protonix Iv) 40 mg BID@18 IV Last administered on 05/24/17 05 :45; Admin Dose 40 MG; Start 05/21/17 at 18:00 Sodium Phosphate (Neutra-Phos) 250 mg BID PO Last administered on 05/24/17 08: 49; Admin Dose 250 MG; Start 05/23/17 at 10:00 ANGELA ALTMAN MD May 24, 2017 11:56
[2017-05-24 12:01] LABS: ALBUMIN 2.9 g/dl (3.3-4.9); BILIRUBIN,DIRECT 4.6 mg/dl (0.00-0.20); BILIRUBIN,INDIRECT 9.2 mg/dl (0-1.1); BILIRUBIN,TOTAL 13.8 mg/dl (0.2-1.3); TOTAL PROTEIN 6.4 g/dl (6.1-8.1)
[2017-05-24 12:02] LABS: MAGNESIUM 1.7 mg/dl (1.7-2.5); PHOSPHORUS 2.9 mg/dl (2.5-4.9)
[2017-05-24] MEDS: LEVOFLOXACIN 250MG/D5W (PMX) 50 ML IVPB SCH (15:13)
[2017-05-24] MEDS ORDERED: LORAZEPAM 1 MG TAB PO PRN (16:30)
--- NOTE | 2017-05-24 18:13 | CONS ---
Date/Time of Note Date/Time of Note DATE: 05/24/17 TIME: 18:09 Assessment/Plan Assessment/Plan Chief Complaint/Hosp Course ID PROGRESS NOTE ABX DAY # Levaquin + Rifaximin + Cefepime 24H INTERVAL SUMMARY * POD #1 -> S/p EGD 05/23 revealed distal esophagitis probable Souza's, gastritis r/o H. Pylori, no esophageal varices * Awake, responsive, no new issues, no complaints offered * CXR 05/24: mild failure w/mild L-effusion PHYSICAL EXAMINATION: GENERAL: VSS, NAD, no fever HEENT: Unremarkable NECK: Trach-> midline CHEST: Equal chest rise bilaterally, without dyspnea on observation HEART: Pulse RRR ABDOMEN: Soft EXTREMITIES: Warm SKIN: Warm, dry ID ASSESSMENT: 52 yo M w/ admitted with: 1. SIRS w/w/acute encephalopathy, leukocytosis due to probably ETOH withdrawal , ETOH hepatitis, Aspiration Pneumonitis * Blood culture x1 positive for SKIN CONTAMINANT (+1/2 BOTTLES CORYNEBACTERIUM SPECIES (not JK) = normal skin chang 2. ETOH hepatitis w/hx of daily ETOH * Viral Hepatitis panel negative so far. 3. Aspiration PNA w/Moderate to large left-sided pleural effusion with complete atelectasis of the left lower lobe and partial posterior atelectasis of the left upper lobe. * CXR 05/16: Stable patchy infiltrates throughout the left lung, combined with moderate pleural effusion. 4. Transaminitis with hyperbilirubinemia=> Most probably from underlying alcoholic liver disease. 5. Coagulopathy=> Most probably secondary to underlying liver dysfunction. 6. Nonoliguric acute kidney injury in a patient with unknown baseline creatinine. 7. Paroxysmal A. fib. 8. Pulmonary edema ABX ALLERGIES: KNDA INVASIVES: *PIV CURRENT ABX: ABX DAY # Levaquin + Rifaximin + Cefepime ID RECOMMENDATIONS: 1. Continue current ABX 2. Aspiration precautions . . Problems: Consultation Date/Type/Reason Admit Date/Time May 13, 2017 at 22:29 Initial Consult Date 05/14/17 Type of Consultation: id Referring Provider: MICHELLE CRAFT Exam/Review of Systems Vital Signs Vitals Vital Signs Date Time Temp Pulse Resp B/P Pulse Ox O2 Delivery O2 Flow Rate FiO2 05/24/17 16:02 71 05/24/17 16:01 98.3 20 142/65 94 05/24/17 13:35 3.0 05/24/17 13:35 Nasal Cannula Intake and Output 05/23/17 05/23/17 05/24/17 15:00 23:00 07:00 Intake Total 200 ml 400 ml Output Total 2000 ml 1400 ml Balance -1800 ml -1000 ml Results Result Diagram: 05/24/17 1053 05/24/17 1053 Results 24 hrs Laboratory Tests Test 05/24/17 07:04 05/24/17 10:53 Lab Scanned Report BLOOD TRANSFUSION White Blood Count 14.5 H Red Blood Count 2.74 L Hemoglobin 9.4 L Hematocrit 29.4 L Mean Corpuscular Volume 107.3 H Mean Corpuscular Hemoglobin 34.3 H Mean Corpuscular Hemoglobin Concent 32.0 Red Cell Distribution Width 23.0 H Platelet Count 87 L Mean Platelet Volume 10.9 H Neutrophils % 77.7 H Lymphocytes % 9.7 L Monocytes % 8.3 Eosinophils % 2.5 Basophils % 0.3 Nucleated Red Blood Cells % 0.1 H Neutrophils # 11.3 H Lymphocytes # 1.4 Monocytes # 1.2 H Eosinophils # 0.4 Basophils # 0.0 Nucleated Red Blood Cells # 0.0 Sodium Level 137 Potassium Level 3.9 Chloride Level 101 Carbon Dioxide Level 31 Anion Gap 9 Blood Urea Nitrogen 19 Creatinine 0.70 Glucose Level 87 Calcium Level 9.4 Phosphorus Level 2.9 Magnesium Level 1.7 Total Bilirubin 13.8 H Direct Bilirubin 4.60 #H Indirect Bilirubin 9.2 H Aspartate Amino Transf (AST/SGOT) 125 H Alanine Aminotransferase (ALT/SGPT) 65 Alkaline Phosphatase 117 Total Protein 6.4 Albumin 2.9 L Medications Medications Current Medications Morphine Sulfate 2 mg 2 mg Q4H PRN IV Pain Last administered on 05/23/17 00:08 ; Admin Dose 2 MG; Start 05/14/17 at 12:00 Cefepime HCl 50 ml @ 100 mls/hr Q12 IVPB Last administered on 05/24/17 08:47 ; Admin Dose 100 MLS/HR; Start 05/15/17 at 21:00 Levofloxacin/ Dextrose (Levaquin 250 Mg/ D5W 50 ml (Pmx)) 50 ml @ 50 mls/hr Q24H IVPB Last administered on 05/24/17 15:13; Admin Dose 50 MLS/HR; Start at 15:30 Rifaximin (Xifaxan) 550 mg BID PO Last administered on 05/24/17 08:49; Admin Dose 550 MG; Start 05/17/17 at 09:00 Lactulose (Enulose) 20 gm Q8 PO Last administered on 05/24/17 15:12; Admin Dose 20 GM; Start 05/17/17 at 08:00 Hydralazine HCl (Apresoline) 10 mg Q6H PRN IV SBP>160 Last administered on 05/19 09:43; Admin Dose 10 MG; Start 05/17/17 at 15:30 Diltiazem HCl (Cardizem Cd) 120 mg BID PO Last administered on 05/24/17 08:50 ; Admin Dose 120 MG; Start 05/20/17 at 21:00 Folic Acid (Folic Acid) 1 mg DAILY PO Last administered on 05/24/17 08:49; Admin Dose 1 MG; Start 05/21/17 at 11:00 Multivitamins Therapeutic (Theragran) 1 tab DAILY PO Last administered on 08:49; Admin Dose 1 TAB; Start 05/21/17 at 11:00 Thiamine HCl (Vitamin B1) 100 mg DAILY PO Last administered on 05/24/17 08:49 ; Admin Dose 100 MG; Start 05/21/17 at 11:00 Pantoprazole (Protonix Iv) 40 mg BID@06,18 IV Last administered on 05/24/17 17 :44; Admin Dose 40 MG; Start 05/21/17 at 18:00 Sodium Phosphate (Neutra-Phos) 250 mg BID PO Last administered on 05/24/17 08: 49; Admin Dose 250 MG; Start 05/23/17 at 10:00 Lorazepam (Ativan) 1 mg Q6H PRN PO AGITATION/ANXIETY; Start 05/24/17 at 16:30 JONI MCCONNELL NP May 24, 2017 18:13
[2017-05-25] VITALS (11 sets, daily range): BP systolic 109–138; BP diastolic 52–65; PULSE 70–84; RESP 16–21
[2017-05-25] MEDS: LACTULOSE 30ML CUP PO SCH ×3 (05:19→22:27)
[2017-05-25] MEDS: PANTOPRAZOLE 40 MG INJ IV SCH (05:19)
[2017-05-25] MEDS: FUROSEMIDE 40 MG INJ IV SCH ×2 (05:21→17:56)
[2017-05-25] MEDS: ALBUTEROL 0.083% (NEB) 2.5 MG/3 ML AMP HHN SCH ×3 (08:00→19:35)
[2017-05-25 08:03] LABS: CALCIUM 9.6 mg/dl (8.4-10.2); CREATININE 0.74 mg/dl (0.61-1.24); MAGNESIUM 1.6 mg/dl (1.7-2.5); PHOSPHORUS 3.2 mg/dl (2.5-4.9); POTASSIUM 3.8 mmol/L (3.5-5.1)
[2017-05-25] MEDS: CEFEPIME 2GM/50 ML (PMX) 50 ML IVPB SCH ×2 (08:56→22:16)
[2017-05-25] MEDS: MULTIVITAMINS THERAPEUTIC TAB PO SCH (09:21)
[2017-05-25] MEDS: FOLIC ACID 1 MG TAB PO SCH (09:21)
[2017-05-25] MEDS: RIFAXIMIN 550 MG TAB PO SCH ×2 (09:21→22:27)
[2017-05-25] MEDS: THIAMINE 100 MG TAB PO SCH (09:21)
[2017-05-25] MEDS: NEUTRA-PHOS 250 MG PACKET PO SCH ×2 (09:22→21:00)
[2017-05-25] MEDS: DILTIAZEM (CD) 120 MG CAP PO SCH ×2 (09:22→22:15)
[2017-05-25] MEDS ORDERED: MAGNESIUM SULFATE 2 GM/50 ML 50 ML IVPB ONE (10:30)
--- NOTE | 2017-05-25 11:05 | PN ---
Date/Time of Note Date/Time of Note DATE: 05/25/17 TIME: 11:01 Assessment/Plan VTE Prophylaxis VTE Prophylaxis Intervention: other Lines/Catheters IV [facility]ter Type (from [facility]): Saline Lock Urinary Cath still in place: No Assessment/Plan Problems: (1) Paroxysmal atrial fibrillation Status: Acute Comment: Stable and presently in sinus rhythm (2) Pleural effusion, left Status: Acute Comment: Repeat ultrasound-guided thoracentesis tomorrow for therapeutic and diagnostic reasons (3) Alcoholism Status: Chronic Comment: Stable off of alcohol. No evidence of DTs or withdrawal (4) Cirrhosis Status: Chronic Comment: Fairly significant cirrhosis. Continue observation and monitor Qualifiers: Hepatic cirrhosis type: alcoholic cirrhosis Ascites presence: with ascites Qualified Code: K70.31 - Alcoholic cirrhosis of liver with ascites (5) Diastolic CHF, acute on chronic Status: Chronic Comment: Improved. Continue diuresis (6) Severe anemia Status: Acute Comment: Stable (7) Altered level of consciousness Status: Acute Comment: This waxes and wanes along with his cirrhosis he is on rifaximin and lactulose Subjective 24 Hr Interval Summary Free Text/Dictation Patient is arousable but declines to have a conversation today Constitutional: no complaints Respiratory: no complaints Cardiovascular: no complaints Gastrointestinal: no complaints Genitourinary: no complaints Exam/Review of Systems Vital Signs Vitals Vital Signs Date Time Temp Pulse Resp B/P Pulse Ox O2 Delivery O2 Flow Rate FiO2 05/25/17 08:15 Nasal Cannula 3.0 05/25/17 08:08 77 05/25/17 07:28 98.5 18 138/65 97 Intake and Output 05/24/17 05/24/17 05/25/17 15:00 23:00 07:00 Intake Total 500 ml 800 ml Output Total 2000 ml 150 ml Balance -1500 ml 650 ml Exam Constitutional: alert, oriented Neck: non-tender, supple Respiratory: diminished breath sounds (Left-sided), normal air movement Cardiovascular: nl pulses, regular rate and rhythm Results Result Diagram: 05/24/17 1053 05/25/17 0612 Results 24 hrs Laboratory Tests Test 05/25/17 05:24 05/25/17 06:12 Lab Scanned Report BLOOD TRANSFUSION Sodium Level 140 Potassium Level 3.8 Chloride Level 102 Carbon Dioxide Level 30 Anion Gap 12 Blood Urea Nitrogen 21 H Creatinine 0.74 Glucose Level 77 Calcium Level 9.6 Phosphorus Level 3.2 Magnesium Level 1.6 L Medications Medications Current Medications Morphine Sulfate 2 mg 2 mg Q4H PRN IV Pain Last administered on 05/23/17 00:08 ; Admin Dose 2 MG; Start 05/14/17 at 12:00 Cefepime HCl 50 ml @ 100 mls/hr Q12 IVPB Last administered on 05/25/17 08:56 ; Admin Dose 100 MLS/HR; Start 05/15/17 at 21:00 Levofloxacin/ Dextrose (Levaquin 250 Mg/ D5W 50 ml (Pmx)) 50 ml @ 50 mls/hr Q24H IVPB Last administered on 05/24/17 15:13; Admin Dose 50 MLS/HR; Start at 15:30 Rifaximin (Xifaxan) 550 mg BID PO Last administered on 05/25/17 09:21; Admin Dose 550 MG; Start 05/17/17 at 09:00 Lactulose (Enulose) 20 gm Q8 PO Last administered on 05/25/17 05:19; Admin Dose 20 GM; Start 05/17/17 at 08:00 Hydralazine HCl (Apresoline) 10 mg Q6H PRN IV SBP>160 Last administered on 05/19 09:43; Admin Dose 10 MG; Start 05/17/17 at 15:30 Diltiazem HCl (Cardizem Cd) 120 mg BID PO Last administered on 05/25/17 09:22 ; Admin Dose 120 MG; Start 05/20/17 at 21:00 Folic Acid (Folic Acid) 1 mg DAILY PO Last administered on 05/25/17 09:21; Admin Dose 1 MG; Start 05/21/17 at 11:00 Multivitamins Therapeutic (Theragran) 1 tab DAILY PO Last administered on 09:21; Admin Dose 1 TAB; Start 05/21/17 at 11:00 Thiamine HCl (Vitamin B1) 100 mg DAILY PO Last administered on 05/25/17 09:21 ; Admin Dose 100 MG; Start 05/21/17 at 11:00 Pantoprazole (Protonix Iv) 40 mg BID@,18 IV Last administered on 05/25/17 05 :19; Admin Dose 40 MG; Start 6/21/17 at 18:00 Sodium Phosphate (Neutra-Phos) 250 mg BID PO Last administered on 05/25/17 09: 22; Admin Dose 250 MG; Start 05/23/17 at 10:00 Lorazepam 1 mg 1 mg Q6H PRN PO AGITATION/ANXIETY; Start 05/24/17 at 16:30 Magnesium Sulfate (Magnesium Sulfate 2 Gm/50 ml) 50 ml @ 25 mls/hr ONCE ONCE IVPB Last administered on 05/25/17 10:51; Admin Dose 25 MLS/HR; Start at 10:30; Stop 05/25/17 at 12:29 ENID JUDGE MD May 25, 2017 11:05
--- NOTE | 2017-05-25 11:15 | PN ---
Date/Time of Note Date/Time of Note DATE: 05/25/17 TIME: 11:12 Assessment/Plan VTE Prophylaxis VTE Prophylaxis Intervention: contraindicated VTE Contraindication Reason: bleeding Lines/Catheters IV Catheter Type (from Nrs): Saline Lock Urinary Cath still in place: No Assessment/Plan Assessment/Plan Assessment * Liver failure,acute * Anemia EGD . Distal erosive esophagitis. . 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 No evidence of significant esophageal varices. Gastritis. Rule out Helicobacter pylori infection. * Cirrhosis of liver * History of alcoholic abuse * Atrial fibrillation resolved Plan * trend liver enzymes * Monitor hemoglobin and hematocrit Q 6 transfuse per protocol * continue Protonix 40 mg bid * Continue present management * Case discussed with Dr Newton * Further orders will depend on clinical course Subjective 24 Hr Interval Summary Free Text/Dictation * Course reviewed with RN * Patient seen and examined * More awake and coherent Exam/Review of Systems Vital Signs Vitals Vital Signs Date Time Temp Pulse Resp B/P Pulse Ox O2 Delivery O2 Flow Rate FiO2 05/25/17 08:15 Nasal Cannula 3.0 05/25/17 08:08 77 05/25/17 07:28 98.5 18 138/65 97 Intake and Output 05/24/17 05/24/17 05/25/17 15:00 23:00 07:00 Intake Total 500 ml 800 ml Output Total 2000 ml 150 ml Balance -1500 ml 650 ml Exam Constitutional: alert, frail Head: atraumatic, normocephalic Eyes: icteric, nl conjunctiva Neck: non-tender, supple Respiratory: diminished breath sounds, normal air movement Cardiovascular: nl pulses, regular rate and rhythm Gastrointestinal: bowel sounds, distended, soft, No rebound or guarding Musculoskeletal: muscle weakness, swelling Extremities: normal pulses Neurological: nl speech Skin: nl turgor, other (jaundice) Results Result Diagram: 05/24/17 1053 05/25/17 0612 Results 24 hrs Laboratory Tests Test 05/25/17 05:24 05/25/17 06:12 Lab Scanned Report BLOOD TRANSFUSION Sodium Level 140 Potassium Level 3.8 Chloride Level 102 Carbon Dioxide Level 30 Anion Gap 12 Blood Urea Nitrogen 21 H Creatinine 0.74 Glucose Level 77 Calcium Level 9.6 Phosphorus Level 3.2 Magnesium Level 1.6 L Medications Medications Current Medications Morphine Sulfate 2 mg 2 mg Q4H PRN IV Pain Last administered on 6/23/17at 00:08 ; Admin Dose 2 MG; Start 05/14/17 at 12:00 Cefepime HCl 50 ml @ 100 mls/hr Q12 IVPB Last administered on 05/25/17 08:56 ; Admin Dose 100 MLS/HR; Start 05/15/17 at 21:00 Levofloxacin/ Dextrose (Levaquin 250 Mg/ D5W 50 ml (Pmx)) 50 ml @ 50 mls/hr Q24H IVPB Last administered on 05/24/17 15:13; Admin Dose 50 MLS/HR; Start at 15:30 Rifaximin (Xifaxan) 550 mg BID PO Last administered on 05/25/17 09:21; Admin Dose 550 MG; Start 05/17/17 at 09:00 Lactulose (Enulose) 20 gm Q8 PO Last administered on 05/25/17 05:19; Admin Dose 20 GM; Start 05/17/17 at 08:00 Hydralazine HCl (Apresoline) 10 mg Q6H PRN IV SBP>160 Last administered on 05/19 09:43; Admin Dose 10 MG; Start 05/17/17 at 15:30 Diltiazem HCl (Cardizem Cd) 120 mg BID PO Last administered on 05/25/17 09:22 ; Admin Dose 120 MG; Start 05/20/17 at 21:00 Folic Acid (Folic Acid) 1 mg DAILY PO Last administered on 05/25/17 09:21; Admin Dose 1 MG; Start 05/21/17 at 11:00 Multivitamins Therapeutic (Theragran) 1 tab DAILY PO Last administered on 09:21; Admin Dose 1 TAB; Start 05/21/17 at 11:00 Thiamine HCl (Vitamin B1) 100 mg DAILY PO Last administered on 05/25/17 09:21 ; Admin Dose 100 MG; Start 05/21/17 at 11:00 Pantoprazole (Protonix Iv) 40 mg BID@06,18 IV Last administered on 05/25/17 05 :19; Admin Dose 40 MG; Start 05/21/17 at 18:00 Sodium Phosphate (Neutra-Phos) 250 mg BID PO Last administered on 05/25/17 09: 22; Admin Dose 250 MG; Start 05/23/17 at 10:00 Lorazepam 1 mg 1 mg Q6H PRN PO AGITATION/ANXIETY; Start 05/24/17 at 16:30 Magnesium Sulfate (Magnesium Sulfate 2 Gm/50 ml) 50 ml @ 25 mls/hr ONCE ONCE IVPB Last administered on 05/25/17t 10:51; Admin Dose 25 MLS/HR; Start at 10:30; Stop 05/25/17 at 12:29 Cyanocobalamin (Vitamin B12) 1,000 mcg DAILY PO ; Start 05/25/17 at 11:30 Phytonadione (Vitamin K) 10 mg ONCE ONCE IM ; Start 05/25/17 at 11:30; Stop at 11:31 JUAN SR NP May 25, 2017 11:14
[2017-05-25] MEDS ORDERED: PHYTONADIONE 10 MG/ML INJ IM ONE (11:30)
[2017-05-25] MEDS: CYANOCOBALAMIN 500 MCG TAB PO SCH ×2 (12:22→13:29)
--- NOTE | 2017-05-25 14:49 | PN ---
DATE: 05/25/2017 SUBJECTIVE: The patient is stable, no acute events overnight. No fevers, chills, nausea, vomiting. OBJECTIVE: VITAL SIGNS: Blood pressure 130/65, respiration 18, pulse 67, temperature 98.8. HEENT: Head is normocephalic. NECK: Supple. HEART: Regular rate. LUNGS: Show diminished breath sounds at base. ABDOMEN: Soft, nontender to palpation without rebound or guarding. EXTREMITIES: Negative for clubbing, cyanosis, no edema. DERMATOLOGIC: No rashes. MUSCULOSKELETAL: No joint effusions. NEUROLOGIC: No change in exam. MEDICATIONS: The patient's medications have been reviewed. LABORATORY DATA: Shows sodium 140, potassium 3.8, BUN 21, creatinine 0.71, magnesium is 1.6. White count 14.5, hemoglobin 9.4, hematocrit 29.4, platelet count is 87. ASSESSMENT AND PLAN: 1. Nonoliguric acute kidney injury with unknown baseline creatinine. Etiology secondary to hemodyn amics. Renal function stabilized. 2. Volume overload. Patient is clinically improving. Continue diuretic regimen. 3. Hypomagnesemia, replete with magnesium sulfate. 4. Anemia without gastrointestinal bleed. Continue to monitor hemoglobin and hematocrit levels. 6. Mineral bone disorder, continue to monitor calcium and phosphorus levels. 7. Transaminitis hyperbilirubinemia secondary ETOH liver disease. Continue to monitor. 8. Atrial fibrillation, rate controlled. 9. Acute encephalopathy, improving. 10. Sepsis secondary to bacteremia. Continue antibiotic regimen. 11. History of ETOH abuse. Dictated By: ESTEFANIA NAVARRO/ALLI Conf#: [id number] DID#: [id number]
[2017-05-25] MEDS: LEVOFLOXACIN 250MG/D5W (PMX) 50 ML IVPB SCH (15:05)
--- NOTE | 2017-05-25 16:35 | PN ---
DATE: 05/25/2017 SUBJECTIVE: Chart reviewed. No significant changes. The patient on 3 liters O2 nasal cannula, sat urating 96%. PHYSICAL EXAMINATION: VITAL SIGNS: Blood pressure 122/60, pulse 80, respirations 21, temperature 98.1. HEENT: Pupils are equal and reactive to light. NECK: Supple, no JVD noted, no cervical adenopathy, no carotid bruits heard. LUNGS: Fair breath sounds bilaterally. CARDIOVASCULAR: S1, S2 normal. ABDOMEN: Soft, nontender, nondistended. Positive bowel sounds. EXTREMITIES: No clubbing, cyanosis noted. NEUROLOGIC: More awake. LABORATORY DATA: Sodium 140, potassium 3.8, chloride 102, CO2 30, BUN 21, creatinine 0.74, glucose 77, bilirubin is 13.8. IMPRESSION: 1. End-stage liver disease with alcoholic cirrhosis. 2. Encephalopathy, slightly improving. 3. Deconditioning. 4. Anemia. 5. Thrombocytopenia. 6. Status post upper gastrointestinal bleed. RECOMMENDATIONS: 1. Continue current treatment. 2. Gastrointestinal followup noted. 3. Above discussed with the staff. Dictated By: CHRISTINA SAWYER MD, MA/ALLI Conf#: [id number] DID#: [id number]
[2017-05-25] MEDS: PANTOPRAZOLE (EC) 40 MG TAB PO SCH (17:56)
--- NOTE | 2017-05-25 18:09 | CONS ---
Date/Time of Note Date/Time of Note DATE: 05/25/17 TIME: 18:08 Assessment/Plan Assessment/Plan Chief Complaint/Hosp Course SUBJECTIVE: No events overnight. The patient looks comfortable, no fevers. ANTIMICROBIALS: 1. Cefepime. 2. Levaquin day #11. PHYSICAL EXAMINATION: GENERAL: This is a fragile, chronically ill-appearing, middle-aged man who is in no distress. HEENT: Head atraumatic, normocephalic. Sclerae anicteric. Buccal mucosa dry. NECK: Supple, trachea midline. CHEST: Rise symmetrical. Breath sounds diminished to bases. HEART: S1, S2. ABDOMEN: Soft, bowel sounds present. EXTREMITIES: No cyanosis. ASSESSMENT: 1. Resolving sepsis. 2. Resolving pneumonia 3. Hepatic encephalopathy 4. Anemia with thrombocytopenia. 5. Paroxysmal atrial fibrillation. 6. Alcoholic liver cirrhosis with history of alcohol abuse. PLAN: Stable, will dc abx in am and observe. DW staff Problems: Consultation Date/Type/Reason Admit Date/Time May 13, 2017 at 22:29 Initial Consult Date 05/14/17 Type of Consultation: id Referring Provider: MICHELLE CRAFT Exam/Review of Systems Vital Signs Vitals Vital Signs Date Time Temp Pulse Resp B/P Pulse Ox O2 Delivery O2 Flow Rate FiO2 05/25/17 16:06 76 05/25/17 15:22 98.6 16 137/61 96 05/25/17 14:00 3.0 05/25/17 08:15 Nasal Cannula Intake and Output 05/24/17 05/24/17 05/25/17 15:00 23:00 07:00 Intake Total 500 ml 800 ml Output Total 2000 ml 150 ml Balance -1500 ml 650 ml Results Result Diagram: 05/24/17 1053 05/25/17 0612 Results 24 hrs Laboratory Tests Test 05/25/17 05:24 05/25/17 06:12 Lab Scanned Report BLOOD TRANSFUSION Sodium Level 140 Potassium Level 3.8 Chloride Level 102 Carbon Dioxide Level 30 Anion Gap 12 Blood Urea Nitrogen 21 H Creatinine 0.74 Glucose Level 77 Calcium Level 9.6 Phosphorus Level 3.2 Magnesium Level 1.6 L Medications Medications Current Medications Morphine Sulfate 2 mg 2 mg Q4H PRN IV Pain Last administered on 05/23/17t 00:08 ; Admin Dose 2 MG; Start 05/14/17 at 12:00 Cefepime HCl 50 ml @ 100 mls/hr Q12 IVPB Last administered on 05/25/17 08:56 ; Admin Dose 100 MLS/HR; Start 05/15/17 at 21:00 Levofloxacin/ Dextrose (Levaquin 250 Mg/ D5W 50 ml (Pmx)) 50 ml @ 50 mls/hr Q24H IVPB Last administered on 05/25/17 15:05; Admin Dose 50 MLS/HR; Start at 15:30 Rifaximin (Xifaxan) 550 mg BID PO Last administered on 05/25/17 09:21; Admin Dose 550 MG; Start 05/17/17 at 09:00 Lactulose (Enulose) 20 gm Q8 PO Last administered on 05/25/17 15:04; Admin Dose 20 GM; Start 05/17/17 at 08:00 Hydralazine HCl (Apresoline) 10 mg Q6H PRN IV SBP>160 Last administered on 05/19 09:43; Admin Dose 10 MG; Start 05/17/17 at 15:30 Diltiazem HCl (Cardizem Cd) 120 mg BID PO Last administered on 05/25/17 09:22 ; Admin Dose 120 MG; Start 05/20/17 at 21:00 Folic Acid (Folic Acid) 1 mg DAILY PO Last administered on 05/25/17 09:21; Admin Dose 1 MG; Start 05/21/17 at 11:00 Multivitamins Therapeutic (Theragran) 1 tab DAILY PO Last administered on 09:21; Admin Dose 1 TAB; Start 05/21/17 at 11:00 Thiamine HCl (Vitamin B1) 100 mg DAILY PO Last administered on 05/25/17 09:21 ; Admin Dose 100 MG; Start 05/21/17 at 11:00 Sodium Phosphate (Neutra-Phos) 250 mg BID PO Last administered on 05/25/17 09: 22; Admin Dose 250 MG; Start 05/23/17 at 10:00 Lorazepam (Ativan) 1 mg Q6H PRN PO AGITATION/ANXIETY; Start 05/24/17 at 16:30 Cyanocobalamin (Vitamin B12) 1,000 mcg DAILY PO Last administered on 05/25/17 13:29; Admin Dose 1,000 MCG; Start 05/25/17 at 11:30 Pantoprazole (Protonix Tab) 40 mg BID@06,18 PO Last administered on 05/25/17t 17:56; Admin Dose 40 MG; Start 05/25/17 at 18:00 KARL NGUYEN NP May 25, 2017 18:09
[2017-05-26] VITALS (12 sets, daily range): BP systolic 112–131; BP diastolic 56–61; PULSE 66–74; RESP 18–20
[2017-05-26] MEDS: PANTOPRAZOLE (EC) 40 MG TAB PO SCH ×2 (05:44→17:25)
[2017-05-26] MEDS: LACTULOSE 30ML CUP PO SCH ×3 (05:45→21:11)
[2017-05-26] MEDS: FUROSEMIDE 40 MG INJ IV SCH (05:50)
[2017-05-26] MEDS: ALBUTEROL 0.083% (NEB) 2.5 MG/3 ML AMP HHN SCH ×3 (07:36→20:17)
--- NOTE | 2017-05-26 08:31 | PN ---
Date/Time of Note Date/Time of Note DATE: 05/26/17 TIME: 08:29 Assessment/Plan VTE Prophylaxis VTE Prophylaxis Intervention: SCD's Lines/Catheters IV Catheter Type (from Nrs): Saline Lock Urinary Cath still in place: No Assessment/Plan Assessment/Plan Severe anemia status post multiple transfusions Liver failure Acute decompensated diastolic congestive heart failure Coagulopathy Encephalopathy, improved Thrombocytopenia Preserved ejection fraction History of hypertension Acute kidney injury Paroxysmal atrial fibrillation Respiratory failure -Patient remains in sinus rhythm, continue p.o. Cardizem. -No anticoagulation given thrombocytopenia, coagulopathy and liver failure. -Continue diuretics as blood pressure and renal function permits. -negative i/o, renal involved, bun/creat stable Subjective 24 Hr Interval Summary Free Text/Dictation The patient with no change Exam/Review of Systems Vital Signs Vitals Vital Signs Date Time Temp Pulse Resp B/P Pulse Ox O2 Delivery O2 Flow Rate FiO2 05/26/17 08:25 66 05/26/17 07:42 98.1 18 131/61 97 05/26/17 02:08 3.0 05/25/17 20:00 Nasal Cannula Intake and Output 05/25/17 05/25/17 05/26/17 15:00 23:00 07:00 Intake Total 100 ml 520 ml Output Total 1150 ml Balance 100 ml -630 ml Results Result Diagram: 05/24/17 1053 05/25/17 0612 Medications Medications Current Medications Morphine Sulfate (morphine) 2 mg Q4H PRN IV Pain Last administered on 00:08; Admin Dose 2 MG; Start 05/14/17 at 12:00 Rifaximin (Xifaxan) 550 mg BID PO Last administered on 05/25/17 22:27; Admin Dose 550 MG; Start 05/17/17 at 09:00 Lactulose (Enulose) 20 gm Q8 PO Last administered on 05/26/17 05:45; Admin Dose 20 GM; Start 05/17/17 at 08:00 Hydralazine HCl (Apresoline) 10 mg Q6H PRN IV SBP>160 Last administered on 05/19 09:43; Admin Dose 10 MG; Start 05/17/17 at 15:30 Diltiazem HCl (Cardizem Cd) 120 mg BID PO Last administered on 05/25/17 22:15 ; Admin Dose 120 MG; Start 05/20/17 at 21:00 Folic Acid (Folic Acid) 1 mg DAILY PO Last administered on 05/25/17 09:21; Admin Dose 1 MG; Start 05/21/17 at 11:00 Multivitamins Therapeutic (Theragran) 1 tab DAILY PO Last administered on 09:21; Admin Dose 1 TAB; Start 05/21/17 at 11:00 Thiamine HCl (Vitamin B1) 100 mg DAILY PO Last administered on 05/25/17 09:21 ; Admin Dose 100 MG; Start 05/21/17 at 11:00 Sodium Phosphate (Neutra-Phos) 250 mg BID PO Last administered on 05/25/17 21: 00; Admin Dose 250 MG; Start 05/23/17 at 10:00 Lorazepam (Ativan) 1 mg Q6H PRN PO AGITATION/ANXIETY; Start 05/24/17 at 16:30 Cyanocobalamin (Vitamin B12) 1,000 mcg DAILY PO Last administered on 05/25/17 13:29; Admin Dose 1,000 MCG; Start 05/25/17 at 11:30 Pantoprazole (Protonix Tab) 40 mg BID@,18 PO Last administered on 05/26/17 05:44; Admin Dose 40 MG; Start 05/25/17 at 18:00 ANGELA ALTMAN MD May 26, 2017 08:30
[2017-05-26 08:40] LABS: CALCIUM 10.2 mg/dl (8.4-10.2); CREATININE 0.7 mg/dl (0.61-1.24); MAGNESIUM 1.7 mg/dl (1.7-2.5); PHOSPHORUS 2.9 mg/dl (2.5-4.9); POTASSIUM 3.7 mmol/L (3.5-5.1)
[2017-05-26] MEDS: RIFAXIMIN 550 MG TAB PO SCH ×2 (10:06→21:11)
[2017-05-26] MEDS: FOLIC ACID 1 MG TAB PO SCH (10:06)
[2017-05-26] MEDS: MULTIVITAMINS THERAPEUTIC TAB PO SCH (10:07)
[2017-05-26] MEDS: CYANOCOBALAMIN 500 MCG TAB PO SCH (10:07)
[2017-05-26] MEDS: THIAMINE 100 MG TAB PO SCH (10:07)
[2017-05-26] MEDS: DILTIAZEM (CD) 120 MG CAP PO SCH ×2 (10:08→21:11)
[2017-05-26] MEDS: NEUTRA-PHOS 250 MG PACKET PO SCH ×2 (10:08→22:31)
--- NOTE | 2017-05-26 13:21 | CONS ---
Date/Time of Note Date/Time of Note DATE: 05/26/17 TIME: 13:18 Assessment/Plan Assessment/Plan Additional Assessment/Plan Assessment recommendations; 1. Patient admitted with pneumonia with marked clinical and radiological improvement. 2. History of severe alcoholic liver disease patient remains strongly icteric. 3. Hepatic encephalopathy with marked interval improvement. 4. Anemia. Continue current treatment. Patient taken off antibiotics now. May benefit from transfer to rehab center. Consultation Date/Type/Reason Admit Date/Time May 13, 2017 at 22:29 Initial Consult Date 05/14/17 Type of Consultation: Pulmonary Referring Provider: MICHELLE CRAFT 24 HR Interval Summary Free Text/Dictation Patient condition stable. Denies any shortness of breath, chest pain, dysphagia. General exam; middle-aged male, awake alert currently in no distress. Exam/Review of Systems Vital Signs Vitals Vital Signs Date Time Temp Pulse Resp B/P Pulse Ox O2 Delivery O2 Flow Rate FiO2 05/26/17 12:11 72 05/26/17 11:37 97.5 19 126/59 98 05/26/17 08:05 Nasal Cannula 3.0 Intake and Output 05/25/17 05/25/17 05/26/17 15:00 23:00 07:00 Intake Total 100 ml 520 ml Output Total 1150 ml Balance 100 ml -630 ml Exam HEENT exam; supple neck, no JVD. No lymphadenopathy. Midline trachea. No thyromegaly. Pupils are small and equal bilaterally. Patient remains strongly icteric. Patient has fair dentition. Chest examination; clear to auscultation. S1-S2 audible, no murmurs. Regular rhythm. Abdomen examination; soft, no organomegaly. Bowel disorder. Extremity exam; no peripheral edema. Pulses 2+ bilaterally. No clubbing. GRADES 6 THROUGH 8 TEACHER examination; no focal deficit. Results Result Diagram: 05/24/17 1053 05/26/17 0700 Results 24 hrs Laboratory Tests Test 05/26/17 07:00 Sodium Level 140 Potassium Level 3.7 Chloride Level 102 Carbon Dioxide Level 33 H Anion Gap 9 Blood Urea Nitrogen 20 Creatinine 0.70 Glucose Level 97 Calcium Level 10.2 Phosphorus Level 2.9 Magnesium Level 1.7 Medications Medications Current Medications Morphine Sulfate (morphine) 2 mg Q4H PRN IV Pain Last administered on t 00:08; Admin Dose 2 MG; Start 05/14/17 at 12:00 Rifaximin (Xifaxan) 550 mg BID PO Last administered on 05/26/17 10:06; Admin Dose 550 MG; Start 05/17/17 at 09:00 Lactulose (Enulose) 20 gm Q8 PO Last administered on 05/26/17 05:45; Admin Dose 20 GM; Start 05/17/17 at 08:00 Hydralazine HCl (Apresoline) 10 mg Q6H PRN IV SBP>160 Last administered on 05/19 09:43; Admin Dose 10 MG; Start 05/17/17 at 15:30 Diltiazem HCl (Cardizem Cd) 120 mg BID PO Last administered on 05/26/17 10:08 ; Admin Dose 120 MG; Start 05/20/17 at 21:00 Folic Acid (Folic Acid) 1 mg DAILY PO Last administered on 05/26/17 10:06; Admin Dose 1 MG; Start 05/21/17 at 11:00 Multivitamins Therapeutic (Theragran) 1 tab DAILY PO Last administered on 10:07; Admin Dose 1 TAB; Start 05/21/17 at 11:00 Thiamine HCl (Vitamin B1) 100 mg DAILY PO Last administered on 05/26/17 10:07 ; Admin Dose 100 MG; Start 05/21/17 at 11:00 Sodium Phosphate (Neutra-Phos) 250 mg BID PO Last administered on 05/26/17 10: 08; Admin Dose 250 MG; Start 05/23/17 at 10:00 Lorazepam (Ativan) 1 mg Q6H PRN PO AGITATION/ANXIETY; Start 05/24/17 at 16:30 Cyanocobalamin (Vitamin B12) 1,000 mcg DAILY PO Last administered on 05/26/17 10:07; Admin Dose 1,000 MCG; Start 05/25/17 at 11:30 Pantoprazole (Protonix Tab) 40 mg BID@,18 PO Last administered on 05/26/17 05:44; Admin Dose 40 MG; Start 05/25/17 at 18:00 Furosemide (Lasix) 20 mg DAILY PO ; Start 05/27/17 at 09:00 LUIS FERNANDO TAMAYO May 26, 2017 13:21
--- NOTE | 2017-05-26 13:25 | PN ---
DATE: 05/26/2017 SUBJECTIVE: The patient is stable, no acute events overnight. No fevers, chills, nausea, vomiting, no shortness of breath. OBJECTIVE: VITAL SIGNS: Blood pressure is 130/61, respiration 18, pulse 64, temperature 98.1. HEENT: Head is normocephalic. NECK: Supple. HEART: Regular rate. LUNGS: Show diminished breath sounds at the base. ABDOMEN: Soft, nontender to palpation. No rebound or guarding. EXTREMITIES: Negative for clubbing or cyanosis. Trace edema. DERMATOLOGIC: No rashes. MUSCULOSKELETAL: No joint effusions. NEUROLOGIC: No change in exam. MEDICATIONS: The patient's medications have been reviewed. LABORATORY DATA: White count 14.5, hemoglobin 9.4, hematocrit of 29.4, platelet count 87. Sodium 1 40, potassium 3.7, BUN 20, creatinine 0.7. ASSESSMENT AND PLAN: 1. Nonoliguric acute kidney injury with unknown baseline creatinine. Etiology secondary to hemodyn amics. Renal function has stabilized. Continue current treatment, supportive care, renally dose al l medicines. 2. Volume overload, improving. We will discontinue Lasix at 40 IV b.i.d. and continue Lasix 20 mg daily. 3. Hypomagnesemia. Continue to monitor and replete. 4. Anemia. Continue to monitor hemoglobin and hematocrit levels. 5. Mineral bone disorder. Continue to monitor calcium and phosphorus levels. 6. Transaminitis and hyperbilirubinemia secondary to alcoholic liver disease. Continue to monitor. 7. Atrial fibrillation, rate controlled. Continue medical management. 8. Acute encephalopathy, improving. 9. Sepsis secondary to bacteremia. Continue antibiotic regimen. 10. History of ethyl alcohol use. Dictated By: ESTEFANIA NAVARRO/ALLI Conf#: [id number] DID#: [id number]
--- NOTE | 2017-05-26 13:51 | CONS ---
Date/Time of Note Date/Time of Note DATE: 05/26/17 TIME: 13:51 Assessment/Plan Assessment/Plan Chief Complaint/Hosp Course SUBJECTIVE: No events overnight. The patient looks comfortable, no fevers. PHYSICAL EXAMINATION: GENERAL: This is a fragile, chronically ill-appearing, middle-aged man who is in no distress. HEENT: Head atraumatic, normocephalic. Sclerae anicteric. Buccal mucosa dry. NECK: Supple, trachea midline. CHEST: Rise symmetrical. Breath sounds diminished to bases. HEART: S1, S2. ABDOMEN: Soft, bowel sounds present. EXTREMITIES: No cyanosis. ASSESSMENT: 1. Resolving sepsis. 2. Resolving pneumonia 3. Hepatic encephalopathy 4. Anemia with thrombocytopenia. 5. Paroxysmal atrial fibrillation. 6. Alcoholic liver cirrhosis with history of alcohol abuse. PLAN: Remains stable, completed abx, will reculture prn DW staff Problems: Consultation Date/Type/Reason Admit Date/Time May 13, 2017 at 22:29 Initial Consult Date 05/14/17 Type of Consultation: id Referring Provider: MICHELLE CRAFT Exam/Review of Systems Vital Signs Vitals Vital Signs Date Time Temp Pulse Resp B/P Pulse Ox O2 Delivery O2 Flow Rate FiO2 05/26/17 12:11 72 05/26/17 11:37 97.5 19 126/59 98 05/26/17 08:05 Nasal Cannula 3.0 Intake and Output 05/25/17 05/25/17 05/26/17 15:00 23:00 07:00 Intake Total 100 ml 520 ml Output Total 1150 ml Balance 100 ml -630 ml Results Result Diagram: 05/24/17 1053 05/26/17 0700 Results 24 hrs Laboratory Tests Test 05/26/17 07:00 Sodium Level 140 Potassium Level 3.7 Chloride Level 102 Carbon Dioxide Level 33 H Anion Gap 9 Blood Urea Nitrogen 20 Creatinine 0.70 Glucose Level 97 Calcium Level 10.2 Phosphorus Level 2.9 Magnesium Level 1.7 Medications Medications Current Medications Morphine Sulfate (morphine) 2 mg Q4H PRN IV Pain Last administered on 00:08; Admin Dose 2 MG; Start 05/14/17 at 12:00 Rifaximin (Xifaxan) 550 mg BID PO Last administered on 05/26/17 10:06; Admin Dose 550 MG; Start 05/17/17 at 09:00 Lactulose (Enulose) 20 gm Q8 PO Last administered on 05/26/17 05:45; Admin Dose 20 GM; Start 05/17/17 at 08:00 Hydralazine HCl (Apresoline) 10 mg Q6H PRN IV SBP>160 Last administered on 05/19 09:43; Admin Dose 10 MG; Start 05/17/17 at 15:30 Diltiazem HCl (Cardizem Cd) 120 mg BID PO Last administered on 05/26/17 10:08 ; Admin Dose 120 MG; Start 05/20/17 at 21:00 Folic Acid (Folic Acid) 1 mg DAILY PO Last administered on 05/26/17 10:06; Admin Dose 1 MG; Start 05/21/17 at 11:00 Multivitamins Therapeutic (Theragran) 1 tab DAILY PO Last administered on 10:07; Admin Dose 1 TAB; Start 05/21/17 at 11:00 Thiamine HCl (Vitamin B1) 100 mg DAILY PO Last administered on 05/26/17 10:07 ; Admin Dose 100 MG; Start 05/21/17 at 11:00 Sodium Phosphate (Neutra-Phos) 250 mg BID PO Last administered on 05/26/17 10: 08; Admin Dose 250 MG; Start 05/23/17 at 10:00 Lorazepam (Ativan) 1 mg Q6H PRN PO AGITATION/ANXIETY; Start 05/24/17 at 16:30 Cyanocobalamin (Vitamin B12) 1,000 mcg DAILY PO Last administered on 05/26/17 10:07; Admin Dose 1,000 MCG; Start 05/25/17 at 11:30 Pantoprazole (Protonix Tab) 40 mg BID@,18 PO Last administered on 05/26/17 05:44; Admin Dose 40 MG; Start 05/25/17 at 18:00 Furosemide (Lasix) 20 mg DAILY PO ; Start 05/27/17 at 09:00 KARL NGUYEN NP May 26, 2017 13:51
[2017-05-26] MEDS ORDERED: HYDROCODONE/APAP (7.5/325) TAB PO PRN (15:00)
[2017-05-26] MEDS ORDERED: morphine 2 MG INJ IV PRN (16:00)
[2017-05-26 16:08] LABS: INR 3.08; PROTIME 32.2 Sec (12.2-14.2); PT RATIO 2.5
[2017-05-26 16:09] LABS: PARTIAL THROMBOPLASTIN TIME 43.9 Sec (25.0-35.0)
--- NOTE | 2017-05-26 18:02 | CONS ---
Date/Time of Note Date/Time of Note DATE: 05/26/17 TIME: 17:58 Assessment/Plan Assessment/Plan Additional Assessment/Plan 1. Acute encephalopathy -metabolic toxic type . Largely resolved. Most probably toxic metabolic in origin. 2. Macrocytic anemia. - 2/2 to ESLD - cardio clearance for EGD - may have varices?, appreciate GI c/s 3. Coagulopathy. 2/2 ESLD - stable - monitor for acute bleeding. 4. Alcoholic liver disease with transaminitis with hyperbilirubinemia. 5. Prerenal Nonoliguric acute kidney injury in a patient with unknown baseline creatinine. Largely resolved 6. Chronic Alcohol abuse. 7. Sepsis. Most probably secondary to aspiration pneumonia and Polymicrobial bacteremia. 8. Moderate to large left-sided pleural effusion with complete atelectasis of the left lower lobe and partial posterior atelectasis of the left upper lobe. Continue supplemental oxygen. 9. Paroxysmal A. fib. Currently in sinus rhythm. Off of Cardizem drip. Cardiology following. PLAN: Continue Protonix and octreotide drip s/p EGD showed Distal erosive esophagitis., Probable Souza's esophagus. IV abx per ID SCD for DVT prophylaxis Consultation Date/Type/Reason Admit Date/Time May 13, 2017 at 22:29 Initial Consult Date 05/14/17 Type of Consultation: NEPHROLOGY Referring Provider: MICHELLE CRAFT Exam/Review of Systems Vital Signs Vitals Vital Signs Date Time Temp Pulse Resp B/P Pulse Ox O2 Delivery O2 Flow Rate FiO2 05/26/17 16:05 73 05/26/17 15:44 97.8 19 130/60 97 05/26/17 14:06 Nasal Cannula 3.0 Intake and Output 05/25/17 05/25/17 05/26/17 15:00 23:00 07:00 Intake Total 100 ml 520 ml Output Total 1150 ml Balance 100 ml -630 ml Exam HEENT: Head is normocephalic. NECK: Supple. HEART: Regular rate. LUNGS: Show diminished breath sounds at base. ABDOMEN: Soft, nontender to palpation without rebound or guarding. EXTREMITIES: Negative for clubbing, cyanosis, no edema. DERMATOLOGIC: No rashes. MUSCULOSKELETAL: No joint effusions. NEUROLOGIC: No change in exam. Results Result Diagram: 05/24/17 1053 05/26/17 0700 Results 24 hrs Laboratory Tests Test 05/26/17 07:00 05/26/17 15:40 Sodium Level 140 Potassium Level 3.7 Chloride Level 102 Carbon Dioxide Level 33 H Anion Gap 9 Blood Urea Nitrogen 20 Creatinine 0.70 Glucose Level 97 Calcium Level 10.2 Phosphorus Level 2.9 Magnesium Level 1.7 Prothrombin Time 32.2 H Prothrombin Time Ratio 2.5 INR International Normalized Ratio 3.08 Activated Partial Thromboplast Time 43.9 H Medications Medications Current Medications Rifaximin (Xifaxan) 550 mg BID PO Last administered on 05/26/17 10:06; Admin Dose 550 MG; Start 05/17/17 at 09:00 Lactulose (Enulose) 20 gm Q8 PO Last administered on 05/26/17 14:27; Admin Dose 20 GM; Start 05/17/17 at 08:00 Hydralazine HCl (Apresoline) 10 mg Q6H PRN IV SBP>160 Last administered on 05/19 09:43; Admin Dose 10 MG; Start 05/17/17 at 15:30 Diltiazem HCl (Cardizem Cd) 120 mg BID PO Last administered on 05/26/17 10:08 ; Admin Dose 120 MG; Start 05/20/17 at 21:00 Folic Acid (Folic Acid) 1 mg DAILY PO Last administered on 05/26/17 10:06; Admin Dose 1 MG; Start 05/21/17 at 11:00 Multivitamins Therapeutic (Theragran) 1 tab DAILY PO Last administered on 10:07; Admin Dose 1 TAB; Start 05/21/17 at 11:00 Thiamine HCl (Vitamin B1) 100 mg DAILY PO Last administered on 05/26/17 10:07 ; Admin Dose 100 MG; Start 05/21/17 at 11:00 Sodium Phosphate (Neutra-Phos) 250 mg BID PO Last administered on 05/26/17 10: 08; Admin Dose 250 MG; Start 05/23/17 at 10:00 Lorazepam (Ativan) 1 mg Q6H PRN PO AGITATION/ANXIETY; Start 05/24/17 at 16:30 Cyanocobalamin (Vitamin B12) 1,000 mcg DAILY PO Last administered on 05/26/17 10:07; Admin Dose 1,000 MCG; Start 05/25/17 at 11:30 Pantoprazole (Protonix Tab) 40 mg BID@06,18 PO Last administered on 05/26/17 17:25; Admin Dose 40 MG; Start 05/25/17 at 18:00 Furosemide (Lasix) 20 mg DAILY PO ; Start 05/27/17 at 09:00 Morphine Sulfate (morphine) 1 mg Q4H PRN IV Pain; Start 05/26/17 at 16:00 Acetaminophen/ Hydrocodone Bitart ([place] (7.5-325)) 1 tab Q4H PRN PO moderate pain Last administered on 05/26/17 17:25; Admin Dose 1 TAB; Start 05/26/17 at 15:00 SAMANTHA EDEN MD May 26, 2017 18:02
--- NOTE | 2017-05-26 21:09 | RADRPT ---
PROCEDURE: Ultrasound right chest. CLINICAL INDICATION: Pleural effusions. TECHNIQUE: Ultrasound examination of the bilateral upper quadrants for assessment of pleural effus ions. COMPARISON: Plain film chest dated 03/24/2017. FINDINGS: Small right pleural effusion and moderate left pleural effusion. IMPRESSION: Bilateral pleural effusions. RPTAT: [facility] Physician Lisbeth Date Time Electronically viewed and signed by Pilo Dwyer Physician on 05/26/2017 21:08 RS/
[2017-05-26] MEDS: PHYTONADIONE (1 MG/ML PO SYG) PO SCH (22:30)
[2017-05-27] VITALS (19 sets, daily range): BP systolic 91–175; BP diastolic 58–131; PULSE 66–108; RESP 15–29
[2017-05-27] MEDS: PANTOPRAZOLE (EC) 40 MG TAB PO SCH ×2 (06:14→18:00)
[2017-05-27] MEDS: LACTULOSE 30ML CUP PO SCH ×3 (06:14→23:20)
[2017-05-27] MEDS: ALBUTEROL 0.083% (NEB) 2.5 MG/3 ML AMP HHN SCH ×3 (08:04→19:50)
[2017-05-27 08:10] LABS: ADD SCAN DIFF NO
[2017-05-27 08:20] LABS: ABNORMAL IP MESSAGE 1; BASOPHIL # 0.1 10^3/ul (0.0-0.1); BASOPHILS % 0.5 % (0.0-2.0); EOSINOPHILS # 0.6 10^3/ul (0.0-0.5); EOSINOPHILS % 3.6 % (0.0-7.0); HEMATOCRIT 31.8 % (42.0-52.0); LYMPHOCYTES # 2.1 10^3/ul (0.8-2.9); LYMPHOCYTES % 12.2 % (15.0-51.0); MEAN CORPUSCULAR HGB CONC 31.4 g/dl (32.0-37.0); MEAN CORPUSCULAR VOLUME 111.2 fl (82.0-101.0); MEAN PLATELET VOLUME 11.3 fl (7.4-10.4); MONOCYTE # 1.4 10^3/ul (0.3-0.9); MONOCYTES % 8.5 % (0.0-11.0); NEUTROPHIL # 12.5 10^3/ul (1.6-7.5); PLATELET COUNT 102 10^3/UL (140-415); RED BLOOD COUNT 2.86 10^6/ul (4.70-6.10); RED CELL DISTRIBUTION WIDTH 22.9 % (11.5-14.5); WHITE BLOOD COUNT 16.9 10^3/ul (4.8-10.8)
[2017-05-27 08:37] LABS: INR 2.78; PROTIME 29.7 Sec (12.2-14.2); PT RATIO 2.3
[2017-05-27 08:38] LABS: PARTIAL THROMBOPLASTIN TIME 44.6 Sec (25.0-35.0)
[2017-05-27 08:42] LABS: ALBUMIN 3.2 g/dl (3.3-4.9); ALBUMIN/GLOBULIN RATIO 0.68; BILIRUBIN,DIRECT 3.1 mg/dl (0.00-0.20); BILIRUBIN,INDIRECT 10.2 mg/dl (0-1.1); BILIRUBIN,TOTAL 13.3 mg/dl (0.2-1.3); CALCIUM 10.2 mg/dl (8.4-10.2); CREATININE 0.72 mg/dl (0.61-1.24); POTASSIUM 3.6 mmol/L (3.5-5.1); TOTAL PROTEIN 7.9 g/dl (6.1-8.1)
[2017-05-27] MEDS: CYANOCOBALAMIN 500 MCG TAB PO SCH (09:00)
[2017-05-27] MEDS: FOLIC ACID 1 MG TAB PO SCH (09:00)
[2017-05-27] MEDS: MULTIVITAMINS THERAPEUTIC TAB PO SCH (09:00)
[2017-05-27] MEDS: PHYTONADIONE (1 MG/ML PO SYG) PO SCH (09:00)
[2017-05-27] MEDS: DILTIAZEM (CD) 120 MG CAP PO SCH ×2 (09:00→20:33)
[2017-05-27] MEDS: NEUTRA-PHOS 250 MG PACKET PO SCH ×2 (09:00→20:27)
[2017-05-27] MEDS: THIAMINE 100 MG TAB PO SCH (09:00)
[2017-05-27] MEDS: RIFAXIMIN 550 MG TAB PO SCH ×2 (09:00→20:27)
[2017-05-27] MEDS ORDERED: FUROSEMIDE 20 MG TAB PO SCH (09:00)
--- NOTE | 2017-05-27 11:28 | PN ---
Date/Time of Note Date/Time of Note DATE: 05/27/17 TIME: 11:22 Assessment/Plan VTE Prophylaxis VTE Prophylaxis Intervention: SCD's Lines/Catheters IV Catheter Type (from Nrsg): Saline Lock Urinary Cath still in place: No Reason Cath still needed: other (indicate) (strict I/O, Urinary retention) Assessment/Plan Assessment/Plan 1. Acute encephalopathy -metabolic toxic type . Largely resolved. Most probably toxic metabolic in origin. - getting worse today 2. Macrocytic anemia. - 2/2 to ESLD s/p EGD - no active bleeding, Distal erosive esophagitis. 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 3. Coagulopathy. 2/2 ESLD - INR very high 4. Decompensated liver cirrhosis 5. Prerenal Nonoliguric acute kidney injury in a patient with unknown baseline creatinine. Largely resolved 6. Chronic Alcohol abuse. 7. Sepsis. Most probably secondary to aspiration pneumonia and Polymicrobial bacteremia. 8. Moderate to large left-sided pleural effusion , US chest showed small effusion on right side, Left side moderate effusion, pt can not have Thoracentesis due to elevated INR 9. Paroxysmal A. fib. Currently in sinus rhythm. Off of Cardizem drip. Cardiology following. PLAN: Start IV abx zosyn and vancomycin D/c PO lasix, Start IV albumin with IV lasix for diuresis s/p EGD showed Distal erosive esophagitis., Probable Souza's esophagus. ABG stat, Ammonia level 20 Pt can ont have thoracentesis due to elevated INR, ABG stat and Nurse instructed to inform to ID and Nephrology has been following Message left on sister phone today If worsens condition then we will transfer pt to ICU Depending on ABG Result SCD for DVT prophylaxis Subjective 24 Hr Interval Summary Free Text/Dictation pt confused, disoriented, not responding to verbal stimuli, BP stable, Afebrile , ammonia level 20 Exam/Review of Systems Vital Signs Vitals Vital Signs Date Time Temp Pulse Resp B/P Pulse Ox O2 Delivery O2 Flow Rate FiO2 05/27/17 08:06 75 20 96 Nasal Cannula 3.0 05/27/17 07:59 99.2 165/75 Intake and Output 05/26/17 05/26/17 05/27/17 14:59 22:59 06:59 Intake Total 400 ml 800 ml 300 ml Output Total 2150 ml 1800 ml 501 ml Balance -1750 ml -1000 ml -201 ml Exam GEN: confused, lethargic, Unresponsive to verbal stimuli HEENT: Head is normocephalic. NECK: Supple. HEART: S1 S2 tachycardia LUNGS: Show diminished breath sounds at base. ABDOMEN: Soft, nontender to palpation without rebound or guarding. EXTREMITIES: Negative for clubbing, cyanosis, no edema. DERMATOLOGIC: No rashes. MUSCULOSKELETAL: No joint effusions. NEUROLOGIC: confused, lethargic, uncooperative for exam Results Result Diagram: 05/27/17 0724 05/27/17 0724 Results 24 hrs Laboratory Tests Test 05/26/17 15:40 05/27/17 07:24 05/27/17 10:48 Prothrombin Time 32.2 H 29.7 H Prothrombin Time Ratio 2.5 2.3 INR International Normalized Ratio 3.08 2.78 Activated Partial Thromboplast Time 43.9 H 44.6 H White Blood Count 16.9 H Red Blood Count 2.86 L Hemoglobin 10.0 L Hematocrit 31.8 L Mean Corpuscular Volume 111.2 H Mean Corpuscular Hemoglobin 35.0 H Mean Corpuscular Hemoglobin Concent 31.4 L Red Cell Distribution Width 22.9 H Platelet Count 102 L Mean Platelet Volume 11.3 H Neutrophils % 74.0 Lymphocytes % 12.2 L Monocytes % 8.5 Eosinophils % 3.6 Basophils % 0.5 Nucleated Red Blood Cells % 0.0 Neutrophils # 12.5 H Lymphocytes # 2.1 Monocytes # 1.4 H Eosinophils # 0.6 H Basophils # 0.1 Nucleated Red Blood Cells # 0.0 Sodium Level 142 Potassium Level 3.6 Chloride Level 102 Carbon Dioxide Level 31 Anion Gap 13 Blood Urea Nitrogen 20 Creatinine 0.72 Glucose Level 110 Calcium Level 10.2 Total Bilirubin 13.3 H Direct Bilirubin 3.10 H Indirect Bilirubin 10.2 H Aspartate Amino Transf (AST/SGOT) 122 H Alanine Aminotransferase (ALT/SGPT) 68 Alkaline Phosphatase 178 H Total Protein 7.9 Albumin 3.2 L Globulin 4.70 H Albumin/Globulin Ratio 0.68 Ammonia 20 Medications Medications Current Medications Rifaximin (Xifaxan) 550 mg BID PO Last administered on 05/26/17t 21:11; Admin Dose 550 MG; Start 05/17/17 at 09:00 Lactulose (Enulose) 20 gm Q8 PO Last administered on 05/27/17 06:14; Admin Dose 20 GM; Start 05/17/17 at 08:00 Hydralazine HCl (Apresoline) 10 mg Q6H PRN IV SBP>160 Last administered on 05/19 09:43; Admin Dose 10 MG; Start 05/17/17 at 15:30 Diltiazem HCl (Cardizem Cd) 120 mg BID PO Last administered on 05/26/17 21:11 ; Admin Dose 120 MG; Start 05/20/17 at 21:00 Folic Acid (Folic Acid) 1 mg DAILY PO Last administered on 05/26/17 10:06; Admin Dose 1 MG; Start 05/21/17 at 11:00 Multivitamins Therapeutic (Theragran) 1 tab DAILY PO Last administered on 10:07; Admin Dose 1 TAB; Start 05/21/17 at 11:00 Thiamine HCl (Vitamin B1) 100 mg DAILY PO Last administered on 05/26/17 10:07 ; Admin Dose 100 MG; Start 05/21/17 at 11:00 Sodium Phosphate (Neutra-Phos) 250 mg BID PO Last administered on 05/26/17 22: 31; Admin Dose 250 MG; Start 05/23/17 at 10:00 Lorazepam (Ativan) 1 mg Q6H PRN PO AGITATION/ANXIETY; Start 05/24/17 at 16:30 Cyanocobalamin (Vitamin B12) 1,000 mcg DAILY PO Last administered on 05/26/17 10:07; Admin Dose 1,000 MCG; Start 05/25/17 at 11:30 Pantoprazole (Protonix Tab) 40 mg BID@,18 PO Last administered on 05/27/17 06:14; Admin Dose 40 MG; Start 05/25/17 at 18:00 Morphine Sulfate (morphine) 1 mg Q4H PRN IV Pain; Start 05/26/17 at 16:00 Acetaminophen/ Hydrocodone Bitart ([place] (7.5-325)) 1 tab Q4H PRN PO moderate pain Last administered on 05/26/17 17:25; Admin Dose 1 TAB; Start 05/26/17 at 15:00 Phytonadione 10 mg 10 mg DAILY PO Last administered on 05/26/17 22:30; Admin Dose 10 MG; Start 05/26/17 at 19:00; Stop 05/28/17 at 21:00 Albumin Human 100 ml @ 100 mls/hr BID IV ; Start 05/27/17 at 11:30; Stop at 13:00; Status UNV Piperacillin Sod/ Tazobactam Sod (Zosyn 3.375gm/ 100 ml (Pmx)) 100 ml @ 200 mls /hr Q6 IVPB ; Start 05/27/17 at 12:00; Status UNV SAMANTHA EDEN MD May 27, 2017 11:28
[2017-05-27] MEDS ORDERED: VANCOMYCIN IV PER PHARMACY XX SCH (11:30)
[2017-05-27 11:32] LABS: AADO2 Arterial 94.5 mmHg (7.0-24.0); Allen Test ACCEPTAB; Arterial Base Excess 5.5 mmol/L (-3.0-3); Arterial COHb 3.1 % (0.0-3.0); Arterial Fraction of Oxyhgb 89.7 % (93.0-99.0); Arterial HCO3 33.9 mmol/L (22.0-26.0); Arterial MetHb 0.6 % (0.0-1.5); Arterial Total Hemglobin 10.6 g/dl (12.0-18.0); MODE NASAL CANNULA
--- NOTE | 2017-05-27 11:47 | EN ---
Date/Time of Note Date/Time of Note DATE: 05/27/17 TIME: 11:44 Event Note Medicine Medicine Event Note pt is getting transferred to ICU due to AMS, sepsis I talked to patient sister Lexy Keller on [phone]-she lives in [facility] She said pt has advance directive and has a a specific instruction to follow, it is in chart SAMANTHA EDEN MD May 27, 2017 11:47
--- NOTE | 2017-05-27 12:40 | CONS ---
Date/Time of Note Date/Time of Note DATE: 05/27/17 TIME: 12:38 Assessment/Plan Assessment/Plan Additional Assessment/Plan Assessment and recommendations; 1. Patient admitted with pneumonia with significant clinical improvement however the patient has taken a turn for the worse this morning with altered mental status likely indicative of underlying hepatic encephalopathy. 2. Worsening leukocytosis. Transfer the patient to ICU. Obtain a stat chest x-ray. Once x-rays done I will review it and make further recommendations. Patient may require intubation. Prognosis appears poor. Consultation Date/Type/Reason Admit Date/Time May 13, 2017 at 22:29 Initial Consult Date 05/14/17 Type of Consultation: Pulmonary Referring Provider: MICHELLE CRAFT 24 HR Interval Summary Free Text/Dictation Patient condition is taken a turn for the worse. With significantly altered mental status. Patient is awake and semi-responsive. Has been put on 50% Ventimask for O2 saturation. General examination; middle-aged male, awake, answering questions inappropriately. Currently in no distress. Exam/Review of Systems Vital Signs Vitals Vital Signs Date Time Temp Pulse Resp B/P Pulse Ox O2 Delivery O2 Flow Rate FiO2 05/27/17 12:23 107 05/27/17 11:55 100.4 20 150/81 93 05/27/17 08:06 Nasal Cannula 3.0 Intake and Output 05/26/17 05/26/17 05/27/17 15:00 23:00 07:00 Intake Total 400 ml 800 ml 300 ml Output Total 2150 ml 1800 ml 501 ml Balance -1750 ml -1000 ml -201 ml Exam HEENT exam; supple neck, no JVD. No lymphadenopathy. Midline trachea. No thyromegaly. Patient remains strongly icteric. Dentition is fair. Chest examined; diminished breath sounds bilaterally. No added sound. S1-S2 audible, no murmurs. Regular rhythm. Abdomen examination; soft, nontender. No organomegaly. Bowel sounds audible. Extremity exam; no peripheral edema. [employer]ION EDUCATOR examination; patient is awake and follows only very simple commands. Results Result Diagram: 05/27/17 0724 05/27/17 0724 Results 24 hrs Laboratory Tests Test 05/26/17 15:40 05/27/17 07:24 05/27/17 10:31 05/27/17 10:48 Prothrombin Time 32.2 H 29.7 H Prothrombin Time Ratio 2.5 2.3 INR International Normalized Ratio 3.08 2.78 Activated Partial Thromboplast Time 43.9 H 44.6 H White Blood Count 16.9 H Red Blood Count 2.86 L Hemoglobin 10.0 L Hematocrit 31.8 L Mean Corpuscular Volume 111.2 H Mean Corpuscular Hemoglobin 35.0 H Mean Corpuscular Hemoglobin Concent 31.4 L Red Cell Distribution Width 22.9 H Platelet Count 102 L Mean Platelet Volume 11.3 H Neutrophils % 74.0 Lymphocytes % 12.2 L Monocytes % 8.5 Eosinophils % 3.6 Basophils % 0.5 Nucleated Red Blood Cells % 0.0 Neutrophils # 12.5 H Lymphocytes # 2.1 Monocytes # 1.4 H Eosinophils # 0.6 H Basophils # 0.1 Nucleated Red Blood Cells # 0.0 Sodium Level 142 Potassium Level 3.6 Chloride Level 102 Carbon Dioxide Level 31 Anion Gap 13 Blood Urea Nitrogen 20 Creatinine 0.72 Glucose Level 110 Calcium Level 10.2 Total Bilirubin 13.3 H Direct Bilirubin 3.10 H Indirect Bilirubin 10.2 H Aspartate Amino Transf (AST/SGOT) 122 H Alanine Aminotransferase (ALT/SGPT) 68 Alkaline Phosphatase 178 H Total Protein 7.9 Albumin 3.2 L Globulin 4.70 H Albumin/Globulin Ratio 0.68 Blood Gas Specimen Source Blood arterial Arterial Blood Date Drawn 05/27/2017 11:20:00 AM Arterial Blood pH (Temp corrected) 7.281 *L Arterial Blood pCO2 (Temp correct) 73.7 H Arterial Blood pO2 (Temp corrected) 76.7 L Arterial Blood HCO3 33.9 H Arterial Blood Base Excess 5.5 H Arterial Blood Oxygen Saturation 93.1 L Cruz Test ACCEPTAB Arterial Blood Gas Puncture Site Right Radial Arterial Blood Carboxyhemoglobin 3.1 H Arterial Blood Methemoglobin 0.6 Blood Gas A-a O2 Differential 94.5 H Oxyhemoglobin Percent 89.7 L Total Hemoglobin 10.6 L Blood Gas Temperature 37.0 Blood Gas Modality NASAL CANNULA FiO2 36.0 Blood Gas Critical Value Read Back Clive RDE RN Blood Gas Notified Whom JUANCARLOS Blood Gas Notified Time 05/27/2017 11:32:00 AM Ammonia 20 Medications Medications Current Medications Rifaximin (Xifaxan) 550 mg BID PO Last administered on 05/26/17t 21:11; Admin Dose 550 MG; Start 05/17/17 at 09:00 Lactulose (Enulose) 20 gm Q8 PO Last administered on 05/27/17 06:14; Admin Dose 20 GM; Start 05/17/17 at 08:00 Hydralazine HCl (Apresoline) 10 mg Q6H PRN IV SBP>160 Last administered on 05/19 09:43; Admin Dose 10 MG; Start 05/17/17 at 15:30 Diltiazem HCl (Cardizem Cd) 120 mg BID PO Last administered on 05/26/17 21:11 ; Admin Dose 120 MG; Start 05/20/17 at 21:00 Folic Acid (Folic Acid) 1 mg DAILY PO Last administered on 05/26/17 10:06; Admin Dose 1 MG; Start 05/21/17 at 11:00 Multivitamins Therapeutic (Theragran) 1 tab DAILY PO Last administered on 10:07; Admin Dose 1 TAB; Start 05/21/17 at 11:00 Thiamine HCl (Vitamin B1) 100 mg DAILY PO Last administered on 05/26/17 10:07 ; Admin Dose 100 MG; Start 05/21/17 at 11:00 Sodium Phosphate (Neutra-Phos) 250 mg BID PO Last administered on 05/26/17 22: 31; Admin Dose 250 MG; Start 05/23/17 at 10:00 Lorazepam (Ativan) 1 mg Q6H PRN PO AGITATION/ANXIETY; Start 05/24/17 at 16:30 Cyanocobalamin (Vitamin B12) 1,000 mcg DAILY PO Last administered on 05/26/17 10:07; Admin Dose 1,000 MCG; Start 05/25/17 at 11:30 Pantoprazole (Protonix Tab) 40 mg BID@,18 PO Last administered on 05/27/17 06:14; Admin Dose 40 MG; Start 05/25/17 at 18:00 Morphine Sulfate (morphine) 1 mg Q4H PRN IV Pain; Start 05/26/17 at 16:00 Acetaminophen/ Hydrocodone Bitart ([place] (7.5-325)) 1 tab Q4H PRN PO moderate pain Last administered on 05/26/17 17:25; Admin Dose 1 TAB; Start 05/26/17 at 15:00 Phytonadione 10 mg 10 mg DAILY PO Last administered on 05/26/17t 22:30; Admin Dose 10 MG; Start 05/26/17 at 19:00; Stop 05/28/17 at 21:00 Albumin Human (Albumin Human 25%) 100 ml @ 100 mls/hr BID IV ; Start 05/27/17 at 12:00; Stop 05/29/17 at 11:59 Furosemide 40 mg 40 mg BID IV ; Start 05/27/17 at 12:00; Stop 05/29/17 at 11:59 Piperacillin Sod/ Tazobactam Sod 100 ml @ 200 mls/hr Q6 IVPB ; Start 05/27/17 at 12:00 Vancomycin HCl 2 gm/Sodium Chloride 500 ml @ 125 mls/hr ONCE IVPB ; Start 05/27 at 13:00; Stop 05/27/17 at 16:59 Vancomycin HCl/ Sodium Chloride (Vancocin/NS) 250 ml @ 83.333 mls/ hr Q8H IVPB ; Start 05/27/17 at 21:00 LUIS FERNANDO TAMAYO May 27, 2017 12:40
[2017-05-27] MEDS: PIPER-TAZO 3.375 GM IV (PMX) 100 ML IVPB SCH ×3 (12:45→23:19)
[2017-05-27] MEDS ORDERED: VANCOMYCIN 2 GM in SOD CHLORIDE 0.9% 500 ML IVPB SCH (13:00)
[2017-05-27] MEDS: hydrALAzine 20 MG INJ IV PRN ×2 (13:16→23:20)
--- NOTE | 2017-05-27 13:24 | CONS ---
Date/Time of Note Date/Time of Note DATE: 05/27/17 TIME: 13:22 Assessment/Plan Assessment/Plan Chief Complaint/Hosp Course SUBJECTIVE: Lethargic, febrile, nad PHYSICAL EXAMINATION: GENERAL: This is a fragile, chronically ill-appearing, middle-aged man who is lethargic, in no distress. HEENT: Head atraumatic, normocephalic. Sclerae anicteric. Buccal mucosa dry. NECK: Supple, trachea midline. CHEST: Rise symmetrical. Breath sounds diminished to bases. HEART: S1, S2. ABDOMEN: Soft, bowel sounds present. EXTREMITIES: No cyanosis. ASSESSMENT: 1. Sepsis with acute encephalopathy. 2. Possible aspiration event 3. ESLD 4. Anemia with thrombocytopenia. 5. Paroxysmal atrial fibrillation. 6. Alcoholic liver cirrhosis with history of alcohol abuse. PLAN: Will order cultures and CXR, start Vanco and Zosyn, poss tx to ICU DW staff Problems: Consultation Date/Type/Reason Admit Date/Time May 13, 2017 at 22:29 Initial Consult Date 05/14/17 Type of Consultation: ID Referring Provider: MICHELLE CRAFT Exam/Review of Systems Vital Signs Vitals Vital Signs Date Time Temp Pulse Resp B/P Pulse Ox O2 Delivery O2 Flow Rate FiO2 05/27/17 13:16 10.0 05/27/17 12:23 107 05/27/17 11:55 100.4 20 150/81 93 05/27/17 08:06 Nasal Cannula Intake and Output 05/26/17 05/26/17 05/27/17 15:00 23:00 07:00 Intake Total 400 ml 800 ml 300 ml Output Total 2150 ml 1800 ml 501 ml Balance -1750 ml -1000 ml -201 ml Results Result Diagram: 05/27/17 0724 05/27/17 0724 Results 24 hrs Laboratory Tests Test 05/26/17 15:40 05/27/17 07:24 05/27/17 10:31 05/27/17 10:48 Prothrombin Time 32.2 H 29.7 H Prothrombin Time Ratio 2.5 2.3 INR International Normalized Ratio 3.08 2.78 Activated Partial Thromboplast Time 43.9 H 44.6 H White Blood Count 16.9 H Red Blood Count 2.86 L Hemoglobin 10.0 L Hematocrit 31.8 L Mean Corpuscular Volume 111.2 H Mean Corpuscular Hemoglobin 35.0 H Mean Corpuscular Hemoglobin Concent 31.4 L Red Cell Distribution Width 22.9 H Platelet Count 102 L Mean Platelet Volume 11.3 H Neutrophils % 74.0 Lymphocytes % 12.2 L Monocytes % 8.5 Eosinophils % 3.6 Basophils % 0.5 Nucleated Red Blood Cells % 0.0 Neutrophils # 12.5 H Lymphocytes # 2.1 Monocytes # 1.4 H Eosinophils # 0.6 H Basophils # 0.1 Nucleated Red Blood Cells # 0.0 Sodium Level 142 Potassium Level 3.6 Chloride Level 102 Carbon Dioxide Level 31 Anion Gap 13 Blood Urea Nitrogen 20 Creatinine 0.72 Glucose Level 110 Calcium Level 10.2 Total Bilirubin 13.3 H Direct Bilirubin 3.10 H Indirect Bilirubin 10.2 H Aspartate Amino Transf (AST/SGOT) 122 H Alanine Aminotransferase (ALT/SGPT) 68 Alkaline Phosphatase 178 H Total Protein 7.9 Albumin 3.2 L Globulin 4.70 H Albumin/Globulin Ratio 0.68 Blood Gas Specimen Source Blood arterial Arterial Blood Date Drawn 05/27/2017 11:20:00 AM Arterial Blood pH (Temp corrected) 7.281 *L Arterial Blood pCO2 (Temp correct) 73.7 H Arterial Blood pO2 (Temp corrected) 76.7 L Arterial Blood HCO3 33.9 H Arterial Blood Base Excess 5.5 H Arterial Blood Oxygen Saturation 93.1 L Cruz Test ACCEPTAB Arterial Blood Gas Puncture Site Right Radial Arterial Blood Carboxyhemoglobin 3.1 H Arterial Blood Methemoglobin 0.6 Blood Gas A-a O2 Differential 94.5 H Oxyhemoglobin Percent 89.7 L Total Hemoglobin 10.6 L Blood Gas Temperature 37.0 Blood Gas Modality NASAL CANNULA FiO2 36.0 Blood Gas Critical Value Read Back Clive RED RN Blood Gas Notified Whom JUANCARLOS Blood Gas Notified Time 05/27/2017 11:32:00 AM Ammonia 20 Medications Medications Current Medications Rifaximin (Xifaxan) 550 mg BID PO Last administered on 05/26/17 21:11; Admin Dose 550 MG; Start 05/17/17 at 09:00 Lactulose (Enulose) 20 gm Q8 PO Last administered on 05/27/17 06:14; Admin Dose 20 GM; Start 05/17/17 at 08:00 Hydralazine HCl (Apresoline) 10 mg Q6H PRN IV SBP>160 Last administered on 05/19 09:43; Admin Dose 10 MG; Start 05/17/17 at 15:30 Diltiazem HCl (Cardizem Cd) 120 mg BID PO Last administered on 05/26/17 21:11 ; Admin Dose 120 MG; Start 05/20/17 at 21:00 Folic Acid (Folic Acid) 1 mg DAILY PO Last administered on 05/26/17 10:06; Admin Dose 1 MG; Start 05/21/17 at 11:00 Multivitamins Therapeutic (Theragran) 1 tab DAILY PO Last administered on 10:07; Admin Dose 1 TAB; Start 05/21/17 at 11:00 Thiamine HCl (Vitamin B1) 100 mg DAILY PO Last administered on 05/26/17 10:07 ; Admin Dose 100 MG; Start 05/21/17 at 11:00 Sodium Phosphate (Neutra-Phos) 250 mg BID PO Last administered on 05/26/17 22: 31; Admin Dose 250 MG; Start 05/23/17 at 10:00 Lorazepam (Ativan) 1 mg Q6H PRN PO AGITATION/ANXIETY; Start 05/24/17 at 16:30 Cyanocobalamin (Vitamin B12) 1,000 mcg DAILY PO Last administered on 05/26/17 10:07; Admin Dose 1,000 MCG; Start 05/25/17 at 11:30 Pantoprazole (Protonix Tab) 40 mg BID@06,18 PO Last administered on 05/27/17 06:14; Admin Dose 40 MG; Start 05/25/17 at 18:00 Morphine Sulfate (morphine) 1 mg Q4H PRN IV Pain; Start 05/26/17 at 16:00 Acetaminophen/ Hydrocodone Bitart ([place] (7.5-325)) 1 tab Q4H PRN PO moderate pain Last administered on 05/26/17 17:25; Admin Dose 1 TAB; Start 05/26/17 at 15:00 Phytonadione 10 mg 10 mg DAILY PO Last administered on 05/26/17 22:30; Admin Dose 10 MG; Start 05/26/17 at 19:00; Stop 05/28/17 at 21:00 Albumin Human (Albumin Human 25%) 100 ml @ 100 mls/hr BID IV ; Start 05/27/17 at 12:00; Stop 05/29/17 at 11:59 Furosemide 40 mg 40 mg BID IV ; Start 05/27/17 at 12:00; Stop 05/29/17 at 11:59 Piperacillin Sod/ Tazobactam Sod 100 ml @ 200 mls/hr Q6 IVPB Last administered on 05/27/17t 12:45; Admin Dose 200 MLS/HR; Start 05/27/17 at 12:00 Vancomycin HCl 2 gm/Sodium Chloride 500 ml @ 125 mls/hr ONCE IVPB ; Start 05/27 at 13:00; Stop 05/27/17 at 16:59 Vancomycin HCl/ Sodium Chloride (Vancocin/NS) 250 ml @ 83.333 mls/ hr Q8H IVPB ; Start 05/27/17 at 21:00 KARL NGUYEN NP May 27, 2017 13:24
[2017-05-27 14:13] LABS: ADD UMIC YES; UR ASCORBIC ACID NEGATIVE (NEGATIVE); UR BACTERIA FEW /HPF (NONE SEEN); UR BILIRUBIN (Dip) NEGATIVE (NEGATIVE); UR BLOOD (Dip) 2+ mg/dL (NEGATIVE); UR CLARITY SLIGHTLY CLOUDY (CLEAR); UR COLOR AMBER (YELLOW); UR GLUCOSE (Dip) NEGATIVE (NEGATIVE); UR KETONES (Dip) NEGATIVE (NEGATIVE); UR LEUKOCYTE ESTERASE (Dip) NEGATIVE Leu/ul (NEGATIVE); UR MUCUS FEW /HPF (NONE SEEN); UR NITRITE (Dip) NEGATIVE (NEGATIVE); UR RBC 5 /HPF (0-5); UR SPECIFIC GRAVITY (Dip) 1.015 (1.003-1.030); UR TOTAL PROTEIN (Dip) NEGATIVE (NEGATIVE); UR UROBILINOGEN (Dip) NEGATIVE (NEGATIVE)
[2017-05-27] MEDS: FUROSEMIDE 40 MG INJ IV SCH ×2 (14:43→20:33)
[2017-05-27] MEDS: ALBUMIN HUMAN 25% 100 ML IV SCH ×2 (14:43→20:34)
--- NOTE | 2017-05-27 15:34 | PN ---
Date/Time of Note Date/Time of Note DATE: 05/27/17 TIME: 15:33 Assessment/Plan VTE Prophylaxis VTE Prophylaxis Intervention: ambulation Lines/Catheters IV Catheter Type (from [facility]): [place] line still needed: Yes Urinary Cath still in place: Yes Reason Cath still needed: urinary retention Assessment/Plan Assessment/Plan 1. Nonoliguric acute kidney injury with unknown baseline creatinine. Etiology secondary to hemodynamics. Renal function has stabilized. Continue current treatment, supportive care, renally dose all medicines. 2. Volume overload, improving. We will discontinue Lasix at 40 IV b.i.d. and continue Lasix 20 mg daily. 3. Hypomagnesemia. Continue to monitor and replete. 4. Anemia. Continue to monitor hemoglobin and hematocrit levels. 5. Mineral bone disorder. Continue to monitor calcium and phosphorus levels. 6. Transaminitis and hyperbilirubinemia secondary to alcoholic liver disease. Continue to monitor. 7. Atrial fibrillation, rate controlled. Continue medical management. 8. Acute encephalopathy, improving. 9. Sepsis secondary to bacteremia. Continue antibiotic regimen. 10. History of ethyl alcohol use. Subjective 24 Hr Interval Summary Free Text/Dictation Patient lethargic confused this morning. Spoke with the nurse. Will order stat ammonia level. Consider stat CT scan of the head Exam/Review of Systems Vital Signs Vitals Vital Signs Date Time Temp Pulse Resp B/P Pulse Ox O2 Delivery O2 Flow Rate FiO2 05/27/17 14:56 90 20 97 Simple Mask 8.0 05/27/17 11:55 100.4 150/81 Intake and Output 05/26/17 05/26/17 05/27/17 15:00 23:00 07:00 Intake Total 400 ml 800 ml 300 ml Output Total 2150 ml 1800 ml 501 ml Balance -1750 ml -1000 ml -201 ml Exam HEENT: Head is normocephalic. NECK: Supple. HEART: Regular rate. LUNGS: Show diminished breath sounds at the base. ABDOMEN: Soft, nontender to palpation. No rebound or guarding. EXTREMITIES: Negative for clubbing or cyanosis. Trace edema. DERMATOLOGIC: No rashes. MUSCULOSKELETAL: No joint effusions. NEUROLOGIC: No change in exam. Results Result Diagram: 05/27/17 0724 05/27/17 0724 Results 24 hrs Laboratory Tests Test 05/26/17 15:40 05/27/17 07:24 05/27/17 10:31 05/27/17 10:48 Prothrombin Time 32.2 H 29.7 H Prothrombin Time Ratio 2.5 2.3 INR International Normalized Ratio 3.08 2.78 Activated Partial Thromboplast Time 43.9 H 44.6 H White Blood Count 16.9 H Red Blood Count 2.86 L Hemoglobin 10.0 L Hematocrit 31.8 L Mean Corpuscular Volume 111.2 H Mean Corpuscular Hemoglobin 35.0 H Mean Corpuscular Hemoglobin Concent 31.4 L Red Cell Distribution Width 22.9 H Platelet Count 102 L Mean Platelet Volume 11.3 H Neutrophils % 74.0 Lymphocytes % 12.2 L Monocytes % 8.5 Eosinophils % 3.6 Basophils % 0.5 Nucleated Red Blood Cells % 0.0 Neutrophils # 12.5 H Lymphocytes # 2.1 Monocytes # 1.4 H Eosinophils # 0.6 H Basophils # 0.1 Nucleated Red Blood Cells # 0.0 Sodium Level 142 Potassium Level 3.6 Chloride Level 102 Carbon Dioxide Level 31 Anion Gap 13 Blood Urea Nitrogen 20 Creatinine 0.72 Glucose Level 110 Calcium Level 10.2 Total Bilirubin 13.3 H Direct Bilirubin 3.10 H Indirect Bilirubin 10.2 H Aspartate Amino Transf (AST/SGOT) 122 H Alanine Aminotransferase (ALT/SGPT) 68 Alkaline Phosphatase 178 H Total Protein 7.9 Albumin 3.2 L Globulin 4.70 H Albumin/Globulin Ratio 0.68 Blood Gas Specimen Source Blood arterial Arterial Blood Date Drawn 05/27/2017 11:20:00 AM Arterial Blood pH (Temp corrected) 7.281 *L Arterial Blood pCO2 (Temp correct) 73.7 H Arterial Blood pO2 (Temp corrected) 76.7 L Arterial Blood HCO3 33.9 H Arterial Blood Base Excess 5.5 H Arterial Blood Oxygen Saturation 93.1 L Cruz Test ACCEPTAB Arterial Blood Gas Puncture Site Right Radial Arterial Blood Carboxyhemoglobin 3.1 H Arterial Blood Methemoglobin 0.6 Blood Gas A-a O2 Differential 94.5 H Oxyhemoglobin Percent 89.7 L Total Hemoglobin 10.6 L Blood Gas Temperature 37.0 Blood Gas Modality NASAL CANNULA FiO2 36.0 Blood Gas Critical Value Read Back Clive RED RN Blood Gas Notified Whom JUANCARLOS Blood Gas Notified Time 05/27/2017 11:32:00 AM Ammonia 20 Test 05/27/17 13:[address] Urine Clarity SLIGHTLY CLOUDY A Urine pH 5.0 Urine Specific [place] 1.015 Urine Ketones NEGATIVE Urine Nitrite NEGATIVE Urine Bilirubin NEGATIVE Urine Urobilinogen NEGATIVE Urine Leukocyte Esterase NEGATIVE Urine Microscopic RBC 5 Urine Microscopic WBC 9 H Urine Bacteria FEW A Urine Mucus FEW A Urine Hemoglobin 2+ H Urine Glucose NEGATIVE Urine Total Protein NEGATIVE Medications Medications Current Medications Rifaximin (Xifaxan) 550 mg BID PO Last administered on 05/26/17 21:11; Admin Dose 550 MG; Start 05/17/17 at 09:00 Lactulose (Enulose) 20 gm Q8 PO Last administered on 05/27/17 06:14; Admin Dose 20 GM; Start 05/17/17 at 08:00 Hydralazine HCl (Apresoline) 10 mg Q6H PRN IV SBP>160 Last administered on 05/27 13:16; Admin Dose 10 MG; Start 05/17/17 at 15:30 Diltiazem HCl (Cardizem Cd) 120 mg BID PO Last administered on 05/26/17 21:11 ; Admin Dose 120 MG; Start 05/20/17 at 21:00 Folic Acid (Folic Acid) 1 mg DAILY PO Last administered on 05/26/17 10:06; Admin Dose 1 MG; Start 05/21/17 at 11:00 Multivitamins Therapeutic (Theragran) 1 tab DAILY PO Last administered on 10:07; Admin Dose 1 TAB; Start 05/21/17 at 11:00 Thiamine HCl (Vitamin B1) 100 mg DAILY PO Last administered on 05/26/17 10:07 ; Admin Dose 100 MG; Start 05/21/17 at 11:00 Sodium Phosphate (Neutra-Phos) 250 mg BID PO Last administered on 05/26/17 22: 31; Admin Dose 250 MG; Start 05/23/17 at 10:00 Lorazepam (Ativan) 1 mg Q6H PRN PO AGITATION/ANXIETY; Start 05/24/17 at 16:30 Cyanocobalamin (Vitamin B12) 1,000 mcg DAILY PO Last administered on 05/26/17 10:07; Admin Dose 1,000 MCG; Start 05/25/17 at 11:30 Pantoprazole (Protonix Tab) 40 mg BID@18 PO Last administered on 05/27/17 06:14; Admin Dose 40 MG; Start 05/25/17 at 18:00 Morphine Sulfate (morphine) 1 mg Q4H PRN IV Pain; Start 05/26/17 at 16:00 Acetaminophen/ Hydrocodone Bitart ([place] (7.5-325)) 1 tab Q4H PRN PO moderate pain Last administered on 05/26/17 17:25; Admin Dose 1 TAB; Start 05/26/17 at 15:00 Phytonadione 10 mg 10 mg DAILY PO Last administered on 05/26/17 22:30; Admin Dose 10 MG; Start 05/26/17 at 19:00; Stop 05/28/17 at 21:00 Albumin Human (Albumin Human 25%) 100 ml @ 100 mls/hr BID IV Last administered on 05/27/17 14:43; Admin Dose 100 MLS/HR; Start 05/27/17 at 12:00 ; Stop 05/29/17 at 11:59 Furosemide 40 mg 40 mg BID IV Last administered on 05/27/17 14:43; Admin Dose 40 MG; Start 05/27/17 at 12:00; Stop 05/29/17 at 11:59 Piperacillin Sod/ Tazobactam Sod 100 ml @ 200 mls/hr Q6 IVPB Last administered on 05/27/17 12:45; Admin Dose 200 MLS/HR; Start 05/27/17 at 12:00 Vancomycin HCl 2 gm/Sodium Chloride 500 ml @ 125 mls/hr ONCE IVPB ; Start 05/27 at 13:00; Stop 05/27/17 at 16:59 Vancomycin HCl/ Sodium Chloride (Vancocin/NS) 250 ml @ 83.333 mls/ hr Q8H IVPB ; Start 05/27/17 at 21:00 ESTEFANIA ZELAYA DO May 27, 2017 15:34
--- NOTE | 2017-05-27 15:47 | CONS ---
Date/Time of Note Date/Time of Note DATE: 05/27/17 TIME: 15:45 Assessment/Plan Assessment/Plan Additional Assessment/Plan Severe anemia status post multiple transfusions Liver failure Acute decompensated diastolic congestive heart failure Coagulopathy Encephalopathy Thrombocytopenia Preserved ejection fraction History of hypertension Acute kidney injury Paroxysmal atrial fibrillation Respiratory failure -Patient remains in sinus rhythm, continue p.o. Cardizem as blood pressure and heart rate permits -No anticoagulation given thrombocytopenia, coagulopathy and liver failure. -Diuretics as per our renal colleagues. Consultation Date/Type/Reason Admit Date/Time May 13, 2017 at 22:29 Initial Consult Date 05/14/17 Type of Consultation: cv Referring Provider: MICHELLE CRAFT 24 HR Interval Summary Free Text/Dictation Patient transferred to ICU secondary to worsening mental status. Patient appears confused at times but cooperative. Denies chest pain or shortness of breath Exam/Review of Systems Vital Signs Vitals Vital Signs Date Time Temp Pulse Resp B/P Pulse Ox O2 Delivery O2 Flow Rate FiO2 05/27/17 14:56 90 20 97 Simple Mask 8.0 05/27/17 11:55 100.4 150/81 Intake and Output 05/26/17 05/26/17 05/27/17 15:00 23:00 07:00 Intake Total 400 ml 800 ml 300 ml Output Total 2150 ml 1800 ml 501 ml Balance -1750 ml -1000 ml -201 ml Exam Confused but follows commands at times, no apparent distress, clearly jaundiced Head: normocephalic Respiratory: other (Coarse breath sounds bilaterally, no wheezing) Cardiovascular: other (S1-S2 heard), regular rate and rhythm Gastrointestinal: bowel sounds, distended, non-tender, soft Extremities: edema Results Result Diagram: 05/27/17 0724 05/27/17 0724 Results 24 hrs Laboratory Tests Test 05/27/17 07:24 05/27/17 10:31 05/27/17 10:48 05/27/17 13:00 White Blood Count 16.9 H Red Blood Count 2.86 L Hemoglobin 10.0 L Hematocrit 31.8 L Mean Corpuscular Volume 111.2 H Mean Corpuscular Hemoglobin 35.0 H Mean Corpuscular Hemoglobin Concent 31.4 L Red Cell Distribution Width 22.9 H Platelet Count 102 L Mean Platelet Volume 11.3 H Neutrophils % 74.0 Lymphocytes % 12.2 L Monocytes % 8.5 Eosinophils % 3.6 Basophils % 0.5 Nucleated Red Blood Cells % 0.0 Neutrophils # 12.5 H Lymphocytes # 2.1 Monocytes # 1.4 H Eosinophils # 0.6 H Basophils # 0.1 Nucleated Red Blood Cells # 0.0 Prothrombin Time 29.7 H Prothrombin Time Ratio 2.3 INR International Normalized Ratio 2.78 Activated Partial Thromboplast Time 44.6 H Sodium Level 142 Potassium Level 3.6 Chloride Level 102 Carbon Dioxide Level 31 Anion Gap 13 Blood Urea Nitrogen 20 Creatinine 0.72 Glucose Level 110 Calcium Level 10.2 Total Bilirubin 13.3 H Direct Bilirubin 3.10 H Indirect Bilirubin 10.2 H Aspartate Amino Transf (AST/SGOT) 122 H Alanine Aminotransferase (ALT/SGPT) 68 Alkaline Phosphatase 178 H Total Protein 7.9 Albumin 3.2 L Globulin 4.70 H Albumin/Globulin Ratio 0.68 Blood Gas Specimen Source Blood arterial Arterial Blood Date Drawn 05/27/2017 11:20:00 AM Arterial Blood pH (Temp corrected) 7.281 *L Arterial Blood pCO2 (Temp correct) 73.7 H Arterial Blood pO2 (Temp corrected) 76.7 L Arterial Blood HCO3 33.9 H Arterial Blood Base Excess 5.5 H Arterial Blood Oxygen Saturation 93.1 L Cruz Test ACCEPTAB Arterial Blood Gas Puncture Site Right Radial Arterial Blood Carboxyhemoglobin 3.1 H Arterial Blood Methemoglobin 0.6 Blood Gas A-a O2 Differential 94.5 H Oxyhemoglobin Percent 89.7 L Total Hemoglobin 10.6 L Blood Gas Temperature 37.0 Blood Gas Modality NASAL CANNULA FiO2 36.0 Blood Gas Critical Value Read Back Clive RED RN Blood Gas Notified Whom SULTANAD Blood Gas Notified Time 05/27/2017 11:32:00 AM Ammonia [address] Urine Clarity SLIGHTLY CLOUDY A Urine pH 5.0 Urine Specific [place] 1.015 Urine Ketones NEGATIVE Urine Nitrite NEGATIVE Urine Bilirubin NEGATIVE Urine Urobilinogen NEGATIVE Urine Leukocyte Esterase NEGATIVE Urine Microscopic RBC 5 Urine Microscopic WBC 9 H Urine Bacteria FEW A Urine Mucus FEW A Urine Hemoglobin 2+ H Urine Glucose NEGATIVE Urine Total Protein NEGATIVE Medications Medications Current Medications Rifaximin (Xifaxan) 550 mg BID PO Last administered on 05/26/17 21:11; Admin Dose 550 MG; Start 05/17/17 at 09:00 Lactulose (Enulose) 20 gm Q8 PO Last administered on 05/27/17 06:14; Admin Dose 20 GM; Start 05/17/17 at 08:00 Hydralazine HCl (Apresoline) 10 mg Q6H PRN IV SBP>160 Last administered on 05/27 13:16; Admin Dose 10 MG; Start 05/17/17 at 15:30 Diltiazem HCl (Cardizem Cd) 120 mg BID PO Last administered on 05/26/17 21:11 ; Admin Dose 120 MG; Start 05/20/17 at 21:00 Folic Acid (Folic Acid) 1 mg DAILY PO Last administered on 05/26/17 10:06; Admin Dose 1 MG; Start 05/21/17 at 11:00 Multivitamins Therapeutic (Theragran) 1 tab DAILY PO Last administered on 10:07; Admin Dose 1 TAB; Start 05/21/17 at 11:00 Thiamine HCl (Vitamin B1) 100 mg DAILY PO Last administered on 05/26/17 10:07 ; Admin Dose 100 MG; Start 05/21/17 at 11:00 Sodium Phosphate (Neutra-Phos) 250 mg BID PO Last administered on 05/26/17 22: 31; Admin Dose 250 MG; Start 05/23/17 at 10:00 Lorazepam (Ativan) 1 mg Q6H PRN PO AGITATION/ANXIETY; Start 05/24/17 at 16:30 Cyanocobalamin (Vitamin B12) 1,000 mcg DAILY PO Last administered on 05/26/17 10:07; Admin Dose 1,000 MCG; Start 05/25/17 at 11:30 Pantoprazole (Protonix Tab) 40 mg BID@18 PO Last administered on 05/27/17 06:14; Admin Dose 40 MG; Start 05/25/17 at 18:00 Morphine Sulfate (morphine) 1 mg Q4H PRN IV Pain; Start 05/26/17 at 16:00 Acetaminophen/ Hydrocodone Bitart ([place] (7.5-325)) 1 tab Q4H PRN PO moderate pain Last administered on 05/26/17 17:25; Admin Dose 1 TAB; Start 05/26/17 at 15:00 Phytonadione 10 mg 10 mg DAILY PO Last administered on 05/26/17 22:30; Admin Dose 10 MG; Start 05/26/17 at 19:00; Stop 05/28/17 at 21:00 Albumin Human (Albumin Human 25%) 100 ml @ 100 mls/hr BID IV Last administered on 05/27/17 14:43; Admin Dose 100 MLS/HR; Start 05/27/17 at 12:00 ; Stop 05/29/17 at 11:59 Furosemide 40 mg 40 mg BID IV Last administered on 05/27/17 14:43; Admin Dose 40 MG; Start 05/27/17 at 12:00; Stop 05/29/17 at 11:59 Piperacillin Sod/ Tazobactam Sod 100 ml @ 200 mls/hr Q6 IVPB Last administered on 05/27/17 12:45; Admin Dose 200 MLS/HR; Start 05/27/17 at 12:00 Vancomycin HCl 2 gm/Sodium Chloride 500 ml @ 125 mls/hr ONCE IVPB ; Start 05/27 at 13:00; Stop 05/27/17 at 16:59 Vancomycin HCl/ Sodium Chloride (Vancocin/NS) 250 ml @ 83.333 mls/ hr Q8H IVPB ; Start 05/27/17 at 21:00 Fox Marrufo DO May 27, 2017 15:46
--- NOTE | 2017-05-27 18:02 | RADRPT ---
PROCEDURE: XR Abdomen. CLINICAL INDICATION: NG tube placement TECHNIQUE: 3 AP abdominal radiographs obtained COMPARISON: None available. FINDINGS: Enteric tube present with the tip in the left upper abdomen in the expected location of the body of the stomach. Bowel gas pattern is nonobstructive. No abnormal abdominal calcification is seen. [place] mbar spondylosis with mild levoconvex scoliosis and L4-5, L5-S1 fusion hardware, and left basilar op acity are noted. IMPRESSION: Enteric tube with tip in the region of the body of the stomach. RPTAT: VV .Kamron Smith MD, Date Time Electronically viewed and signed by .Kamron Smith MD, on 05/27/2017 18:02 .O/
--- NOTE | 2017-05-27 18:12 | RADRPT ---
PROCEDURE: CT Brain without contrast. CLINICAL INDICATION: Altered mental status. TECHNIQUE: A CT of the brain was performed on a multidetector CT scanner utilizing axial sections from the skull base through the vertex without contrast. Images were reviewed on a high-resolution [facility] workstation. Exam CTDI = mGy and the DLP = mGy-cm. One or the following dose reduction techniques were used: -Automated exposure control. -Adjustment of the mA and/or KV according to patient's size. -Use of iterative reconstruction technique COMPARISON: None available FINDINGS: Mild diffuse cerebral and cerebellar atrophy is present. There is proportionate dilatation of the v entricular system and sulci in a symmetric fashion. There is prominence of the extraaxial spaces sec ondary to atrophy. There is no evidence of intracranial hemorrhage, mass effect or midline shift. N o abnormal intra-axial or extra-axial fluid collections are seen. The density of the brain is alla l and the alex/white matter differentiation is well preserved. Mild patchy diffuse deep white matte r microangiopathic ischemic change is seen. There is fluid in the mastoid air cells bilaterally sug gesting mastoiditis. Visualized paranasal sinuses appear intact. The osseous calvarium appears int act. IMPRESSION: 1. No evidence of acute intracranial pathology. 2. Age-related volume loss and small vessel ischemic changes. 3. Findings suggesting mild bilateral mastoiditis. RPTAT: [facility] Physician Paloma Date Time Electronically viewed and signed by Physician Paloma on 05/27/2017 18:12 /
[2017-05-27] MEDS ORDERED: VANCOMYCIN 1.25 GM in SOD CHLORIDE 0.9% 250 ML IVPB SCH (21:00)
[2017-05-27 22:32] LABS: AADO2 Arterial 123.6 mmHg (7.0-24.0); Allen Test ACCEPTAB; Arterial Base Excess 6.3 mmol/L (-3.0-3); Arterial Fraction of Oxyhgb 95.1 % (93.0-99.0); Arterial HCO3 31.5 mmol/L (22.0-26.0); Arterial MetHb 0.6 % (0.0-1.5); Arterial Total Hemglobin 9.4 g/dl (12.0-18.0); MODE NASAL CANNULA
[2017-05-27] MEDS: VANCOMYCIN 1.25 GM in SOD CHLORIDE 0.9% 250 ML IVPB SCH (23:20)
[2017-05-27] MEDS ORDERED: ACETAMINOPHEN 650MG/20.3ML CUP NGT ONE (23:30)
[2017-05-28] VITALS (24 sets, daily range): BP systolic 126–168; BP diastolic 40–104; PULSE 67–112; RESP 12–33
[2017-05-28] MEDS ORDERED: CEFEPIME 2GM/50 ML (PMX) 50 ML IVPB ONE (02:30)
[2017-05-28] MEDS ORDERED: IBUPROFEN 600 MG TAB PO ONE (02:30)
[2017-05-28] MEDS ORDERED: LORAZEPAM 2 MG INJ ONE (02:30)
[2017-05-28] MEDS ORDERED: LORAZEPAM 2 MG INJ IV ONE ×2 (02:30→02:48)
[2017-05-28 02:50] LABS: AADO2 Arterial 143.5 mmHg (7.0-24.0); Allen Test ACCEPTAB; Arterial Base Excess 7.7 mmol/L (-3.0-3); Arterial COHb 2.2 % (0.0-3.0); Arterial Fraction of Oxyhgb 92.5 % (93.0-99.0); Arterial HCO3 33.1 mmol/L (22.0-26.0); Arterial MetHb 0.5 % (0.0-1.5); Arterial Total Hemglobin 9.4 g/dl (12.0-18.0); MODE NASAL CANNULA
[2017-05-28] MEDS ORDERED: LEVETIRACETAM 1000 MG (PMX) 100 ML IVPB ONE (03:00)
--- NOTE | 2017-05-28 04:15 | RADRPT ---
PROCEDURE: CT BRAIN WITHOUT CONTRAST May 28, 2017 at 03:59 a.m. CLINICAL INDICATION: 52-year-old male with altered mental status. TECHNIQUE: The study was performed utilizing GE [employer] VCT 64-slice CT scanner. Direct axial sections were obtained from the foramen magnum to the vertex without the use of intravenous contrast material. Sagittal and coronal reformations were obtained. One or more of the following dose reduc tion techniques were utilized: automated exposure control, adjustment of the mA and/or kV according to patient's size or use of iterative reconstruction technique. There is motion artifact on the init ial study therefore the scans were repeated. The images were viewed on a PACS workstation. CTD/vol = 90.0 mGy; Total Exam DLP = 1620.5 mGy-cm. COMPARISON: CT brain May 27, 2017 at 06:00 p.m. FINDINGS: There is mild prominence of the sulci and cisternal spaces consistent with diffuse volume loss. Oth erwise, the ventricles have a normal shape and position. There is no evidence for mass effect or mid line shift. There are no intracranial areas of abnormal attenuation. There is no evidence for acut e intra or extra-axial blood. The bony calvarium is intact. There is a feeding tube coursing through the right nasal cavity. The partially visualized paranasal sinuses are without significant abnormal soft tissue. There is mild dependent soft tissue within the right mastoid air cells. There is been a prior left sided radical mastoidectomy. IMPRESSION: 1. The intracranial contents are without significant interval change compared to the patient's prio r CT scan from May 27, 2017. 2. Mild diffuse volume loss. 3. Dependent right mastoid disease. 4. Status post left radical mastoidectomy. 5. Interval placement of right nasal cavity feeding tube. .René Ruiz MD, MD Date Time Electronically viewed and signed by .René Ruiz MD, on 05/28/2017 04:14 .M/
[2017-05-28] MEDS: PIPER-TAZO 3.375 GM IV (PMX) 100 ML IVPB SCH ×4 (06:06→23:54)
[2017-05-28] MEDS: PANTOPRAZOLE (EC) 40 MG TAB PO SCH ×2 (06:06→17:57)
[2017-05-28] MEDS: LACTULOSE 30ML CUP PO SCH ×3 (06:06→21:11)
[2017-05-28 06:57] LABS: ADD SCAN DIFF NO
[2017-05-28 07:06] LABS: ABNORMAL IP MESSAGE 1; BASOPHILS % 0.2 % (0.0-2.0); EOSINOPHILS # 0.1 10^3/ul (0.0-0.5); EOSINOPHILS % 0.3 % (0.0-7.0); HEMOGLOBIN 8.5 g/dl (14.0-18.0); LYMPHOCYTES # 1.3 10^3/ul (0.8-2.9); LYMPHOCYTES % 8.8 % (15.0-51.0); MEAN CORPUSCULAR HEMOGLOBIN 35.4 pg (29.0-33.0); MEAN CORPUSCULAR HGB CONC 31.5 g/dl (32.0-37.0); MEAN CORPUSCULAR VOLUME 112.5 fl (82.0-101.0); MEAN PLATELET VOLUME 11.1 fl (7.4-10.4); MONOCYTE # 1.4 10^3/ul (0.3-0.9); MONOCYTES % 9.1 % (0.0-11.0); NEUTROPHIL # 12.1 10^3/ul (1.6-7.5); PLATELET COUNT 86 10^3/UL (140-415); RED CELL DISTRIBUTION WIDTH 23.9 % (11.5-14.5); WHITE BLOOD COUNT 15.1 10^3/ul (4.8-10.8)
[2017-05-28 07:24] LABS: INR 3.22; PROTIME 33.4 Sec (12.2-14.2); PT RATIO 2.6
[2017-05-28 07:25] LABS: PARTIAL THROMBOPLASTIN TIME 48.7 Sec (25.0-35.0)
[2017-05-28 07:27] LABS: ALBUMIN 3.6 g/dl (3.3-4.9); ALBUMIN/GLOBULIN RATIO 0.87; BILIRUBIN,DIRECT 3.4 mg/dl (0.00-0.20); BILIRUBIN,INDIRECT 11.5 mg/dl (0-1.1); BILIRUBIN,TOTAL 14.9 mg/dl (0.2-1.3); CALCIUM 10.7 mg/dl (8.4-10.2); CREATININE 0.77 mg/dl (0.61-1.24); POTASSIUM 3.7 mmol/L (3.5-5.1); TOTAL PROTEIN 7.7 g/dl (6.1-8.1)
[2017-05-28 07:50] LABS: AADO2 Arterial 125.3 mmHg (7.0-24.0); Allen Test ACCEPTAB; Arterial Base Excess 8.6 mmol/L (-3.0-3); Arterial COHb 2.6 % (0.0-3.0); Arterial Fraction of Oxyhgb 93.5 % (93.0-99.0); Arterial HCO3 34.6 mmol/L (22.0-26.0); Arterial MetHb 0.6 % (0.0-1.5); Arterial Total Hemglobin 8.9 g/dl (12.0-18.0); MODE NASAL CANNULA
[2017-05-28] MEDS: ALBUTEROL 0.083% (NEB) 2.5 MG/3 ML AMP HHN SCH ×3 (07:51→20:00)
[2017-05-28] MEDS: DEXTROSE 5% 1,000 ML IV SCH (08:12)
--- NOTE | 2017-05-28 08:16 | PN ---
Date/Time of Note Date/Time of Note DATE: 05/28/17 TIME: 08:12 Assessment/Plan VTE Prophylaxis VTE Prophylaxis Intervention: anti-embolic stocking Lines/Catheters IV Catheter Type (from [email or web address] Peripheral IV Urinary Cath still in place: Yes Reason Cath still needed: urinary retention Assessment/Plan Chief Complaint/Hosp Course 1. Nonoliguric acute kidney injury with unknown baseline creatinine. Etiology secondary to hemodynamics. Renal function has stabilized. Continue current treatment, supportive care, renally dose all medicines. 2. Volume overload, improving. continue Lasix 3. Hypomagnesemia. Continue to monitor and replete. 4. Anemia. Continue to monitor hemoglobin and hematocrit levels. 6. Acute encephalopathy. Concerning for possible seizure. Patient had status post 2 CT scans no acute findings. Continue antiseizure medications. Follow- up with neurology for recommendations. 5. Mineral bone disorder. Continue to monitor calcium and phosphorus levels. 6. Transaminitis and hyperbilirubinemia secondary to alcoholic liver disease. Continue to monitor. 7. Atrial fibrillation, rate controlled. Continue medical management. 9. Sepsis secondary to bacteremia. Continue antibiotic regimen. 10. History of ethyl alcohol use. Problems: Subjective 24 Hr Interval Summary Free Text/Dictation Patient noted to be confused altered yesterday. He was transferred to intensive care unit. Status post CT scan no acute findings. Ammonia level is within normal limits. Neurology is following. Patient's on antiepileptic medications. Exam/Review of Systems Vital Signs Vitals Vital Signs Date Time Temp Pulse Resp B/P Pulse Ox O2 Delivery O2 Flow Rate FiO2 05/28/17 07:51 97 6.0 05/28/17 07:51 97 20 Nasal Cannula 05/28/17 06:00 100.5 165/71 Intake and Output 05/27/17 05/27/17 05/28/17 15:00 23:00 07:00 Intake Total 725 ml 800.000 ml Output Total 525 ml 1390 ml 630 ml Balance -525 ml -665 ml 170.000 ml Exam Generally patient is confused altered HEENT head is normocephalic pupils are reactive Lungs show diminished breath sounds bases otherwise clear Abdomen soft nontender palpation rebound guarding Heart regular rate no gallops clicks Extremities are negative for clubbing cyanosis positive edema Dermatologically patient's jaundice Neurologically limited exam due to lack of patient cooperation Results Result Diagram: 05/28/17 0605 05/28/17 0605 Results 24 hrs Laboratory Tests Test 05/27/17 10:31 05/27/17 10:48 05/27/17 13:00 05/27/17 22:00 Blood Gas Specimen Source Blood arterial Blood arterial Arterial Blood Date Drawn 05/27/2017 11:20:00 AM 05/27/2017 10:20:34 PM Arterial Blood pH (Temp corrected) 7.281 *L 7.428 Arterial Blood pCO2 (Temp correct) 73.7 H 48.7 H Arterial Blood pO2 (Temp corrected) 76.7 L 98.3 Arterial Blood HCO3 33.9 H 31.5 H Arterial Blood Base Excess 5.5 H 6.3 H Arterial Blood Oxygen Saturation 93.1 L 97.6 Cruz Test ACCEPTAB ACCEPTAB Arterial Blood Gas Puncture Site Right Radial Right Radial Arterial Blood Carboxyhemoglobin 3.1 H 2.0 Arterial Blood Methemoglobin 0.6 0.6 Blood Gas A-a O2 Differential 94.5 H 123.6 H Oxyhemoglobin Percent 89.7 L 95.1 Total Hemoglobin 10.6 L 9.4 L Blood Gas Temperature 37.0 37.0 Blood Gas Modality NASAL CANNULA NASAL CANNULA FiO2 36.0 39.0 Blood Gas Critical Value Read Back Clive RED RN Blood Gas Notified Whom JUANCARLOS PATRICIO Blood Gas Notified Time 05/27/2017 11:32:00 AM 05/27/2017 10:32:18 PM Ammonia [address] Urine Clarity SLIGHTLY CLOUDY A Urine pH 5.0 Urine Specific [place] 1.015 Urine Ketones NEGATIVE Urine Nitrite NEGATIVE Urine Bilirubin NEGATIVE Urine Urobilinogen NEGATIVE Urine Leukocyte Esterase NEGATIVE Urine Microscopic RBC 5 Urine Microscopic WBC 9 H Urine Bacteria FEW A Urine Mucus FEW A Urine Hemoglobin 2+ H Urine Glucose NEGATIVE Urine Total Protein NEGATIVE Blood Gas Actual Respiration Rate 20 Test 05/28/17 02:37 05/28/17 06:05 05/28/17 07:00 Blood Gas Specimen Source Blood arterial Blood arterial Arterial Blood Date Drawn 05/28/2017 2:40:46 AM 05/28/2017 7:20:05 AM Arterial Blood pH (Temp corrected) 7.426 7.400 Arterial Blood pCO2 (Temp correct) 51.5 H 57.1 H Arterial Blood pO2 (Temp corrected) 75.2 L 87.0 Arterial Blood HCO3 33.1 H 34.6 H Arterial Blood Base Excess 7.7 H 8.6 H Arterial Blood Oxygen Saturation 95.1 96.6 Cruz Test ACCEPTAB ACCEPTAB Arterial Blood Gas Puncture Site Left Radial Right Radial Arterial Blood Carboxyhemoglobin 2.2 2.6 Arterial Blood Methemoglobin 0.5 0.6 Blood Gas A-a O2 Differential 143.5 H 125.3 H Oxyhemoglobin Percent 92.5 L 93.5 Total Hemoglobin 9.4 L 8.9 L Blood Gas Temperature 37.0 37.0 Blood Gas Actual Respiration Rate 22 Blood Gas Modality NASAL CANNULA NASAL CANNULA FiO2 39.0 39.0 Blood Gas Notified Whom MG JLD Blood Gas Notified Time 05/28/2017 2:50:11 AM 05/28/2017 7:50:00 AM White Blood Count 15.1 H Red Blood Count 2.40 L Hemoglobin 8.5 L Hematocrit 27.0 L Mean Corpuscular Volume 112.5 H Mean Corpuscular Hemoglobin 35.4 H Mean Corpuscular Hemoglobin Concent 31.5 L Red Cell Distribution Width 23.9 H Platelet Count 86 L Mean Platelet Volume 11.1 H Neutrophils % 80.0 H Lymphocytes % 8.8 L Monocytes % 9.1 Eosinophils % 0.3 Basophils % 0.2 Nucleated Red Blood Cells % 0.0 Neutrophils # 12.1 H Lymphocytes # 1.3 Monocytes # 1.4 H Eosinophils # 0.1 Basophils # 0.0 Nucleated Red Blood Cells # 0.0 Prothrombin Time 33.4 H Prothrombin Time Ratio 2.6 INR International Normalized Ratio 3.22 Activated Partial Thromboplast Time 48.7 H Sodium Level 148 H Potassium Level 3.7 Chloride Level 104 Carbon Dioxide Level 33 H Anion Gap 15 Blood Urea Nitrogen 27 H Creatinine 0.77 Glucose Level 92 Calcium Level 10.7 H Total Bilirubin 14.9 H Direct Bilirubin 3.40 H Indirect Bilirubin 11.5 H Aspartate Amino Transf (AST/SGOT) 105 H Alanine Aminotransferase (ALT/SGPT) 56 Alkaline Phosphatase 129 H Total Protein 7.7 Albumin 3.6 Globulin 4.10 H Albumin/Globulin Ratio 0.87 Medications Medications Current Medications Rifaximin (Xifaxan) 550 mg BID PO Last administered on 05/27/17 20:27; Admin Dose 550 MG; Start 05/17/17 at 09:00 Lactulose (Enulose) 20 gm Q8 PO Last administered on 05/28/17 06:06; Admin Dose 20 GM; Start 05/17/17 at 08:00 Hydralazine HCl (Apresoline) 10 mg Q6H PRN IV SBP>160 Last administered on 05/27 23:20; Admin Dose 10 MG; Start 05/17/17 at 15:30 Diltiazem HCl (Cardizem Cd) 120 mg BID PO Last administered on 05/27/17 20:33 ; Admin Dose 120 MG; Start 05/20/17 at 21:00 Folic Acid (Folic Acid) 1 mg DAILY PO Last administered on 05/26/17 10:06; Admin Dose 1 MG; Start 05/21/17 at 11:00 Multivitamins Therapeutic (Theragran) 1 tab DAILY PO Last administered on 10:07; Admin Dose 1 TAB; Start 05/21/17 at 11:00 Thiamine HCl (Vitamin B1) 100 mg DAILY PO Last administered on 05/26/17 10:07 ; Admin Dose 100 MG; Start 05/21/17 at 11:00 Sodium Phosphate (Neutra-Phos) 250 mg BID PO Last administered on 05/27/17 20: 27; Admin Dose 250 MG; Start 05/23/17 at 10:00 Lorazepam (Ativan) 1 mg Q6H PRN PO AGITATION/ANXIETY; Start 05/24/17 at 16:30 Cyanocobalamin (Vitamin B12) 1,000 mcg DAILY PO Last administered on 05/26/17 10:07; Admin Dose 1,000 MCG; Start 05/25/17 at 11:30 Pantoprazole (Protonix Tab) 40 mg BID@18 PO Last administered on 05/28/17 06:06; Admin Dose 40 MG; Start 05/25/17 at 18:00 Morphine Sulfate (morphine) 1 mg Q4H PRN IV Pain; Start 05/26/17 at 16:00 Acetaminophen/ Hydrocodone Bitart ([place] (7.5-325)) 1 tab Q4H PRN PO moderate pain Last administered on 05/26/17 17:25; Admin Dose 1 TAB; Start 05/26/17 at 15:00 Phytonadione 10 mg 10 mg DAILY PO Last administered on 05/26/17 22:30; Admin Dose 10 MG; Start 05/26/17 at 19:00; Stop 05/28/17 at 21:00 Albumin Human (Albumin Human 25%) 100 ml @ 100 mls/hr BID IV Last administered on 05/27/17 20:34; Admin Dose 100 MLS/HR; Start 05/27/17 at 12:00 ; Stop 05/29/17 at 11:59 Furosemide 40 mg 40 mg BID IV Last administered on 05/27/17 20:33; Admin Dose 40 MG; Start 05/27/17 at 12:00; Stop 05/29/17 at 11:59 Piperacillin Sod/ Tazobactam Sod 100 ml @ 200 mls/hr Q6 IVPB Last administered on 05/28/17 06:06; Admin Dose 200 MLS/HR; Start 05/27/17 at 12:00 Vancomycin HCl/ Sodium Chloride (Vancocin/NS) 250 ml @ 83.333 mls/ hr Q8H IVPB Last administered on 05/27/17 23:20; Admin Dose 83.333 MLS/HR; Start at 00:00 Lorazepam 2 mg 2 mg Q4H PRN IV SEIZURES; Start 05/28/17 at 04:00 Dextrose (D5W) 1,000 ml @ 50 mls/hr Q20H IV ; Start 05/28/17 at 07:00 ESTEFANIA ZELAYA DO May 28, 2017 08:16
[2017-05-28] MEDS: DILTIAZEM (CD) 120 MG CAP PO SCH ×2 (08:57→21:11)
[2017-05-28] MEDS: VANCOMYCIN 1.25 GM in SOD CHLORIDE 0.9% 250 ML IVPB SCH ×2 (09:02→23:12)
[2017-05-28] MEDS: ALBUMIN HUMAN 25% 100 ML IV SCH ×2 (09:02→22:05)
[2017-05-28] MEDS: THIAMINE 100 MG TAB PO SCH (09:04)
[2017-05-28] MEDS: FOLIC ACID 1 MG TAB PO SCH (09:04)
[2017-05-28] MEDS: CYANOCOBALAMIN 500 MCG TAB PO SCH (09:05)
[2017-05-28] MEDS: FUROSEMIDE 40 MG INJ IV SCH ×2 (09:05→21:11)
[2017-05-28] MEDS: RIFAXIMIN 550 MG TAB PO SCH ×2 (09:05→21:11)
[2017-05-28] MEDS: MULTIVITAMINS THERAPEUTIC TAB PO SCH (09:05)
[2017-05-28] MEDS: NEUTRA-PHOS 250 MG PACKET PO SCH ×2 (09:05→21:11)
[2017-05-28] MEDS: PHYTONADIONE (1 MG/ML PO SYG) PO SCH (09:05)
--- NOTE | 2017-05-28 09:40 | CONS ---
Date/Time of Note Date/Time of Note DATE: 05/28/17 TIME: 09:36 Assessment/Plan Assessment/Plan Additional Assessment/Plan Assessment recommendations; 1. Patient admitted with pneumonia then showed evidence of marked hepatic enthesopathy patient's clinical status improved for a couple of days with dramatic turn for the worse in the last 24 hours. 2. Massive lower GI bleed. 3. End-stage liver disease. 4. Mild thrombocytopenia. Continue current supportive care. Patient's family has made him a DNR. Prognosis is extremely poor. Consultation Date/Type/Reason Admit Date/Time May 13, 2017 at 22:29 Initial Consult Date 05/14/17 Type of Consultation: Pulmonary/critical care Referring Provider: MICHELLE CRAFT 24 HR Interval Summary Free Text/Dictation Patient condition is taken a turn for the worse. He was transferred to ICU because of worsening mental status. Patient also knows having large amounts of melena. He is unresponsive. General exam; middle-aged male, unresponsive. Patient appearing strongly icteric. Exam/Review of Systems Vital Signs Vitals Vital Signs Date Time Temp Pulse Resp B/P Pulse Ox O2 Delivery O2 Flow Rate FiO2 05/28/17 08:00 91 05/28/17 08:00 Nasal Cannula 6.0 05/28/17 07:51 97 05/28/17 07:51 20 05/28/17 06:00 100.5 165/71 Intake and Output 05/27/17 05/27/17 05/28/17 15:00 23:00 07:00 Intake Total 725 ml 800.000 ml Output Total 525 ml 1390 ml 630 ml Balance -525 ml -665 ml 170.000 ml Exam HEENT exam is; supple neck, no JVD. No lymphadenopathy. Midline trachea. No thyromegaly. Patient has fair dentition. Chest examination; diminished breath sounds bilaterally. S1-S2 audible, no murmurs. Regular rhythm. Abdomen examination; soft, bowel sounds are absent. Large amount of melena noted. Extremity examination; no peripheral edema. [employer] examination; patient remains unresponsive. Results Result Diagram: 05/28/17 0605 05/28/17604 Results 24 hrs Laboratory Tests Test 05/27/17 10:31 05/27/17 10:48 05/27/17 13:00 05/27/17 22:00 Blood Gas Specimen Source Blood arterial Blood arterial Arterial Blood Date Drawn 05/27/2017 11:20:00 AM 05/27/2017 10:20:34 PM Arterial Blood pH (Temp corrected) 7.281 *L 7.428 Arterial Blood pCO2 (Temp correct) 73.7 H 48.7 H Arterial Blood pO2 (Temp corrected) 76.7 L 98.3 Arterial Blood HCO3 33.9 H 31.5 H Arterial Blood Base Excess 5.5 H 6.3 H Arterial Blood Oxygen Saturation 93.1 L 97.6 Cruz Test ACCEPTAB ACCEPTAB Arterial Blood Gas Puncture Site Right Radial Right Radial Arterial Blood Carboxyhemoglobin 3.1 H 2.0 Arterial Blood Methemoglobin 0.6 0.6 Blood Gas A-a O2 Differential 94.5 H 123.6 H Oxyhemoglobin Percent 89.7 L 95.1 Total Hemoglobin 10.6 L 9.4 L Blood Gas Temperature 37.0 37.0 Blood Gas Modality NASAL CANNULA NASAL CANNULA FiO2 36.0 39.0 Blood Gas Critical Value Read Back Clive RED RN Blood Gas Notified Whom JUANCARLOS PATRICIO Blood Gas Notified Time 05/27/2017 11:32:00 AM 05/27/2017 10:32:18 PM Ammonia [address] Urine Clarity SLIGHTLY CLOUDY A Urine pH 5.0 Urine Specific [place] 1.015 Urine Ketones NEGATIVE Urine Nitrite NEGATIVE Urine Bilirubin NEGATIVE Urine Urobilinogen NEGATIVE Urine Leukocyte Esterase NEGATIVE Urine Microscopic RBC 5 Urine Microscopic WBC 9 H Urine Bacteria FEW A Urine Mucus FEW A Urine Hemoglobin 2+ H Urine Glucose NEGATIVE Urine Total Protein NEGATIVE Blood Gas Actual Respiration Rate 20 Test 05/28/17 02:37 05/28/17 06:05 05/28/17 07:00 Blood Gas Specimen Source Blood arterial Blood arterial Arterial Blood Date Drawn 05/28/2017 2:40:46 AM 05/28/2017 7:20:05 AM Arterial Blood pH (Temp corrected) 7.426 7.400 Arterial Blood pCO2 (Temp correct) 51.5 H 57.1 H Arterial Blood pO2 (Temp corrected) 75.2 L 87.0 Arterial Blood HCO3 33.1 H 34.6 H Arterial Blood Base Excess 7.7 H 8.6 H Arterial Blood Oxygen Saturation 95.1 96.6 Cruz Test ACCEPTAB ACCEPTAB Arterial Blood Gas Puncture Site Left Radial Right Radial Arterial Blood Carboxyhemoglobin 2.2 2.6 Arterial Blood Methemoglobin 0.5 0.6 Blood Gas A-a O2 Differential 143.5 H 125.3 H Oxyhemoglobin Percent 92.5 L 93.5 Total Hemoglobin 9.4 L 8.9 L Blood Gas Temperature 37.0 37.0 Blood Gas Actual Respiration Rate 22 Blood Gas Modality NASAL CANNULA NASAL CANNULA FiO2 39.0 39.0 Blood Gas Notified Whom MG JLD Blood Gas Notified Time 05/28/2017 2:50:11 AM 05/28/2017 7:50:00 AM White Blood Count 15.1 H Red Blood Count 2.40 L Hemoglobin 8.5 L Hematocrit 27.0 L Mean Corpuscular Volume 112.5 H Mean Corpuscular Hemoglobin 35.4 H Mean Corpuscular Hemoglobin Concent 31.5 L Red Cell Distribution Width 23.9 H Platelet Count 86 L Mean Platelet Volume 11.1 H Neutrophils % 80.0 H Lymphocytes % 8.8 L Monocytes % 9.1 Eosinophils % 0.3 Basophils % 0.2 Nucleated Red Blood Cells % 0.0 Neutrophils # 12.1 H Lymphocytes # 1.3 Monocytes # 1.4 H Eosinophils # 0.1 Basophils # 0.0 Nucleated Red Blood Cells # 0.0 Prothrombin Time 33.4 H Prothrombin Time Ratio 2.6 INR International Normalized Ratio 3.22 Activated Partial Thromboplast Time 48.7 H Sodium Level 148 H Potassium Level 3.7 Chloride Level 104 Carbon Dioxide Level 33 H Anion Gap 15 Blood Urea Nitrogen 27 H Creatinine 0.77 Glucose Level 92 Calcium Level 10.7 H Total Bilirubin 14.9 H Direct Bilirubin 3.40 H Indirect Bilirubin 11.5 H Aspartate Amino Transf (AST/SGOT) 105 H Alanine Aminotransferase (ALT/SGPT) 56 Alkaline Phosphatase 129 H Total Protein 7.7 Albumin 3.6 Globulin 4.10 H Albumin/Globulin Ratio 0.87 Medications Medications Current Medications Rifaximin (Xifaxan) 550 mg BID PO Last administered on 05/28/17 09:05; Admin Dose 550 MG; Start 05/17/17 at 09:00 Lactulose (Enulose) 20 gm Q8 PO Last administered on 05/28/17 06:06; Admin Dose 20 GM; Start 05/17/17 at 08:00 Hydralazine HCl (Apresoline) 10 mg Q6H PRN IV SBP>160 Last administered on 05/27 23:20; Admin Dose 10 MG; Start 05/17/17 at 15:30 Diltiazem HCl (Cardizem Cd) 120 mg BID PO Last administered on 05/27/17 20:33 ; Admin Dose 120 MG; Start 05/20/17 at 21:00 Folic Acid (Folic Acid) 1 mg DAILY PO Last administered on 05/28/17 09:04; Admin Dose 1 MG; Start 05/21/17 at 11:00 Multivitamins Therapeutic (Theragran) 1 tab DAILY PO Last administered on 09:05; Admin Dose 1 TAB; Start 05/21/17 at 11:00 Thiamine HCl (Vitamin B1) 100 mg DAILY PO Last administered on 05/28/17 09:04 ; Admin Dose 100 MG; Start 05/21/17 at 11:00 Sodium Phosphate (Neutra-Phos) 250 mg BID PO Last administered on 05/28/17 09: 05; Admin Dose 250 MG; Start 05/23/17 at 10:00 Lorazepam (Ativan) 1 mg Q6H PRN PO AGITATION/ANXIETY; Start 05/24/17 at 16:30 Cyanocobalamin (Vitamin B12) 1,000 mcg DAILY PO Last administered on 05/28/17 09:05; Admin Dose 1,000 MCG; Start 05/25/17 at 11:30 Pantoprazole (Protonix Tab) 40 mg BID@06,18 PO Last administered on 05/28/17 06:06; Admin Dose 40 MG; Start 05/25/17 at 18:00 Morphine Sulfate (morphine) 1 mg Q4H PRN IV Pain; Start 05/26/17 at 16:00 Acetaminophen/ Hydrocodone Bitart ([place] (7.5-325)) 1 tab Q4H PRN PO moderate pain Last administered on 05/26/17 17:25; Admin Dose 1 TAB; Start 05/26/17 at 15:00 Phytonadione 10 mg 10 mg DAILY PO Last administered on 05/28/17 09:05; Admin Dose 10 MG; Start 05/26/17 at 19:00; Stop 05/28/17 at 21:00 Albumin Human (Albumin Human 25%) 100 ml @ 100 mls/hr BID IV Last administered on 05/28/17 09:02; Admin Dose 100 MLS/HR; Start 05/27/17 at 12:00 ; Stop 05/29/17 at 11:59 Furosemide 40 mg 40 mg BID IV Last administered on 05/28/17 09:05; Admin Dose 40 MG; Start 05/27/17 at 12:00; Stop 05/29/17 at 11:59 Piperacillin Sod/ Tazobactam Sod 100 ml @ 200 mls/hr Q6 IVPB Last administered on 05/28/17 06:06; Admin Dose 200 MLS/HR; Start 05/27/17 at 12:00 Vancomycin HCl/ Sodium Chloride (Vancocin/NS) 250 ml @ 83.333 mls/ hr Q8H IVPB Last administered on 05/28/17 09:02; Admin Dose 83.333 MLS/HR; Start at 00:00 Lorazepam 2 mg 2 mg Q4H PRN IV SEIZURES; Start 05/28/17 at 04:00 Dextrose (D5W) 1,000 ml @ 50 mls/hr Q20H IV Last administered on 05/28/17 08: 12; Admin Dose 50 MLS/HR; Start 05/28/17 at 07:00 LUIS FERNANDO TAMAYO May 28, 2017 09:40
--- NOTE | 2017-05-28 11:19 | CONS ---
Date/Time of Note Date/Time of Note DATE: 05/28/17 TIME: 11:17 Assessment/Plan Assessment/Plan Additional Assessment/Plan Severe anemia status post multiple transfusions Liver failure Acute decompensated diastolic congestive heart failure Coagulopathy Encephalopathy Possible seizure disorder Thrombocytopenia Preserved ejection fraction History of hypertension Acute kidney injury Paroxysmal atrial fibrillation Respiratory failure -Patient was worsening mental status and possible seizure-like activity. CT head without any bleed. Remains in sinus rhythm on telemetry. No new cardiac orders at the current time. Consultation Date/Type/Reason Admit Date/Time May 13, 2017 at 22:29 Initial Consult Date 05/14/17 Type of Consultation: cv Referring Provider: MICHELLE CRAFT 24 HR Interval Summary Free Text/Dictation Patient with seizure-like activity yesterday evening. As per nursing staff, patient being made DNR as per family. Exam/Review of Systems Vital Signs Vitals Vital Signs Date Time Temp Pulse Resp B/P Pulse Ox O2 Delivery O2 Flow Rate FiO2 05/28/17 08:00 91 05/28/17 08:00 Nasal Cannula 6.0 05/28/17 07:51 97 05/28/17 07:51 20 05/28/17 06:00 100.5 165/71 Intake and Output 05/27/17 05/27/17 05/28/17 15:00 23:00 07:00 Intake Total 725 ml 800.000 ml Output Total 525 ml 1390 ml 630 ml Balance -525 ml -665 ml 170.000 ml Exam No response to verbal stimuli, no apparent distress Head: normocephalic Respiratory: other (Coarse breath sounds bilaterally, no wheezing) Cardiovascular: other (S1-S2 heard), regular rate and rhythm Gastrointestinal: bowel sounds, distended, non-tender, soft Extremities: edema Results Result Diagram: 05/28/17 0605 05/28/17 06 Results 24 hrs Laboratory Tests Test 05/27/17 13:00 05/27/17 22:00 05/28/17 02:37 05/28/17 06:[address] Urine Clarity SLIGHTLY CLOUDY A Urine pH 5.0 Urine Specific [place] 1.015 Urine Ketones NEGATIVE Urine Nitrite NEGATIVE Urine Bilirubin NEGATIVE Urine Urobilinogen NEGATIVE Urine Leukocyte Esterase NEGATIVE Urine Microscopic RBC 5 Urine Microscopic WBC 9 H Urine Bacteria FEW A Urine Mucus FEW A Urine Hemoglobin 2+ H Urine Glucose NEGATIVE Urine Total Protein NEGATIVE Blood Gas Specimen Source Blood arterial Blood arterial Arterial Blood Date Drawn 05/27/2017 10:20:34 PM 05/28/2017 2:40:46 AM Arterial Blood pH (Temp corrected) 7.428 7.426 Arterial Blood pCO2 (Temp correct) 48.7 H 51.5 H Arterial Blood pO2 (Temp corrected) 98.3 75.2 L Arterial Blood HCO3 31.5 H 33.1 H Arterial Blood Base Excess 6.3 H 7.7 H Arterial Blood Oxygen Saturation 97.6 95.1 Cruz Test ACCEPTAB ACCEPTAB Arterial Blood Gas Puncture Site Right Radial Left Radial Arterial Blood Carboxyhemoglobin 2.0 2.2 Arterial Blood Methemoglobin 0.6 0.5 Blood Gas A-a O2 Differential 123.6 H 143.5 H Oxyhemoglobin Percent 95.1 92.5 L Total Hemoglobin 9.4 L 9.4 L Blood Gas Temperature 37.0 37.0 Blood Gas Actual Respiration Rate 20 22 Blood Gas Modality NASAL CANNULA NASAL CANNULA FiO2 39.0 39.0 Blood Gas Notified Whom MH MG Blood Gas Notified Time 05/27/2017 10:32:18 PM 05/28/2017 2:50:11 AM White Blood Count 15.1 H Red Blood Count 2.40 L Hemoglobin 8.5 L Hematocrit 27.0 L Mean Corpuscular Volume 112.5 H Mean Corpuscular Hemoglobin 35.4 H Mean Corpuscular Hemoglobin Concent 31.5 L Red Cell Distribution Width 23.9 H Platelet Count 86 L Mean Platelet Volume 11.1 H Neutrophils % 80.0 H Lymphocytes % 8.8 L Monocytes % 9.1 Eosinophils % 0.3 Basophils % 0.2 Nucleated Red Blood Cells % 0.0 Neutrophils # 12.1 H Lymphocytes # 1.3 Monocytes # 1.4 H Eosinophils # 0.1 Basophils # 0.0 Nucleated Red Blood Cells # 0.0 Prothrombin Time 33.4 H Prothrombin Time Ratio 2.6 INR International Normalized Ratio 3.22 Activated Partial Thromboplast Time 48.7 H Sodium Level 148 H Potassium Level 3.7 Chloride Level 104 Carbon Dioxide Level 33 H Anion Gap 15 Blood Urea Nitrogen 27 H Creatinine 0.77 Glucose Level 92 Calcium Level 10.7 H Total Bilirubin 14.9 H Direct Bilirubin 3.40 H Indirect Bilirubin 11.5 H Aspartate Amino Transf (AST/SGOT) 105 H Alanine Aminotransferase (ALT/SGPT) 56 Alkaline Phosphatase 129 H Total Protein 7.7 Albumin 3.6 Globulin 4.10 H Albumin/Globulin Ratio 0.87 Test 05/28/17 07:00 Blood Gas Specimen Source Blood arterial Arterial Blood Date Drawn 05/28/2017 7:20:05 AM Arterial Blood pH (Temp corrected) 7.400 Arterial Blood pCO2 (Temp correct) 57.1 H Arterial Blood pO2 (Temp corrected) 87.0 Arterial Blood HCO3 34.6 H Arterial Blood Base Excess 8.6 H Arterial Blood Oxygen Saturation 96.6 Cruz Test ACCEPTAB Arterial Blood Gas Puncture Site Right Radial Arterial Blood Carboxyhemoglobin 2.6 Arterial Blood Methemoglobin 0.6 Blood Gas A-a O2 Differential 125.3 H Oxyhemoglobin Percent 93.5 Total Hemoglobin 8.9 L Blood Gas Temperature 37.0 Blood Gas Modality NASAL CANNULA FiO2 39.0 Blood Gas Notified Whom JLD Blood Gas Notified Time 05/28/2017 7:50:00 AM Medications Medications Current Medications Rifaximin (Xifaxan) 550 mg BID PO Last administered on 05/28/17 09:05; Admin Dose 550 MG; Start 05/17/17 at 09:00 Lactulose (Enulose) 20 gm Q8 PO Last administered on 05/28/17 06:06; Admin Dose 20 GM; Start 05/17/17 at 08:00 Hydralazine HCl (Apresoline) 10 mg Q6H PRN IV SBP>160 Last administered on 05/27 23:20; Admin Dose 10 MG; Start 05/17/17 at 15:30 Diltiazem HCl (Cardizem Cd) 120 mg BID PO Last administered on 05/27/17 20:33 ; Admin Dose 120 MG; Start 05/20/17 at 21:00 Folic Acid (Folic Acid) 1 mg DAILY PO Last administered on 05/28/17 09:04; Admin Dose 1 MG; Start 05/21/17 at 11:00 Multivitamins Therapeutic (Theragran) 1 tab DAILY PO Last administered on 09:05; Admin Dose 1 TAB; Start 05/21/17 at 11:00 Thiamine HCl (Vitamin B1) 100 mg DAILY PO Last administered on 05/28/17 09:04 ; Admin Dose 100 MG; Start 05/21/17 at 11:00 Sodium Phosphate (Neutra-Phos) 250 mg BID PO Last administered on 05/28/17 09: 05; Admin Dose 250 MG; Start 05/23/17 at 10:00 Lorazepam (Ativan) 1 mg Q6H PRN PO AGITATION/ANXIETY; Start 05/24/17 at 16:30 Cyanocobalamin (Vitamin B12) 1,000 mcg DAILY PO Last administered on 05/28/17 09:05; Admin Dose 1,000 MCG; Start 05/25/17 at 11:30 Pantoprazole (Protonix Tab) 40 mg BID@06,18 PO Last administered on 05/28/17 06:06; Admin Dose 40 MG; Start 05/25/17 at 18:00 Morphine Sulfate (morphine) 1 mg Q4H PRN IV Pain; Start 05/26/17 at 16:00 Acetaminophen/ Hydrocodone Bitart ([place] (7.5-325)) 1 tab Q4H PRN PO moderate pain Last administered on 05/26/17 17:25; Admin Dose 1 TAB; Start 05/26/17 at 15:00 Phytonadione 10 mg 10 mg DAILY PO Last administered on 05/28/17 09:05; Admin Dose 10 MG; Start 05/26/17 at 19:00; Stop 05/28/17 at 21:00 Albumin Human (Albumin Human 25%) 100 ml @ 100 mls/hr BID IV Last administered on 05/28/17 09:02; Admin Dose 100 MLS/HR; Start 05/27/17 at 12:00 ; Stop 05/29/17 at 11:59 Furosemide 40 mg 40 mg BID IV Last administered on 05/28/17 09:05; Admin Dose 40 MG; Start 05/27/17 at 12:00; Stop 05/29/17 at 11:59 Piperacillin Sod/ Tazobactam Sod 100 ml @ 200 mls/hr Q6 IVPB Last administered on 05/28/17 06:06; Admin Dose 200 MLS/HR; Start 05/27/17 at 12:00 Vancomycin HCl/ Sodium Chloride (Vancocin/NS) 250 ml @ 83.333 mls/ hr Q8H IVPB Last administered on 05/28/17 09:02; Admin Dose 83.333 MLS/HR; Start at 00:00 Lorazepam 2 mg 2 mg Q4H PRN IV SEIZURES; Start 05/28/17 at 04:00 Dextrose (D5W) 1,000 ml @ 50 mls/hr Q20H IV Last administered on 05/28/17t 08: 12; Admin Dose 50 MLS/HR; Start 05/28/17 at 07:00 Miscellaneous Information (*Rx Drug Level Order Reminder*) VANCOMYCIN TROUGH AT 1500 ONCE ONCE XX ; Start 05/28/17 at 15:00; Stop 05/28/17 at 15:01 Fox Marrufo DO May 28, 2017 11:19
--- NOTE | 2017-05-28 12:02 | CONS ---
Date/Time of Note Date/Time of Note DATE: 05/28/17 TIME: 11:58 Assessment/Plan Assessment/Plan Chief Complaint/Hosp Course SUBJECTIVE: Patient was transferred to ICU yesterday, status post seizure last night, obtunded in no distress Antibiotics: Vancomycin, Zosyn Indwelling: NG tube, Fuentes PHYSICAL EXAMINATION: GENERAL: This is a fragile, chronically ill-appearing, middle-aged man who is obtunded, in no distress. HEENT: Head atraumatic, normocephalic. Sclerae anicteric. Buccal mucosa dry. NECK: Supple, trachea midline. CHEST: Rise symmetrical. Breath sounds diminished to bases. HEART: S1, S2. ABDOMEN: Soft, bowel sounds present. EXTREMITIES: No cyanosis. ASSESSMENT: 1. Sepsis 2. Polymicrobial UTI 2. Acute encephalopathy. 3. Possible aspiration event 3. Bilateral mastoiditis 4. Anemia with thrombocytopenia. 5. Paroxysmal atrial fibrillation. 6. Alcoholic liver cirrhosis with history of alcohol abuse. 7. Status post seizures PLAN: Doing poorly we will add Diflucan to cover Debbie albicans that he grows in his urine, continue other antibiotics, follow recommendations of consultants , anti-seizure and aspiration precautions [facility] staff Problems: Consultation Date/Type/Reason Admit Date/Time May 13, 2017 at 22:29 Initial Consult Date 05/14/17 Type of Consultation: Infectious disease Referring Provider: MICHELLE CRAFT Exam/Review of Systems Vital Signs Vitals Vital Signs Date Time Temp Pulse Resp B/P Pulse Ox O2 Delivery O2 Flow Rate FiO2 05/28/17 08:00 91 05/28/17 08:00 Nasal Cannula 6.0 05/28/17 07:51 97 05/28/17 07:51 20 05/28/17 06:00 100.5 165/71 Intake and Output 05/27/17 05/27/17 05/28/17 15:00 23:00 07:00 Intake Total 725 ml 800.000 ml Output Total 525 ml 1390 ml 630 ml Balance -525 ml -665 ml 170.000 ml Results Result Diagram: 05/28/17 0605 05/28/17 06 Results 24 hrs Laboratory Tests Test 05/27/17 13:00 05/27/17 22:00 05/28/17 02:37 05/28/17 06:[address] Urine Clarity SLIGHTLY CLOUDY A Urine pH 5.0 Urine Specific [place] 1.015 Urine Ketones NEGATIVE Urine Nitrite NEGATIVE Urine Bilirubin NEGATIVE Urine Urobilinogen NEGATIVE Urine Leukocyte Esterase NEGATIVE Urine Microscopic RBC 5 Urine Microscopic WBC 9 H Urine Bacteria FEW A Urine Mucus FEW A Urine Hemoglobin 2+ H Urine Glucose NEGATIVE Urine Total Protein NEGATIVE Blood Gas Specimen Source Blood arterial Blood arterial Arterial Blood Date Drawn 05/27/2017 10:20:34 PM 05/28/2017 2:40:46 AM Arterial Blood pH (Temp corrected) 7.428 7.426 Arterial Blood pCO2 (Temp correct) 48.7 H 51.5 H Arterial Blood pO2 (Temp corrected) 98.3 75.2 L Arterial Blood HCO3 31.5 H 33.1 H Arterial Blood Base Excess 6.3 H 7.7 H Arterial Blood Oxygen Saturation 97.6 95.1 Cruz Test ACCEPTAB ACCEPTAB Arterial Blood Gas Puncture Site Right Radial Left Radial Arterial Blood Carboxyhemoglobin 2.0 2.2 Arterial Blood Methemoglobin 0.6 0.5 Blood Gas A-a O2 Differential 123.6 H 143.5 H Oxyhemoglobin Percent 95.1 92.5 L Total Hemoglobin 9.4 L 9.4 L Blood Gas Temperature 37.0 37.0 Blood Gas Actual Respiration Rate 20 22 Blood Gas Modality NASAL CANNULA NASAL CANNULA FiO2 39.0 39.0 Blood Gas Notified Whom MH MG Blood Gas Notified Time 05/27/2017 10:32:18 PM 05/28/2017 2:50:11 AM White Blood Count 15.1 H Red Blood Count 2.40 L Hemoglobin 8.5 L Hematocrit 27.0 L Mean Corpuscular Volume 112.5 H Mean Corpuscular Hemoglobin 35.4 H Mean Corpuscular Hemoglobin Concent 31.5 L Red Cell Distribution Width 23.9 H Platelet Count 86 L Mean Platelet Volume 11.1 H Neutrophils % 80.0 H Lymphocytes % 8.8 L Monocytes % 9.1 Eosinophils % 0.3 Basophils % 0.2 Nucleated Red Blood Cells % 0.0 Neutrophils # 12.1 H Lymphocytes # 1.3 Monocytes # 1.4 H Eosinophils # 0.1 Basophils # 0.0 Nucleated Red Blood Cells # 0.0 Prothrombin Time 33.4 H Prothrombin Time Ratio 2.6 INR International Normalized Ratio 3.22 Activated Partial Thromboplast Time 48.7 H Sodium Level 148 H Potassium Level 3.7 Chloride Level 104 Carbon Dioxide Level 33 H Anion Gap 15 Blood Urea Nitrogen 27 H Creatinine 0.77 Glucose Level 92 Calcium Level 10.7 H Total Bilirubin 14.9 H Direct Bilirubin 3.40 H Indirect Bilirubin 11.5 H Aspartate Amino Transf (AST/SGOT) 105 H Alanine Aminotransferase (ALT/SGPT) 56 Alkaline Phosphatase 129 H Total Protein 7.7 Albumin 3.6 Globulin 4.10 H Albumin/Globulin Ratio 0.87 Test 05/28/17 07:00 Blood Gas Specimen Source Blood arterial Arterial Blood Date Drawn 05/28/2017 7:20:05 AM Arterial Blood pH (Temp corrected) 7.400 Arterial Blood pCO2 (Temp correct) 57.1 H Arterial Blood pO2 (Temp corrected) 87.0 Arterial Blood HCO3 34.6 H Arterial Blood Base Excess 8.6 H Arterial Blood Oxygen Saturation 96.6 Cruz Test ACCEPTAB Arterial Blood Gas Puncture Site Right Radial Arterial Blood Carboxyhemoglobin 2.6 Arterial Blood Methemoglobin 0.6 Blood Gas A-a O2 Differential 125.3 H Oxyhemoglobin Percent 93.5 Total Hemoglobin 8.9 L Blood Gas Temperature 37.0 Blood Gas Modality NASAL CANNULA FiO2 39.0 Blood Gas Notified Whom JLD Blood Gas Notified Time 05/28/2017 7:50:00 AM Medications Medications Current Medications Rifaximin (Xifaxan) 550 mg BID PO Last administered on 05/28/17 09:05; Admin Dose 550 MG; Start 05/17/17 at 09:00 Lactulose (Enulose) 20 gm Q8 PO Last administered on 05/28/17 06:06; Admin Dose 20 GM; Start 05/17/17 at 08:00 Hydralazine HCl (Apresoline) 10 mg Q6H PRN IV SBP>160 Last administered on 05/27 23:20; Admin Dose 10 MG; Start 05/17/17 at 15:30 Diltiazem HCl (Cardizem Cd) 120 mg BID PO Last administered on 05/27/17 20:33 ; Admin Dose 120 MG; Start 05/20/17 at 21:00 Folic Acid (Folic Acid) 1 mg DAILY PO Last administered on 05/28/17 09:04; Admin Dose 1 MG; Start 05/21/17 at 11:00 Multivitamins Therapeutic (Theragran) 1 tab DAILY PO Last administered on 09:05; Admin Dose 1 TAB; Start 05/21/17 at 11:00 Thiamine HCl (Vitamin B1) 100 mg DAILY PO Last administered on 05/28/17 09:04 ; Admin Dose 100 MG; Start 05/21/17 at 11:00 Sodium Phosphate (Neutra-Phos) 250 mg BID PO Last administered on 05/28/17 09: 05; Admin Dose 250 MG; Start 05/23/17 at 10:00 Lorazepam (Ativan) 1 mg Q6H PRN PO AGITATION/ANXIETY; Start 05/24/17 at 16:30 Cyanocobalamin (Vitamin B12) 1,000 mcg DAILY PO Last administered on 05/28/17 09:05; Admin Dose 1,000 MCG; Start 05/25/17 at 11:30 Pantoprazole (Protonix Tab) 40 mg BID@06,18 PO Last administered on 05/28/17 06:06; Admin Dose 40 MG; Start 05/25/17 at 18:00 Morphine Sulfate (morphine) 1 mg Q4H PRN IV Pain; Start 05/26/17 at 16:00 Acetaminophen/ Hydrocodone Bitart ([place] (7.5-325)) 1 tab Q4H PRN PO moderate pain Last administered on 05/26/17 17:25; Admin Dose 1 TAB; Start 05/26/17 at 15:00 Phytonadione 10 mg 10 mg DAILY PO Last administered on 05/28/17 09:05; Admin Dose 10 MG; Start 05/26/17 at 19:00; Stop 05/28/17 at 21:00 Albumin Human (Albumin Human 25%) 100 ml @ 100 mls/hr BID IV Last administered on 05/28/17 09:02; Admin Dose 100 MLS/HR; Start 05/27/17 at 12:00 ; Stop 05/29/17 at 11:59 Furosemide 40 mg 40 mg BID IV Last administered on 05/28/17 09:05; Admin Dose 40 MG; Start 05/27/17 at 12:00; Stop 05/29/17 at 11:59 Piperacillin Sod/ Tazobactam Sod 100 ml @ 200 mls/hr Q6 IVPB Last administered on 05/28/17 06:06; Admin Dose 200 MLS/HR; Start 05/27/17 at 12:00 Vancomycin HCl/ Sodium Chloride (Vancocin/NS) 250 ml @ 83.333 mls/ hr Q8H IVPB Last administered on 05/28/17 09:02; Admin Dose 83.333 MLS/HR; Start at 00:00 Lorazepam 2 mg 2 mg Q4H PRN IV SEIZURES; Start 05/28/17 at 04:00 Dextrose (D5W) 1,000 ml @ 50 mls/hr Q20H IV Last administered on 05/28/17 08: 12; Admin Dose 50 MLS/HR; Start 05/28/17 at 07:00 Miscellaneous Information (*Rx Drug Level Order Reminder*) VANCOMYCIN TROUGH AT 1500 ONCE ONCE XX ; Start 05/28/17 at 15:00; Stop 05/28/17 at 15:01 KARL NGUYEN NP May 28, 2017 12:02
[2017-05-28] MEDS: FLUCONAZOLE 100 MG/NS (PMX) 50 ML IVPB SCH (13:45)
--- NOTE | 2017-05-28 16:39 | PN ---
Date/Time of Note Date/Time of Note DATE: 05/28/17 TIME: 16:27 Assessment/Plan VTE Prophylaxis VTE Prophylaxis Intervention: SCD's Lines/Catheters IV Catheter Type (from Nrs): Peripheral IV Urinary Cath still in place: Yes Reason Cath still needed: urinary retention Assessment/Plan Assessment/Plan 1. Acute encephalopathy -metabolic toxic type . Largely resolved. Most probably toxic metabolic in origin. - getting worse today 2. Macrocytic anemia. - 2/2 to ESLD s/p EGD - no active bleeding, Distal erosive esophagitis. 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 3. Coagulopathy. 2/2 ESLD - INR very high 4. Decompensated liver cirrhosis 5. Prerenal Nonoliguric acute kidney injury in a patient with unknown baseline creatinine. Largely resolved 6. Chronic Alcohol abuse. 7. Sepsis. Most probably secondary to aspiration pneumonia and Polymicrobial bacteremia. 8. Moderate to large left-sided pleural effusion , US chest showed small effusion on right side, Left side moderate effusion, pt can not have Thoracentesis due to elevated INR 9. Paroxysmal A. fib. Currently in sinus rhythm. Off of Cardizem drip. Cardiology following. PLAN: pt very lethrgic today, transferred to ICU Bp stable IV abx IV lasix + albumin Family meeting done by Palliative care patient ,, will make Pt DNR and plan is to start Comfort care in next 1-2 days if family agrees SCD for DVT prophylaxis Subjective 24 Hr Interval Summary Free Text/Dictation pt remains lethargic, BP stable Exam/Review of Systems Vital Signs Vitals Vital Signs Date Time Temp Pulse Resp B/P Pulse Ox O2 Delivery O2 Flow Rate FiO2 05/28/17 13:58 79 20 93 Nasal Cannula 6.0 05/28/17 12:00 134/62 05/28/17 08:00 100.2 Intake and Output 05/27/17 05/27/17 05/28/17 15:00 23:00 07:00 Intake Total 725 ml 800.000 ml Output Total 525 ml 1390 ml 630 ml Balance -525 ml -665 ml 170.000 ml Exam GEN: unrepsonsive HEENT: Head is normocephalic. NECK: Supple. HEART: S1 S2 tachycardia LUNGS: Show diminished breath sounds at base. ABDOMEN: Soft, nontender to palpation without rebound or guarding. EXTREMITIES: Negative for clubbing, cyanosis, no edema. DERMATOLOGIC: No rashes. MUSCULOSKELETAL: No joint effusions. NEUROLOGIC: unresponsive Results Result Diagram: 05/28/17 0605 05/28/17 0605 Results 24 hrs Laboratory Tests Test 05/27/17 22:00 05/28/17 02:37 05/28/17 06:05 05/28/17 07:00 Blood Gas Specimen Source Blood arterial Blood arterial Blood arterial Arterial Blood Date Drawn 05/27/2017 10:20:34 PM 05/28/2017 2:40:46 AM 05/28/2017 7:20:05 AM Arterial Blood pH (Temp corrected) 7.428 7.426 7.400 Arterial Blood pCO2 (Temp correct) 48.7 H 51.5 H 57.1 H Arterial Blood pO2 (Temp corrected) 98.3 75.2 L 87.0 Arterial Blood HCO3 31.5 H 33.1 H 34.6 H Arterial Blood Base Excess 6.3 H 7.7 H 8.6 H Arterial Blood Oxygen Saturation 97.6 95.1 96.6 Cruz Test ACCEPTAB ACCEPTAB ACCEPTAB Arterial Blood Gas Puncture Site Right Radial Left Radial Right Radial Arterial Blood Carboxyhemoglobin 2.0 2.2 2.6 Arterial Blood Methemoglobin 0.6 0.5 0.6 Blood Gas A-a O2 Differential 123.6 H 143.5 H 125.3 H Oxyhemoglobin Percent 95.1 92.5 L 93.5 Total Hemoglobin 9.4 L 9.4 L 8.9 L Blood Gas Temperature 37.0 37.0 37.0 Blood Gas Actual Respiration Rate 20 22 Blood Gas Modality NASAL CANNULA NASAL CANNULA NASAL CANNULA FiO2 39.0 39.0 39.0 Blood Gas Notified Whom MG SULTANAD Blood Gas Notified Time 05/27/2017 10:32:18 PM 05/28/2017 2:50:11 AM 05/28/2017 7:50:00 AM White Blood Count 15.1 H Red Blood Count 2.40 L Hemoglobin 8.5 L Hematocrit 27.0 L Mean Corpuscular Volume 112.5 H Mean Corpuscular Hemoglobin 35.4 H Mean Corpuscular Hemoglobin Concent 31.5 L Red Cell Distribution Width 23.9 H Platelet Count 86 L Mean Platelet Volume 11.1 H Neutrophils % 80.0 H Lymphocytes % 8.8 L Monocytes % 9.1 Eosinophils % 0.3 Basophils % 0.2 Nucleated Red Blood Cells % 0.0 Neutrophils # 12.1 H Lymphocytes # 1.3 Monocytes # 1.4 H Eosinophils # 0.1 Basophils # 0.0 Nucleated Red Blood Cells # 0.0 Prothrombin Time 33.4 H Prothrombin Time Ratio 2.6 INR International Normalized Ratio 3.22 Activated Partial Thromboplast Time 48.7 H Sodium Level 148 H Potassium Level 3.7 Chloride Level 104 Carbon Dioxide Level 33 H Anion Gap 15 Blood Urea Nitrogen 27 H Creatinine 0.77 Glucose Level 92 Calcium Level 10.7 H Total Bilirubin 14.9 H Direct Bilirubin 3.40 H Indirect Bilirubin 11.5 H Aspartate Amino Transf (AST/SGOT) 105 H Alanine Aminotransferase (ALT/SGPT) 56 Alkaline Phosphatase 129 H Total Protein 7.7 Albumin 3.6 Globulin 4.10 H Albumin/Globulin Ratio 0.87 Medications Medications Current Medications Rifaximin (Xifaxan) 550 mg BID PO Last administered on 05/28/17 09:05; Admin Dose 550 MG; Start 05/17/17 at 09:00 Lactulose (Enulose) 20 gm Q8 PO Last administered on 05/28/17 13:47; Admin Dose 20 GM; Start 05/17/17 at 08:00 Hydralazine HCl (Apresoline) 10 mg Q6H PRN IV SBP>160 Last administered on 05/27 23:20; Admin Dose 10 MG; Start 05/17/17 at 15:30 Diltiazem HCl (Cardizem Cd) 120 mg BID PO Last administered on 05/27/17 20:33 ; Admin Dose 120 MG; Start 05/20/17 at 21:00 Folic Acid (Folic Acid) 1 mg DAILY PO Last administered on 05/28/17 09:04; Admin Dose 1 MG; Start 05/21/17 at 11:00 Multivitamins Therapeutic (Theragran) 1 tab DAILY PO Last administered on 09:05; Admin Dose 1 TAB; Start 05/21/17 at 11:00 Thiamine HCl (Vitamin B1) 100 mg DAILY PO Last administered on 05/28/17 09:04 ; Admin Dose 100 MG; Start 05/21/17 at 11:00 Sodium Phosphate (Neutra-Phos) 250 mg BID PO Last administered on 05/28/17 09: 05; Admin Dose 250 MG; Start 05/23/17 at 10:00 Lorazepam (Ativan) 1 mg Q6H PRN PO AGITATION/ANXIETY; Start 05/24/17 at 16:30 Cyanocobalamin (Vitamin B12) 1,000 mcg DAILY PO Last administered on 05/28/17 09:05; Admin Dose 1,000 MCG; Start 05/25/17 at 11:30 Pantoprazole (Protonix Tab) 40 mg BID@06,18 PO Last administered on 05/28/17 06:06; Admin Dose 40 MG; Start 05/25/17 at 18:00 Morphine Sulfate (morphine) 1 mg Q4H PRN IV Pain; Start 05/26/17 at 16:00 Acetaminophen/ Hydrocodone Bitart ([place] (7.5-325)) 1 tab Q4H PRN PO moderate pain Last administered on 05/26/17 17:25; Admin Dose 1 TAB; Start 05/26/17 at 15:00 Phytonadione 10 mg 10 mg DAILY PO Last administered on 05/28/17 09:05; Admin Dose 10 MG; Start 05/26/17 at 19:00; Stop 05/28/17 at 21:00 Albumin Human (Albumin Human 25%) 100 ml @ 100 mls/hr BID IV Last administered on 05/28/17 09:02; Admin Dose 100 MLS/HR; Start 05/27/17 at 12:00 ; Stop 05/29/17 at 11:59 Furosemide 40 mg 40 mg BID IV Last administered on 05/28/17 09:05; Admin Dose 40 MG; Start 05/27/17 at 12:00; Stop 05/29/17 at 11:59 Piperacillin Sod/ Tazobactam Sod 100 ml @ 200 mls/hr Q6 IVPB Last administered on 05/28/17 12:33; Admin Dose 200 MLS/HR; Start 05/27/17 at 12:00 Vancomycin HCl/ Sodium Chloride (Vancocin/NS) 250 ml @ 83.333 mls/ hr Q8H IVPB Last administered on 05/28/17 09:02; Admin Dose 83.333 MLS/HR; Start at 00:00 Lorazepam 2 mg 2 mg Q4H PRN IV SEIZURES; Start 05/28/17 at 04:00 Dextrose 1,000 ml @ 50 mls/hr Q20H IV Last administered on 05/28/17 08:12; Admin Dose 50 MLS/HR; Start 05/28/17 at 07:00 Fluconazole/ Sodium Chloride (Diflucan 100 Mg/ NS (Pmx)) 50 ml @ 50 mls/hr Q24H IVPB Last administered on 05/28/17 13:45; Admin Dose 50 MLS/HR; Start at 13:30 SAMANTHA EDEN MD May 28, 2017 16:37
--- NOTE | 2017-05-28 17:21 | PN ---
Date/Time of Note Date/Time of Note DATE: 05/28/17 TIME: 17:17 Assessment/Plan VTE Prophylaxis VTE Prophylaxis Intervention: contraindicated VTE Contraindication Reason: bleeding Lines/Catheters IV Catheter Type (from Nrs): Peripheral IV Urinary Cath still in place: Yes Reason Cath still needed: urinary retention Assessment/Plan Assessment/Plan ssessment * Liver failure,acute * Anemia EGD . Distal erosive esophagitis. . 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 No evidence of significant esophageal varices. Gastritis. Rule out Helicobacter pylori infection. * Cirrhosis of liver * History of alcoholic abuse * Atrial fibrillation resolved Plan * trend liver enzymes * Monitor hemoglobin and hematocrit Q 6 transfuse per protocol * continue Protonix 40 mg bid * Continue present management * prognosis is poor * Case discussed with Dr Newton * Further orders will depend on clinical course Subjective 24 Hr Interval Summary Free Text/Dictation * Course reviewed with RN * Patient seen and examined * responds to painful stimuli * jaundice Exam/Review of Systems Vital Signs Vitals Vital Signs Date Time Temp Pulse Resp B/P Pulse Ox O2 Delivery O2 Flow Rate FiO2 05/28/17 16:00 100.9 72 20 130/58 97 Nasal Cannula 6.0 Intake and Output 05/27/17 05/27/17 05/28/17 15:00 23:00 07:00 Intake Total 725 ml 800.000 ml Output Total 525 ml 1390 ml 630 ml Balance -525 ml -665 ml 170.000 ml Exam Constitutional: frail Head: atraumatic, normocephalic Eyes: icteric Neck: non-tender, supple Respiratory: crackles/rales, diminished breath sounds Cardiovascular: edema, regular rate and rhythm Gastrointestinal: non-tender, soft, No rebound or guarding Musculoskeletal: muscle weakness, swelling Extremities: pitting pedal edema Neurological: other (responds to painful stimuli) Results Result Diagram: 05/28/17 0605 05/28/17 0605 Results 24 hrs Laboratory Tests Test 05/27/17 22:00 05/28/17 02:37 05/28/17 06:05 05/28/17 07:00 Blood Gas Specimen Source Blood arterial Blood arterial Blood arterial Arterial Blood Date Drawn 05/27/2017 10:20:34 PM 05/28/2017 2:40:46 AM 05/28/2017 7:20:05 AM Arterial Blood pH (Temp corrected) 7.428 7.426 7.400 Arterial Blood pCO2 (Temp correct) 48.7 H 51.5 H 57.1 H Arterial Blood pO2 (Temp corrected) 98.3 75.2 L 87.0 Arterial Blood HCO3 31.5 H 33.1 H 34.6 H Arterial Blood Base Excess 6.3 H 7.7 H 8.6 H Arterial Blood Oxygen Saturation 97.6 95.1 96.6 Cruz Test ACCEPTAB ACCEPTAB ACCEPTAB Arterial Blood Gas Puncture Site Right Radial Left Radial Right Radial Arterial Blood Carboxyhemoglobin 2.0 2.2 2.6 Arterial Blood Methemoglobin 0.6 0.5 0.6 Blood Gas A-a O2 Differential 123.6 H 143.5 H 125.3 H Oxyhemoglobin Percent 95.1 92.5 L 93.5 Total Hemoglobin 9.4 L 9.4 L 8.9 L Blood Gas Temperature 37.0 37.0 37.0 Blood Gas Actual Respiration Rate 20 22 Blood Gas Modality NASAL CANNULA NASAL CANNULA NASAL CANNULA FiO2 39.0 39.0 39.0 Blood Gas Notified Whom MG JLD Blood Gas Notified Time 05/27/2017 10:32:18 PM 05/28/2017 2:50:11 AM 05/28/2017 7:50:00 AM White Blood Count 15.1 H Red Blood Count 2.40 L Hemoglobin 8.5 L Hematocrit 27.0 L Mean Corpuscular Volume 112.5 H Mean Corpuscular Hemoglobin 35.4 H Mean Corpuscular Hemoglobin Concent 31.5 L Red Cell Distribution Width 23.9 H Platelet Count 86 L Mean Platelet Volume 11.1 H Neutrophils % 80.0 H Lymphocytes % 8.8 L Monocytes % 9.1 Eosinophils % 0.3 Basophils % 0.2 Nucleated Red Blood Cells % 0.0 Neutrophils # 12.1 H Lymphocytes # 1.3 Monocytes # 1.4 H Eosinophils # 0.1 Basophils # 0.0 Nucleated Red Blood Cells # 0.0 Prothrombin Time 33.4 H Prothrombin Time Ratio 2.6 INR International Normalized Ratio 3.22 Activated Partial Thromboplast Time 48.7 H Sodium Level 148 H Potassium Level 3.7 Chloride Level 104 Carbon Dioxide Level 33 H Anion Gap 15 Blood Urea Nitrogen 27 H Creatinine 0.77 Glucose Level 92 Calcium Level 10.7 H Total Bilirubin 14.9 H Direct Bilirubin 3.40 H Indirect Bilirubin 11.5 H Aspartate Amino Transf (AST/SGOT) 105 H Alanine Aminotransferase (ALT/SGPT) 56 Alkaline Phosphatase 129 H Total Protein 7.7 Albumin 3.6 Globulin 4.10 H Albumin/Globulin Ratio 0.87 Test 05/28/17 15:30 Vancomycin Level Trough 24.4 *H Medications Medications Current Medications Rifaximin (Xifaxan) 550 mg BID PO Last administered on 05/28/17 09:05; Admin Dose 550 MG; Start 05/17/17 at 09:00 Lactulose (Enulose) 20 gm Q8 PO Last administered on 05/28/17 13:47; Admin Dose 20 GM; Start 05/17/17 at 08:00 Hydralazine HCl (Apresoline) 10 mg Q6H PRN IV SBP>160 Last administered on 05/27 23:20; Admin Dose 10 MG; Start 05/17/17 at 15:30 Diltiazem HCl (Cardizem Cd) 120 mg BID PO Last administered on 05/27/17 20:33 ; Admin Dose 120 MG; Start 05/20/17 at 21:00 Folic Acid (Folic Acid) 1 mg DAILY PO Last administered on 05/28/17 09:04; Admin Dose 1 MG; Start 05/21/17 at 11:00 Multivitamins Therapeutic (Theragran) 1 tab DAILY PO Last administered on 09:05; Admin Dose 1 TAB; Start 05/21/17 at 11:00 Thiamine HCl (Vitamin B1) 100 mg DAILY PO Last administered on 05/28/17 09:04 ; Admin Dose 100 MG; Start 05/21/17 at 11:00 Sodium Phosphate (Neutra-Phos) 250 mg BID PO Last administered on 05/28/17 09: 05; Admin Dose 250 MG; Start 05/23/17 at 10:00 Lorazepam (Ativan) 1 mg Q6H PRN PO AGITATION/ANXIETY; Start 05/24/17 at 16:30 Cyanocobalamin (Vitamin B12) 1,000 mcg DAILY PO Last administered on 05/28/17 09:05; Admin Dose 1,000 MCG; Start 05/25/17 at 11:30 Pantoprazole (Protonix Tab) 40 mg BID@ PO Last administered on 05/28/17 06:06; Admin Dose 40 MG; Start 05/25/17 at 18:00 Morphine Sulfate (morphine) 1 mg Q4H PRN IV Pain; Start 05/26/17 at 16:00 Acetaminophen/ Hydrocodone Bitart ([place] (7.5-325)) 1 tab Q4H PRN PO moderate pain Last administered on 05/26/17 17:25; Admin Dose 1 TAB; Start 05/26/17 at 15:00 Phytonadione 10 mg 10 mg DAILY PO Last administered on 05/28/17 09:05; Admin Dose 10 MG; Start 05/26/17 at 19:00; Stop 05/28/17 at 21:00 Albumin Human (Albumin Human 25%) 100 ml @ 100 mls/hr BID IV Last administered on 05/28/17 09:02; Admin Dose 100 MLS/HR; Start 05/27/17 at 12:00 ; Stop 05/29/17 at 11:59 Furosemide 40 mg 40 mg BID IV Last administered on 05/28/17 09:05; Admin Dose 40 MG; Start 05/27/17 at 12:00; Stop 05/29/17 at 11:59 Piperacillin Sod/ Tazobactam Sod (Zosyn 3.375gm/ 100 ml (Pmx)) 100 ml @ 200 mls /hr Q6 IVPB Last administered on 05/28/17 12:33; Admin Dose 200 MLS/HR; Start 05/27/17 at 12:00 Lorazepam 2 mg 2 mg Q4H PRN IV SEIZURES; Start 05/28/17 at 04:00 Dextrose 1,000 ml @ 50 mls/hr Q20H IV Last administered on 05/28/17 08:12; Admin Dose 50 MLS/HR; Start 05/28/17 at 07:00 Fluconazole/ Sodium Chloride 50 ml @ 50 mls/hr Q24H IVPB Last administered on 13:45; Admin Dose 50 MLS/HR; Start 05/28/17 at 13:30 Vancomycin HCl/ Sodium Chloride (Vancocin/NS) 250 ml @ 83.333 mls/ hr Q12H IVPB ; Start 05/28/17 at 23:00 JUAN SR NP May 28, 2017 17:21
[2017-05-29] VITALS (17 sets, daily range): BP systolic 121–160; BP diastolic 50–79; PULSE 71–95; RESP 15–28
[2017-05-29 00:47] LABS: Allen Test ACCEPTAB; Arterial Base Excess 11.5 mmol/L (-3.0-3); Arterial COHb 3.3 % (0.0-3.0); Arterial Fraction of Oxyhgb 95.4 % (93.0-99.0); Arterial HCO3 38.1 mmol/L (22.0-26.0); Arterial MetHb 0.6 % (0.0-1.5); Arterial Total Hemglobin 8.5 g/dl (12.0-18.0); MODE MASK - SIMPLE
[2017-05-29] MEDS: LORAZEPAM 2 MG INJ IV PRN ×2 (02:29→22:02)
[2017-05-29] MEDS: DEXTROSE 5% 1,000 ML IV SCH ×2 (02:39→23:45)
[2017-05-29] MEDS: LACTULOSE 30ML CUP PO SCH ×3 (05:20→22:03)
[2017-05-29] MEDS: PANTOPRAZOLE (EC) 40 MG TAB PO SCH ×2 (05:21→17:46)
[2017-05-29] MEDS: PIPER-TAZO 3.375 GM IV (PMX) 100 ML IVPB SCH ×4 (06:00→23:50)
[2017-05-29 06:59] LABS: CALCIUM 10.8 mg/dl (8.4-10.2); CREATININE 0.67 mg/dl (0.61-1.24); MAGNESIUM 1.3 mg/dl (1.7-2.5); POTASSIUM 3.2 mmol/L (3.5-5.1)
[2017-05-29] MEDS ORDERED: POTASSIUM CHLORIDE 20 MEQ POWDER FOR ORAL SOLN NGT ONE (08:00)
[2017-05-29] MEDS ORDERED: MAGNESIUM SULFATE 2 GM/50 ML 50 ML IVPB ONE (08:00)
--- NOTE | 2017-05-29 08:35 | PN ---
Date/Time of Note Date/Time of Note DATE: 05/29/17 TIME: 08: Assessment/Plan Lines/Catheters IV Catheter Type (from [facility]): Peripheral IV Urinary Cath still in place: Yes Assessment/Plan Chief Complaint/Hosp Course 1. Nonoliguric acute kidney injury with unknown baseline creatinine. Etiology secondary to hemodynamics. Renal function has stabilized. Continue current treatment, supportive care, renally dose all medicines. 2. Hyponatremia. Continue D5W at current rate. We will start free water flushes 200 cc every 4 hours 2. Volume overload, improving. continue Lasix 3. Hypomagnesemia/hypokalemia. Continue to monitor and replete. 4. Anemia. Continue to monitor hemoglobin and hematocrit levels. 6. Acute encephalopathy. No clinical improvement. Patient continues to be obtunded. Concerning for possible seizure. Likely hepatic encephalopathy contributing factor. Patient had status post 2 CT scans no acute findings. Continue antiseizure medications. Follow-up with neurology for recommendations. 5. Mineral bone disorder. Continue to monitor calcium and phosphorus levels. 6. Transaminitis and hyperbilirubinemia secondary to alcoholic liver disease. Continue to monitor. 7. Atrial fibrillation, rate controlled. Continue medical management. 9. Sepsis secondary to bacteremia. Continue antibiotic regimen. 10. History of ethyl alcohol use. Problems: Subjective 24 Hr Interval Summary Free Text/Dictation Patient remains critically ill. On facemask. Patient is obtunded. No other events noted. Patient noted to have some possible. Exam/Review of Systems Vital Signs Vitals Vital Signs Date Time Temp Pulse Resp B/P Pulse Ox O2 Delivery O2 Flow Rate FiO2 05/29/17 06:03 87 19 149/70 98 Venturi Mask 05/29/17 05:19 50 05/29/17 04:00 98.0 05/29/17 00:59 8.0 Intake and Output 05/28/17 05/28/17 05/29/17 15:00 23:00 07:00 Intake Total 950.0 ml 250 ml 0 ml Output Total 550 ml 950 ml 2300 ml Balance 400.0 ml -700 ml -2300 ml Exam Generally patient is confused altered HEENT head is normocephalic pupils are reactive Lungs show diminished breath sounds bases otherwise clear Abdomen soft nontender palpation rebound guarding Heart regular rate no gallops clicks Extremities are negative for clubbing cyanosis positive edema Dermatologically patient's jaundice Neurologically limited exam due to lack of patient cooperation Results Result Diagram: 05/28/17 0605 05/29/17 0610 Results 24 hrs Laboratory Tests Test 05/28/17 15:30 05/29/17 00:32 05/29/17 06:10 Vancomycin Level Trough 24.4 *H Blood Gas Specimen Source Blood arterial Arterial Blood Date Drawn 05/29/2017 12:35:51 AM Arterial Blood pH (Temp corrected) 7.383 Arterial Blood pCO2 (Temp correct) 65.5 H Arterial Blood pO2 (Temp corrected) 154.3 H Arterial Blood HCO3 38.1 H Arterial Blood Base Excess 11.5 H Arterial Blood Oxygen Saturation 99.3 H Cruz Test ACCEPTAB Arterial Blood Gas Puncture Site Right Radial Arterial Blood Carboxyhemoglobin 3.3 H Arterial Blood Methemoglobin 0.6 Blood Gas A-a O2 Differential 92.0 H Oxyhemoglobin Percent 95.4 Total Hemoglobin 8.5 L Blood Gas Temperature 37.0 Blood Gas Actual Respiration Rate 24 Blood Gas Modality MASK - SIMPLE FiO2 45.0 Blood Gas Notified Suzy BAPTISTE RCP Blood Gas Notified Time 05/29/2017 12:47:05 AM Sodium Level 151 H Potassium Level 3.2 L Chloride Level 105 Carbon Dioxide Level 35 H Anion Gap 14 Blood Urea Nitrogen 22 H Creatinine 0.67 Glucose Level 100 Calcium Level 10.8 H Phosphorus Level 3.0 Magnesium Level 1.3 L Medications Medications Current Medications Rifaximin (Xifaxan) 550 mg BID PO Last administered on 05/28/17 21:11; Admin Dose 550 MG; Start 05/17/17 at 09:00 Lactulose (Enulose) 20 gm Q8 PO Last administered on 05/29/17 05:20; Admin Dose 20 GM; Start 05/17/17 at 08:00 Hydralazine HCl (Apresoline) 10 mg Q6H PRN IV SBP>160 Last administered on 05/27 23:20; Admin Dose 10 MG; Start 05/17/17 at 15:30 Diltiazem HCl (Cardizem Cd) 120 mg BID PO Last administered on 05/28/17 21:11 ; Admin Dose 120 MG; Start 05/20/17 at 21:00 Folic Acid (Folic Acid) 1 mg DAILY PO Last administered on 05/28/17 09:04; Admin Dose 1 MG; Start 05/21/17 at 11:00 Multivitamins Therapeutic (Theragran) 1 tab DAILY PO Last administered on 09:05; Admin Dose 1 TAB; Start 05/21/17 at 11:00 Thiamine HCl (Vitamin B1) 100 mg DAILY PO Last administered on 05/28/17 09:04 ; Admin Dose 100 MG; Start 05/21/17 at 11:00 Sodium Phosphate (Neutra-Phos) 250 mg BID PO Last administered on 05/28/17 21: 11; Admin Dose 250 MG; Start 05/23/17 at 10:00 Lorazepam (Ativan) 1 mg Q6H PRN PO AGITATION/ANXIETY; Start 05/24/17 at 16:30 Cyanocobalamin (Vitamin B12) 1,000 mcg DAILY PO Last administered on 05/28/17 09:05; Admin Dose 1,000 MCG; Start 05/25/17 at 11:30 Pantoprazole (Protonix Tab) 40 mg BID@06,18 PO Last administered on 05/28/17 06:06; Admin Dose 40 MG; Start 05/25/17 at 18:00 Morphine Sulfate (morphine) 1 mg Q4H PRN IV Pain; Start 05/26/17 at 16:00 Acetaminophen/ Hydrocodone Bitart 1 tab 1 tab Q4H PRN PO moderate pain Last administered on 05/26/17 17:25; Admin Dose 1 TAB; Start 05/26/17 at 15:00 Albumin Human (Albumin Human 25%) 100 ml @ 100 mls/hr BID IV Last administered on 05/28/17 22:05; Admin Dose 100 MLS/HR; Start 05/27/17 at 12:00 ; Stop 05/29/17 at 11:59 Furosemide 40 mg 40 mg BID IV Last administered on 05/28/17 21:11; Admin Dose 40 MG; Start 05/27/17 at 12:00; Stop 05/29/17 at 11:59 Piperacillin Sod/ Tazobactam Sod (Zosyn 3.375gm/ 100 ml (Pmx)) 100 ml @ 200 mls /hr Q6 IVPB Last administered on 05/29/17 06:00; Admin Dose 200 MLS/HR; Start 05/27/17 at 12:00 Lorazepam 2 mg 2 mg Q4H PRN IV SEIZURES Last administered on 05/29/17 02:29; Admin Dose 2 MG; Start 05/28/17 at 04:00 Dextrose 1,000 ml @ 50 mls/hr Q20H IV Last administered on 05/28/17 08:12; Admin Dose 50 MLS/HR; Start 05/28/17 at 07:00 Fluconazole/ Sodium Chloride 50 ml @ 50 mls/hr Q24H IVPB Last administered on 13:45; Admin Dose 50 MLS/HR; Start 05/28/17 at 13:30 Vancomycin HCl 1.25 gm/Sodium Chloride 250 ml @ 83.333 mls/ hr Q12H IVPB Last administered on 05/28/17 23:12; Admin Dose 83.333 MLS/HR; Start 05/28/17 at 23: 00 Magnesium Sulfate (Magnesium Sulfate 2 Gm/50 ml) 50 ml @ 25 mls/hr ONCE ONCE IVPB ; Start 05/29/17 at 08:00; Stop 05/29/17 at 09:59 ESTEFANIA ZELAYA DO May 29, 2017 08:35
[2017-05-29] MEDS: ALBUTEROL 0.083% (NEB) 2.5 MG/3 ML AMP HHN SCH ×3 (08:39→21:36)
--- NOTE | 2017-05-29 08:48 | CONS ---
Date/Time of Note Date/Time of Note DATE: 05/29/17 TIME: 08:40 Assessment/Plan Assessment/Plan Additional Assessment/Plan Assessment and recommendations; 1. Patient admitted with pneumonia then developed significant hepatic encephalopathy due to end-stage alcoholic liver disease. 2. Lower GI bleed. 3. Severe hyperbilirubinemia. Patient is to be on hospice evaluation. Prognosis is appearing dismal. Patient can be transferred to the medical floor. Consultation Date/Type/Reason Admit Date/Time May 13, 2017 at 22:29 Initial Consult Date 05/14/17 Type of Consultation: Pulmonary/critical care Referring Provider: MICHELLE CRAFT 24 HR Interval Summary Free Text/Dictation Patient condition remains extremely critical. Remains semi-responsive. Patient however has remained hemodynamically stable and not requiring any pressor support. No further lower GI bleed noted. General exam; middle-aged male, somewhat responsive, currently in no distress. Exam/Review of Systems Vital Signs Vitals Vital Signs Date Time Temp Pulse Resp B/P Pulse Ox O2 Delivery O2 Flow Rate FiO2 05/29/17 06:03 87 19 149/70 98 Venturi Mask 05/29/17 05:19 50 05/29/17 04:00 98.0 05/29/17 00:59 8.0 Intake and Output 05/28/17 05/28/17 05/29/17 15:00 23:00 07:00 Intake Total 950.0 ml 250 ml 0 ml Output Total 550 ml 950 ml 2300 ml Balance 400.0 ml -700 ml -2300 ml Exam HEENT exam; supple neck, patient is deeply icteric. Pupils are small bilaterally. No neck masses. Chest exam; diminished but clear vessel. S1-S2 audible, no murmurs. Regular rhythm. Abdomen exam; soft, nondistended. Bowel sounds are sluggish. Extremity exam; trace generalized edema. ADVICE NURSE exam; patient is semi-responsive. Results Result Diagram: 05/28/17 0605 05/29/17 0610 Results 24 hrs Laboratory Tests Test 05/28/17 15:30 05/29/17 00:32 05/29/17 06:10 Vancomycin Level Trough 24.4 *H Blood Gas Specimen Source Blood arterial Arterial Blood Date Drawn 05/29/2017 12:35:51 AM Arterial Blood pH (Temp corrected) 7.383 Arterial Blood pCO2 (Temp correct) 65.5 H Arterial Blood pO2 (Temp corrected) 154.3 H Arterial Blood HCO3 38.1 H Arterial Blood Base Excess 11.5 H Arterial Blood Oxygen Saturation 99.3 H Cruz Test ACCEPTAB Arterial Blood Gas Puncture Site Right Radial Arterial Blood Carboxyhemoglobin 3.3 H Arterial Blood Methemoglobin 0.6 Blood Gas A-a O2 Differential 92.0 H Oxyhemoglobin Percent 95.4 Total Hemoglobin 8.5 L Blood Gas Temperature 37.0 Blood Gas Actual Respiration Rate 24 Blood Gas Modality MASK - SIMPLE FiO2 45.0 Blood Gas Notified Suzy BAPTISTE MECHANICAL TEST TECHNICIAN Blood Gas Notified Time 05/29/2017 12:47:05 AM Sodium Level 151 H Potassium Level 3.2 L Chloride Level 105 Carbon Dioxide Level 35 H Anion Gap 14 Blood Urea Nitrogen 22 H Creatinine 0.67 Glucose Level 100 Calcium Level 10.8 H Phosphorus Level 3.0 Magnesium Level 1.3 L Medications Medications Current Medications Rifaximin (Xifaxan) 550 mg BID PO Last administered on 05/28/17 21:11; Admin Dose 550 MG; Start 05/17/17 at 09:00 Lactulose (Enulose) 20 gm Q8 PO Last administered on 05/29/17 05:20; Admin Dose 20 GM; Start 05/17/17 at 08:00 Hydralazine HCl (Apresoline) 10 mg Q6H PRN IV SBP>160 Last administered on 05/27 23:20; Admin Dose 10 MG; Start 05/17/17 at 15:30 Diltiazem HCl (Cardizem Cd) 120 mg BID PO Last administered on 05/28/17 21:11 ; Admin Dose 120 MG; Start 05/20/17 at 21:00 Folic Acid (Folic Acid) 1 mg DAILY PO Last administered on 05/28/17 09:04; Admin Dose 1 MG; Start 05/21/17 at 11:00 Multivitamins Therapeutic (Theragran) 1 tab DAILY PO Last administered on 09:05; Admin Dose 1 TAB; Start 05/21/17 at 11:00 Thiamine HCl (Vitamin B1) 100 mg DAILY PO Last administered on 05/28/17 09:04 ; Admin Dose 100 MG; Start 05/21/17 at 11:00 Sodium Phosphate (Neutra-Phos) 250 mg BID PO Last administered on 05/28/17 21: 11; Admin Dose 250 MG; Start 05/23/17 at 10:00 Lorazepam (Ativan) 1 mg Q6H PRN PO AGITATION/ANXIETY; Start 05/24/17 at 16:30 Cyanocobalamin (Vitamin B12) 1,000 mcg DAILY PO Last administered on 05/28/17 09:05; Admin Dose 1,000 MCG; Start 05/25/17 at 11:30 Pantoprazole (Protonix Tab) 40 mg BID@06,18 PO Last administered on 05/28/17 06:06; Admin Dose 40 MG; Start 05/25/17 at 18:00 Morphine Sulfate (morphine) 1 mg Q4H PRN IV Pain; Start 05/26/17 at 16:00 Acetaminophen/ Hydrocodone Bitart 1 tab 1 tab Q4H PRN PO moderate pain Last administered on 05/26/17 17:25; Admin Dose 1 TAB; Start 05/26/17 at 15:00 Albumin Human (Albumin Human 25%) 100 ml @ 100 mls/hr BID IV Last administered on 05/28/17 22:05; Admin Dose 100 MLS/HR; Start 05/27/17 at 12:00 ; Stop 05/29/17 at 11:59 Furosemide 40 mg 40 mg BID IV Last administered on 05/28/17 21:11; Admin Dose 40 MG; Start 05/27/17 at 12:00; Stop 05/29/17 at 11:59 Piperacillin Sod/ Tazobactam Sod (Zosyn 3.375gm/ 100 ml (Pmx)) 100 ml @ 200 mls /hr Q6 IVPB Last administered on 05/29/17 06:00; Admin Dose 200 MLS/HR; Start 05/27/17 at 12:00 Lorazepam 2 mg 2 mg Q4H PRN IV SEIZURES Last administered on 05/29/17 02:29; Admin Dose 2 MG; Start 05/28/17 at 04:00 Dextrose 1,000 ml @ 50 mls/hr Q20H IV Last administered on 05/28/17 08:12; Admin Dose 50 MLS/HR; Start 05/28/17 at 07:00 Fluconazole/ Sodium Chloride 50 ml @ 50 mls/hr Q24H IVPB Last administered on 13:45; Admin Dose 50 MLS/HR; Start 05/28/17 at 13:30 Vancomycin HCl 1.25 gm/Sodium Chloride 250 ml @ 83.333 mls/ hr Q12H IVPB Last administered on 05/28/17 23:12; Admin Dose 83.333 MLS/HR; Start 05/28/17 at 23: 00 Magnesium Sulfate (Magnesium Sulfate 2 Gm/50 ml) 50 ml @ 25 mls/hr ONCE ONCE IVPB ; Start 05/29/17 at 08:00; Stop 05/29/17 at 09:59 LUIS FERNANDO TAMAYO May 29, 2017 08:48
[2017-05-29] MEDS: ALBUMIN HUMAN 25% 100 ML IV SCH (09:12)
[2017-05-29] MEDS: DILTIAZEM (CD) 120 MG CAP PO SCH (09:13)
[2017-05-29] MEDS: MULTIVITAMINS THERAPEUTIC TAB PO SCH (09:13)
[2017-05-29] MEDS: FUROSEMIDE 40 MG INJ IV SCH (09:13)
[2017-05-29] MEDS: NEUTRA-PHOS 250 MG PACKET PO SCH ×2 (09:13→22:02)
[2017-05-29] MEDS: FOLIC ACID 1 MG TAB PO SCH (09:13)
[2017-05-29] MEDS: THIAMINE 100 MG TAB PO SCH (09:14)
[2017-05-29] MEDS: RIFAXIMIN 550 MG TAB PO SCH ×2 (09:15→22:04)
[2017-05-29] MEDS: CYANOCOBALAMIN 500 MCG TAB PO SCH (09:15)
--- NOTE | 2017-05-29 09:57 | CONS ---
Date/Time of Note Date/Time of Note DATE: 05/29/17 TIME: 09:46 Assessment/Plan Assessment/Plan Additional Assessment/Plan Long discussion with patients brother sister and agent. Patient has a advanced directive which states he does not want to be kept alive in a debilitated moribund condition. There are some "If's" but the intention of his advanced directive is not to prolong his life artificially. I have read his advanced directive to family members who are in agreement amongst themselves not to continue with a high level of care and the change to DNR. Suggest discontinuing intensive care unit in the morning and in-house hospice evaluation. I have discussed with Dr. Martin. End-stage liver disease coagulopathy sepsis syndrome respiratory failure alcoholic liver disease Consultation Date/Type/Reason Admit Date/Time May 13, 2017 at 22:29 Subjective hx not possible: pt non-verbal ENT: bleeding, congestion, discharge, dysphagia, no complaints, other, pain, sore throat Neurologic: confusion, dizziness, focal-weakness, headache, no complaints, other, seizure, syncope Past Medical History Medical History: hypertension Social History Alcohol Use: heavy Smoking Status: Unknown if ever smoked Exam/Review of Systems Vital Signs Vitals Vital Signs Date Time Temp Pulse Resp B/P Pulse Ox O2 Delivery O2 Flow Rate FiO2 05/29/17 08:40 94 21 98 Venti Mask 15.0 50 05/29/17 06:03 149/70 05/29/17 04:00 98.0 Intake and Output 05/28/17 05/28/17 05/29/17 15:00 23:00 07:00 Intake Total 950.0 ml 250 ml 0 ml Output Total 550 ml 950 ml 2300 ml Balance 400.0 ml -700 ml -2300 ml Exam Constitutional: distress, frail Respiratory: congested cough, crackles/rales, diminished breath sounds, intercostal retraction, labored breathing Gastrointestinal: ascites, distended Extremities: cyanosis Neurological: unresponsive Results Result Diagram: 05/28/17 0605 05/29/17 0610 Results 24 hrs Laboratory Tests Test 05/28/17 15:30 05/29/17 00:32 05/29/17 06:10 Vancomycin Level Trough 24.4 *H Blood Gas Specimen Source Blood arterial Arterial Blood Date Drawn 05/29/2017 12:35:51 AM Arterial Blood pH (Temp corrected) 7.383 Arterial Blood pCO2 (Temp correct) 65.5 H Arterial Blood pO2 (Temp corrected) 154.3 H Arterial Blood HCO3 38.1 H Arterial Blood Base Excess 11.5 H Arterial Blood Oxygen Saturation 99.3 H Cruz Test ACCEPTAB Arterial Blood Gas Puncture Site Right Radial Arterial Blood Carboxyhemoglobin 3.3 H Arterial Blood Methemoglobin 0.6 Blood Gas A-a O2 Differential 92.0 H Oxyhemoglobin Percent 95.4 Total Hemoglobin 8.5 L Blood Gas Temperature 37.0 Blood Gas Actual Respiration Rate 24 Blood Gas Modality MASK - SIMPLE FiO2 45.0 Blood Gas Notified Whom EMILE DOCUMENT DESIGN SPECIALIST Blood Gas Notified Time 05/29/2017 12:47:05 AM Sodium Level 151 H Potassium Level 3.2 L Chloride Level 105 Carbon Dioxide Level 35 H Anion Gap 14 Blood Urea Nitrogen 22 H Creatinine 0.67 Glucose Level 100 Calcium Level 10.8 H Phosphorus Level 3.0 Magnesium Level 1.3 L Medications Medications Current Medications Rifaximin (Xifaxan) 550 mg BID PO Last administered on 05/29/17 09:15; Admin Dose 550 MG; Start 05/17/17 at 09:00 Lactulose (Enulose) 20 gm Q8 PO Last administered on 05/29/17 05:20; Admin Dose 20 GM; Start 05/17/17 at 08:00 Hydralazine HCl (Apresoline) 10 mg Q6H PRN IV SBP>160 Last administered on 05/27 23:20; Admin Dose 10 MG; Start 05/17/17 at 15:30 Diltiazem HCl (Cardizem Cd) 120 mg BID PO Last administered on 05/29/17 09:13 ; Admin Dose 120 MG; Start 05/20/17 at 21:00 Folic Acid (Folic Acid) 1 mg DAILY PO Last administered on 05/29/17 09:13; Admin Dose 1 MG; Start 05/21/17 at 11:00 Multivitamins Therapeutic (Theragran) 1 tab DAILY PO Last administered on 09:13; Admin Dose 1 TAB; Start 05/21/17 at 11:00 Thiamine HCl (Vitamin B1) 100 mg DAILY PO Last administered on 05/29/17 09:14 ; Admin Dose 100 MG; Start 05/21/17 at 11:00 Sodium Phosphate (Neutra-Phos) 250 mg BID PO Last administered on 05/29/17 09: 13; Admin Dose 250 MG; Start 05/23/17 at 10:00 Lorazepam (Ativan) 1 mg Q6H PRN PO AGITATION/ANXIETY; Start 05/24/17 at 16:30 Cyanocobalamin (Vitamin B12) 1,000 mcg DAILY PO Last administered on 05/29/17 09:15; Admin Dose 1,000 MCG; Start 05/25/17 at 11:30 Pantoprazole (Protonix Tab) 40 mg BID@06,18 PO Last administered on 05/28/17 06:06; Admin Dose 40 MG; Start 05/25/17 at 18:00 Morphine Sulfate (morphine) 1 mg Q4H PRN IV Pain; Start 05/26/17 at 16:00 Acetaminophen/ Hydrocodone Bitart 1 tab 1 tab Q4H PRN PO moderate pain Last administered on 05/26/17 17:25; Admin Dose 1 TAB; Start 05/26/17 at 15:00 Albumin Human (Albumin Human 25%) 100 ml @ 100 mls/hr BID IV Last administered on 05/29/17 09:12; Admin Dose 100 MLS/HR; Start 05/27/17 at 12:00 ; Stop 05/29/17 at 11:59 Furosemide 40 mg 40 mg BID IV Last administered on 05/29/17 09:13; Admin Dose 40 MG; Start 05/27/17 at 12:00; Stop 05/29/17 at 11:59 Piperacillin Sod/ Tazobactam Sod (Zosyn 3.375gm/ 100 ml (Pmx)) 100 ml @ 200 mls /hr Q6 IVPB Last administered on 05/29/17 06:00; Admin Dose 200 MLS/HR; Start 05/27/17 at 12:00 Lorazepam 2 mg 2 mg Q4H PRN IV SEIZURES Last administered on 05/29/17 02:29; Admin Dose 2 MG; Start 05/28/17 at 04:00 Dextrose 1,000 ml @ 50 mls/hr Q20H IV Last administered on 05/28/17 08:12; Admin Dose 50 MLS/HR; Start 05/28/17 at 07:00 Fluconazole/ Sodium Chloride 50 ml @ 50 mls/hr Q24H IVPB Last administered on 13:45; Admin Dose 50 MLS/HR; Start 05/28/17 at 13:30 Vancomycin HCl 1.25 gm/Sodium Chloride 250 ml @ 83.333 mls/ hr Q12H IVPB Last administered on 05/28/17 23:12; Admin Dose 83.333 MLS/HR; Start 05/28/17 at 23: 00 Magnesium Sulfate (Magnesium Sulfate 2 Gm/50 ml) 50 ml @ 25 mls/hr ONCE ONCE IVPB Last administered on 05/29/17 09:11; Admin Dose 25 MLS/HR; Start at 08:00; Stop 05/29/17 at 09:59 Miscellaneous Information (*Rx Drug Level Order Reminder*) VANCO TROUGH @ 1, 000 ON... ONCE ONCE XX ; Start 05/30/17 at 10:00; Stop 05/30/17 at 10:01 CHAZ SAMS May 29, 2017 09:56
--- NOTE | 2017-05-29 10:41 | CONS ---
Date/Time of Note Date/Time of Note DATE: 05/29/17 TIME: 10:39 Assessment/Plan Assessment/Plan Chief Complaint/Hosp Course Assessment 1. Liver failure,acute 2. Anemia EGD . Distal erosive esophagitis. . 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 No evidence of significant esophageal varices. Gastritis. Rule out Helicobacter pylori infection. 3. Cirrhosis of liver 4. History of alcoholic abuse 5. Atrial fibrillation resolved Plan - trend liver enzymes - Monitor hemoglobin and hematocrit Q 6 transfuse per protocol - continue Protonix 40 mg bid - Continue supportive therapy - prognosis is poor Problems: Consultation Date/Type/Reason Admit Date/Time May 13, 2017 at 22:29 Initial Consult Date 05/14/17 Type of Consultation: GI Referring Provider: MICHELLE CRAFT 24 HR Interval Summary Subjective hx not possible: pt non-verbal Exam/Review of Systems Vital Signs Vitals Vital Signs Date Time Temp Pulse Resp B/P Pulse Ox O2 Delivery O2 Flow Rate FiO2 05/29/17 08:40 94 21 98 Venti Mask 15.0 50 05/29/17 06:03 149/70 05/29/17 04:00 98.0 Intake and Output 05/28/17 05/28/17 05/29/17 15:00 23:00 07:00 Intake Total 950.0 ml 250 ml 0 ml Output Total 550 ml 950 ml 2300 ml Balance 400.0 ml -700 ml -2300 ml Exam Constitutional: non-verbal Psych: confusion Head: atraumatic, normocephalic Eyes: icteric, nl lids ENMT: mucosa pink and moist, nl external ears & nose, nl lips & teeth, nl nasal mucosa & septum Neck: non-tender, supple Respiratory: clear to auscultation, normal air movement Cardiovascular: nl pulses, regular rate and rhythm Gastrointestinal: bowel sounds, non-tender, soft Results Result Diagram: 05/28/17 0605 05/29/17 0610 Results 24 hrs Laboratory Tests Test 05/28/17 15:30 05/29/17 00:32 05/29/17 06:10 Vancomycin Level Trough 24.4 *H Blood Gas Specimen Source Blood arterial Arterial Blood Date Drawn 05/29/2017 12:35:51 AM Arterial Blood pH (Temp corrected) 7.383 Arterial Blood pCO2 (Temp correct) 65.5 H Arterial Blood pO2 (Temp corrected) 154.3 H Arterial Blood HCO3 38.1 H Arterial Blood Base Excess 11.5 H Arterial Blood Oxygen Saturation 99.3 H Cruz Test ACCEPTAB Arterial Blood Gas Puncture Site Right Radial Arterial Blood Carboxyhemoglobin 3.3 H Arterial Blood Methemoglobin 0.6 Blood Gas A-a O2 Differential 92.0 H Oxyhemoglobin Percent 95.4 Total Hemoglobin 8.5 L Blood Gas Temperature 37.0 Blood Gas Actual Respiration Rate 24 Blood Gas Modality MASK - SIMPLE FiO2 45.0 Blood Gas Notified Whom EMILE STRUCTURAL ENGINEERING DRAFTING OFFICER Blood Gas Notified Time 05/29/2017 12:47:05 AM Sodium Level 151 H Potassium Level 3.2 L Chloride Level 105 Carbon Dioxide Level 35 H Anion Gap 14 Blood Urea Nitrogen 22 H Creatinine 0.67 Glucose Level 100 Calcium Level 10.8 H Phosphorus Level 3.0 Magnesium Level 1.3 L Medications Medications Current Medications Rifaximin (Xifaxan) 550 mg BID PO Last administered on 05/29/17 09:15; Admin Dose 550 MG; Start 05/17/17 at 09:00 Lactulose (Enulose) 20 gm Q8 PO Last administered on 05/29/17 05:20; Admin Dose 20 GM; Start 05/17/17 at 08:00 Hydralazine HCl (Apresoline) 10 mg Q6H PRN IV SBP>160 Last administered on 05/27 23:20; Admin Dose 10 MG; Start 05/17/17 at 15:30 Diltiazem HCl (Cardizem Cd) 120 mg BID PO Last administered on 05/29/17 09:13 ; Admin Dose 120 MG; Start 05/20/17 at 21:00 Folic Acid (Folic Acid) 1 mg DAILY PO Last administered on 05/29/17 09:13; Admin Dose 1 MG; Start 05/21/17 at 11:00 Multivitamins Therapeutic (Theragran) 1 tab DAILY PO Last administered on 09:13; Admin Dose 1 TAB; Start 05/21/17 at 11:00 Thiamine HCl (Vitamin B1) 100 mg DAILY PO Last administered on 05/29/17 09:14 ; Admin Dose 100 MG; Start 05/21/17 at 11:00 Sodium Phosphate (Neutra-Phos) 250 mg BID PO Last administered on 05/29/17 09: 13; Admin Dose 250 MG; Start 05/23/17 at 10:00 Lorazepam (Ativan) 1 mg Q6H PRN PO AGITATION/ANXIETY; Start 05/24/17 at 16:30 Cyanocobalamin (Vitamin B12) 1,000 mcg DAILY PO Last administered on 05/29/17 09:15; Admin Dose 1,000 MCG; Start 05/25/17 at 11:30 Pantoprazole (Protonix Tab) 40 mg BID@06,18 PO Last administered on 05/28/17 06:06; Admin Dose 40 MG; Start 05/25/17 at 18:00 Morphine Sulfate (morphine) 1 mg Q4H PRN IV Pain; Start 05/26/17 at 16:00 Acetaminophen/ Hydrocodone Bitart 1 tab 1 tab Q4H PRN PO moderate pain Last administered on 05/26/17 17:25; Admin Dose 1 TAB; Start 05/26/17 at 15:00 Albumin Human (Albumin Human 25%) 100 ml @ 100 mls/hr BID IV Last administered on 05/29/17 09:12; Admin Dose 100 MLS/HR; Start 05/27/17 at 12:00 ; Stop 05/29/17 at 11:59 Furosemide 40 mg 40 mg BID IV Last administered on 05/29/17 09:13; Admin Dose 40 MG; Start 05/27/17 at 12:00; Stop 05/29/17 at 11:59 Piperacillin Sod/ Tazobactam Sod (Zosyn 3.375gm/ 100 ml (Pmx)) 100 ml @ 200 mls /hr Q6 IVPB Last administered on 05/29/17 06:00; Admin Dose 200 MLS/HR; Start 05/27/17 at 12:00 Lorazepam 2 mg 2 mg Q4H PRN IV SEIZURES Last administered on 05/29/17 02:29; Admin Dose 2 MG; Start 05/28/17 at 04:00 Dextrose 1,000 ml @ 50 mls/hr Q20H IV Last administered on 05/28/17 08:12; Admin Dose 50 MLS/HR; Start 05/28/17 at 07:00 Fluconazole/ Sodium Chloride 50 ml @ 50 mls/hr Q24H IVPB Last administered on 13:45; Admin Dose 50 MLS/HR; Start 05/28/17 at 13:30 Vancomycin HCl/ Sodium Chloride (Vancocin/NS) 250 ml @ 83.333 mls/ hr Q12H IVPB Last administered on 05/28/17t 23:12; Admin Dose 83.333 MLS/HR; Start at 23:00 Miscellaneous Information (*Rx Drug Level Order Reminder*) VANCO TROUGH @ 1, 000 ON... ONCE ONCE XX ; Start 05/30/17 at 10:00; Stop 05/30/17 at 10:01 YULIET LUCIA MD May 29, 2017 10:41
--- NOTE | 2017-05-29 11:09 | PN ---
Date/Time of Note Date/Time of Note DATE: 05/29/17 TIME: 11:05 Assessment/Plan VTE Prophylaxis VTE Prophylaxis Intervention: SCD's Lines/Catheters IV Catheter Type (from [facility]): Peripheral IV Urinary Cath still in place: Yes Reason Cath still needed: urinary retention Assessment/Plan Assessment/Plan 1. Acute encephalopathy -metabolic toxic type . Largely resolved. Most probably toxic metabolic in origin. - getting worse - pt now unresponsive 2. Macrocytic anemia. - 2/2 to ESLD s/p EGD - no active bleeding, Distal erosive esophagitis. 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 3. Coagulopathy. 2/2 ESLD - INR very high 4. Decompensated liver cirrhosis 5. Prerenal Nonoliguric acute kidney injury in a patient with unknown baseline creatinine. Largely resolved 6. Chronic Alcohol abuse. 7. Sepsis. Most probably secondary to aspiration pneumonia and Polymicrobial bacteremia. 8. Moderate to large left-sided pleural effusion , US chest showed small effusion on right side, Left side moderate effusion, pt can not have Thoracentesis due to elevated INR 9. Paroxysmal A. fib. Currently in sinus rhythm. Off of Cardizem drip. Cardiology following. PLAN: pt continues to remain unresponsive, now DNR after family meeting downgrade to med/surge floor SCD for DVT prophylaxis Subjective 24 Hr Interval Summary Free Text/Dictation s/p family meeting, now pt is DNR Exam/Review of Systems Vital Signs Vitals Vital Signs Date Time Temp Pulse Resp B/P Pulse Ox O2 Delivery O2 Flow Rate FiO2 05/29/17 08:40 94 21 98 Venti Mask 15.0 50 05/29/17 06:03 149/70 05/29/17 04:00 98.0 Intake and Output 05/28/17 05/28/17 05/29/17 15:00 23:00 07:00 Intake Total 950.0 ml 250 ml 0 ml Output Total 550 ml 950 ml 2300 ml Balance 400.0 ml -700 ml -2300 ml Exam GEN: unrepsonsive HEENT: Head is normocephalic. NECK: Supple. HEART: S1 S2 tachycardia LUNGS: Show diminished breath sounds at base. ABDOMEN: Soft, nontender to palpation without rebound or guarding. EXTREMITIES: Negative for clubbing, cyanosis, no edema. DERMATOLOGIC: No rashes. MUSCULOSKELETAL: No joint effusions. NEUROLOGIC: unresponsive Results Result Diagram: 05/28/17 0605 05/29/17 0610 Results 24 hrs Laboratory Tests Test 05/28/17 15:30 05/29/17 00:32 05/29/17 06:10 Vancomycin Level Trough 24.4 *H Blood Gas Specimen Source Blood arterial Arterial Blood Date Drawn 05/29/2017 12:35:51 AM Arterial Blood pH (Temp corrected) 7.383 Arterial Blood pCO2 (Temp correct) 65.5 H Arterial Blood pO2 (Temp corrected) 154.3 H Arterial Blood HCO3 38.1 H Arterial Blood Base Excess 11.5 H Arterial Blood Oxygen Saturation 99.3 H Cruz Test ACCEPTAB Arterial Blood Gas Puncture Site Right Radial Arterial Blood Carboxyhemoglobin 3.3 H Arterial Blood Methemoglobin 0.6 Blood Gas A-a O2 Differential 92.0 H Oxyhemoglobin Percent 95.4 Total Hemoglobin 8.5 L Blood Gas Temperature 37.0 Blood Gas Actual Respiration Rate 24 Blood Gas Modality MASK - SIMPLE FiO2 45.0 Blood Gas Notified Suzy BAPTISTE RCP Blood Gas Notified Time 05/29/2017 12:47:05 AM Sodium Level 151 H Potassium Level 3.2 L Chloride Level 105 Carbon Dioxide Level 35 H Anion Gap 14 Blood Urea Nitrogen 22 H Creatinine 0.67 Glucose Level 100 Calcium Level 10.8 H Phosphorus Level 3.0 Magnesium Level 1.3 L Medications Medications Current Medications Rifaximin (Xifaxan) 550 mg BID PO Last administered on 05/29/17 09:15; Admin Dose 550 MG; Start 05/17/17 at 09:00 Lactulose (Enulose) 20 gm Q8 PO Last administered on 05/29/17 05:20; Admin Dose 20 GM; Start 05/17/17 at 08:00 Hydralazine HCl (Apresoline) 10 mg Q6H PRN IV SBP>160 Last administered on 05/27 23:20; Admin Dose 10 MG; Start 05/17/17 at 15:30 Diltiazem HCl (Cardizem Cd) 120 mg BID PO Last administered on 05/29/17 09:13 ; Admin Dose 120 MG; Start 05/20/17 at 21:00 Folic Acid (Folic Acid) 1 mg DAILY PO Last administered on 05/29/17 09:13; Admin Dose 1 MG; Start 05/21/17 at 11:00 Multivitamins Therapeutic (Theragran) 1 tab DAILY PO Last administered on 09:13; Admin Dose 1 TAB; Start 05/21/17 at 11:00 Thiamine HCl (Vitamin B1) 100 mg DAILY PO Last administered on 05/29/17 09:14 ; Admin Dose 100 MG; Start 05/21/17 at 11:00 Sodium Phosphate (Neutra-Phos) 250 mg BID PO Last administered on 05/29/17 09: 13; Admin Dose 250 MG; Start 05/23/17 at 10:00 Lorazepam (Ativan) 1 mg Q6H PRN PO AGITATION/ANXIETY; Start 05/24/17 at 16:30 Cyanocobalamin (Vitamin B12) 1,000 mcg DAILY PO Last administered on 05/29/17 09:15; Admin Dose 1,000 MCG; Start 05/25/17 at 11:30 Pantoprazole (Protonix Tab) 40 mg BID@06,18 PO Last administered on 05/28/17 06:06; Admin Dose 40 MG; Start 05/25/17 at 18:00 Morphine Sulfate (morphine) 1 mg Q4H PRN IV Pain; Start 05/26/17 at 16:00 Acetaminophen/ Hydrocodone Bitart 1 tab 1 tab Q4H PRN PO moderate pain Last administered on 05/26/17 17:25; Admin Dose 1 TAB; Start 05/26/17 at 15:00 Albumin Human (Albumin Human 25%) 100 ml @ 100 mls/hr BID IV Last administered on 05/29/17 09:12; Admin Dose 100 MLS/HR; Start 05/27/17 at 12:00 ; Stop 05/29/17 at 11:59 Furosemide 40 mg 40 mg BID IV Last administered on 05/29/17 09:13; Admin Dose 40 MG; Start 05/27/17 at 12:00; Stop 05/29/17 at 11:59 Piperacillin Sod/ Tazobactam Sod (Zosyn 3.375gm/ 100 ml (Pmx)) 100 ml @ 200 mls /hr Q6 IVPB Last administered on 05/29/17 06:00; Admin Dose 200 MLS/HR; Start 05/27/17 at 12:00 Lorazepam 2 mg 2 mg Q4H PRN IV SEIZURES Last administered on 05/29/17 02:29; Admin Dose 2 MG; Start 05/28/17 at 04:00 Dextrose 1,000 ml @ 50 mls/hr Q20H IV Last administered on 05/28/17 08:12; Admin Dose 50 MLS/HR; Start 05/28/17 at 07:00 Fluconazole/ Sodium Chloride 50 ml @ 50 mls/hr Q24H IVPB Last administered on 13:45; Admin Dose 50 MLS/HR; Start 05/28/17 at 13:30 Vancomycin HCl/ Sodium Chloride (Vancocin/NS) 250 ml @ 83.333 mls/ hr Q12H IVPB Last administered on 05/28/17 23:12; Admin Dose 83.333 MLS/HR; Start at 23:00 Miscellaneous Information (*Rx Drug Level Order Reminder*) VANCO TROUGH @ 1, 000 ON... ONCE ONCE XX ; Start 05/30/17 at 10:00; Stop 05/30/17 at 10:01 SAMANTHA EDEN MD May 29, 2017 11:09
[2017-05-29] MEDS: VANCOMYCIN 1.25 GM in SOD CHLORIDE 0.9% 250 ML IVPB SCH (11:58)
--- NOTE | 2017-05-29 13:00 | CONS ---
Date/Time of Note Date/Time of Note DATE: 05/29/17 TIME: 12:57 Assessment/Plan Assessment/Plan Chief Complaint/Hosp Course SUBJECTIVE: No acute changes, patient is lethargic, afebrile, laying comfortably in bed, no seizures Microbiology: Urine culture growing VRE and Debbie albicans Antibiotics: Vancomycin, Zosyn, Diflucan Indwelling: NG tube, Fuentes PHYSICAL EXAMINATION: GENERAL: This is a fragile, chronically ill-appearing, middle-aged man who is obtunded, in no distress. HEENT: Head atraumatic, normocephalic. Sclerae anicteric. Buccal mucosa dry. NECK: Supple, trachea midline. CHEST: Rise symmetrical. Breath sounds diminished to bases. HEART: S1, S2. ABDOMEN: Soft, bowel sounds present. EXTREMITIES: No cyanosis. ASSESSMENT: 1. Sepsis 2. Polymicrobial UTI 2. Acute encephalopathy, likely hepatic, possibly toxic metabolic. 3. Possible aspiration event 3. Bilateral mastoiditis 4. Anemia with thrombocytopenia. 5. Paroxysmal atrial fibrillation. 6. Alcoholic liver cirrhosis with history of alcohol abuse. 7. Status post seizures PLAN: Doing poorly, he is DNR status, we will give a dose of fosfomycin to cover VRE in the urine, continue other antibiotics , anti-seizure and aspiration precautions DW staff Problems: Consultation Date/Type/Reason Admit Date/Time May 13, 2017 at 22:29 Initial Consult Date 05/14/17 Type of Consultation: Infectious disease Referring Provider: MICHELLE CRAFT Exam/Review of Systems Vital Signs Vitals Vital Signs Date Time Temp Pulse Resp B/P Pulse Ox O2 Delivery O2 Flow Rate FiO2 05/29/17 11:00 83 15 142/61 96 Nasal Cannula 6.0 05/29/17 08:40 50 05/29/17 08:00 99.0 Intake and Output 05/28/17 05/28/17 05/29/17 15:00 23:00 07:00 Intake Total 950.0 ml 250 ml 0 ml Output Total 550 ml 950 ml 2300 ml Balance 400.0 ml -700 ml -2300 ml Results Result Diagram: 05/28/17 0605 05/29/17 0610 Results 24 hrs Laboratory Tests Test 05/28/17 15:30 05/29/17 00:32 05/29/17 06:10 Vancomycin Level Trough 24.4 *H Blood Gas Specimen Source Blood arterial Arterial Blood Date Drawn 05/29/2017 12:35:51 AM Arterial Blood pH (Temp corrected) 7.383 Arterial Blood pCO2 (Temp correct) 65.5 H Arterial Blood pO2 (Temp corrected) 154.3 H Arterial Blood HCO3 38.1 H Arterial Blood Base Excess 11.5 H Arterial Blood Oxygen Saturation 99.3 H Cruz Test ACCEPTAB Arterial Blood Gas Puncture Site Right Radial Arterial Blood Carboxyhemoglobin 3.3 H Arterial Blood Methemoglobin 0.6 Blood Gas A-a O2 Differential 92.0 H Oxyhemoglobin Percent 95.4 Total Hemoglobin 8.5 L Blood Gas Temperature 37.0 Blood Gas Actual Respiration Rate 24 Blood Gas Modality MASK - SIMPLE FiO2 45.0 Blood Gas Notified Whom EMILE AGUILAR Blood Gas Notified Time 05/29/2017 12:47:05 AM Sodium Level 151 H Potassium Level 3.2 L Chloride Level 105 Carbon Dioxide Level 35 H Anion Gap 14 Blood Urea Nitrogen 22 H Creatinine 0.67 Glucose Level 100 Calcium Level 10.8 H Phosphorus Level 3.0 Magnesium Level 1.3 L Medications Medications Current Medications Rifaximin (Xifaxan) 550 mg BID PO Last administered on 05/29/17 09:15; Admin Dose 550 MG; Start 05/17/17 at 09:00 Lactulose (Enulose) 20 gm Q8 PO Last administered on 05/29/17 05:20; Admin Dose 20 GM; Start 05/17/17 at 08:00 Hydralazine HCl (Apresoline) 10 mg Q6H PRN IV SBP>160 Last administered on 05/27 23:20; Admin Dose 10 MG; Start 05/17/17 at 15:30 Diltiazem HCl (Cardizem Cd) 120 mg BID PO Last administered on 05/29/17 09:13 ; Admin Dose 120 MG; Start 05/20/17 at 21:00 Folic Acid (Folic Acid) 1 mg DAILY PO Last administered on 05/29/17 09:13; Admin Dose 1 MG; Start 05/21/17 at 11:00 Multivitamins Therapeutic (Theragran) 1 tab DAILY PO Last administered on 09:13; Admin Dose 1 TAB; Start 05/21/17 at 11:00 Thiamine HCl (Vitamin B1) 100 mg DAILY PO Last administered on 05/29/17 09:14 ; Admin Dose 100 MG; Start 05/21/17 at 11:00 Sodium Phosphate (Neutra-Phos) 250 mg BID PO Last administered on 05/29/17 09: 13; Admin Dose 250 MG; Start 05/23/17 at 10:00 Lorazepam (Ativan) 1 mg Q6H PRN PO AGITATION/ANXIETY; Start 05/24/17 at 16:30 Cyanocobalamin (Vitamin B12) 1,000 mcg DAILY PO Last administered on 05/29/17 09:15; Admin Dose 1,000 MCG; Start 05/25/17 at 11:30 Pantoprazole (Protonix Tab) 40 mg BID@06,18 PO Last administered on 05/28/17 06:06; Admin Dose 40 MG; Start 05/25/17 at 18:00 Morphine Sulfate (morphine) 1 mg Q4H PRN IV Pain; Start 05/26/17 at 16:00 Acetaminophen/ Hydrocodone Bitart 1 tab 1 tab Q4H PRN PO moderate pain Last administered on 05/26/17 17:25; Admin Dose 1 TAB; Start 05/26/17 at 15:00 Piperacillin Sod/ Tazobactam Sod (Zosyn 3.375gm/ 100 ml (Pmx)) 100 ml @ 200 mls /hr Q6 IVPB Last administered on 05/29/17 11:58; Admin Dose 200 MLS/HR; Start 05/27/17 at 12:00 Lorazepam 2 mg 2 mg Q4H PRN IV SEIZURES Last administered on 05/29/17 02:29; Admin Dose 2 MG; Start 05/28/17 at 04:00 Dextrose 1,000 ml @ 50 mls/hr Q20H IV Last administered on 05/28/17 08:12; Admin Dose 50 MLS/HR; Start 05/28/17 at 07:00 Fluconazole/ Sodium Chloride 50 ml @ 50 mls/hr Q24H IVPB Last administered on 13:45; Admin Dose 50 MLS/HR; Start 05/28/17 at 13:30 Vancomycin HCl/ Sodium Chloride (Vancocin/NS) 250 ml @ 83.333 mls/ hr Q12H IVPB Last administered on 05/29/17 11:58; Admin Dose 83.333 MLS/HR; Start at 23:00 Miscellaneous Information (*Rx Drug Level Order Reminder*) VANCO TROUGH @ 1, 000 ON... ONCE ONCE XX ; Start 05/30/17 at 10:00; Stop 05/30/17 at 10:01 KARL NGUYEN NP May 29, 2017 13:00
[2017-05-29] MEDS: FLUCONAZOLE 100 MG/NS (PMX) 50 ML IVPB SCH (13:48)
[2017-05-29] MEDS ORDERED: FOSFOMYCIN 3 GM PACKET PO ONE (14:00)
--- NOTE | 2017-05-29 14:10 | CONS ---
Date/Time of Note Date/Time of Note DATE: 05/29/17 TIME: 14:07 Assessment/Plan Assessment/Plan Additional Assessment/Plan Severe anemia status post multiple transfusions Liver failure Acute decompensated diastolic congestive heart failure Coagulopathy Encephalopathy Possible seizure disorder Thrombocytopenia Preserved ejection fraction History of hypertension Acute kidney injury Paroxysmal atrial fibrillation Respiratory failure -Patient still with altered mental status. Made DNR. Fluid management and electrolytes as per our nephrology colleagues. No new cardiac orders at the current time. Consultation Date/Type/Reason Admit Date/Time May 13, 2017 at 22:29 Initial Consult Date 05/14/17 Type of Consultation: cv Referring Provider: MICHELLE CRAFT 24 HR Interval Summary Free Text/Dictation Patient seen and examined, patient made DNR Exam/Review of Systems Vital Signs Vitals Vital Signs Date Time Temp Pulse Resp B/P Pulse Ox O2 Delivery O2 Flow Rate FiO2 05/29/17 12:00 86 05/29/17 11:00 15 142/61 96 Nasal Cannula 6.0 05/29/17 08:40 50 05/29/17 08:00 99.0 Intake and Output 05/28/17 05/28/17 05/29/17 15:00 23:00 07:00 Intake Total 950.0 ml 250 ml 0 ml Output Total 550 ml 950 ml 2300 ml Balance 400.0 ml -700 ml -2300 ml Exam Minimal response to verbal stimuli, no apparent distress, clearly jaundiced Head: normocephalic Respiratory: other (Coarse breath sounds bilaterally, no wheezing) Cardiovascular: other (S1-S2 heard), regular rate and rhythm Gastrointestinal: bowel sounds, non-tender, soft Extremities: edema Results Result Diagram: 05/28/17 0605 05/29/17 0610 Results 24 hrs Laboratory Tests Test 05/28/17 15:30 05/29/17 00:32 05/29/17 06:10 Vancomycin Level Trough 24.4 *H Blood Gas Specimen Source Blood arterial Arterial Blood Date Drawn 05/29/2017 12:35:51 AM Arterial Blood pH (Temp corrected) 7.383 Arterial Blood pCO2 (Temp correct) 65.5 H Arterial Blood pO2 (Temp corrected) 154.3 H Arterial Blood HCO3 38.1 H Arterial Blood Base Excess 11.5 H Arterial Blood Oxygen Saturation 99.3 H Cruz Test ACCEPTAB Arterial Blood Gas Puncture Site Right Radial Arterial Blood Carboxyhemoglobin 3.3 H Arterial Blood Methemoglobin 0.6 Blood Gas A-a O2 Differential 92.0 H Oxyhemoglobin Percent 95.4 Total Hemoglobin 8.5 L Blood Gas Temperature 37.0 Blood Gas Actual Respiration Rate 24 Blood Gas Modality MASK - SIMPLE FiO2 45.0 Blood Gas Notified Whom ErlinDOCHODGE JEFF Blood Gas Notified Time 05/29/2017 12:47:05 AM Sodium Level 151 H Potassium Level 3.2 L Chloride Level 105 Carbon Dioxide Level 35 H Anion Gap 14 Blood Urea Nitrogen 22 H Creatinine 0.67 Glucose Level 100 Calcium Level 10.8 H Phosphorus Level 3.0 Magnesium Level 1.3 L Medications Medications Current Medications Rifaximin (Xifaxan) 550 mg BID PO Last administered on 05/29/17 09:15; Admin Dose 550 MG; Start 05/17/17 at 09:00 Lactulose (Enulose) 20 gm Q8 PO Last administered on 05/29/17 05:20; Admin Dose 20 GM; Start 05/17/17 at 08:00 Hydralazine HCl (Apresoline) 10 mg Q6H PRN IV SBP>160 Last administered on 05/27 23:20; Admin Dose 10 MG; Start 05/17/17 at 15:30 Diltiazem HCl (Cardizem Cd) 120 mg BID PO Last administered on 05/29/17 09:13 ; Admin Dose 120 MG; Start 05/20/17 at 21:00 Folic Acid (Folic Acid) 1 mg DAILY PO Last administered on 05/29/17 09:13; Admin Dose 1 MG; Start 05/21/17 at 11:00 Multivitamins Therapeutic (Theragran) 1 tab DAILY PO Last administered on 09:13; Admin Dose 1 TAB; Start 05/21/17 at 11:00 Thiamine HCl (Vitamin B1) 100 mg DAILY PO Last administered on 05/29/17 09:14 ; Admin Dose 100 MG; Start 05/21/17 at 11:00 Sodium Phosphate (Neutra-Phos) 250 mg BID PO Last administered on 05/29/17 09: 13; Admin Dose 250 MG; Start 05/23/17 at 10:00 Lorazepam (Ativan) 1 mg Q6H PRN PO AGITATION/ANXIETY; Start 05/24/17 at 16:30 Cyanocobalamin (Vitamin B12) 1,000 mcg DAILY PO Last administered on 05/29/17 09:15; Admin Dose 1,000 MCG; Start 05/25/17 at 11:30 Pantoprazole (Protonix Tab) 40 mg BID@06,18 PO Last administered on 05/28/17 06:06; Admin Dose 40 MG; Start 05/25/17 at 18:00 Morphine Sulfate (morphine) 1 mg Q4H PRN IV Pain; Start 05/26/17 at 16:00 Acetaminophen/ Hydrocodone Bitart 1 tab 1 tab Q4H PRN PO moderate pain Last administered on 05/26/17 17:25; Admin Dose 1 TAB; Start 05/26/17 at 15:00 Piperacillin Sod/ Tazobactam Sod (Zosyn 3.375gm/ 100 ml (Pmx)) 100 ml @ 200 mls /hr Q6 IVPB Last administered on 05/29/17 11:58; Admin Dose 200 MLS/HR; Start 05/27/17 at 12:00 Lorazepam 2 mg 2 mg Q4H PRN IV SEIZURES Last administered on 05/29/17 02:29; Admin Dose 2 MG; Start 05/28/17 at 04:00 Dextrose 1,000 ml @ 50 mls/hr Q20H IV Last administered on 05/28/17 08:12; Admin Dose 50 MLS/HR; Start 05/28/17 at 07:00 Fluconazole/ Sodium Chloride 50 ml @ 50 mls/hr Q24H IVPB Last administered on 13:48; Admin Dose 50 MLS/HR; Start 05/28/17 at 13:30 Vancomycin HCl/ Sodium Chloride (Vancocin/NS) 250 ml @ 83.333 mls/ hr Q12H IVPB Last administered on 05/29/17 11:58; Admin Dose 83.333 MLS/HR; Start at 23:00 Miscellaneous Information (*Rx Drug Level Order Reminder*) VANCO TROUGH @ 1, 000 ON... ONCE ONCE XX ; Start 05/30/17 at 10:00; Stop 05/30/17 at 10:01 Fox Marrufo DO May 29, 2017 14:10
[2017-05-29] MEDS ORDERED: ACETAMINOPHEN 650MG/20.3ML CUP NGT ONE (21:00)
[2017-05-29] MEDS: DILTIAZEM 30 MG TAB NGT SCH (23:44)
[2017-05-30] MEDS: VANCOMYCIN 1.25 GM in SOD CHLORIDE 0.9% 250 ML IVPB SCH (01:27)
[2017-05-30] MEDS: DILTIAZEM 30 MG TAB NGT SCH ×6 (01:28→20:36)
[2017-05-30] MEDS: LACTULOSE 30ML CUP PO SCH ×3 (05:29→20:36)
[2017-05-30] MEDS: PANTOPRAZOLE (EC) 40 MG TAB PO SCH ×2 (05:29→17:05)
[2017-05-30] MEDS: PIPER-TAZO 3.375 GM IV (PMX) 100 ML IVPB SCH ×3 (05:29→22:54)
[2017-05-30 06:22] LABS: ABNORMAL IP MESSAGE 1; HEMATOCRIT 22.5 % (42.0-52.0); MEAN CORPUSCULAR HEMOGLOBIN 36.1 pg (29.0-33.0); MEAN CORPUSCULAR HGB CONC 31.1 g/dl (32.0-37.0); MEAN PLATELET VOLUME 10.9 fl (7.4-10.4); RED BLOOD COUNT 1.94 10^6/ul (4.70-6.10); RED CELL DISTRIBUTION WIDTH 23.8 % (11.5-14.5)
[2017-05-30 06:52] LABS: PLATELET COUNT 59 10^3/UL (140-415)
[2017-05-30 06:53] LABS: CALCIUM 11.1 mg/dl (8.4-10.2); CREATININE 0.65 mg/dl (0.61-1.24); MAGNESIUM 1.6 mg/dl (1.7-2.5); PHOSPHORUS 2.4 mg/dl (2.5-4.9); POTASSIUM 3.2 mmol/L (3.5-5.1)
[2017-05-30 07:30] VITALS: BP 154/66; RESP 17
[2017-05-30] MEDS: ALBUTEROL 0.083% (NEB) 2.5 MG/3 ML AMP HHN SCH ×3 (08:00→19:22)
[2017-05-30] MEDS: RIFAXIMIN 550 MG TAB PO SCH ×2 (08:37→20:36)
[2017-05-30] MEDS: NEUTRA-PHOS 250 MG PACKET PO SCH ×2 (08:37→20:36)
[2017-05-30] MEDS: MULTIVITAMINS THERAPEUTIC TAB PO SCH (08:37)
[2017-05-30] MEDS: CYANOCOBALAMIN 500 MCG TAB PO SCH (08:37)
[2017-05-30] MEDS: THIAMINE 100 MG TAB PO SCH (08:37)
[2017-05-30] MEDS: FOLIC ACID 1 MG TAB PO SCH (08:37)
[2017-05-30 09:53] LABS: EOSINOPHILS # 0.2 10^3/ul (0.0-0.5); LYMPHOCYTES # 0.6 10^3/ul (0.8-2.9); MONOCYTE # 0.4 10^3/ul (0.3-0.9); MYELOCYTES # 0.1; NEUTROPHIL # 5.5 10^3/ul (1.6-7.5); PLATELET ESTIMATE PLT APPEAR DECREASED
[2017-05-30 09:57] LABS: ADD SCAN DIFF NO
--- NOTE | 2017-05-30 10:19 | PN ---
Date/Time of Note Date/Time of Note DATE: 05/30/17 TIME: 10:17 Assessment/Plan VTE Prophylaxis VTE Prophylaxis Intervention: SCD's Lines/Catheters IV Catheter Type (from Nrs): Peripheral IV Urinary Cath still in place: Yes Reason Cath still needed: terminal illness/intractable pain Assessment/Plan Assessment/Plan 1. Acute encephalopathy -metabolic toxic type . Largely resolved. Most probably toxic metabolic in origin. - getting worse - pt now unresponsive 2. Macrocytic anemia. - 2/2 to ESLD s/p EGD - no active bleeding, Distal erosive esophagitis. 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 3. Coagulopathy. 2/2 ESLD - INR very high 4. Decompensated liver cirrhosis 5. Prerenal Nonoliguric acute kidney injury in a patient with unknown baseline creatinine. Largely resolved 6. Chronic Alcohol abuse. 7. Sepsis. Most probably secondary to aspiration pneumonia and Polymicrobial bacteremia. 8. Moderate to large left-sided pleural effusion , US chest showed small effusion on right side, Left side moderate effusion, pt can not have Thoracentesis due to elevated INR 9. Paroxysmal A. fib. Currently in sinus rhythm. Off of Cardizem drip. Cardiology following. PLAN: pt continues to remain unresponsive, now DNR after family meeting downgraded to med/surge floor SCD for DVT prophylaxis Palliative care to follow up on family decisoin about Comfort care Subjective 24 Hr Interval Summary Free Text/Dictation no acute events, BP stable, afebrile Exam/Review of Systems Vital Signs Vitals Vital Signs Date Time Temp Pulse Resp B/P Pulse Ox O2 Delivery O2 Flow Rate FiO2 05/30/17 07:30 99.3 81 17 154/66 92 05/29/17 21:38 4.0 05/29/17 21:38 Nasal Cannula 05/29/17 08:40 50 Intake and Output 05/29/17 05/29/17 05/30/17 15:00 23:00 07:00 Intake Total 600 ml 300 ml 1150 ml Output Total 1330 ml 640 ml 1200 ml Balance -730 ml -340 ml -50 ml Exam GEN: unrepsonsive HEENT: Head is normocephalic. NECK: Supple. HEART: S1 S2 tachycardia LUNGS: Show diminished breath sounds at base. ABDOMEN: Soft, nontender to palpation without rebound or guarding. EXTREMITIES: Negative for clubbing, cyanosis, no edema. DERMATOLOGIC: No rashes. MUSCULOSKELETAL: No joint effusions. NEUROLOGIC: unresponsive Results Result Diagram: 05/30/17 0430 05/30/17 0445 Results 24 hrs Laboratory Tests Test 05/30/17 04:30 05/30/17 04:45 White Blood Count 7.0 # Red Blood Count 1.94 L Hemoglobin 7.0 L Hematocrit 22.5 L Mean Corpuscular Volume 116.0 H Mean Corpuscular Hemoglobin 36.1 H Mean Corpuscular Hemoglobin Concent 31.1 L Red Cell Distribution Width 23.8 H Platelet Count 59 #L Mean Platelet Volume 10.9 H Neutrophils % 79.0 H Band Neutrophils % 2.0 Lymphocytes % 8.0 L Monocytes % 6.0 Eosinophils % 3.0 Myelocytes % 2.0 H Neutrophils # 5.5 Lymphocytes # 0.6 L Monocytes # 0.4 Eosinophils # 0.2 Myelocytes # 0.1 Differential Comment MANUAL DIFF Platelet Estimate PLT APPEAR DECREASED Macrocytosis 2+ Sodium Level 154 H Potassium Level 3.2 L Chloride Level 110 Carbon Dioxide Level 34 H Anion Gap 13 Blood Urea Nitrogen 22 H Creatinine 0.65 Glucose Level 78 Calcium Level 11.1 H Phosphorus Level 2.4 L Magnesium Level 1.6 L Medications Medications Current Medications Rifaximin (Xifaxan) 550 mg BID PO Last administered on 05/30/17 08:37; Admin Dose 550 MG; Start 05/17/17 at 09:00 Lactulose (Enulose) 20 gm Q8 PO Last administered on 05/30/17 05:29; Admin Dose 20 GM; Start 05/17/17 at 08:00 Hydralazine HCl (Apresoline) 10 mg Q6H PRN IV SBP>160 Last administered on 05/27 23:20; Admin Dose 10 MG; Start 05/17/17 at 15:30 Folic Acid (Folic Acid) 1 mg DAILY PO Last administered on 05/30/17 08:37; Admin Dose 1 MG; Start 05/21/17 at 11:00 Multivitamins Therapeutic (Theragran) 1 tab DAILY PO Last administered on 08:37; Admin Dose 1 TAB; Start 05/21/17 at 11:00 Thiamine HCl (Vitamin B1) 100 mg DAILY PO Last administered on 05/30/17 08:37 ; Admin Dose 100 MG; Start 05/21/17 at 11:00 Sodium Phosphate (Neutra-Phos) 250 mg BID PO Last administered on 05/30/17 08: 37; Admin Dose 250 MG; Start 05/23/17 at 10:00 Lorazepam (Ativan) 1 mg Q6H PRN PO AGITATION/ANXIETY Last administered on 08:37; Admin Dose 1 MG; Start 05/24/17 at 16:30 Cyanocobalamin (Vitamin B12) 1,000 mcg DAILY PO Last administered on 05/30/17 08:37; Admin Dose 1,000 MCG; Start 05/25/17 at 11:30 Pantoprazole (Protonix Tab) 40 mg BID@06,18 PO Last administered on 05/30/17 05:29; Admin Dose 40 MG; Start 05/25/17 at 18:00 Morphine Sulfate (morphine) 1 mg Q4H PRN IV Pain; Start 05/26/17 at 16:00 Acetaminophen/ Hydrocodone Bitart 1 tab 1 tab Q4H PRN PO moderate pain Last administered on 05/26/17 17:25; Admin Dose 1 TAB; Start 05/26/17 at 15:00 Piperacillin Sod/ Tazobactam Sod (Zosyn 3.375gm/ 100 ml (Pmx)) 100 ml @ 200 mls /hr Q6 IVPB Last administered on 05/30/17 05:29; Admin Dose 200 MLS/HR; Start 05/27/17 at 12:00 Lorazepam 2 mg 2 mg Q4H PRN IV SEIZURES Last administered on 05/29/17 22:02; Admin Dose 2 MG; Start 05/28/17 at 04:00 Dextrose 1,000 ml @ 50 mls/hr Q20H IV Last administered on 05/29/17 23:45; Admin Dose 50 MLS/HR; Start 05/28/17 at 07:00 Fluconazole/ Sodium Chloride 50 ml @ 50 mls/hr Q24H IVPB Last administered on 13:48; Admin Dose 50 MLS/HR; Start 05/28/17 at 13:30 Vancomycin HCl/ Sodium Chloride (Vancocin/NS) 250 ml @ 83.333 mls/ hr Q12H IVPB Last administered on 05/30/17 01:27; Admin Dose 83.333 MLS/HR; Start at 23:00 Diltiazem HCl (Cardizem) 30 mg Q4 NGT Last administered on 05/30/17 05:29; Admin Dose 30 MG; Start 05/29/17 at 22:30 SAMANTHA EDEN MD May 30, 2017 10:19
--- NOTE | 2017-05-30 10:40 | PN ---
Date/Time of Note Date/Time of Note DATE: 05/30/17 TIME: 10:38 Assessment/Plan Lines/Catheters IV Catheter Type (from [facility]): Peripheral IV Urinary Cath still in place: Yes Assessment/Plan Chief Complaint/Hosp Course 1. Nonoliguric acute kidney injury with unknown baseline creatinine. Etiology secondary to hemodynamics. Renal function has stabilized. Continue current treatment, supportive care, renally dose all medicines. 2. Hyponatremia. Continue D5W at current rate. We will start free water flushes 300 cc every 4 hours 2. Volume overload, improving. continue Lasix 3. Hypomagnesemia/hypokalemia. Continue to monitor and replete. 4. Anemia. Continue to monitor hemoglobin and hematocrit levels. 6. Acute encephalopathy. No clinical improvement. Patient continues to be obtunded. Concerning for possible seizure. Likely hepatic encephalopathy contributing factor. Patient had status post 2 CT scans no acute findings. Continue antiseizure medications. Follow-up with neurology for recommendations. 5. Mineral bone disorder. Continue to monitor calcium and phosphorus levels. 6. Transaminitis and hyperbilirubinemia secondary to alcoholic liver disease. Continue to monitor. 7. Atrial fibrillation, rate controlled. Continue medical management. 9. Sepsis secondary to bacteremia. Continue antibiotic regimen. 10. History of ethyl alcohol use. Problems: Subjective 24 Hr Interval Summary Free Text/Dictation Patient is critically ill obtunded. Family at bedside. Considering possible hospice care. Exam/Review of Systems Vital Signs Vitals Vital Signs Date Time Temp Pulse Resp B/P Pulse Ox O2 Delivery O2 Flow Rate FiO2 05/30/17 09:55 Nasal Cannula 05/30/17 07:30 99.3 81 17 154/66 92 05/29/17 21:38 4.0 05/29/17 08:40 50 Intake and Output 05/29/17 05/29/17 05/30/17 15:00 23:00 07:00 Intake Total 600 ml 300 ml 1150 ml Output Total 1330 ml 640 ml 1200 ml Balance -730 ml -340 ml -50 ml Exam Generally patient is confused altered HEENT head is normocephalic pupils are reactive Lungs show diminished breath sounds bases otherwise clear Abdomen soft nontender palpation rebound guarding Heart regular rate no gallops clicks Extremities are negative for clubbing cyanosis positive edema Dermatologically patient's jaundice Neurologically limited exam due to lack of patient cooperation Results Result Diagram: 6/30/17 0430 05/30/17 0445 Results 24 hrs Laboratory Tests Test 05/30/17 04:30 05/30/17 04:45 White Blood Count 7.0 # Red Blood Count 1.94 L Hemoglobin 7.0 L Hematocrit 22.5 L Mean Corpuscular Volume 116.0 H Mean Corpuscular Hemoglobin 36.1 H Mean Corpuscular Hemoglobin Concent 31.1 L Red Cell Distribution Width 23.8 H Platelet Count 59 #L Mean Platelet Volume 10.9 H Neutrophils % 79.0 H Band Neutrophils % 2.0 Lymphocytes % 8.0 L Monocytes % 6.0 Eosinophils % 3.0 Myelocytes % 2.0 H Neutrophils # 5.5 Lymphocytes # 0.6 L Monocytes # 0.4 Eosinophils # 0.2 Myelocytes # 0.1 Differential Comment MANUAL DIFF Platelet Estimate PLT APPEAR DECREASED Macrocytosis 2+ Sodium Level 154 H Potassium Level 3.2 L Chloride Level 110 Carbon Dioxide Level 34 H Anion Gap 13 Blood Urea Nitrogen 22 H Creatinine 0.65 Glucose Level 78 Calcium Level 11.1 H Phosphorus Level 2.4 L Magnesium Level 1.6 L Medications Medications Current Medications Rifaximin (Xifaxan) 550 mg BID PO Last administered on 05/30/17 08:37; Admin Dose 550 MG; Start 05/17/17 at 09:00 Lactulose (Enulose) 20 gm Q8 PO Last administered on 05/30/17 05:29; Admin Dose 20 GM; Start 05/17/17 at 08:00 Hydralazine HCl (Apresoline) 10 mg Q6H PRN IV SBP>160 Last administered on 05/27 23:20; Admin Dose 10 MG; Start 05/17/17 at 15:30 Folic Acid (Folic Acid) 1 mg DAILY PO Last administered on 05/30/17 08:37; Admin Dose 1 MG; Start 05/21/17 at 11:00 Multivitamins Therapeutic (Theragran) 1 tab DAILY PO Last administered on 08:37; Admin Dose 1 TAB; Start 05/21/17 at 11:00 Thiamine HCl (Vitamin B1) 100 mg DAILY PO Last administered on 05/30/17 08:37 ; Admin Dose 100 MG; Start 05/21/17 at 11:00 Sodium Phosphate (Neutra-Phos) 250 mg BID PO Last administered on 05/30/17 08: 37; Admin Dose 250 MG; Start 05/23/17 at 10:00 Lorazepam (Ativan) 1 mg Q6H PRN PO AGITATION/ANXIETY Last administered on 08:37; Admin Dose 1 MG; Start 05/24/17 at 16:30 Cyanocobalamin (Vitamin B12) 1,000 mcg DAILY PO Last administered on 05/30/17 08:37; Admin Dose 1,000 MCG; Start 05/25/17 at 11:30 Pantoprazole (Protonix Tab) 40 mg BID@06,18 PO Last administered on 05/30/17 05:29; Admin Dose 40 MG; Start 05/25/17 at 18:00 Morphine Sulfate (morphine) 1 mg Q4H PRN IV Pain; Start 05/26/17 at 16:00 Acetaminophen/ Hydrocodone Bitart 1 tab 1 tab Q4H PRN PO moderate pain Last administered on 05/26/17 17:25; Admin Dose 1 TAB; Start 05/26/17 at 15:00 Piperacillin Sod/ Tazobactam Sod (Zosyn 3.375gm/ 100 ml (Pmx)) 100 ml @ 200 mls /hr Q6 IVPB Last administered on 05/30/17 05:29; Admin Dose 200 MLS/HR; Start 05/27/17 at 12:00 Lorazepam 2 mg 2 mg Q4H PRN IV SEIZURES Last administered on 05/29/17 22:02; Admin Dose 2 MG; Start 05/28/17 at 04:00 Fluconazole/ Sodium Chloride 50 ml @ 50 mls/hr Q24H IVPB Last administered on 13:48; Admin Dose 50 MLS/HR; Start 05/28/17 at 13:30 Vancomycin HCl/ Sodium Chloride (Vancocin/NS) 250 ml @ 83.333 mls/ hr Q12H IVPB Last administered on 05/30/17 01:27; Admin Dose 83.333 MLS/HR; Start at 23:00 Diltiazem HCl 30 mg 30 mg Q4 NGT Last administered on 05/30/17 05:29; Admin Dose 30 MG; Start 05/29/17 at 22:30 Potassium Chloride 20 meq/ Sodium Chloride 110 ml @ 55 mls/hr ONCE ONCE IVPB ; Start 05/30/17 at 12:00; Stop 05/30/17 at 13:59 Magnesium Sulfate 50 ml @ 25 mls/hr ONCE ONCE IVPB ; Start 05/30/17 at 11:00; Stop 05/30/17 at 12:59 Potassium Chloride/Dextrose (D5W + KCl 20 Meq) 1,000 ml @ 50 mls/hr Q20H IV ; Start 05/30/17 at 10:30 ESTEFANIA ZELAYA DO May 30, 2017 10:39
[2017-05-30] MEDS ORDERED: MAGNESIUM SULFATE 2 GM/50 ML 50 ML IVPB ONE (11:00)
--- NOTE | 2017-05-30 11:43 | CONS ---
Date/Time of Note Date/Time of Note DATE: 05/30/17 TIME: 11:42 Assessment/Plan Assessment/Plan Additional Assessment/Plan Severe anemia status post multiple transfusions Liver failure Acute decompensated diastolic congestive heart failure Coagulopathy Encephalopathy Possible seizure disorder Thrombocytopenia Preserved ejection fraction History of hypertension Acute kidney injury Paroxysmal atrial fibrillation Respiratory failure -Patient undergoing inpatient hospice evaluation. No new cardiac orders at the current time. Consultation Date/Type/Reason Admit Date/Time May 13, 2017 at 22:29 Initial Consult Date 05/14/17 Type of Consultation: cv Referring Provider: MICHELLE CRAFT 24 HR Interval Summary Free Text/Dictation Patient seen and examined. Undergoing inpatient hospice evaluation Exam/Review of Systems Vital Signs Vitals Vital Signs Date Time Temp Pulse Resp B/P Pulse Ox O2 Delivery O2 Flow Rate FiO2 05/30/17 09:55 Nasal Cannula 05/30/17 07:30 99.3 81 17 154/66 92 05/29/17 21:38 4.0 05/29/17 08:40 50 Intake and Output 05/29/17 05/29/17 05/30/17 15:00 23:00 07:00 Intake Total 600 ml 300 ml 1150 ml Output Total 1330 ml 640 ml 1200 ml Balance -730 ml -340 ml -50 ml Exam Altered, clearly jaundice, dyspneic Head: normocephalic Respiratory: other (Coarse breath sounds bilaterally, no wheezing) Cardiovascular: other (S1-S2 heard), regular rate and rhythm (Tachycardia) Gastrointestinal: bowel sounds, other (No grimacing with palpation), soft Extremities: edema Results Result Diagram: 05/30/17 0430 05/30/17 0445 Results 24 hrs Laboratory Tests Test 05/30/17 04:30 05/30/17 04:45 White Blood Count 7.0 # Red Blood Count 1.94 L Hemoglobin 7.0 L Hematocrit 22.5 L Mean Corpuscular Volume 116.0 H Mean Corpuscular Hemoglobin 36.1 H Mean Corpuscular Hemoglobin Concent 31.1 L Red Cell Distribution Width 23.8 H Platelet Count 59 #L Mean Platelet Volume 10.9 H Neutrophils % 79.0 H Band Neutrophils % 2.0 Lymphocytes % 8.0 L Monocytes % 6.0 Eosinophils % 3.0 Myelocytes % 2.0 H Neutrophils # 5.5 Lymphocytes # 0.6 L Monocytes # 0.4 Eosinophils # 0.2 Myelocytes # 0.1 Differential Comment MANUAL DIFF Platelet Estimate PLT APPEAR DECREASED Macrocytosis 2+ Sodium Level 154 H Potassium Level 3.2 L Chloride Level 110 Carbon Dioxide Level 34 H Anion Gap 13 Blood Urea Nitrogen 22 H Creatinine 0.65 Glucose Level 78 Calcium Level 11.1 H Phosphorus Level 2.4 L Magnesium Level 1.6 L Medications Medications Current Medications Rifaximin (Xifaxan) 550 mg BID PO Last administered on 05/30/17 08:37; Admin Dose 550 MG; Start 05/17/17 at 09:00 Lactulose (Enulose) 20 gm Q8 PO Last administered on 05/30/17 05:29; Admin Dose 20 GM; Start 05/17/17 at 08:00 Hydralazine HCl (Apresoline) 10 mg Q6H PRN IV SBP>160 Last administered on 05/27 23:20; Admin Dose 10 MG; Start 05/17/17 at 15:30 Folic Acid (Folic Acid) 1 mg DAILY PO Last administered on 05/30/17 08:37; Admin Dose 1 MG; Start 05/21/17 at 11:00 Multivitamins Therapeutic (Theragran) 1 tab DAILY PO Last administered on 08:37; Admin Dose 1 TAB; Start 05/21/17 at 11:00 Thiamine HCl (Vitamin B1) 100 mg DAILY PO Last administered on 05/30/17 08:37 ; Admin Dose 100 MG; Start 05/21/17 at 11:00 Sodium Phosphate (Neutra-Phos) 250 mg BID PO Last administered on 05/30/17 08: 37; Admin Dose 250 MG; Start 05/23/17 at 10:00 Lorazepam (Ativan) 1 mg Q6H PRN PO AGITATION/ANXIETY Last administered on 08:37; Admin Dose 1 MG; Start 05/24/17 at 16:30 Cyanocobalamin (Vitamin B12) 1,000 mcg DAILY PO Last administered on 05/30/17 08:37; Admin Dose 1,000 MCG; Start 05/25/17 at 11:30 Pantoprazole (Protonix Tab) 40 mg BID@,18 PO Last administered on 05/30/17 05:29; Admin Dose 40 MG; Start 05/25/17 at 18:00 Morphine Sulfate (morphine) 1 mg Q4H PRN IV Pain; Start 05/26/17 at 16:00 Acetaminophen/ Hydrocodone Bitart 1 tab 1 tab Q4H PRN PO moderate pain Last administered on 05/26/17 17:25; Admin Dose 1 TAB; Start 05/26/17 at 15:00 Piperacillin Sod/ Tazobactam Sod (Zosyn 3.375gm/ 100 ml (Pmx)) 100 ml @ 200 mls /hr Q6 IVPB Last administered on 05/30/17 11:37; Admin Dose 200 MLS/HR; Start 05/27/17 at 12:00 Lorazepam 2 mg 2 mg Q4H PRN IV SEIZURES Last administered on 05/29/17 22:02; Admin Dose 2 MG; Start 05/28/17 at 04:00 Fluconazole/ Sodium Chloride 50 ml @ 50 mls/hr Q24H IVPB Last administered on 13:48; Admin Dose 50 MLS/HR; Start 05/28/17 at 13:30 Vancomycin HCl/ Sodium Chloride (Vancocin/NS) 250 ml @ 83.333 mls/ hr Q12H IVPB Last administered on 05/30/17 01:27; Admin Dose 83.333 MLS/HR; Start at 23:00 Diltiazem HCl 30 mg 30 mg Q4 NGT Last administered on 05/30/17 05:29; Admin Dose 30 MG; Start 05/29/17 at 22:30 Potassium Chloride 20 meq/ Sodium Chloride 110 ml @ 55 mls/hr ONCE ONCE IVPB ; Start 05/30/17 at 12:00; Stop 05/30/17 at 13:59 Magnesium Sulfate 50 ml @ 25 mls/hr ONCE ONCE IVPB ; Start 05/30/17 at 11:00; Stop 05/30/17 at 12:59 Potassium Chloride/Dextrose (D5W + KCl 20 Meq) 1,000 ml @ 50 mls/hr Q20H IV ; Start 05/30/17 at 10:30 Fox Marrufo DO May 30, 2017 11:43
[2017-05-30] MEDS: D5W + KCL 20 MEQ 1,000 ML IV SCH (12:00)
[2017-05-30] MEDS ORDERED: POTASSIUM CHLORIDE 20 MEQ in SOD CHLORIDE 0.9% 100 ML IVPB ONE (12:00)
--- NOTE | 2017-05-30 13:07 | CONS ---
Date/Time of Note Date/Time of Note DATE: 05/30/17 TIME: 13:06 Assessment/Plan Assessment/Plan Chief Complaint/Hosp Course Assessment 1. Liver failure,acute 2. Anemia EGD . Distal erosive esophagitis. . 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 No evidence of significant esophageal varices. Gastritis. Rule out Helicobacter pylori infection. 3. Cirrhosis of liver 4. History of alcoholic abuse 5. Atrial fibrillation resolved Plan - trend liver enzymes - Monitor hemoglobin and hematocrit Q 6 transfuse per protocol - continue Protonix 40 mg bid - Continue supportive therapy - prognosis is poor - Agree with DNR status Problems: Consultation Date/Type/Reason Admit Date/Time May 13, 2017 at 22:29 Initial Consult Date 05/14/17 Type of Consultation: GI Referring Provider: MICHELLE CRAFT 24 HR Interval Summary Subjective hx not possible: pt non-verbal Exam/Review of Systems Vital Signs Vitals Vital Signs Date Time Temp Pulse Resp B/P Pulse Ox O2 Delivery O2 Flow Rate FiO2 05/30/17 09:55 Nasal Cannula 05/30/17 07:30 99.3 81 17 154/66 92 05/29/17 21:38 4.0 05/29/17 08:40 50 Intake and Output 05/29/17 05/29/17 05/30/17 15:00 23:00 07:00 Intake Total 600 ml 300 ml 1150 ml Output Total 1330 ml 640 ml 1200 ml Balance -730 ml -340 ml -50 ml Exam Constitutional: non-verbal Psych: confusion Head: atraumatic, normocephalic Eyes: icteric, nl lids ENMT: nl external ears & nose, nl lips & teeth, nl nasal mucosa & septum Neck: non-tender, supple Respiratory: clear to auscultation, normal air movement Cardiovascular: nl pulses, regular rate and rhythm Gastrointestinal: bowel sounds, non-tender, soft Results Result Diagram: 05/30/17 0430 05/30/17 0445 Results 24 hrs Laboratory Tests Test 05/30/17 04:30 05/30/17 04:45 05/30/17 10:25 White Blood Count 7.0 # Red Blood Count 1.94 L Hemoglobin 7.0 L Hematocrit 22.5 L Mean Corpuscular Volume 116.0 H Mean Corpuscular Hemoglobin 36.1 H Mean Corpuscular Hemoglobin Concent 31.1 L Red Cell Distribution Width 23.8 H Platelet Count 59 #L Mean Platelet Volume 10.9 H Neutrophils % 79.0 H Band Neutrophils % 2.0 Lymphocytes % 8.0 L Monocytes % 6.0 Eosinophils % 3.0 Myelocytes % 2.0 H Neutrophils # 5.5 Lymphocytes # 0.6 L Monocytes # 0.4 Eosinophils # 0.2 Myelocytes # 0.1 Differential Comment MANUAL DIFF Platelet Estimate PLT APPEAR DECREASED Macrocytosis 2+ Sodium Level 154 H Potassium Level 3.2 L Chloride Level 110 Carbon Dioxide Level 34 H Anion Gap 13 Blood Urea Nitrogen 22 H Creatinine 0.65 Glucose Level 78 Calcium Level 11.1 H Phosphorus Level 2.4 L Magnesium Level 1.6 L Vancomycin Level Trough 20.6 *H Medications Medications Current Medications Rifaximin (Xifaxan) 550 mg BID PO Last administered on 05/30/17 08:37; Admin Dose 550 MG; Start 05/17/17 at 09:00 Lactulose (Enulose) 20 gm Q8 PO Last administered on 05/30/17 05:29; Admin Dose 20 GM; Start 05/17/17 at 08:00 Hydralazine HCl (Apresoline) 10 mg Q6H PRN IV SBP>160 Last administered on 05/27 23:20; Admin Dose 10 MG; Start 05/17/17 at 15:30 Folic Acid (Folic Acid) 1 mg DAILY PO Last administered on 05/30/17 08:37; Admin Dose 1 MG; Start 05/21/17 at 11:00 Multivitamins Therapeutic (Theragran) 1 tab DAILY PO Last administered on 08:37; Admin Dose 1 TAB; Start 05/21/17 at 11:00 Thiamine HCl (Vitamin B1) 100 mg DAILY PO Last administered on 05/30/17 08:37 ; Admin Dose 100 MG; Start 05/21/17 at 11:00 Sodium Phosphate (Neutra-Phos) 250 mg BID PO Last administered on 05/30/17 08: 37; Admin Dose 250 MG; Start 05/23/17 at 10:00 Lorazepam (Ativan) 1 mg Q6H PRN PO AGITATION/ANXIETY Last administered on 08:37; Admin Dose 1 MG; Start 05/24/17 at 16:30 Cyanocobalamin (Vitamin B12) 1,000 mcg DAILY PO Last administered on 05/30/17 08:37; Admin Dose 1,000 MCG; Start 05/25/17 at 11:30 Pantoprazole (Protonix Tab) 40 mg BID@06,18 PO Last administered on 05/30/17 05:29; Admin Dose 40 MG; Start 05/25/17 at 18:00 Morphine Sulfate (morphine) 1 mg Q4H PRN IV Pain; Start 05/26/17 at 16:00 Acetaminophen/ Hydrocodone Bitart 1 tab 1 tab Q4H PRN PO moderate pain Last administered on 05/26/17 17:25; Admin Dose 1 TAB; Start 05/26/17 at 15:00 Piperacillin Sod/ Tazobactam Sod (Zosyn 3.375gm/ 100 ml (Pmx)) 100 ml @ 200 mls /hr Q6 IVPB Last administered on 05/30/17 11:37; Admin Dose 200 MLS/HR; Start 05/27/17 at 12:00 Lorazepam 2 mg 2 mg Q4H PRN IV SEIZURES Last administered on 05/29/17 22:02; Admin Dose 2 MG; Start 05/28/17 at 04:00 Fluconazole/ Sodium Chloride (Diflucan 100 Mg/ NS (Pmx)) 50 ml @ 50 mls/hr Q24H IVPB Last administered on 05/29/17 13:48; Admin Dose 50 MLS/HR; Start at 13:30 Diltiazem HCl 30 mg 30 mg Q4 NGT Last administered on 05/30/17 05:29; Admin Dose 30 MG; Start 05/29/17 at 22:30 Potassium Chloride 20 meq/ Sodium Chloride 110 ml @ 55 mls/hr ONCE ONCE IVPB ; Start 05/30/17 at 12:00; Stop 05/30/17 at 13:59 Potassium Chloride/Dextrose (D5W + KCl 20 Meq) 1,000 ml @ 50 mls/hr Q20H IV Last administered on 05/30/17 12:00; Admin Dose 50 MLS/HR; Start 05/30/17 at 10 :30 YULIET LUCIA MD May 30, 2017 13:06
[2017-05-30] MEDS: FLUCONAZOLE 100 MG/NS (PMX) 50 ML IVPB SCH (13:30)
--- NOTE | 2017-05-30 15:59 | CONS ---
Date/Time of Note Date/Time of Note DATE: 05/30/17 TIME: 15:56 Assessment/Plan Assessment/Plan Chief Complaint/Hosp Course SUBJECTIVE: No acute changes, patient is lethargic, afebrile, family at bedside Microbiology: Urine culture growing VRE and Debbie albicans Antibiotics: Vancomycin, Zosyn, Diflucan Indwelling: NG tube, Fuentes PHYSICAL EXAMINATION: GENERAL: This is a fragile, chronically ill-appearing, middle-aged man who is obtunded, in no distress. HEENT: Head atraumatic, normocephalic. Sclerae anicteric. Buccal mucosa dry. NECK: Supple, trachea midline. CHEST: Rise symmetrical. Breath sounds diminished to bases. HEART: S1, S2. ABDOMEN: Soft, bowel sounds present. EXTREMITIES: No cyanosis. ASSESSMENT: 1. Sepsis 2. Polymicrobial UTI==> status post fosfomycin dose for VRE UTI 2. Acute encephalopathy, likely hepatic, possibly toxic metabolic. 3. Possible aspiration event 3. Bilateral mastoiditis 4. Anemia with thrombocytopenia. 5. Paroxysmal atrial fibrillation. 6. Alcoholic liver cirrhosis with history of alcohol abuse. 7. Status post seizures PLAN: Doing poorly, continue present care, patient is DNR status, await for family"s decision for final plan of care [facility] staff Problems: Consultation Date/Type/Reason Admit Date/Time May 13, 2017 at 22:29 Initial Consult Date 05/14/17 Type of Consultation: Infectious disease Referring Provider: MICHELLE CRAFT Exam/Review of Systems Vital Signs Vitals Vital Signs Date Time Temp Pulse Resp B/P Pulse Ox O2 Delivery O2 Flow Rate FiO2 05/30/17 09:55 Nasal Cannula 05/30/17 07:30 99.3 81 17 154/66 92 05/29/17 21:38 4.0 05/29/17 08:40 50 Intake and Output 05/29/17 05/29/17 05/30/17 15:00 23:00 07:00 Intake Total 600 ml 300 ml 1150 ml Output Total 1330 ml 640 ml 1200 ml Balance -730 ml -340 ml -50 ml Results Result Diagram: 05/30/17 0430 05/30/17 0445 Results 24 hrs Laboratory Tests Test 05/30/17 04:30 05/30/17 04:45 05/30/17 10:25 White Blood Count 7.0 # Red Blood Count 1.94 L Hemoglobin 7.0 L Hematocrit 22.5 L Mean Corpuscular Volume 116.0 H Mean Corpuscular Hemoglobin 36.1 H Mean Corpuscular Hemoglobin Concent 31.1 L Red Cell Distribution Width 23.8 H Platelet Count 59 #L Mean Platelet Volume 10.9 H Neutrophils % 79.0 H Band Neutrophils % 2.0 Lymphocytes % 8.0 L Monocytes % 6.0 Eosinophils % 3.0 Myelocytes % 2.0 H Neutrophils # 5.5 Lymphocytes # 0.6 L Monocytes # 0.4 Eosinophils # 0.2 Myelocytes # 0.1 Differential Comment MANUAL DIFF Platelet Estimate PLT APPEAR DECREASED Macrocytosis 2+ Sodium Level 154 H Potassium Level 3.2 L Chloride Level 110 Carbon Dioxide Level 34 H Anion Gap 13 Blood Urea Nitrogen 22 H Creatinine 0.65 Glucose Level 78 Calcium Level 11.1 H Phosphorus Level 2.4 L Magnesium Level 1.6 L Vancomycin Level Trough 20.6 *H Medications Medications Current Medications Rifaximin (Xifaxan) 550 mg BID PO Last administered on 05/30/17 08:37; Admin Dose 550 MG; Start 05/17/17 at 09:00 Lactulose (Enulose) 20 gm Q8 PO Last administered on 05/30/17 14:00; Admin Dose 20 GM; Start 05/17/17 at 08:00 Hydralazine HCl (Apresoline) 10 mg Q6H PRN IV SBP>160 Last administered on 05/27 23:20; Admin Dose 10 MG; Start 05/17/17 at 15:30 Folic Acid (Folic Acid) 1 mg DAILY PO Last administered on 05/30/17 08:37; Admin Dose 1 MG; Start 05/21/17 at 11:00 Multivitamins Therapeutic (Theragran) 1 tab DAILY PO Last administered on 08:37; Admin Dose 1 TAB; Start 05/21/17 at 11:00 Thiamine HCl (Vitamin B1) 100 mg DAILY PO Last administered on 05/30/17 08:37 ; Admin Dose 100 MG; Start 05/21/17 at 11:00 Sodium Phosphate (Neutra-Phos) 250 mg BID PO Last administered on 05/30/17 08: 37; Admin Dose 250 MG; Start 05/23/17 at 10:00 Lorazepam (Ativan) 1 mg Q6H PRN PO AGITATION/ANXIETY Last administered on 08:37; Admin Dose 1 MG; Start 05/24/17 at 16:30 Cyanocobalamin (Vitamin B12) 1,000 mcg DAILY PO Last administered on 05/30/17 08:37; Admin Dose 1,000 MCG; Start 05/25/17 at 11:30 Pantoprazole (Protonix Tab) 40 mg BID@06,18 PO Last administered on 05/30/17 05:29; Admin Dose 40 MG; Start 05/25/17 at 18:00 Morphine Sulfate (morphine) 1 mg Q4H PRN IV Pain; Start 05/26/17 at 16:00 Acetaminophen/ Hydrocodone Bitart 1 tab 1 tab Q4H PRN PO moderate pain Last administered on 05/26/17 17:25; Admin Dose 1 TAB; Start 05/26/17 at 15:00 Piperacillin Sod/ Tazobactam Sod (Zosyn 3.375gm/ 100 ml (Pmx)) 100 ml @ 200 mls /hr Q6 IVPB Last administered on 05/30/17 11:37; Admin Dose 200 MLS/HR; Start 05/27/17 at 12:00 Lorazepam 2 mg 2 mg Q4H PRN IV SEIZURES Last administered on 05/29/17 22:02; Admin Dose 2 MG; Start 05/28/17 at 04:00 Fluconazole/ Sodium Chloride (Diflucan 100 Mg/ NS (Pmx)) 50 ml @ 50 mls/hr Q24H IVPB Last administered on 05/30/17 13:30; Admin Dose 50 MLS/HR; Start at 13:30 Diltiazem HCl 30 mg 30 mg Q4 NGT Last administered on 05/30/17 05:29; Admin Dose 30 MG; Start 05/29/17 at 22:30 Potassium Chloride/Dextrose (D5W + KCl 20 Meq) 1,000 ml @ 50 mls/hr Q20H IV Last administered on 05/30/17 12:00; Admin Dose 50 MLS/HR; Start 05/30/17 at 10 :30 KARL NGUYEN NP May 30, 2017 15:59
[2017-05-30] MEDS: VANCOMYCIN 750 MG in SOD CHLORIDE 0.9% 150 ML IVPB SCH (20:48)
[2017-05-30 21:26] VITALS: BP 142/66; RESP 16
[2017-05-30] MEDS: LORAZEPAM 2 MG INJ IV PRN (23:50)
[2017-05-31] MEDS: DILTIAZEM 30 MG TAB NGT SCH ×2 (00:21→05:00)
[2017-05-31] MEDS: PIPER-TAZO 3.375 GM IV (PMX) 100 ML IVPB SCH ×2 (02:22→08:03)
[2017-05-31] MEDS: LACTULOSE 30ML CUP PO SCH (05:08)
[2017-05-31] MEDS: PANTOPRAZOLE (EC) 40 MG TAB PO SCH (05:08)
[2017-05-31] MEDS: VANCOMYCIN 750 MG in SOD CHLORIDE 0.9% 150 ML IVPB SCH (05:18)
[2017-05-31 05:36] LABS: CALCIUM 11.5 mg/dl (8.4-10.2); CREATININE 0.64 mg/dl (0.61-1.24); POTASSIUM 3.5 mmol/L (3.5-5.1)
[2017-05-31] MEDS: D5W + KCL 20 MEQ 1,000 ML IV SCH ×2 (06:30→17:10)
[2017-05-31] MEDS: ALBUTEROL 0.083% (NEB) 2.5 MG/3 ML AMP HHN SCH ×3 (07:10→20:28)
[2017-05-31 07:25] VITALS: BP 153/68; RESP 30
[2017-05-31] MEDS ORDERED: SCOPOLAMINE 1.5 MG PATCH TRANSDERM SCH (10:00)
[2017-05-31] MEDS ORDERED: ALBUTEROL/IPRATROPIUM (NEB) 3 ML AMP HHN PRN (10:00)
[2017-05-31] MEDS ORDERED: morphine 2 MG INJ IV PRN (10:00)
[2017-05-31] MEDS ORDERED: ARTIFICIAL TEARS 15 ML OPH BOTH EYES PRN ×2 (10:00)
[2017-05-31] MEDS ORDERED: DIMETHICONE STICK TOP PRN ×2 (10:00)
[2017-05-31] MEDS ORDERED: ONDANSETRON (ODT) 4 MG TAB ODT PRN (10:00)
[2017-05-31] MEDS ORDERED: LORAZEPAM 1 MG TAB PO PRN (10:00)
[2017-05-31] MEDS ORDERED: ATROPINE 1% 5 ML OPH SL PRN (10:00)
--- NOTE | 2017-05-31 13:47 | DS ---
Date/Time of Note Date/Time of Note DATE: 05/31/17 TIME: 13:47 Discharge Summary Admission/Discharge Info Admit Date/Time May 13, 2017 at 22:29 Discharge Date/Time 05/31/2017 Discharge Diagnosis 1. Acute encephalopathy -metabolic toxic type . Largely resolved. Most probably toxic metabolic in origin. - getting worse - pt now unresponsive 2. Macrocytic anemia. - 2/2 to ESLD s/p EGD - no active bleeding, Distal erosive esophagitis. 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 3. Coagulopathy. 2/2 ESLD - INR very high 4. Decompensated liver cirrhosis 5. Prerenal Nonoliguric acute kidney injury in a patient with unknown baseline creatinine. Largely resolved 6. Chronic Alcohol abuse. 7. Sepsis. Most probably secondary to aspiration pneumonia and Polymicrobial bacteremia. 8. Moderate to large left-sided pleural effusion , US chest showed small effusion on right side, Left side moderate effusion, pt can not have Thoracentesis due to elevated INR 9. Paroxysmal A. fib. Currently in sinus rhythm. Off of Cardizem drip. Cardiology following. Patient Condition: Serious Consults Nephrology consult Palliative care consult GI Consult Dr.David Leigh Cardiology consult Hx of Present Illness Chief complaint: Altered mental status 52-year-old male with unknown past medical history brought in by ambulance for altered mental status. Per EMS, he was found by his friends at home on the ground with empty pill bottles around him and alcohol bottles. Patient only selectively answers questions and he is very somnolent and confused. He does admit to drinking alcohol and having hypertension, but does not answer any other questions appropriately as per the ED physician. Upon my examination patient was easily arousable however patient did appear confused and not able to answer questions appropriately. Allergies: NKDA Medications: See JAN Hospital Course pt continue to remained altered lethargic, did not improved mentally. treated with IV abx, and lactulose Had a discussion with patient sister, pt has advanced directive and wished to have comfort care After Discussion with pt sister, and also talking to pt friends, he was made DNR and transferred to [facility] comfort care service. Home Meds Reported Medications Oxycodone HCl/Acetaminophen (Percocet 10-325 mg Tablet) 1 Each Tablet, 1 EACH PO Q8H, TAB 05/13/17 Oxycodone Hcl* (Oxycontin*) 15 Mg Tab.sr.12h, 15 MG PO Q12, TAB 05/13/17 Furosemide* (Furosemide*) 20 Mg Tablet, 20 MG PO DAILY, #60 TAB 05/13/17 Alprazolam* (Alprazolam*) 0.5 Mg Tablet, 0.5 MG PO QHS Y for ANXIETY, TAB TAKE 1 OR 2 TAB NEEDED 05/13/17 Atenolol* (Atenolol*) 50 Mg Tablet, 50 MG PO DAILY, #30 TAB 05/13/17 Follow-up Plan Follow up by Hospice care physician Primary Care Provider Care Physician No Primary Time spent on discharge: > 30 minutes Pending Labs Laboratory Tests Test 05/31/17 04:25 Sodium Level 158mmol/L (135-144) Potassium Level 3.5mmol/L (3.5-5.1) Chloride Level 109mmol/L (97-110) Carbon Dioxide Level 35mmol/L (21-31) Anion Gap 18 (8-16) Blood Urea Nitrogen 19mg/dl (7-20) Creatinine 0.64mg/dl (0.61-1.24) Glucose Level 97mg/dl (70-220) Calcium Level 11.5mg/dl (8.4-10.2) SAMANTHA EDEN MD May 31, 2017 13:47 SAMANTHA EDEN MD May 31, 2017 13:47
[2017-05-31] MEDS: morphine 2 MG INJ IV SCH ×2 (17:10→22:22)
[2017-05-31 21:45] VITALS: BP 169/79; RESP 20
--- NOTE | 2017-05-31 22:20 | CONS ---
Date/Time of Note Date/Time of Note DATE: 05/31/17 TIME: 22:19 Assessment/Plan Assessment/Plan Chief Complaint/Hosp Course Assessment 1. Liver failure,acute 2. Anemia EGD . Distal erosive esophagitis. . 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 No evidence of significant esophageal varices. Gastritis. Rule out Helicobacter pylori infection. 3. Cirrhosis of liver 4. History of alcoholic abuse 5. Atrial fibrillation resolved Plan - trend liver enzymes - Monitor hemoglobin and hematocrit Q 6 transfuse per protocol - continue Protonix 40 mg bid - Continue supportive therapy - prognosis is poor - Agree with DNR status - GI will sign off now. Please call for any questions. Problems: Consultation Date/Type/Reason Admit Date/Time May 13, 2017 at 22:29 Initial Consult Date 05/14/17 Type of Consultation: GI Referring Provider: MICHELLE CRAFT 24 HR Interval Summary Subjective hx not possible: pt non-verbal Exam/Review of Systems Vital Signs Vitals Vital Signs Date Time Temp Pulse Resp B/P Pulse Ox O2 Delivery O2 Flow Rate FiO2 05/31/17 21:45 99.3 88 20 169/79 93 05/31/17 20:29 Nasal Cannula 4.0 05/29/17 08:40 50 Intake and Output 05/30/17 05/30/17 05/31/17 15:00 23:00 07:00 Intake Total 450 ml 500 ml 550 ml Output Total 450 ml 800 ml Balance 450 ml 50 ml -250 ml Exam Constitutional: non-verbal Psych: confusion Head: atraumatic, normocephalic Eyes: EOMI, nl conjunctiva, nl lids ENMT: nl external ears & nose, nl lips & teeth, nl nasal mucosa & septum Neck: non-tender, supple Respiratory: clear to auscultation, normal air movement Cardiovascular: nl pulses, regular rate and rhythm Gastrointestinal: bowel sounds, soft Results Result Diagram: 05/30/17 0430 05/31/17 0425 Results 24 hrs Laboratory Tests Test 05/31/17 04:25 Sodium Level 158 H Potassium Level 3.5 Chloride Level 109 Carbon Dioxide Level 35 H Anion Gap 18 H Blood Urea Nitrogen 19 Creatinine 0.64 Glucose Level 97 Calcium Level 11.5 H Medications Medications Current Medications Lorazepam 1 mg 1 mg Q6H PRN PO AGITATION/ANXIETY Last administered on t 08:37; Admin Dose 1 MG; Start 05/24/17 at 16:30 Potassium Chloride/Dextrose (D5W + KCl 20 Meq) 1,000 ml @ 50 mls/hr Q20H IV Last administered on 05/31/17 17:10; Admin Dose 50 MLS/HR; Start 05/30/17 at 10: 30 Morphine Sulfate (morphine) 1 mg Q1H PRN IV PAIN/DYSPNEA; Start 05/31/17 at 10: 00 Lorazepam (Ativan) 2 mg Q4H PRN PO ANXIETY/SEIZURES; Start 05/31/17 at 10:00 Ondansetron HCl (Zofran Odt) 4 mg Q6H PRN ODT NAUSEA AND/OR VOMITING; Start 05/31/17 at 10:00 Scopolamine (Transderm-Scop) 1 patch Q72H TRANSDERM Last administered on 12:27; Admin Dose 1 PATCH; Start 05/31/17 at 10:00 Atropine Sulfate (Atropine 1% Oph) 2 drop Q4H PRN SL TERMINAL CONGESTION; Start 05/31/17 at 10:00 Morphine Sulfate (morphine) 2 mg Q4 IV Last administered on 05/31/17 17:10; Admin Dose 2 MG; Start 05/31/17 at 17:00 YULIET ULCIA MD May 31, 2017 22:20
--- NOTE | 2017-05-31 23:20 | HP ---
Date/Time of Note Date/Time of Note DATE: 05/31/17 TIME: 22:55 Assessment/Plan VTE Prophylaxis VTE Prophylaxis Intervention: SCD's Lines/Catheters IV Catheter Type (from Nrs): Peripheral IV Urinary Cath still in place: Yes Reason Cath still needed: terminal illness/intractable pain Assessment/Plan Chief Complaint/Hosp Course Problems: Assessment/Plan 1. ESLD with hepatic encephalopathy 1. Sepsis 2. Polymicrobial UTI==> status post fosfomycin dose for VRE UTI 2. Acute encephalopathy, likely hepatic, possibly toxic metabolic. 3. Possible aspiration event 3. Bilateral mastoiditis 4. Anemia with thrombocytopenia. 5. Paroxysmal atrial fibrillation. 6. Alcoholic liver cirrhosis with history of alcohol abuse. 7. Status post seizures Plan: Enrolled in hospice care D/c all PO meds Morphine 2mg IV Q 4hr ATC and every 2 hr prn IV ativan Scopolamine drop, atropine drops Discussed wiht family and friends again at bedside will cointinue to follow up Total time spent in History and physicial for [facility] service is more than 90 minutes HPI/ROS Admit Date/Time Admit Date/Time May- ADMISSION TO [facility] SERVICE Hx of Present Illness 52-year-old male with unknown past medical history who was brought into [facility] emergency room by EMS services due to altered mental status. The patient's history is obtained by reviewing medical records as patient is altered , unable to give history. Patient apparently was found by his friends at home with empty bottles of alcohol. The patient was somnolent and confused. As a result, he came to the emergency room for evaluation. Upon arrival to the emergency room, the patient had laboratory data drawn, which showed a BUN of 62 , creatinine 2.52 and the bilirubin 13.9. The patient was noted to have a hemoglobin of 4.2 and white count 14.5. In the emergency room, the patient was also noted to have INR 7.07. In the emergency room, the patient was given vitamin K, FFP and was typed and crossed and transfused PRBCs and placed on octreotide and Protonix drip as well as antibiotic therapy. The patient was subsequently admitted to telemetry for evaluation. He did not improved, he was transferred back to ICU for AMS, sepsis and hypotension pt was treated with IV abx for sepsis, he was followed up by Cardiology service , GI service, had a EGD done - he did not improve, he has advance directive in chart that says not to prolong his life. discussed with family and he was made DNR, transferered to Med/surge floor . after consenting pt family and friends, he was enrolled in [facility] Comfort care ROS ENT: bleeding, congestion, discharge, dysphagia, no complaints, other, pain, sore throat Neurologic: confusion, dizziness, focal-weakness, headache, no complaints, other, seizure, syncope Psychological: confusion PMH/Family/Social Past Medical History Medical History: hypertension Social History Alcohol Use: heavy Smoking Status: Unknown if ever smoked Exam/Review of Systems Vital Signs Vitals Vital Signs Date Time Temp Pulse Resp B/P Pulse Ox O2 Delivery O2 Flow Rate FiO2 05/31/17 21:45 99.3 88 20 169/79 93 05/31/17 20:29 Nasal Cannula 4.0 05/29/17 08:40 50 Intake and Output 05/30/17 05/30/17 05/31/17 15:00 23:00 07:00 Intake Total 450 ml 500 ml 550 ml Output Total 450 ml 800 ml Balance 450 ml 50 ml -250 ml Exam Constitutional: non-verbal, other (lethraic, opens eye to verbal stimuli but not following commands ) Head: normocephalic Eyes: other (Jaundice ) ENMT: nl external ears & nose Neck: non-tender, supple Respiratory: congested cough, crackles/rales, diminished breath sounds Cardiovascular: regular rate and rhythm Gastrointestinal: non-tender, soft Musculoskeletal: other Extremities: normal pulses Neurological: lethargic, unresponsive Lymph: nl lymph nodes Labs Result Diagram: 05/30/17 0430 05/31/17 0425 Medications Medications Current Medications Lorazepam 1 mg 1 mg Q6H PRN PO AGITATION/ANXIETY Last administered on 08:37; Admin Dose 1 MG; Start 05/24/17 at 16:30 Potassium Chloride/Dextrose (D5W + KCl 20 Meq) 1,000 ml @ 50 mls/hr Q20H IV Last administered on 05/31/17 17:10; Admin Dose 50 MLS/HR; Start 05/30/17 at 10: 30 Morphine Sulfate (morphine) 1 mg Q1H PRN IV PAIN/DYSPNEA; Start 05/31/17 at 10: 00 Lorazepam (Ativan) 2 mg Q4H PRN PO ANXIETY/SEIZURES; Start 05/31/17 at 10:00 Ondansetron HCl (Zofran Odt) 4 mg Q6H PRN ODT NAUSEA AND/OR VOMITING; Start 05/31/17 at 10:00 Scopolamine (Transderm-Scop) 1 patch Q72H TRANSDERM Last administered on 12:27; Admin Dose 1 PATCH; Start 05/31/17 at 10:00 Atropine Sulfate (Atropine 1% Oph) 2 drop Q4H PRN SL TERMINAL CONGESTION; Start 05/31/17 at 10:00 Morphine Sulfate (morphine) 2 mg Q4 IV Last administered on 05/31/17 22:22; Admin Dose 2 MG; Start 05/31/17 at 17:00 SAMANTHA EDEN MD May 31, 2017 23:20
[2017-06-01] MEDS: morphine 2 MG INJ IV SCH ×3 (02:07→11:02)
[2017-06-01 07:35] VITALS: BP 162/96; RESP 26
[2017-06-01] MEDS: ALBUTEROL 0.083% (NEB) 2.5 MG/3 ML AMP HHN SCH ×3 (10:21→20:14)
[2017-06-01] MEDS: D5W + KCL 20 MEQ 1,000 ML IV SCH ×2 (13:41→22:10)
--- NOTE | 2017-06-01 15:30 | PN ---
Date/Time of Note Date/Time of Note DATE: 06/01/17 TIME: 15:29 Assessment/Plan VTE Prophylaxis VTE Prophylaxis Intervention: SCD's Lines/Catheters IV Catheter Type (from Nrsg): Peripheral IV Urinary Cath still in place: Yes Reason Cath still needed: terminal illness/intractable pain Assessment/Plan Chief Complaint/Hosp Course Problems: Assessment/Plan 1. ESLD with hepatic encephalopathy 1. Sepsis 2. Polymicrobial UTI==> status post fosfomycin dose for VRE UTI 2. Acute encephalopathy, likely hepatic, possibly toxic metabolic. 3. Possible aspiration event 3. Bilateral mastoiditis 4. Anemia with thrombocytopenia. 5. Paroxysmal atrial fibrillation. 6. Alcoholic liver cirrhosis with history of alcohol abuse. 7. Status post seizures Plan: Morphine 4 mg IV Q 4hr ATC and every 2 hr prn IV ativan 2mg Q 6 hr AND PRN Scopolamine drop, atropine drops Discussed wiht family and friends again at bedside will cointinue to follow up Subjective 24 Hr Interval Summary Free Text/Dictation pt grimace with pain, opens eye but he did not open eye to me Exam/Review of Systems Vital Signs Vitals Vital Signs Date Time Temp Pulse Resp B/P Pulse Ox O2 Delivery O2 Flow Rate FiO2 06/01/17 14:45 18 92 Nasal Cannula 4.0 06/01/17 07:35 99.1 86 162/96 05/29/17 08:40 50 Intake and Output 05/31/17 05/31/17 06/01/17 15:00 23:00 07:00 Intake Total 100 ml 600 ml 0 ml Output Total 650 ml 650 ml Balance 100 ml -50 ml -650 ml Exam Constitutional: non-verbal, other (lethraic, opens eye to verbal stimuli but not following commands ) Head: normocephalic Eyes: other (Jaundice ) ENMT: nl external ears & nose Neck: non-tender, supple Respiratory: congested cough, crackles/rales, diminished breath sounds Cardiovascular: regular rate and rhythm Gastrointestinal: non-tender, soft Musculoskeletal: other Extremities: normal pulses Neurological: lethargic, unresponsive Lymph: nl lymph nodes Results Result Diagram: 05/30/17 0430 05/31/17 0425 Medications Medications Current Medications Lorazepam 1 mg 1 mg Q6H PRN PO AGITATION/ANXIETY Last administered on t 08:37; Admin Dose 1 MG; Start 6/24/17 at 16:30 Potassium Chloride/Dextrose (D5W + KCl 20 Meq) 1,000 ml @ 50 mls/hr Q20H IV Last administered on 06/01/17 13:41; Admin Dose 50 MLS/HR; Start 05/30/17 at 10: 30 Morphine Sulfate (morphine) 1 mg Q1H PRN IV PAIN/DYSPNEA Last administered on 14:11; Admin Dose 1 MG; Start 05/31/17 at 10:00 Lorazepam (Ativan) 2 mg Q4H PRN PO ANXIETY/SEIZURES; Start 05/31/17 at 10:00 Ondansetron HCl (Zofran Odt) 4 mg Q6H PRN ODT NAUSEA AND/OR VOMITING; Start 05/31/17 at 10:00 Scopolamine (Transderm-Scop) 1 patch Q72H TRANSDERM Last administered on 12:27; Admin Dose 1 PATCH; Start 05/31/17 at 10:00 Atropine Sulfate (Atropine 1% Oph) 2 drop Q4H PRN SL TERMINAL CONGESTION; Start 05/31/17 at 10:00 Morphine Sulfate (morphine) 2 mg Q4 IV Last administered on 06/01/17 11:02; Admin Dose 2 MG; Start 05/31/17 at 17:00 SAMANTHA EDEN MD Jun 01, 2017 15:30
[2017-06-01] MEDS: morphine 4 MG/ML VIAL IV SCH ×2 (16:52→21:03)
[2017-06-01] MEDS: LORAZEPAM 2 MG INJ IV SCH ×2 (17:00→22:10)
[2017-06-01] MEDS ORDERED: ACETAMINOPHEN 1000MG/100ML IV 100 ML IVPB ONE (21:00)
[2017-06-02] MEDS: morphine 4 MG/ML VIAL IV SCH ×3 (01:16→09:48)
[2017-06-02] MEDS: LORAZEPAM 2 MG INJ IV SCH ×4 (04:03→20:58)
[2017-06-02 07:00] VITALS: BP 166/79; RESP 20
[2017-06-02] MEDS: ALBUTEROL 0.083% (NEB) 2.5 MG/3 ML AMP HHN SCH (08:52)
[2017-06-02 09:45] VITALS: RESP 24
[2017-06-02] MEDS ORDERED: ALBUTEROL/IPRATROPIUM (NEB) 3 ML AMP HHN PRN (13:00)
[2017-06-02] MEDS ORDERED: morphine (DRIP) 100 MG/100 ML 100 ML IV SCH (13:00)
[2017-06-02] MEDS: ALBUTEROL 0.083% (NEB) 2.5 MG/3 ML AMP HHN PRN (15:41)
--- NOTE | 2017-06-02 18:47 | PN ---
Date/Time of Note Date/Time of Note DATE: 06/02/17 TIME: 18:45 Assessment/Plan VTE Prophylaxis VTE Prophylaxis Intervention: SCD's Lines/Catheters IV Catheter Type (from Nrsg): Peripheral IV Urinary Cath still in place: Yes Reason Cath still needed: terminal illness/intractable pain Assessment/Plan Chief Complaint/Hosp Course Problems: Assessment/Plan 1. ESLD with hepatic encephalopathy 1. Sepsis 2. Polymicrobial UTI==> status post fosfomycin dose for VRE UTI 2. Acute encephalopathy, likely hepatic, possibly toxic metabolic. 3. Possible aspiration event 3. Bilateral mastoiditis 4. Anemia with thrombocytopenia. 5. Paroxysmal atrial fibrillation. 6. Alcoholic liver cirrhosis with history of alcohol abuse. 7. Status post seizures Plan: change to morphine gtt IV ativan 2mg Q 6 hr AND PRN Scopolamine drop, atropine drops Discussed wiht family and friends again at bedside will cointinue to follow up Subjective 24 Hr Interval Summary Free Text/Dictation pt tachypenic, started on morphine gtt Exam/Review of Systems Vital Signs Vitals Vital Signs Date Time Temp Pulse Resp B/P Pulse Ox O2 Delivery O2 Flow Rate FiO2 06/02/17 17:06 95 8.0 06/02/17 15:42 105 20 Simple Mask 06/02/17 07:00 99.9 166/79 05/29/17 08:40 50 Intake and Output 06/01/17 06/01/17 06/02/17 14:59 22:59 06:59 Intake Total 500 ml 350 ml Output Total 550 ml 350 ml Balance -50 ml 0 ml Exam Constitutional: unresponsive Head: normocephalic Eyes: other (Jaundice ) ENMT: nl external ears & nose Neck: non-tender, supple Respiratory: congested cough, crackles/rales, diminished breath sounds Cardiovascular: regular rate and rhythm Gastrointestinal: non-tender, soft Musculoskeletal: other Extremities: normal pulses Neurological: unresponsive Lymph: nl lymph nodes Results Result Diagram: 05/30/17 0430 05/31/17 0425 Medications Medications Current Medications Ondansetron HCl (Zofran Odt) 4 mg Q6H PRN ODT NAUSEA AND/OR VOMITING; Start 05/31/17 at 10:00 Scopolamine (Transderm-Scop) 1 patch Q72H TRANSDERM Last administered on t 12:27; Admin Dose 1 PATCH; Start 05/31/17 at 10:00 Atropine Sulfate (Atropine 1% Oph) 2 drop Q4H PRN SL TERMINAL CONGESTION; Start 05/31/17 at 10:00 Lorazepam 2 mg 2 mg Q6H IV Last administered on 06/02/17 09:48; Admin Dose 2 MG ; Start 06/01/17 at 15:30 Morphine Sulfate/ Sodium Chloride (morphine) 100 ml @ 2 mls/hr TITRATE IV Last administered on 06/02/17 12:37; Admin Dose 2 MLS/HR; Start 06/02/17 at 13:00 Albuterol (Proventil 0.083% (Neb)) 2.5 mg Q2 PRN HHN SHORTNESS OF BREATH Last administered on 06/02/17 15:41; Admin Dose 2.5 MG; Start 06/02/17 at 15:00 SAMANTHA EDEN MD Jun 02, 2017 18:47
[2017-06-03] MEDS: ALBUTEROL 0.083% (NEB) 2.5 MG/3 ML AMP HHN PRN ×2 (01:05→03:48)
[2017-06-03] MEDS: LORAZEPAM 2 MG INJ IV SCH (03:17)
--- NOTE | 2017-06-03 06:11 | EN ---
Date/Time of Note Date/Time of Note DATE: 06/03/17 TIME: 06:10 Event Note Medicine Medicine Event Note Pronouncement Note Patient seen and examined at the bedside. Patient non responsive to verbal commands. Patient non responsive to vigorous sternal rub. Patient non- responsive to noxious tactile stimuli. Pupils fixed and non-reactive to light bilaterally. No heart sounds or chest wall rise appreciated. Patient pronounced at approximately 5:47 AM. Family/Friends present at the bedside. Primary team aware. MICHELLE CRAFT Jun 03, 2017 06:11
--- NOTE | 2017-06-03 23:22 | DES ---
Date/Time of Note Date/Time of Note DATE: 06/03/17 TIME: 23:19 Discharge/ Summary Admission/Discharge Info Admit Date/Time May 13, 2017 at 22:29 Discharge Date/Time Jun 03, 2017 at 05:47 Final Diagnosis 1. ESLD with hepatic encephalopathy 1. Sepsis 2. Polymicrobial UTI==> status post fosfomycin dose for VRE UTI 2. Acute encephalopathy, likely hepatic, possibly toxic metabolic. 3. Possible aspiration event 3. Bilateral mastoiditis 4. Anemia with thrombocytopenia. 5. Paroxysmal atrial fibrillation. 6. Alcoholic liver cirrhosis with history of alcohol abuse. 7. Status post seizures Preliminary Cause of Cardiorespiratory arrest Septic shock Urosepsis other diagnosis: End stage Liver disease alcoholic liver cirrhosis Hx of Present Illness 52-year-old male with unknown past medical history who was brought into [facility] emergency room by EMS services due to altered mental status. The patient's history is obtained by reviewing medical records as patient is altered , unable to give history. Patient apparently was found by his friends at home with empty bottles of alcohol. The patient was somnolent and confused. As a result, he came to the emergency room for evaluation. Upon arrival to the emergency room, the patient had laboratory data drawn, which showed a BUN of 62 , creatinine 2.52 and the bilirubin 13.9. The patient was noted to have a hemoglobin of 4.2 and white count 14.5. In the emergency room, the patient was also noted to have INR 7.07. In the emergency room, the patient was given vitamin K, FFP and was typed and crossed and transfused PRBCs and placed on octreotide and Protonix drip as well as antibiotic therapy. The patient was subsequently admitted to telemetry for evaluation. He did not improved, he was transferred back to ICU for AMS, sepsis and hypotension pt was treated with IV abx for sepsis, he was followed up by Cardiology service , GI service, had a EGD done - he did not improve, he has advance directive in chart that says not to prolong his life. discussed with family and he was made DNR, transferered to Med/surge floor . after consenting pt family and friends, he was enrolled in [facility] Comfort care He was started on morphine gtt and he on 06/03/17 Hospital Course 52-year-old male with unknown past medical history who was brought into [facility] emergency room by EMS services due to altered mental status. The patient's history is obtained by reviewing medical records as patient is altered , unable to give history. Patient apparently was found by his friends at home with empty bottles of alcohol. The patient was somnolent and confused. As a result, he came to the emergency room for evaluation. Upon arrival to the emergency room, the patient had laboratory data drawn, which showed a BUN of 62 , creatinine 2.52 and the bilirubin 13.9. The patient was noted to have a hemoglobin of 4.2 and white count 14.5. In the emergency room, the patient was also noted to have INR 7.07. In the emergency room, the patient was given vitamin K, FFP and was typed and crossed and transfused PRBCs and placed on octreotide and Protonix drip as well as antibiotic therapy. The patient was subsequently admitted to telemetry for evaluation. He did not improved, he was transferred back to ICU for AMS, sepsis and hypotension pt was treated with IV abx for sepsis, he was followed up by Cardiology service , GI service, had a EGD done - he did not improve, he has advance directive in chart that says not to prolong his life. discussed with family and he was made DNR, transferered to Med/surge floor . after consenting pt family and friends, he was enrolled in [facility] Comfort care He was started on morphine gtt and he on 06/03/17 [facility] service was contacted and Family was counselled about it. Autopsy Request Indications None SAMANTHA EDEN MD Jun 03, 2017 23:22
== END 2017-06-03 05:47 | disposition expired | DRG 441 ==
LOC: E/R 19:26 → MS4 22:29 → ICU 05-16 12:19 → MS4 05-21 19:03 → ICU 05-27 13:26 → PP2 05-29 15:26 → MS1 06-01 21:24
PROVIDERS: ADMIT Family Medicine; ATTEND Internal Medicine Nephrology
PROC: 30233N1 Transfusion of Nonautologous Red Blood Cells into Peripheral Vein, Percutaneous Approach (ICD-10-PCS; 2017-05-13)
PROC: 30233K1 Transfusion of Nonautologous Frozen Plasma into Peripheral Vein, Percutaneous Approach (ICD-10-PCS; 2017-05-16)
PROC: 0DJ08ZZ Inspection of Upper Intestinal Tract, Via Natural or Artificial Opening Endoscopic (ICD-10-PCS; principal; 2017-05-23 18:00)
DX: K72.90 Hepatic failure, unspecified without coma (principal); A41.9 Sepsis, unspecified organism; I46.9 Cardiac arrest, cause unspecified; J96.90 Respiratory failure, unspecified, unspecified whether with hypoxia or hypercapnia; R65.21 Severe sepsis with septic shock; G92 Toxic encephalopathy; I50.33 Acute on chronic diastolic (congestive) heart failure; L89.152 Pressure ulcer of sacral region, stage 2; K29.71 Gastritis, unspecified, with bleeding; J18.9 Pneumonia, unspecified organism; E87.0 Hyperosmolality and hypernatremia; D68.9 Coagulation defect, unspecified; N17.9 Acute kidney failure, unspecified; N39.0 Urinary tract infection, site not specified; D53.9 Nutritional anemia, unspecified; B95.2 Enterococcus as the cause of diseases classified elsewhere; Z16.21 Resistance to vancomycin; H70.93 Unspecified mastoiditis, bilateral; I48.0 Paroxysmal atrial fibrillation; K70.30 Alcoholic cirrhosis of liver without ascites; F10.20 Alcohol dependence, uncomplicated; R56.9 Unspecified convulsions; Z66 Do not resuscitate; Z51.5 Encounter for palliative care; M89.9 Disorder of bone, unspecified; E83.89 Other disorders of mineral metabolism; D69.6 Thrombocytopenia, unspecified; R94.31 Abnormal electrocardiogram [ECG] [EKG]; R16.1 Splenomegaly, not elsewhere classified; E87.6 Hypokalemia; E83.39 Other disorders of phosphorus metabolism; I11.0 Hypertensive heart disease with heart failure; K22.70 Barrett's esophagus without dysplasia
CPT/HCPCS: 36415; 36430; 36600; 70450; 71010; 72125; 74000; 74176; 76604; 76705; 76775; 80048; 80053; 80061; 80076; 80202; 80306; 80307; 81001; 81003; 82043; 82103; 82105; 82140; 82550; 82553; 82607; 82728; 82746; 82803; 83010; 83036; 83540; 83615; 83735; 84100; 84155; 84300; 84425; 84436; 84443; 84466; 84479; 84484; 85014; 85018; 85025; 85045; 85610; 85730; 86644; 86704; 86706; 86708; 86709; 86803; 86850; 86900; 86901; 86920; 86945; 87040; 87086; 87340; 92610; 93005; 93306; 94640; 94664; 96365; 96366; 96375; 96376; J1940; C9113; J0131; J0360; J0692; J0696; J1450; J1953; J1956; J2060; J2270; J2354; J2543; J3370; J3411; J3475; J3480; J7030; J7040; J7050; J7070; P9016; P9047; P9059